=== PATIENT | male | born 1975 | race Caucasian/White ===

== ENCOUNTER 2017-04-16 19:36 | Emergency (ER) | payer MEDICARE, MEDICAID ==
[~2017-04-16 19:36] MED LIST: DEPA500T3 PO; DIVA250ER PO; REME30TA PO; RISP2TAB37 PO; TRAM50TA PO
[2017-04-16 19:38] VITALS: BP 169/76; PULSE 88; RESP 16; TEMP 98.5; O2SAT 99
[2017-04-16] MEDS ORDERED: CIPROFLOXACIN 400 MG PREMIX 200 ML IV ONE (20:00)
[2017-04-16] MEDS ORDERED: metroNIDAZOLE 500 MG INJ 100 ML IV ONE (20:00)
[2017-04-16] MEDS ORDERED: ONDANSETRON HCL 4 MG/2 ML VIAL IV ONE (20:00)
[2017-04-16] MEDS ORDERED: KETOROLAC TROMETHAMINE 30 MG/ML (IVP) VIAL IV PUSH ONE (20:00)
[2017-04-16] MEDS ORDERED: SODIUM CHLOR 0.9% 1000 ML INJ 1,000 ML IV ONE (20:00)
[2017-04-16 20:05] VITALS: RESP 16; O2SAT 99
--- NOTE | 2017-04-16 20:05 | PD ---
HPI Chief Complaint: GI Complaint Time Seen by Provider: 19:45 Travel History International Travel<30 days: No Contact w/Intl Traveler<30days: No Traveled to known affect area: No History of Present Illness HPI The patient is a 41 year old male who presents to the [facility] emergency department with a history of abdominal pain that he reports began 1-2 hours prior to arrival. The patient reports that the pain is in the left lower quadrant of the abdomen and is stabbing in character. He reports that the pain comes and goes. He reports that the pain was associated with nausea and vomiting 2, diarrhea 1. The patient reports that the pain is similar to his prior episodes of diverticulitis. He has had many episodes of diverticulitis in the past. The patient was last treated for diverticulitis approximately 4 weeks ago. He completed the antibiotic 3 weeks ago. He is in the process of being monitored by a local general surgeon, Dr. Chavarria. He has not had any surgery regarding this. He denies having any fevers. He denies having any dysuria, urinary frequency, or urinary urgency. On review of systems otherwise , the patient denies any recent cough, congestion, neck pain, chest pain, shortness of breath, or neurologic symptoms. L PFSH Past Medical History Narrative Medical The patient's past medical history is significant for diverticulitis, history of chronic renal insufficiency recently placed on valsartan can for treatment. The patient has a history of bipolar disorder, obesity. Asthma: No Blood Disorders: No Bipolar Disorder: Yes Anxiety: Yes Depression: No Heart Rhythm Problems: No Cancer: No Cardiovascular Problems: No High Cholesterol: No Chemotherapy: No Chest Pain: No Congestive Heart Failure: No COPD: No Diabetes: No Diminished Hearing: No Diverticulitis: Yes Endocrine: No Genitourinary: Yes Immune Disorder: No Musculoskeletal: No Neurologic: No Psychiatric: Yes (MANIC BIPOLAR) Reproductive: No Respiratory: No Immunizations Current: No Radiation Therapy: No Renal Failure: Yes (KIDNEY DYSFUNCTION) Sleep Apnea: No Thyroid Disease: No Tetanus Vaccination: Unknown Influenza Vaccination: No Past Surgical History Narrative Surgical The patient's past surgical history is reportedly none. Oral Surgery: Yes (ALL TEETH REMOVED) Other Surgery: No Social History Alcohol Use: No Tobacco Use: No (he quit 2 months ago) Substance Use: No Allergies-Medications (Allergen,Severity, Reaction): Coded Allergies: Morphine (Verified Allergy, Intermediate, Rash, 04/16/17) Reported Meds & Prescriptions Reported Meds & Active Scripts Active Remeron (Mirtazapine) 30 Mg Tab 30 Mg PO HS Depakote ER (Divalproex Sodium) 500 Mg Casey 500 Mg PO 2 AT HS Depakote ER (Divalproex Sodium) 250 Mg Casey 250 Mg PO HS Depakote ER 500 mg (Divalproex Sodium) 500 Mg Tab 1,000 Mg PO 2 TABS AT HS Risperdal (Risperidone) 2 Mg Tab 2 Mg PO BID Reported Tramadol (Tramadol HCl) 50 Mg Tab 50 Mg PO Q6H PRN Review of Systems Except as stated in HPI: all other systems reviewed are Neg General / Constitutional: No: Fever Eyes: No: Visual changes HENT: No: Headaches Cardiovascular: No: Chest Pain or Discomfort Respiratory: No: Shortness of Breath Gastrointestinal: Positive: Nausea, Vomiting, Diarrhea, Abdominal Pain, Hematochezia, Changes in Bowel Habits, No: Hematemesis, Constipation, Indigestion, Loss of Appetite Genitourinary: No: Dysuria Musculoskeletal: No: Pain Skin: No Rash Neurologic: No: Weakness, Focal Abnormalities, Change in Mentation, Slurred Speech, Sensory Disturbance Psychiatric: No: Depression Endocrine: No: Polydipsia Hematologic/Lymphatic: No: Easy Bruising Physical Exam Narrative General: The patient is a well-developed well-nourished male in no acute distress. Head and Neck exam: Head is normocephalic atraumatic. Eyes: EOMI, pupils are equal round and reactive to light. Nose: Midline septum with pink mucous membranes Mouth: Dentition unremarkable. Moist mucus membranes. Posterior oropharynx is not erythematous. No tonsillar hypertrophy. Uvula midline. Airway patent. Neck: No palpable lymphadenopathy. No nuchal rigidity. No thyromegaly. Cardiovascular: Regular rate and rhythm without murmurs, gallops, or rubs. No pulse deficit to the extremities. Lungs: Clear to auscultation bilaterally. No wheezes, rhonchi, or rales. Abdomen: Soft, with reported mild discomfort on deep palpation of the left lower quadrant of the abdomen, no other tenderness on palpation of the other quadrants of the abdomen. The patient has abdominal distention related to central obesity. No guarding, rebound, or rigidity. Negative [place] sign. No tenderness on palpation of McBurney's point. Normal bowel sounds are audible. Extremities: No clubbing or cyanosis. The patient has trace pedal edema bilateral lower extremities. 2+ pulses in all 4 extremities. No calf tenderness on palpation. Back: No spinous process tenderness to palpation. The patient reports having some left-sided CVA tenderness on palpation. Neurologic Exam: Grossly nonfocal. Skin Exam: No rash noted. Intact skin that is warm and dry. Data Data Last Documented VS Vital Signs Date Time Temp Pulse Resp B/P Pulse Ox O2 Delivery O2 Flow Rate FiO2 04/16/17 20:05 16 99 Room Air 04/16/17 19:38 98.5 88 169/76 Orders Complete Blood Count With Diff (04/16/17 19:55) Comprehensive Metabolic Panel (04/16/17 19:55) C-Reactive Protein (Crp) (04/16/17 19:55) Lipase (04/16/17 19:55) Urinalysis - C+S If Indicated (04/16/17 19:55) Iv Access Insert/Monitor (04/16/17 19:55) Ecg Monitoring (04/16/17 19:55) Oximetry (04/16/17 19:55) Sodium Chlor 0.9% 1000 Ml Inj (Ns 1000 M (04/16/17 20:00) Ondansetron Inj (Zofran Inj) (04/16/17 20:00) Ketorolac Inj (Toradol Inj) (04/16/17 20:00) Metronidazole 500 Mg Inj (Flagyl 500 Mg (04/16/17 20:00) Ciprofloxacin 400 Mg Premix (Cipro 400 M (04/16/17 20:00) Electrocardiogram (04/16/17 19:58) Hydromorphone Pf Inj (Dilaudid Pf Inj) (04/16/17 21:15) Labs Laboratory Tests Test 04/16/17 20:20 White Blood Count 8.1 TH/MM3 Red Blood Count 2.86 MIL/MM3 Hemoglobin 9.6 GM/DL Hematocrit 27.7 % Mean Corpuscular Volume 96.8 FL Mean Corpuscular Hemoglobin 33.7 PG Mean Corpuscular Hemoglobin 34.8 % Concent Red Cell Distribution Width 14.1 % Platelet Count 164 TH/MM3 Mean Platelet Volume 8.5 FL Neutrophils (%) (Auto) 60.7 % Lymphocytes (%) (Auto) 28.9 % Monocytes (%) (Auto) 9.0 % Eosinophils (%) (Auto) 1.0 % Basophils (%) (Auto) 0.4 % Neutrophils # (Auto) 4.9 TH/MM3 Lymphocytes # (Auto) 2.4 TH/MM3 Monocytes # (Auto) 0.7 TH/MM3 Eosinophils # (Auto) 0.1 TH/MM3 Basophils # (Auto) 0.0 TH/MM3 CBC Comment DIFF FINAL Differential Comment Sodium Level 140 MEQ/L Potassium Level 4.1 MEQ/L Chloride Level 109 MEQ/L Carbon Dioxide Level 21.8 MEQ/L Anion Gap 9 MEQ/L Blood Urea Nitrogen 33 MG/DL Creatinine 2.19 MG/DL Estimat Glomerular Filtration 33 ML/MIN Rate Random Glucose 130 MG/DL Calcium Level 8.8 MG/DL Total Bilirubin 0.3 MG/DL Aspartate Amino Transf 14 U/L (AST/SGOT) Alanine Aminotransferase 24 U/L (ALT/SGPT) Alkaline Phosphatase 78 U/L C-Reactive Protein 1.70 MG/DL Total Protein 7.2 GM/DL Albumin 3.5 GM/DL Lipase 182 U/L MDM Medical Decision Making Medical Screen Exam Complete: Yes Emergency Medical Condition: Yes Differential Diagnosis Diverticulitis, versus pyelonephritis, versus constipation Narrative Course During the course of the patients emergency department visit, the patients history, examination, and differential diagnosis were reviewed with the patient. The patient had IV access obtained and blood work sent for analysis. The patient was placed on a teletypesetter monitor with oximetry and blood pressure monitoring. The patient is accompanied to this emergency department visit by his mother. She reports that he recently underwent CT at [facility]. She reports that he's had multiple CTs of the abdomen and pelvis, and she is concerned about further radiation exposure. As the patient's examination is benign, no evidence of an acute abdomen noted on examination at this time, we will attempt to defer further imaging as the patient's symptoms are highly suspicious for diverticulitis given his history. The patient had an EKG done on arrival. The patient's EKG shows a sinus rhythm, heart rate of 86, no acute ST segment changes are noted, QRS duration is 92 ms, QTC 400 ms. The patient was initially provided normal saline 1 L IV fluid bolus, Zofran 4 mg IV, ciprofloxacin 400 mg IV, Flagyl 500 mg IV, Toradol 15 mg IV. The patient continued to have discomfort and was given hydromorphone 0.5 mg IV 1. The patients laboratory studies were reviewed and remarkable for a white count of 8.1, hemoglobin 9.6 which compared to previously is improved compared to 8.4 in May 2016, platelets 164, monocytes 9, CMP is remarkable for a chloride of 109, BUN is 33, creatinine 2.19 which appears to be at the patient's baseline compared to previously, glucose 130, AST 14, C-reactive protein 1.70, lipase is 182. The patient's record from [facility] reveals that his last CAT scan was done on March 22, 2017 and revealed mild acute diverticulitis involving the sigmoid colon and hepatic steatosis. As the patient's white count at this time is not elevated, and the patient's examination is consistent with recurrence of diverticulitis, I do not see the need for the patient to have repeat imaging at this time. The patient has no signs of an acute abdomen. The patient will be discharged home with antibiotic and pain medication. As the patient's creatinine clearance was calculated to be borderline for administration of the full dose of Cipro, the patient was instead given ciprofloxacin 250 mg by mouth every 12 hours for 10 days. The patient is resting comfortably and feels better, is alert and in no distress. The patients results and examination findings were discussed with the patient. The repeat examination is unremarkable and benign. The history, exam, diagnostic testing, and current condition do not suggest any significant pathology to warrant further testing, continued ED treatment, admission, or surgical evaluation at this point. The vital signs have been stable. The patient does not have uncontrollable pain, intractable vomiting, or other significant symptoms. The patient's condition is stable and appropriate for discharge. The patient will pursue further outpatient evaluation with a primary care physician or other designated or consulting physician as indicated in the discharge instructions. The patient expressed understanding and was agreeable with this plan. Diagnosis Primary Impression: Abdominal pain Qualified Code: R10.32 - Left lower quadrant pain Additional Impression: Acute diverticulitis Referrals: Stepan Florez MD Primary Care Physician Patient Instructions: Diverticulitis (ED), Diverticulitis Diet (ED), General Instructions Med/Other Pt SpecificInfo: Prescription(s) given Scripts Hydrocodone-Acetaminophen (Lortab)7.5-325 Mg Tab1 Tab PO Q6H PRN (PAIN) #10 TAB Ref 0 Prov:Arianna Rabago MD 04/16/17 Metronidazole (Flagyl)500 Mg [id number] Mg PO TID 10 Days Ref 0 Prov:Arianna Rabago MD 04/16/17 Ciprofloxacin (Cipro)250 Mg [id number] Mg PO BID 10 Days Ref 0 Prov:Arianna Rabago MD 04/16/17 Disposition: 01 DISCHARGE HOME Condition: Stable Arianna Rabago MD April 16, 2017 20:05
[2017-04-16 20:49] LABS: AUTOMATED NEUTROPHIL # 4.9 TH/MM3 (1.8-7.7); BASOPHIL % 0.4 % (0.0-2.0); EOSINOPHIL # 0.1 TH/MM3 (0-0.4); HEMATOCRIT 27.7 % (39.0-51.0); HEMO FLAGS DIFF FINAL; LYMPH % 28.9 % (9.0-44.0); LYMPHOCYTE # 2.4 TH/MM3 (1.0-4.8); MEAN CELL VOLUME 96.8 FL (80.0-100.0); MEAN CORPUSCULAR HEMOGLOBIN 33.7 PG (27.0-34.0); MEAN CORPUSCULAR HGB CONC 34.8 % (32.0-36.0); NEUT % 60.7 % (16.0-70.0); PLATELET COUNT 164 TH/MM3 (150-450); RED BLOOD COUNT 2.86 MIL/MM3 (4.50-5.90); RED CELL DISTRIBUTION WIDTH 14.1 % (11.6-17.2); WHITE BLOOD COUNT 8.1 TH/MM3 (4.0-11.0)
[2017-04-16] MEDS ORDERED: HYDROmorphone HCL PF 1 MG/ML VIAL IV PUSH ONE (21:15)
[2017-04-16 21:26] LABS: ANION GAP 9 MEQ/L (5-15); AST (GOT) 14 U/L (15-37); BICARBONATE 21.8 MEQ/L (21.0-32.0); BLOOD UREA NITROGEN 33 MG/DL (7-18); CHLORIDE 109 MEQ/L (98-107); GLOMERULAR FILTRATION RATE 33 ML/MIN (>89); POTASSIUM 4.1 MEQ/L (3.5-5.1); SODIUM (NA) 140 MEQ/L (136-145)
[2017-04-16 21:30] LABS: ALKALINE PHOSPHATASE 78 U/L (45-117); ALT (GPT) 24 U/L (12-78); TOTAL BILIRUBIN ADULT 0.3 MG/DL (0.2-1.0)
[2017-04-16] MEDS ORDERED: HYDR-3534 PO (21:46)
[2017-04-16] MEDS ORDERED: METR-1 PO (21:46)
[2017-04-16] MEDS ORDERED: CIPR250T52 PO (21:46)
[2017-04-16 21:50] LABS: BLOOD, URINE NEG (NEG); GLUCOSE,URINE NEG (NEG); KETONE, URINE NEG (NEG); NITRITE,URINE NEG (NEG); SQUAMOUS EPITHELIAL CELL URINE <1 /hpf (0-5); URINE COLOR LIGHT-YELLOW (YELLW/STRAW)
[2017-04-16 21:53] LABS: COMMENT (UR) CULT NOT INDICATED; CULTURE IF INDICATED CULT NOT INDICATED
--- NOTE | 2017-04-17 19:38 | EKG ---
Date Performed: 04/16/2017 Time Performed: 20:21:48 PTAGE: 41 years EKG: Sinus rhythm WITH FIRST DEGREE AV BLOCK LOW QRS VOLTAGE IN PRECORDIAL LEADS ABNORMAL ECG PREVIOUS TRACING : 07/30/2013 22.14 Compared to prior tracing no significant change DOCTOR: Su Martinez Interpretating Date/Time 04/17/2017 19:37:53
== END 2017-04-16 22:30 | disposition home or self-care (01) ==
LOC: NEPE 19:36
DX: K57.92 Diverticulitis of intestine, part unspecified, without perforation or abscess without bleeding (principal); R94.31 Abnormal electrocardiogram [ECG] [EKG]; F31.9 Bipolar disorder, unspecified; N18.9 Chronic kidney disease, unspecified; Z87.891 Personal history of nicotine dependence
CPT/HCPCS: 80053; 81001; 83690; 85025; 86140; 93005; 96365; 96367; 96375; 99284; J0744; J1170; J1885; J2405; J7030

== ENCOUNTER 2017-05-08 21:16 | Emergency (ER) | payer MEDICAID, MEDICARE ==
[~2017-05-08 21:16] MED LIST changes: +CIPR250T52 PO; +HYDR-3534 PO; +METR-1 PO
[2017-05-08 21:18] VITALS: BP 145/93; PULSE 88; RESP 22; TEMP 97.4; O2SAT 98
[2017-05-08] MEDS ORDERED: SODIUM CHLOR 0.9% 1000 ML INJ 1,000 ML IV SCH (22:18)
[2017-05-08] MEDS ORDERED: ONDANSETRON HCL 4 MG/2 ML VIAL IVP ONE (22:30)
[2017-05-08] MEDS ORDERED: SODIUM CHLORIDE 0.9% FLUSH 10 ML FLUSH IV FLUSH PRN (22:30)
[2017-05-08] MEDS ORDERED: HYDROmorphone HCL PF 1 MG/ML VIAL IVS ONE (22:30)
--- NOTE | 2017-05-08 22:31 | PD ---
HPI Chief Complaint: Abdominal Pain Time Seen by Provider: 22:17 Travel History International Travel<30 days: No Contact w/Intl Traveler<30days: No Traveled to known affect area: No History of Present Illness HPI LOWER ABD PAIN 2HRS AGO, WAS SEEN MID MARCH FOR DIVERTIC AND TREATED WITH PO ABX AT THAT TIME, PER PT COMPLETED PFSH Past Medical History Asthma: No Blood Disorders: No Bipolar Disorder: Yes Anxiety: Yes Depression: No Heart Rhythm Problems: No Cancer: No Cardiovascular Problems: No High Cholesterol: No Chemotherapy: No Chest Pain: No Congestive Heart Failure: No COPD: No Diabetes: No Diminished Hearing: No Diverticulitis: Yes Endocrine: No Genitourinary: Yes Immune Disorder: No Musculoskeletal: No Neurologic: No Psychiatric: Yes (MANIC BIPOLAR) Reproductive: No Respiratory: No Immunizations Current: No Radiation Therapy: No Renal Failure: Yes (KIDNEY DYSFUNCTION) Sleep Apnea: No Thyroid Disease: No Past Surgical History Oral Surgery: Yes (ALL TEETH REMOVED) Other Surgery: No Social History Alcohol Use: No Tobacco Use: No (he quit 2 months ago) Substance Use: No Allergies-Medications (Allergen,Severity, Reaction): Coded Allergies: Percocet (Verified Allergy, Severe, Headache, 05/08/17) Morphine (Verified Allergy, Intermediate, Rash, 05/08/17) Reported Meds & Prescriptions Reported Meds & Active Scripts Active Lortab (Hydrocodone-Acetaminophen) 7.5-325 Mg Tab 1 Tab PO Q6H PRN Flagyl (Metronidazole) 500 Mg Tab 500 Mg PO TID 10 Days Cipro (Ciprofloxacin HCl) 250 Mg Tab 250 Mg PO BID 10 Days Risperdal (Risperidone) 2 Mg Tab 2 Mg PO BID Remeron (Mirtazapine) 30 Mg Tab 30 Mg PO HS Depakote ER (Divalproex Sodium) 500 Mg Casey 500 Mg PO 2 AT HS Depakote ER (Divalproex Sodium) 250 Mg Casey 250 Mg PO HS Depakote ER 500 mg (Divalproex Sodium) 500 Mg Tab 1,000 Mg PO 2 TABS AT HS Reported Tramadol (Tramadol HCl) 50 Mg Tab 50 Mg PO Q6H PRN Review of Systems Except as stated in HPI: all other systems reviewed are Neg Gastrointestinal: Positive: Abdominal Pain Physical Exam Narrative GENERAL: SKIN: Warm and dry. HEAD: Atraumatic. Normocephalic. EYES: Pupils equal and round. No scleral icterus. No injection or drainage. ENT: No nasal bleeding or discharge. Mucous membranes pink and moist. NECK: Trachea midline. No JVD. CARDIOVASCULAR: Regular rate and rhythm. RESPIRATORY: No accessory muscle use. Clear to auscultation. Breath sounds equal bilaterally. GASTROINTESTINAL: OBESE, Abdomen soft, MILD SUPRAPUBIC tenderNESS, nondistended. Hepatic and splenic margins not palpable. MUSCULOSKELETAL: Extremities without clubbing, cyanosis, or edema. No obvious deformities. NEUROLOGICAL: Awake and alert. No obvious cranial nerve deficits. Motor grossly within normal limits. Five out of 5 muscle strength in the arms and legs. Normal speech. PSYCHIATRIC: Appropriate mood and affect; insight and judgment normal. Data Data Last Documented VS Vital Signs Date Time Temp Pulse Resp B/P Pulse Ox O2 Delivery O2 Flow Rate FiO2 05/08/17 21:18 97.4 88 22 145/93 98 Room Air Orders Complete Blood Count With Diff (05/08/17 22:18) Comprehensive Metabolic Panel (05/08/17 22:18) Lipase (05/08/17 22:18) Prothrombin Time / Inr (Pt) (05/08/17 22:18) Act Partial Throm Time (Ptt) (05/08/17 22:18) Urinalysis - C+S If Indicated (05/08/17 22:18) Ct Abd/Pel W/O Iv Contrast (05/08/17 22:18) Iv Access Insert/Monitor (05/08/17 22:18) Ecg Monitoring (05/08/17 22:18) Oximetry (05/08/17 22:18) NPO (05/08/17 22:18) Ondansetron Inj (Zofran Inj) (05/08/17 22:30) Sodium Chlor 0.9% 1000 Ml Inj (Ns 1000 M (05/08/17 22:18) Sodium Chloride 0.9% Flush (Ns Flush) (05/08/17 22:30) Electrocardiogram (05/08/17 22:18) Hydromorphone Pf Inj (Dilaudid Pf Inj) (05/08/17 22:30) Labs Laboratory Tests Test 05/08/17 05/08/17 22:30 22:37 White Blood Count 9.4 TH/MM3 Red Blood Count 2.89 MIL/MM3 Hemoglobin 9.7 GM/DL Hematocrit 28.5 % Mean Corpuscular Volume 98.5 FL Mean Corpuscular Hemoglobin 33.5 PG Mean Corpuscular Hemoglobin 34.0 % Concent Red Cell Distribution Width 14.3 % Platelet Count 194 TH/MM3 Mean Platelet Volume 8.1 FL Neutrophils (%) (Auto) 61.5 % Lymphocytes (%) (Auto) 28.1 % Monocytes (%) (Auto) 9.3 % Eosinophils (%) (Auto) 0.9 % Basophils (%) (Auto) 0.2 % Neutrophils # (Auto) 5.8 TH/MM3 Lymphocytes # (Auto) 2.6 TH/MM3 Monocytes # (Auto) 0.9 TH/MM3 Eosinophils # (Auto) 0.1 TH/MM3 Basophils # (Auto) 0.0 TH/MM3 CBC Comment DIFF FINAL Differential Comment Prothrombin Time 11.0 SEC Prothromb Time International 1.0 RATIO Ratio Activated Partial 26.0 SEC Thromboplast Time Sodium Level 144 MEQ/L Potassium Level 4.4 MEQ/L Chloride Level 114 MEQ/L Carbon Dioxide Level 20.2 MEQ/L Anion Gap 10 MEQ/L Blood Urea Nitrogen 39 MG/DL Creatinine 2.14 MG/DL Estimat Glomerular Filtration 34 ML/MIN Rate Random Glucose 128 MG/DL Calcium Level 9.1 MG/DL Total Bilirubin 0.2 MG/DL Aspartate Amino Transf 11 U/L (AST/SGOT) Alanine Aminotransferase 21 U/L (ALT/SGPT) Alkaline Phosphatase 84 U/L Total Protein 7.6 GM/DL Albumin 3.6 GM/DL Lipase 206 U/L Urine Color LIGHT-YELLOW Urine Turbidity CLEAR Urine pH 5.5 Urine Specific [place] 1.006 Urine Protein NEG mg/dL Urine Glucose (UA) NEG mg/dL Urine Ketones NEG mg/dL Urine Occult Blood NEG Urine Nitrite NEG Urine Bilirubin NEG Urine Urobilinogen LESS THAN 2.0 MG/DL Urine Leukocyte Esterase NEG Urine WBC LESS THAN 1 /hpf Urine Squamous Epithelial <1 /hpf Cells Urine Bacteria RARE /hpf Urine Mucus FEW /lpf Microscopic Urinalysis Comment CULT NOT INDICATED MDM Medical Decision Making Medical Screen Exam Complete: Yes Emergency Medical Condition: Yes Medical Record Reviewed: Yes Interpretation(s) NSR, 87, STAN, NO STEMI PATTERN NOTED Differential Diagnosis DIVERTIC, R/O ABSCESS/PERFORATION Narrative Course PATIENT SEEN VSS, NO EVIDENCE OF SURGICAL ABDOMEN WILL OBTAIN LABS AND CT TO R/ O FOR ANY COMPLICATIONS OF DIVERTICULITIS. Diagnosis Primary Impression: RESOLVING DIVERTICULITIS Patient Instructions: Diverticulitis (ED), Diverticulitis Diet (ED), General Instructions Med/Other Pt SpecificInfo: Prescription(s) given Scripts Hydrocodone-Acetaminophen (Lortab)10-325 Mg Tab1 Tab PO Q6H PRN (PAIN) #14 TAB Ref 0 Prov:Adam Rowe MD 05/08/17 Metronidazole (Flagyl)500 Mg [id number] Mg PO TID #21 TAB Ref 0 Prov:Adam Rowe MD 05/08/17 Ciprofloxacin (Cipro)500 Mg [id number] Mg PO BID #14 TAB Ref 0 Prov:Adam Rowe MD 05/08/17 Disposition: 01 DISCHARGE HOME Condition: Stable Adam Rowe MD May 08, 2017 22:31
[2017-05-08 22:50] LABS: AUTOMATED NEUTROPHIL # 5.8 TH/MM3 (1.8-7.7); BASOPHIL % 0.2 % (0.0-2.0); EOSINOPHIL # 0.1 TH/MM3 (0-0.4); EOSINOPHIL % 0.9 % (0.0-4.0); HEMATOCRIT 28.5 % (39.0-51.0); HEMO FLAGS DIFF FINAL; LYMPH % 28.1 % (9.0-44.0); LYMPHOCYTE # 2.6 TH/MM3 (1.0-4.8); MEAN CELL VOLUME 98.5 FL (80.0-100.0); MEAN CORPUSCULAR HEMOGLOBIN 33.5 PG (27.0-34.0); MONO % 9.3 % (0.0-8.0); NEUT % 61.5 % (16.0-70.0); PLATELET COUNT 194 TH/MM3 (150-450); RED BLOOD COUNT 2.89 MIL/MM3 (4.50-5.90); RED CELL DISTRIBUTION WIDTH 14.3 % (11.6-17.2); WHITE BLOOD COUNT 9.4 TH/MM3 (4.0-11.0)
[2017-05-08 22:55] LABS: BACTERIA, URINE RARE /hpf; BLOOD, URINE NEG (NEG); COMMENT (UR) CULT NOT INDICATED; CULTURE IF INDICATED CULT NOT INDICATED; GLUCOSE,URINE NEG (NEG); KETONE, URINE NEG (NEG); MUCUS URINE FEW /lpf (OCC); NITRITE,URINE NEG (NEG); PH, URINE 5.5 (5.0-8.5); SQUAMOUS EPITHELIAL CELL URINE <1 /hpf (0-5); URINE COLOR LIGHT-YELLOW (YELLW/STRAW)
[2017-05-08 23:21] LABS: ALT (GPT) 21 U/L (12-78); ANION GAP 10 MEQ/L (5-15); AST (GOT) 11 U/L (15-37); BICARBONATE 20.2 MEQ/L (21.0-32.0); BLOOD UREA NITROGEN 39 MG/DL (7-18); CHLORIDE 114 MEQ/L (98-107); GLOMERULAR FILTRATION RATE 34 ML/MIN (>89); POTASSIUM 4.4 MEQ/L (3.5-5.1); SODIUM (NA) 144 MEQ/L (136-145)
[2017-05-08 23:24] LABS: ALKALINE PHOSPHATASE 84 U/L (45-117); TOTAL BILIRUBIN ADULT 0.2 MG/DL (0.2-1.0)
--- NOTE | 2017-05-08 23:44 | RADRPT ---
EXAM DATE/TIME: 05/08/2017 23:17 [place] COMPARISON: CT ABDOMEN & PELVIS W/O CONTRAST, June 13, 2016, 6:48. INDICATIONS : Abdomen pain with vomiting. ORAL CONTRAST: No oral contrast ingested. RADIATION DOSE: 38.78 CTDIvol (mGy) MEDICAL HISTORY : Diverticulitis. Renal insufficiency, chronic. SURGICAL HISTORY : None. ENCOUNTER: Initial ACUITY: 1 day PAIN SCALE: 8/10 LOCATION: Bilateral abdomen TECHNIQUE: Volumetric scanning of the abdomen and pelvis was performed. Using automated exposure control and ad justment of the mA and/or kV according to patient size, radiation dose was kept as low as reasonably achievable to obtain optimal diagnostic quality images. FINDINGS: CT Abdomen: The spleen is enlarged measuring 17.1 cm in AP diameter and 14.6 cm in craniocaudal dimen [place] without focal lesions for technique. There is a tiny 1.6 cm low attenuating lesion in the right hepatic lobe anteriorly probably a cyst and not changed. The pancreas, kidneys, adrenals are unremar kable. There is no evidence for any appreciable pathological adenopathy, free fluid, or bowel obstruc tion. CT pelvis: There is no evidence for mass, abscess formation, or any significant adenopathy within the pelvis. Extensive colonic diverticulosis is present and there is a significant diverticulitis of sig moid colon has basically resolved with minimal haziness surrounding the sigmoid colon at this site mi nimal inflammatory change and possible minimal case of acute diverticulitis. CONCLUSION: Significant improvement in acute diverticulitis since the prior examination with mini mal haziness surrounding the sigmoid colon and very mild case of acute diverticulitis could be presen t although findings could be due to sequelae of previous diverticulitis. Mickie Bernard MD on May 08, 2017 at 23:36 Board Certified Radiologist. This report was verified electronically.
[2017-05-08] MEDS ORDERED: METR-1 PO (23:49)
[2017-05-08] MEDS ORDERED: CIPR-9 PO (23:49)
[2017-05-08] MEDS ORDERED: HYDR-3535 PO (23:49)
[2017-05-09] MEDS ORDERED: HYDROmorphone HCL PF 1 MG/ML VIAL IV PUSH ONE
--- NOTE | 2017-05-09 15:25 | EKG ---
Date Performed: 05/08/2017 Time Performed: 22:30:04 PTAGE: 41 years EKG: Sinus rhythm WITH FIRST DEGREE AV BLOCK LOW QRS VOLTAGE IN PRECORDIAL LEADS ABNORMAL ECG Compared to prior tracin g no significant change PREVIOUS TRACING : 04/16/2017 20.21 DOCTOR: Nicholas Valle Interpretating Date/Time 05/09/2017 15:24:10
== END 2017-05-09 00:37 | disposition home or self-care (01) ==
LOC: NEPD 21:16
DX: K57.92 Diverticulitis of intestine, part unspecified, without perforation or abscess without bleeding (principal); F31.9 Bipolar disorder, unspecified; R94.31 Abnormal electrocardiogram [ECG] [EKG]
CPT/HCPCS: 74176; 80053; 81001; 83690; 85025; 85610; 85730; 93005; 96361; 96374; 96375; 99285; J1170; J2405; J7030

== ENCOUNTER 2017-05-12 16:33 | Emergency (ER) | payer MEDICARE ==
[~2017-05-12] VITALS: Ht 177.8 cm; Wt 168.0 kg
[~2017-05-12 16:33] MED LIST changes: +CIPR-9 PO; +HYDR-3535 PO
[2017-05-12 16:34] VITALS: BP 136/88; PULSE 114; RESP 24; TEMP 98.4; O2SAT 98
--- NOTE | 2017-05-12 16:42 | PD ---
Physical Exam Date Seen by Provider: May 12, 2017 Time Seen by Provider: 16:38 Data Data Last Documented VS Vital Signs Date Time Temp Pulse Resp B/P Pulse Ox O2 Delivery O2 Flow Rate FiO2 05/12/17 16:34 98.4 114 24 136/88 98 Room Air MDM Supervised Visit with DIANNA: No Narrative Course 41 YO M with complaint of 9/10 abdominal pain. States here for diverticulitis. + N/D. Endorses compliance with Cipro and Flagyl. Last dose Lortab ~230 today. Vitals reviewed. Seen in triage, awaiting bed placement. Elizabeth May May 12, 2017 16:42
[2017-05-12] MEDS ORDERED: REME30TA PO (17:38)
[2017-05-12] MEDS ORDERED: SODIUM CHLOR 0.9% 1000 ML INJ 1,000 ML IV SCH (17:46)
--- NOTE | 2017-05-12 17:50 | PD ---
HPI Chief Complaint: Abdominal Pain Time Seen by Provider: 17:34 Travel History International Travel<30 days: No Contact w/Intl Traveler<30days: No Traveled to known affect area: No History of Present Illness HPI Is a 41-year-old male who presents emergency department for a second evaluation of abdominal pain this week. Patient states that 4 days ago he had onset of left lower quadrant abdominal pain and presented to this emergency department diagnosed with mild diverticulitis. He was discharged home his been taking hydrocodone at home states she is in extreme pain. He states his been followed by Dr. Garcia wants him to lose weight prior to a partial colectomy. He states the only venous changes of his pain is gotten worse and is had some mild diarrhea which is nonbloody. No chest pain or shortness of breath mild nausea without vomiting no fevers. He has not yet followed up with his physician since his current flare. PFSH Past Medical History Asthma: No Blood Disorders: No Bipolar Disorder: Yes Anxiety: Yes Depression: No Heart Rhythm Problems: No Cancer: No Cardiovascular Problems: No High Cholesterol: No Chemotherapy: No Chest Pain: No Congestive Heart Failure: No COPD: No Diabetes: No Diminished Hearing: No Diverticulitis: Yes Endocrine: No Gastrointestinal Disorders: No Genitourinary: Yes Hypertension: No Immune Disorder: No Implanted Vascular Access Dvce: No Musculoskeletal: No Neurologic: No Psychiatric: Yes (MANIC BIPOLAR) Reproductive: No Respiratory: No Immunizations Current: No Radiation Therapy: No Renal Failure: Yes ("KIDNEY DYSFUNCTION" PER MOTHER) Sleep Apnea: No Thyroid Disease: No Past Surgical History Oral Surgery: Yes (ALL TEETH REMOVED) Other Surgery: Yes Social History Alcohol Use: No Tobacco Use: No (PT STATES HE RECENTLY QUIT) Substance Use: No Allergies-Medications (Allergen,Severity, Reaction): Coded Allergies: Percocet (Verified Allergy, Severe, Headache, 05/12/17) Morphine (Verified Allergy, Intermediate, Rash, 05/12/17) Reported Meds & Prescriptions Reported Meds & Active Scripts Active Phenergan (Promethazine HCl) 25 Mg Tablet 25 Mg PO Q6H PRN Bentyl (Dicyclomine HCl) 10 Mg Cap 10 Mg PO TID PRN Lortab (Hydrocodone-Acetaminophen) 10-325 Mg Tab 1 Tab PO Q6H PRN Cipro (Ciprofloxacin HCl) 500 Mg Tab 500 Mg PO BID Flagyl (Metronidazole) 500 Mg Tab 500 Mg PO TID 10 Days Cipro (Ciprofloxacin HCl) 250 Mg Tab 250 Mg PO BID 10 Days Risperdal (Risperidone) 2 Mg Tab 2 Mg PO BID Depakote ER (Divalproex Sodium) 500 Mg Casey 500 Mg PO 2 AT HS Reported Remeron (Mirtazapine) 30 Mg Tab 30 Mg PO HS Review of Systems Except as stated in HPI: all other systems reviewed are Neg Physical Exam Narrative GENERAL: Well developed well-nourished, morbidly obese in no apparent distress SKIN: Focused skin assessment warm/dry. HEAD: Atraumatic. Normocephalic. EYES: Pupils equal and round. No scleral icterus. No injection or drainage. ENT: No nasal bleeding or discharge. Mucous membranes pink and moist. NECK: Trachea midline. No JVD. CARDIOVASCULAR: Regular rate and rhythm. No murmur appreciated. RESPIRATORY: No accessory muscle use. Clear to auscultation. Breath sounds equal bilaterally. GASTROINTESTINAL: Abdomen soft, minimally tender in the left lower quadrant without any rebound or percussive pain., nondistended. Hepatic and splenic margins not palpable. MUSCULOSKELETAL: No obvious deformities. No clubbing. No cyanosis. No edema. NEUROLOGICAL: Awake and alert. No obvious cranial nerve deficits. Motor grossly within normal limits. Normal speech. PSYCHIATRIC: Appropriate mood and affect; insight and judgment normal. Data Data Last Documented VS Vital Signs Date Time Temp Pulse Resp B/P Pulse Ox O2 Delivery O2 Flow Rate FiO2 05/12/17 20:18 98 20 123/55 95 05/12/17 19:14 Room Air 05/12/17 18:20 2 05/12/17 16:34 98.4 Orders Complete Blood Count With Diff (05/12/17 17:46) Comprehensive Metabolic Panel (05/12/17 17:46) Lactic Acid (05/12/17 17:46) Urinalysis - C+S If Indicated (05/12/17 17:46) Iv Access Insert/Monitor (05/12/17 17:46) Ecg Monitoring (05/12/17 17:46) Oximetry (05/12/17 17:46) Ondansetron Inj (Zofran Inj) (05/12/17 18:00) Sodium Chlor 0.9% 1000 Ml Inj (Ns 1000 M (05/12/17 17:46) Sodium Chloride 0.9% Flush (Ns Flush) (05/12/17 18:00) Hydromorphone Pf Inj (Dilaudid Pf Inj) (05/12/17 18:00) Hydromorphone Pf Inj (Dilaudid Pf Inj) (05/12/17 19:30) Labs Laboratory Tests Test 05/12/17 05/12/17 18:00 18:34 White Blood Count 7.8 TH/MM3 Red Blood Count 2.90 MIL/MM3 Hemoglobin 9.6 GM/DL Hematocrit 28.9 % Mean Corpuscular Volume 99.6 FL Mean Corpuscular Hemoglobin 33.2 PG Mean Corpuscular Hemoglobin 33.4 % Concent Red Cell Distribution Width 14.8 % Platelet Count 159 TH/MM3 Mean Platelet Volume 8.5 FL Neutrophils (%) (Auto) 72.3 % Lymphocytes (%) (Auto) 15.0 % Monocytes (%) (Auto) 12.2 % Eosinophils (%) (Auto) 0.4 % Basophils (%) (Auto) 0.1 % Neutrophils # (Auto) 5.7 TH/MM3 Lymphocytes # (Auto) 1.2 TH/MM3 Monocytes # (Auto) 1.0 TH/MM3 Eosinophils # (Auto) 0.0 TH/MM3 Basophils # (Auto) 0.0 TH/MM3 CBC Comment DIFF FINAL Differential Comment Sodium Level 139 MEQ/L Potassium Level 4.5 MEQ/L Chloride Level 111 MEQ/L Carbon Dioxide Level 15.1 MEQ/L Anion Gap 13 MEQ/L Blood Urea Nitrogen 32 MG/DL Creatinine 2.59 MG/DL Estimat Glomerular Filtration 28 ML/MIN Rate Random Glucose 130 MG/DL Lactic Acid Level 1.4 mmol/L Calcium Level 9.6 MG/DL Total Bilirubin 0.2 MG/DL Aspartate Amino Transf 17 U/L (AST/SGOT) Alanine Aminotransferase 21 U/L (ALT/SGPT) Alkaline Phosphatase 67 U/L Total Protein 7.4 GM/DL Albumin 3.3 GM/DL Urine Color YELLOW Urine Turbidity CLEAR Urine pH 5.0 Urine Specific [place] 1.007 Urine Protein NEG mg/dL Urine Glucose (UA) NEG mg/dL Urine Ketones NEG mg/dL Urine Occult Blood NEG Urine Nitrite NEG Urine Bilirubin NEG Urine Urobilinogen LESS THAN 2.0 MG/DL Urine Leukocyte Esterase NEG Urine RBC 1 /hpf Urine WBC 1 /hpf Urine Squamous Epithelial <1 /hpf Cells Urine Amorphous Sediment RARE Urine Mucus FEW /lpf Microscopic Urinalysis Comment CULT NOT INDICATED MDM Medical Decision Making Medical Screen Exam Complete: Yes Emergency Medical Condition: Yes Medical Record Reviewed: Yes Differential Diagnosis Diverticulitis, diverticular abscess seems unlikely, her diverticulitis seems unlikely. Narrative Course Patient is a 41-year-old male with a history of recurrent diverticulitis and taken Cipro and Flagyl and hydrocodone for his flare of diverticulitis since the . On the he was here and had a CAT scan with mild diverticulitis and no complications. His abdomen is benign today. We'll check basic labs and reassess. Patient's labs show chronic kidney disease unchanged from previous, white blood cell count normal, lactic acid normal. Coupled with his benign abdominal exam I think repeat CAT scan is not indicated as the risks of radiation exposure, wave the pretest probability. Patient was given a dose of Dilaudid and while he is resting comfortably and appears in no apparent distress states his pains still excruciating. I recommended that he be admitted to the hospital but he thought with an additional dose of pain medicine he will go home. Was given an additional dose of Dilaudid. On my reassess he is sleeping soundly, there is no indication for further workup at this time. The patient is stable for discharge and recommended he follow up with his primary care physician and surgeon by phone in the morning. Discussed return to ED criteria and symptomatic management home, at this time I' m disinclined to prescribe additional narcotics as patient has had multiple scripts for hydrocodone in the past couple of months from multiple ERs in the area. He thinks that if his pain is not that he should be admitted to the hospital and the patient understands this as I explained to him and wishes to go home Diagnosis Primary Impression: Acute diverticulitis Additional Instructions: Follow-up with your regular physician by phone tomorrow. If he start running fevers return to the emergency department. Med/Other Pt SpecificInfo: Prescription(s) given Scripts Promethazine (Phenergan)25 Mg [id number] Mg PO Q6H PRN (NAUSEA OR VOMITING) #20 TAB Ref 0 Prov:Neri Collins MD 05/12/17 Dicyclomine (Bentyl)10 Mg Cap10 Mg PO TID PRN (ABDOMINAL CRAMPING) #20 CAP Ref 0 Prov:Neri Collins MD 05/12/17 Disposition: 01 DISCHARGE HOME Condition: Stable Neri Collins MD May 12, 2017 17:50
[2017-05-12] MEDS ORDERED: SODIUM CHLORIDE 0.9% FLUSH 10 ML FLUSH IV FLUSH PRN (18:00)
[2017-05-12] MEDS ORDERED: ONDANSETRON HCL 4 MG/2 ML VIAL IVP ONE (18:00)
[2017-05-12] MEDS ORDERED: HYDROmorphone HCL PF 1 MG/ML VIAL IVS ONE (18:00)
[2017-05-12 18:20] VITALS: O2SAT 97
[2017-05-12 18:42] VITALS: BP 126/68; PULSE 98; RESP 18; O2SAT 97
[2017-05-12 18:48] LABS: AUTOMATED NEUTROPHIL # 5.7 TH/MM3 (1.8-7.7); BASOPHIL % 0.1 % (0.0-2.0); EOSINOPHIL % 0.4 % (0.0-4.0); HEMATOCRIT 28.9 % (39.0-51.0); HEMO FLAGS DIFF FINAL; LYMPHOCYTE # 1.2 TH/MM3 (1.0-4.8); MEAN CELL VOLUME 99.6 FL (80.0-100.0); MEAN CORPUSCULAR HEMOGLOBIN 33.2 PG (27.0-34.0); MEAN CORPUSCULAR HGB CONC 33.4 % (32.0-36.0); MONO % 12.2 % (0.0-8.0); NEUT % 72.3 % (16.0-70.0); PLATELET COUNT 159 TH/MM3 (150-450); RED CELL DISTRIBUTION WIDTH 14.8 % (11.6-17.2); WHITE BLOOD COUNT 7.8 TH/MM3 (4.0-11.0)
[2017-05-12 18:52] LABS: BLOOD, URINE NEG (NEG); COMMENT (UR) CULT NOT INDICATED; CULTURE IF INDICATED CULT NOT INDICATED; GLUCOSE,URINE NEG (NEG); KETONE, URINE NEG (NEG); MUCUS URINE FEW /lpf (OCC); NITRITE,URINE NEG (NEG); SQUAMOUS EPITHELIAL CELL URINE <1 /hpf (0-5); URINE COLOR YELLOW (YELLW/STRAW)
[2017-05-12 19:04] LABS: ALT (GPT) 21 U/L (12-78)
[2017-05-12 19:07] LABS: ALKALINE PHOSPHATASE 67 U/L (45-117); ANION GAP 13 MEQ/L (5-15); AST (GOT) 17 U/L (15-37); BICARBONATE 15.1 MEQ/L (21.0-32.0); BLOOD UREA NITROGEN 32 MG/DL (7-18); CHLORIDE 111 MEQ/L (98-107); GLOMERULAR FILTRATION RATE 28 ML/MIN (>89); POTASSIUM 4.5 MEQ/L (3.5-5.1); SODIUM (NA) 139 MEQ/L (136-145); TOTAL BILIRUBIN ADULT 0.2 MG/DL (0.2-1.0)
[2017-05-12 19:14] VITALS: BP 127/66; PULSE 99; RESP 19; O2SAT 96
[2017-05-12] MEDS ORDERED: HYDROmorphone HCL PF 1 MG/ML VIAL IV PUSH ONE (19:30)
[2017-05-12] MEDS ORDERED: PROM25TA10 PO (19:45)
[2017-05-12] MEDS ORDERED: DICY10 PO (19:45)
[2017-05-12 20:18] VITALS: BP 123/55
== END 2017-05-12 20:20 | disposition home or self-care (01) ==
LOC: NEPD 16:33
DX: K57.92 Diverticulitis of intestine, part unspecified, without perforation or abscess without bleeding (principal); F31.9 Bipolar disorder, unspecified; F41.9 Anxiety disorder, unspecified; Z79.899 Other long term (current) drug therapy
CPT/HCPCS: 80053; 81001; 83605; 85025; 96361; 96374; 96375; 96376; 99284; J1170; J2405; J7030

== ENCOUNTER 2017-06-15 12:07 | Emergency (ER) | payer MEDICARE ==
[~2017-06-15] VITALS: Ht 177.8 cm; Wt 165.0 kg
[~2017-06-15 12:07] MED LIST changes: +DICY10 PO; -DIVA250ER PO; -HYDR-3534 PO; +PROM25TA10 PO; -TRAM50TA PO
[2017-06-15 12:09] VITALS: BP 118/81; PULSE 104; RESP 20; TEMP 98.3; O2SAT 98
[2017-06-15] MEDS ORDERED: SODIUM CHLOR 0.9% 1000 ML INJ 1,000 ML IV SCH (12:31)
--- NOTE | 2017-06-15 12:39 | PD ---
HPI Chief Complaint: Abdominal Pain Time Seen by Provider: 12:26 Travel History International Travel<30 days: No Contact w/Intl Traveler<30days: No Traveled to known affect area: No History of Present Illness HPI 41-year-old male complains of low abdominal pain and rectal pain. Patient has history of recurrent diverticulitis. Patient has been seen by personal physician and Gen. surgery Dr. Florez for diverticulitis. Patient starting sharp stabbing pain localized to lower abdomen with radiation to the back since last night. Patient states that he has nausea but no vomiting or diarrhea. Patient also has history hemorrhoid that started having pain recently also. Patient denies any blood or mucus in the stool. Patient denies any fever chills. On a scale of 1-10 the pain is a 10. PFSH Past Medical History Asthma: No Blood Disorders: No Bipolar Disorder: Yes Anxiety: Yes Depression: No Heart Rhythm Problems: No Cancer: No Cardiovascular Problems: No High Cholesterol: No Chemotherapy: No Chest Pain: No Congestive Heart Failure: No COPD: No Diabetes: No Diminished Hearing: No Diverticulitis: Yes Endocrine: No Gastrointestinal Disorders: No Genitourinary: Yes Hypertension: No Immune Disorder: No Implanted Vascular Access Dvce: No Musculoskeletal: No Neurologic: No Psychiatric: Yes (MANIC BIPOLAR) Reproductive: No Respiratory: No Immunizations Current: No Radiation Therapy: No Renal Failure: Yes ("KIDNEY DYSFUNCTION" PER MOTHER) Sleep Apnea: No Thyroid Disease: No Past Surgical History Oral Surgery: Yes (ALL TEETH REMOVED) Other Surgery: Yes Social History Alcohol Use: No Tobacco Use: No (PT STATES HE RECENTLY QUIT) Substance Use: No Allergies-Medications (Allergen,Severity, Reaction): Coded Allergies: Percocet (Verified Allergy, Severe, Headache, 06/15/17) Morphine (Verified Allergy, Intermediate, Rash, 06/15/17) Reported Meds & Prescriptions Reported Meds & Active Scripts Active Phenergan (Promethazine HCl) 25 Mg Tablet 25 Mg PO Q6H PRN Bentyl (Dicyclomine HCl) 10 Mg Cap 10 Mg PO TID PRN Lortab (Hydrocodone-Acetaminophen) 10-325 Mg Tab 1 Tab PO Q6H PRN Cipro (Ciprofloxacin HCl) 500 Mg Tab 500 Mg PO BID Flagyl (Metronidazole) 500 Mg Tab 500 Mg PO TID 10 Days Cipro (Ciprofloxacin HCl) 250 Mg Tab 250 Mg PO BID 10 Days Risperdal (Risperidone) 2 Mg Tab 2 Mg PO BID Depakote ER (Divalproex Sodium) 500 Mg Casey 500 Mg PO 2 AT HS Reported Remeron (Mirtazapine) 30 Mg Tab 30 Mg PO HS Review of Systems General / Constitutional: No: Fever Eyes: No: Visual changes HENT: No: Headaches Cardiovascular: No: Chest Pain or Discomfort Respiratory: No: Shortness of Breath Gastrointestinal: Positive: Nausea, Abdominal Pain Genitourinary: No: Dysuria Musculoskeletal: No: Pain Skin: No Rash Neurologic: No: Weakness Psychiatric: No: Depression Endocrine: No: Polydipsia Hematologic/Lymphatic: No: Easy Bruising Physical Exam Narrative GENERAL: Well-nourished, well-developed patient. SKIN: Focused skin assessment warm/dry. HEAD: Normocephalic. EYES: No scleral icterus. No injection or drainage. NECK: Supple, trachea midline. No JVD or lymphadenopathy. CARDIOVASCULAR: Regular rate and rhythm without murmurs, gallops, or rubs. RESPIRATORY: Breath sounds equal bilaterally. No accessory muscle use. GASTROINTESTINAL: Abdomen soft, nondistended. Patient has moderate tenderness on palpation lower abdomen and left lower quadrant of the abdomen. No rebound tenderness. No mass. MUSCULOSKELETAL: No cyanosis, or edema. BACK: Nontender without obvious deformity. No CVA tenderness. Neurologic exam normal. Data Data Last Documented VS Vital Signs Date Time Temp Pulse Resp B/P Pulse Ox O2 Delivery O2 Flow Rate FiO2 06/15/17 12:09 98.3 104 20 118/81 98 Orders Complete Blood Count With Diff (06/15/17 12:31) Comprehensive Metabolic Panel (06/15/17 12:31) Lipase (06/15/17 12:31) Prothrombin Time / Inr (Pt) (06/15/17 12:31) Act Partial Throm Time (Ptt) (06/15/17 12:31) Urinalysis - C+S If Indicated (06/15/17 12:31) Iv Access Insert/Monitor (06/15/17 12:31) Ecg Monitoring (06/15/17 12:31) Oximetry (06/15/17 12:31) Morphine Inj (Morphine Inj) (06/15/17 12:45) Ondansetron Inj (Zofran Inj) (06/15/17 12:45) Pantoprazole Inj (Protonix Inj) (06/15/17 12:45) Sodium Chlor 0.9% 1000 Ml Inj (Ns 1000 M (06/15/17 12:31) Hydromorphone Pf Inj (Dilaudid Pf Inj) (06/15/17 13:15) Ct Abd/Pel W/O Iv Contrast (06/15/17 12:31) Hydromorphone Pf Inj (Dilaudid Pf Inj) (06/15/17 14:45) Levofloxacin (Levaquin) (06/15/17 15:00) Labs Laboratory Tests Test 06/15/17 06/15/17 12:45 13:20 White Blood Count 11.2 TH/MM3 Red Blood Count 2.98 MIL/MM3 Hemoglobin 10.2 GM/DL Hematocrit 29.3 % Mean Corpuscular Volume 98.5 FL Mean Corpuscular Hemoglobin 34.4 PG Mean Corpuscular Hemoglobin 34.9 % Concent Red Cell Distribution Width 14.6 % Platelet Count 185 TH/MM3 Mean Platelet Volume 8.0 FL Neutrophils (%) (Auto) 70.1 % Lymphocytes (%) (Auto) 19.1 % Monocytes (%) (Auto) 9.6 % Eosinophils (%) (Auto) 1.0 % Basophils (%) (Auto) 0.2 % Neutrophils # (Auto) 7.9 TH/MM3 Lymphocytes # (Auto) 2.1 TH/MM3 Monocytes # (Auto) 1.1 TH/MM3 Eosinophils # (Auto) 0.1 TH/MM3 Basophils # (Auto) 0.0 TH/MM3 CBC Comment DIFF FINAL Differential Comment Prothrombin Time 11.3 SEC Prothromb Time International 1.0 RATIO Ratio Activated Partial 26.6 SEC Thromboplast Time Sodium Level 142 MEQ/L Potassium Level 4.2 MEQ/L Chloride Level 114 MEQ/L Carbon Dioxide Level 18.0 MEQ/L Anion Gap 10 MEQ/L Blood Urea Nitrogen 39 MG/DL Creatinine 1.98 MG/DL Estimat Glomerular Filtration 38 ML/MIN Rate Random Glucose 96 MG/DL Calcium Level 10.0 MG/DL Total Bilirubin 0.3 MG/DL Aspartate Amino Transf 6 U/L (AST/SGOT) Alanine Aminotransferase 19 U/L (ALT/SGPT) Alkaline Phosphatase 83 U/L Total Protein 7.6 GM/DL Albumin 3.5 GM/DL Lipase 214 U/L Urine Color LIGHT-YELLOW Urine Turbidity CLEAR Urine pH 5.5 Urine Specific [place] 1.011 Urine Protein NEG mg/dL Urine Glucose (UA) NEG mg/dL Urine Ketones NEG mg/dL Urine Occult Blood NEG Urine Nitrite NEG Urine Bilirubin NEG Urine Urobilinogen LESS THAN 2.0 MG/DL Urine Leukocyte Esterase NEG Urine RBC 1 /hpf Urine WBC 3 /hpf Urine Squamous Epithelial 1 /hpf Cells Urine Bacteria RARE /hpf Microscopic Urinalysis Comment CULT NOT INDICATED MDM Medical Decision Making Medical Screen Exam Complete: Yes Emergency Medical Condition: Yes Interpretation(s) Last Impressions Abdomen/Pelvis CT 06/15/17 1231 Signed Impressions: Service Date/Time: Saturday, June 15, 2017 14:01 - CONCLUSION: 1. Mild acute diverticulitis. 2. Mild left lung base atelectasis and/or infiltrate is seen. 3. There is a small subcentimeter spontaneously nodule coming off the right lower pole kidney may be a complicated cyst, however not present previously. We consider further characterization with nonemergent abdominal MRI with and without contrast. Mickie Bernard MD 1444 PM. CBC W is 11.2. Hemoglobin 10.2 hematocrit 29.3. 70 neutrophil. Bicarbonate 18. BUN 39. Creatinine 1.98. UA is negative. Differential Diagnosis Differential diagnosis including diverticulitis, UTI, pyelonephritis, nephrolithiasis. Narrative Course 41-year-old male with low abdominal pain. History of recurrent diverticulitis. Normal saline solution 1 25 cc an hour. Dilaudid 1 mg IV. Repeated Dilaudid 1 mg IV.. Zofran 4 mg IV. Protonix 40 mg IV. Levaquin 750 mg by mouth given. Diagnosis Primary Impression: Acute diverticulitis Patient Instructions: General Instructions Additional Instructions: Take medications as directed. Follow-up with GI, personal physician and surgeon. Return if worse. Med/Other Pt SpecificInfo: Prescription(s) given Scripts Metronidazole (Flagyl)500 Mg [id number] Mg PO TID #30 TAB Ref 0 Prov:Bennett Pacheco MD 06/15/17 Ciprofloxacin (Cipro)500 Mg [id number] Mg PO BID #20 TAB Ref 0 Prov:Bennett Pacheco MD 06/15/17 Hydrocodone-Acetaminophen ([place])5-325 mg Tab1 Tab PO Q6H PRN (PAIN) #20 TAB Prov:Bennett Pacheco MD 06/15/17 Disposition: 01 DISCHARGE HOME Condition: Stable Bennett Pacheco MD Jun 15, 2017 12:39
[2017-06-15] MEDS ORDERED: PANTOPRAZOLE SODIUM 40 MG VIAL IVP ONE (12:45)
[2017-06-15] MEDS ORDERED: ONDANSETRON HCL 4 MG/2 ML VIAL IVP ONE (12:45)
[2017-06-15] MEDS ORDERED: MORPHINE SULFATE 4 MG/ML INJ IV PUSH ONE (12:45)
[2017-06-15 13:00] LABS: AUTOMATED NEUTROPHIL # 7.9 TH/MM3 (1.8-7.7); BASOPHIL % 0.2 % (0.0-2.0); EOSINOPHIL # 0.1 TH/MM3 (0-0.4); HEMATOCRIT 29.3 % (39.0-51.0); HEMO FLAGS DIFF FINAL; LYMPH % 19.1 % (9.0-44.0); LYMPHOCYTE # 2.1 TH/MM3 (1.0-4.8); MEAN CELL VOLUME 98.5 FL (80.0-100.0); MEAN CORPUSCULAR HEMOGLOBIN 34.4 PG (27.0-34.0); MEAN CORPUSCULAR HGB CONC 34.9 % (32.0-36.0); MONO % 9.6 % (0.0-8.0); NEUT % 70.1 % (16.0-70.0); PLATELET COUNT 185 TH/MM3 (150-450); RED BLOOD COUNT 2.98 MIL/MM3 (4.50-5.90); RED CELL DISTRIBUTION WIDTH 14.6 % (11.6-17.2); WHITE BLOOD COUNT 11.2 TH/MM3 (4.0-11.0)
[2017-06-15 13:13] LABS: APTT (PATIENT) 26.6 SEC (24.3-30.1); PROTHROMBIN TIME - PATIENT 11.3 SEC (9.8-11.6)
[2017-06-15] MEDS ORDERED: HYDROmorphone HCL PF 1 MG/ML VIAL IV PUSH ONE ×2 (13:15→14:45)
[2017-06-15 13:24] LABS: ANION GAP 10 MEQ/L (5-15); AST (GOT) 6 U/L (15-37); BLOOD UREA NITROGEN 39 MG/DL (7-18); CHLORIDE 114 MEQ/L (98-107); GLOMERULAR FILTRATION RATE 38 ML/MIN (>89); POTASSIUM 4.2 MEQ/L (3.5-5.1); SODIUM (NA) 142 MEQ/L (136-145)
[2017-06-15 13:28] LABS: ALKALINE PHOSPHATASE 83 U/L (45-117); ALT (GPT) 19 U/L (12-78); TOTAL BILIRUBIN ADULT 0.3 MG/DL (0.2-1.0)
[2017-06-15 13:35] LABS: BACTERIA, URINE RARE /hpf; BLOOD, URINE NEG (NEG); GLUCOSE,URINE NEG (NEG); KETONE, URINE NEG (NEG); NITRITE,URINE NEG (NEG); PH, URINE 5.5 (5.0-8.5); SQUAMOUS EPITHELIAL CELL URINE 1 /hpf (0-5); URINE COLOR LIGHT-YELLOW (YELLW/STRAW)
[2017-06-15 13:44] LABS: COMMENT (UR) CULT NOT INDICATED; CULTURE IF INDICATED CULT NOT INDICATED
--- NOTE | 2017-06-15 14:25 | RADRPT ---
EXAM DATE/TIME: 06/15/2017 14:01 [facility] COMPARISON: CT ABDOMEN & PELVIS W/O CONTRAST, June 13, 2016, 6:48. CT ABDOMEN & PELVIS W/O CONTRAST, July, 0:48. INDICATIONS : Abdomen pain. ORAL CONTRAST: No oral contrast ingested. RADIATION DOSE: 35.07 CTDIvol (mGy) MEDICAL HISTORY : Diverticulitis. Renal failure. SURGICAL HISTORY : None. ENCOUNTER: Initial ACUITY: 1 day PAIN SCALE: 5/10 LOCATION: abdomen. TECHNIQUE: Volumetric scanning of the abdomen and pelvis was performed. Using automated exposure control and ad justment of the mA and/or kV according to patient size, radiation dose was kept as low as reasonably achievable to obtain optimal diagnostic quality images. DICOM format image data is available electro nically for review and comparison. FINDINGS: CT Abdomen: The spleen, left kidney adrenals are unremarkable. There is no evidence for any apprecia ble pathological adenopathy, free fluid, or bowel obstruction. Chronic calcifications are present wit hin the pancreas. Mild left lung base atelectasis and/or infiltrate is seen. Subcentimeter cyst is pr esent in the liver anteriorly not changed. There is an approximate 8 mm spontaneously dense nodule co jonny off the right lower pole kidney not present on the older exams could still be a complicated cyst , however it is indeterminate. CT pelvis: There is no evidence for mass, abscess formation, or any significant adenopathy within the pelvis. There are numerous diverticuli with one area of mild acute diverticulitis involving the sigm oid colon without abscess or perforation.. CONCLUSION: 1. Mild acute diverticulitis. 2. Mild left lung base atelectasis and/or infiltrate is seen. 3. There is a small subcentimeter spontaneously nodule coming off the right lower pole kidney may be a complicated cyst, however not present previously. We consider further characterization with nonemer [facility] abdominal MRI with and without contrast. Mickie Bernard MD on June 15, 2017 at 14:18 Board Certified Radiologist. This report was verified electronically.
[2017-06-15 15:00] VITALS: BP 144/78; PULSE 88; RESP 18; O2SAT 99
[2017-06-15] MEDS ORDERED: LEVOFLOXACIN 750 MG TAB PO ONE (15:00)
[2017-06-15] MEDS ORDERED: CIPR-9 PO (15:04)
[2017-06-15] MEDS ORDERED: METR-1 PO (15:04)
[2017-06-15] MEDS ORDERED: NORC5TAB PO (15:04)
== END 2017-06-15 15:42 | disposition home or self-care (01) ==
LOC: NEPE 12:07
DX: K57.92 Diverticulitis of intestine, part unspecified, without perforation or abscess without bleeding (principal)
CPT/HCPCS: 74176; 80053; 81001; 83690; 85025; 85610; 85730; 96374; 96375; 96376; 99285; C9113; J1170; J2405; J7030

== ENCOUNTER 2017-06-22 22:37 | Emergency (ER) | payer MEDICARE ==
[~2017-06-22] VITALS: Ht 177.8 cm; Wt 167.0 kg
[~2017-06-22 22:37] MED LIST changes: +NORC5TAB PO
[2017-06-22 22:38] VITALS: BP 141/67; PULSE 109; RESP 18; TEMP 97.9; O2SAT 98
[2017-06-22] MEDS ORDERED: VALS1TAB63 PO (22:59)
[2017-06-22] MEDS ORDERED: LIPI10TA PO (23:00)
--- NOTE | 2017-06-22 23:11 | PD ---
HPI Chief Complaint: Abdominal Pain Time Seen by Provider: 23:08 Travel History International Travel<30 days: No Contact w/Intl Traveler<30days: No Traveled to known affect area: No History of Present Illness HPI 41-year-old male with history of diverticulitis, seen last week for diverticulitis, presents to the ER today because he states that the pain is not getting better and he is still having a 7-8 out of 10 right lower quadrant abdominal pain with nausea and he has been having fevers especially in the evenings. He denies any vomiting, diarrhea, or any other symptoms. He does not know any exacerbating or alleviating factors. Modifying Factors: None Associated Signs & Symptoms: Right lower quadrant abdominal pain, fevers Risk Factors: Recent diverticulitis PFSH Past Medical History Asthma: No Blood Disorders: No Bipolar Disorder: Yes Anxiety: Yes Depression: No Heart Rhythm Problems: No Cancer: No Cardiovascular Problems: No High Cholesterol: Yes Chemotherapy: No Chest Pain: No Congestive Heart Failure: No COPD: No Diabetes: No Diminished Hearing: No Diverticulitis: Yes Endocrine: No Gastrointestinal Disorders: No Genitourinary: Yes Hypertension: Yes Immune Disorder: No Implanted Vascular Access Dvce: No Musculoskeletal: No Neurologic: No Psychiatric: Yes (MANIC BIPOLAR) Reproductive: No Respiratory: No Immunizations Current: No Radiation Therapy: No Renal Failure: Yes ("KIDNEY DYSFUNCTION" PER MOTHER) Sleep Apnea: No Thyroid Disease: No Tetanus Vaccination: < 5 Years Influenza Vaccination: Yes Past Surgical History Oral Surgery: Yes (ALL TEETH REMOVED) Other Surgery: Yes Social History Alcohol Use: No Tobacco Use: No (PT STATES HE RECENTLY QUIT) Substance Use: No Allergies-Medications (Allergen,Severity, Reaction): Coded Allergies: Percocet (Verified Allergy, Severe, Headache, 06/15/17) Morphine (Verified Allergy, Intermediate, Rash, 06/15/17) Reported Meds & Prescriptions Reported Meds & Active Scripts Active Phenergan (Promethazine HCl) 25 Mg Tablet 25 Mg PO Q6H PRN Bentyl (Dicyclomine HCl) 10 Mg Cap 10 Mg PO TID PRN Lortab (Hydrocodone-Acetaminophen) 10-325 Mg Tab 1 Tab PO Q6H PRN Cipro (Ciprofloxacin HCl) 500 Mg Tab 500 Mg PO BID Flagyl (Metronidazole) 500 Mg Tab 500 Mg PO TID 10 Days Risperdal (Risperidone) 2 Mg Tab 2 Mg PO BID Depakote ER (Divalproex Sodium) 500 Mg Casey 500 Mg PO 2 AT HS Reported Lipitor (Atorvastatin Calcium) 10 Mg Tab 10 Mg PO HS Valsartan 40 Mg Tab 20 Mg PO BID Remeron (Mirtazapine) 30 Mg Tab 30 Mg PO HS Review of Systems Except as stated in HPI: all other systems reviewed are Neg Physical Exam Narrative GENERAL: Well-developed middle age male patient currently in mild distress. Awake and oriented 3. SKIN: Focused skin assessment warm/dry. HEAD: Atraumatic. Normocephalic. EYES: Pupils equal and round. No scleral icterus. No injection or drainage. ENT: No nasal bleeding or discharge. Mucous membranes pink and moist. NECK: Trachea midline. No JVD. CARDIOVASCULAR: Regular rate and rhythm. No murmur appreciated. RESPIRATORY: No accessory muscle use. Clear to auscultation. Breath sounds equal bilaterally. GASTROINTESTINAL: Abdomen soft, obese, right lower quadrant tenderness without guarding or rebound, nondistended. Hepatic and splenic margins not palpable. MUSCULOSKELETAL: No obvious deformities. No clubbing. No cyanosis. No edema. NEUROLOGICAL: Awake and alert. No obvious cranial nerve deficits. Motor grossly within normal limits. Normal speech. PSYCHIATRIC: Appropriate mood and affect; insight and judgment normal. Data Data Last Documented VS Vital Signs Date Time Temp Pulse Resp B/P Pulse Ox O2 Delivery O2 Flow Rate FiO2 06/22/17 23:24 99 20 138/75 98 Room Air 06/22/17 22:38 97.9 Orders Complete Blood Count With Diff (06/22/17 23:03) Comprehensive Metabolic Panel (06/22/17 23:03) Lipase (06/22/17 23:03) Urinalysis - C+S If Indicated (06/22/17 23:03) Iv Access Insert/Monitor (06/22/17 23:03) Ecg Monitoring (06/22/17 23:03) Oximetry (06/22/17 23:03) Sodium Chloride 0.9% Flush (Ns Flush) (06/22/17 23:15) Hydromorphone Pf Inj (Dilaudid Pf Inj) (06/22/17 23:15) Sodium Chlor 0.9% 1000 Ml Inj (Ns 1000 M (06/22/17 23:15) Ondansetron Inj (Zofran Inj) (06/22/17 23:15) Ct Abd/Pel W/O Iv Contrast (06/22/17 23:03) Hydromorphone Pf Inj (Dilaudid Pf Inj) (06/23/17 00:45) Labs Laboratory Tests Test 06/22/17 23:20 White Blood Count 7.1 TH/MM3 Red Blood Count 2.83 MIL/MM3 Hemoglobin 9.6 GM/DL Hematocrit 28.1 % Mean Corpuscular Volume 99.4 FL Mean Corpuscular Hemoglobin 33.8 PG Mean Corpuscular Hemoglobin 34.0 % Concent Red Cell Distribution Width 14.4 % Platelet Count 196 TH/MM3 Mean Platelet Volume 7.6 FL Neutrophils (%) (Auto) 61.7 % Lymphocytes (%) (Auto) 25.5 % Monocytes (%) (Auto) 11.7 % Eosinophils (%) (Auto) 0.8 % Basophils (%) (Auto) 0.3 % Neutrophils # (Auto) 4.4 TH/MM3 Lymphocytes # (Auto) 1.8 TH/MM3 Monocytes # (Auto) 0.8 TH/MM3 Eosinophils # (Auto) 0.1 TH/MM3 Basophils # (Auto) 0.0 TH/MM3 CBC Comment DIFF FINAL Differential Comment Urine Color LIGHT-YELLOW Urine Turbidity CLEAR Urine pH 5.0 Urine Specific [place] 1.006 Urine Protein NEG mg/dL Urine Glucose (UA) NEG mg/dL Urine Ketones NEG mg/dL Urine Occult Blood NEG Urine Nitrite NEG Urine Bilirubin NEG Urine Urobilinogen LESS THAN 2.0 MG/DL Urine Leukocyte Esterase TRACE Urine RBC LESS THAN 1 /hpf Urine WBC LESS THAN 1 /hpf Urine Squamous Epithelial <1 /hpf Cells Urine Mucus FEW /lpf Microscopic Urinalysis Comment CULT NOT INDICATED Sodium Level 143 MEQ/L Potassium Level 4.3 MEQ/L Chloride Level 113 MEQ/L Carbon Dioxide Level 20.3 MEQ/L Anion Gap 10 MEQ/L Blood Urea Nitrogen 45 MG/DL Creatinine 2.94 MG/DL Estimat Glomerular Filtration 24 ML/MIN Rate Random Glucose 110 MG/DL Calcium Level 9.6 MG/DL Total Bilirubin 0.2 MG/DL Aspartate Amino Transf 16 U/L (AST/SGOT) Alanine Aminotransferase 22 U/L (ALT/SGPT) Alkaline Phosphatase 72 U/L Total Protein 7.6 GM/DL Albumin 3.2 GM/DL Lipase 130 U/L MDM Medical Decision Making Medical Screen Exam Complete: Yes Emergency Medical Condition: Yes Medical Record Reviewed: Yes Interpretation(s) Laboratory Tests Test 06/22/17 23:20 Red Blood Count 2.83 MIL/MM3 (4.50-5.90) Hemoglobin 9.6 GM/DL (13.0-17.0) Hematocrit 28.1 % (39.0-51.0) Monocytes (%) (Auto) 11.7 % (0.0-8.0) Urine Leukocyte Esterase TRACE (NEG) Urine Mucus FEW /lpf (OCC) Chloride Level 113 MEQ/L (98-107) Carbon Dioxide Level 20.3 MEQ/L (21.0-32.0) Blood Urea Nitrogen 45 MG/DL (7-18) Creatinine 2.94 MG/DL (0.60-1.30) Estimat Glomerular Filtration 24 ML/MIN (>89) Rate Random Glucose 110 MG/DL (74-106) Albumin 3.2 GM/DL (3.4-5.0) Differential Diagnosis Right lower quadrant abdominal pains, feversworsening diverticulitis versus appendicitis versus other acute intra-abdominal processes versus dehydration versus metabolic issues Narrative Course CAT scan shows continuing diverticulitis without signs of diverticular abscess or other acute processes. Vital signs are stable in the ER and lab work did not show significant signs of sepsis. At this point, my plan would be to release the patient with follow-up to primary care physician and GI. Return for any worsening in symptoms as needed. The plan has been discussed with the patient and he states understanding. Diagnosis Primary Impression: Diverticulitis Disposition: 01 DISCHARGE HOME Condition: Stable Ghassan Ramsey MD Jun 22, 2017 23:11
[2017-06-22] MEDS ORDERED: HYDROmorphone HCL PF 1 MG/ML VIAL IV PUSH ONE (23:15)
[2017-06-22] MEDS ORDERED: SODIUM CHLOR 0.9% 1000 ML INJ 1,000 ML IV ONE (23:15)
[2017-06-22] MEDS ORDERED: SODIUM CHLORIDE 0.9% FLUSH 10 ML FLUSH IV FLUSH PRN (23:15)
[2017-06-22] MEDS ORDERED: ONDANSETRON HCL 4 MG/2 ML VIAL IV PUSH ONE (23:15)
[2017-06-22 23:24] VITALS: BP 138/75; PULSE 99; RESP 20; O2SAT 98
[2017-06-22 23:33] LABS: AUTOMATED NEUTROPHIL # 4.4 TH/MM3 (1.8-7.7); BASOPHIL % 0.3 % (0.0-2.0); EOSINOPHIL # 0.1 TH/MM3 (0-0.4); EOSINOPHIL % 0.8 % (0.0-4.0); HEMATOCRIT 28.1 % (39.0-51.0); HEMO FLAGS DIFF FINAL; LYMPH % 25.5 % (9.0-44.0); LYMPHOCYTE # 1.8 TH/MM3 (1.0-4.8); MEAN CELL VOLUME 99.4 FL (80.0-100.0); MEAN CORPUSCULAR HEMOGLOBIN 33.8 PG (27.0-34.0); MONO % 11.7 % (0.0-8.0); NEUT % 61.7 % (16.0-70.0); PLATELET COUNT 196 TH/MM3 (150-450); RED BLOOD COUNT 2.83 MIL/MM3 (4.50-5.90); RED CELL DISTRIBUTION WIDTH 14.4 % (11.6-17.2); WHITE BLOOD COUNT 7.1 TH/MM3 (4.0-11.0)
[2017-06-22 23:48] LABS: BLOOD, URINE NEG (NEG); COMMENT (UR) CULT NOT INDICATED; CULTURE IF INDICATED CULT NOT INDICATED; GLUCOSE,URINE NEG (NEG); KETONE, URINE NEG (NEG); MUCUS URINE FEW /lpf (OCC); NITRITE,URINE NEG (NEG); SQUAMOUS EPITHELIAL CELL URINE <1 /hpf (0-5); URINE COLOR LIGHT-YELLOW (YELLW/STRAW)
[2017-06-22 23:51] LABS: ALT (GPT) 22 U/L (12-78); ANION GAP 10 MEQ/L (5-15); AST (GOT) 16 U/L (15-37); BICARBONATE 20.3 MEQ/L (21.0-32.0); BLOOD UREA NITROGEN 45 MG/DL (7-18); CHLORIDE 113 MEQ/L (98-107); GLOMERULAR FILTRATION RATE 24 ML/MIN (>89); POTASSIUM 4.3 MEQ/L (3.5-5.1); SODIUM (NA) 143 MEQ/L (136-145)
[2017-06-22 23:53] LABS: ALKALINE PHOSPHATASE 72 U/L (45-117); TOTAL BILIRUBIN ADULT 0.2 MG/DL (0.2-1.0)
--- NOTE | 2017-06-23 00:42 | RADRPT ---
EXAM DATE/TIME: 06/23/2017 00:15 [facility] COMPARISON: CT ABDOMEN & PELVIS W/O CONTRAST, June 15, 2017, 14:01. INDICATIONS : Diffuse abdominal pain with fever. ORAL CONTRAST: No oral contrast ingested. RADIATION DOSE: 31.73 CTDIvol (mGy) ; Patient body habitus MEDICAL HISTORY : Hypertension. Diverticulitis. SURGICAL HISTORY : None. ENCOUNTER: Initial ACUITY: 1 day PAIN SCALE: 10/10 LOCATION: Bilateral abdomen TECHNIQUE: Volumetric scanning of the abdomen and pelvis was performed. Using automated exposure control and ad justment of the mA and/or kV according to patient size, radiation dose was kept as low as reasonably achievable to obtain optimal diagnostic quality images. DICOM format image data is available electro nically for review and comparison. FINDINGS: LOWER LUNGS: The visualized lower lungs are clear. LIVER: Homogeneous density without lesion. There is no dilation of the biliary tree. No calcified gallston es. SPLEEN: Normal size without lesion. PANCREAS: Within normal limits. KIDNEYS: Normal in size and shape. There is no mass, stone, or hydronephrosis. ADRENAL GLANDS: Within normal limits. VASCULAR: There is no aortic aneurysm. BOWEL/MESENTERY: There is some indurated fat around the sigmoid colon could be related to diverticulitis. No abscess o r free fluid is identified. The appendix is normal. ABDOMINAL WALL: Within normal limits. RETROPERITONEUM: There is no lymphadenopathy. BLADDER: No wall thickening or mass. REPRODUCTIVE: Within normal limits. INGUINAL: There is no lymphadenopathy or hernia. MUSCULOSKELETAL: Within normal limits for patient age. CONCLUSION: There is some indurated fat around the sigmoid colon could be related to diverticulitis. No abscess o r free fluid is identified. The appendix is normal Wilton James MD on June 23, 2017 at 0:36 Board Certified Radiologist. This report was verified electronically.
[2017-06-23] MEDS ORDERED: HYDROmorphone HCL PF 1 MG/ML VIAL IV PUSH ONE (00:45)
== END 2017-06-23 01:18 | disposition home or self-care (01) ==
LOC: NEPE 22:37
DX: K57.92 Diverticulitis of intestine, part unspecified, without perforation or abscess without bleeding (principal); F31.9 Bipolar disorder, unspecified; E78.00 Pure hypercholesterolemia, unspecified; I10 Essential (primary) hypertension; Z88.5 Allergy status to narcotic agent; Z79.899 Other long term (current) drug therapy
CPT/HCPCS: 74176; 80053; 81001; 83690; 85025; 96361; 96374; 96375; 96376; 99285; J1170; J2405; J7030

== ENCOUNTER 2017-07-06 18:00 | Inpatient (IN) | payer MEDICARE ==
[~2017-07-06] VITALS: Ht 177.8 cm; Wt 168.9 kg
[~2017-07-06 18:00] MED LIST changes: -CIPR250T52 PO; +LIPI10TA PO; -NORC5TAB PO; +VALS1TAB63 PO
[2017-07-06 18:02] VITALS: BP 136/84; PULSE 98; RESP 24; TEMP 97.5; O2SAT 97
[2017-07-06] MEDS ORDERED: SODIUM CHLORIDE 0.9% FLUSH 10 ML FLUSH IV FLUSH PRN (18:45)
[2017-07-06 18:52] VITALS: O2SAT 99
[2017-07-06] MEDS ORDERED: HYDROmorphone HCL PF 1 MG/ML VIAL IV PUSH ONE ×2 (19:00→21:45)
[2017-07-06] MEDS ORDERED: metroNIDAZOLE 500 MG INJ 100 ML IV ONE (19:00)
[2017-07-06] MEDS ORDERED: ONDANSETRON HCL 4 MG/2 ML VIAL IV PUSH ONE (19:00)
[2017-07-06] MEDS ORDERED: SODIUM CHLOR 0.9% 1000 ML INJ 1,000 ML IV SCH (19:00)
--- NOTE | 2017-07-06 19:01 | PD ---
HPI Chief Complaint: Abdominal Pain Time Seen by Provider: 18:36 Travel History International Travel<30 days: No Contact w/Intl Traveler<30days: No Traveled to known affect area: No History of Present Illness HPI 41-year-old male complains of left low quadrant abdominal pain. Patient states that the pain started today. Patient was treated recently for diverticulitis. Patient was seen in emergency room June 15 and June 22. Patient was given prescription for Cipro and Flagyl and Lortab. CT scan of the abdomen pelvis done in June 15 show acute diverticulitis. Repeat the CT scan of the abdomen and pelvis on June 22 shows improvement of the diverticulitis. Patient states that the abdominal pain never resolved completely. Patient states the pain is worse is afternoon. Patient denies any fever chills. Patient states the pain is sharp pain localized to left lower quadrant of the abdomen. Patient denies any pain radiation. On a scale of 1-10 the pain is a 7. Patient denies any dysuria or frequency. PFSH Past Medical History Asthma: No Blood Disorders: No Bipolar Disorder: Yes Anxiety: Yes Depression: No Heart Rhythm Problems: No Cancer: No Cardiovascular Problems: Yes (HTN, HYPERCHOLESTEROLEMIA) High Cholesterol: Yes Chemotherapy: No Chest Pain: No Congestive Heart Failure: No COPD: No Diabetes: No Diminished Hearing: No Diverticulitis: Yes Endocrine: No Gastrointestinal Disorders: No Genitourinary: Yes Hypertension: Yes Immune Disorder: No Implanted Vascular Access Dvce: No Musculoskeletal: No Neurologic: No Psychiatric: Yes (MANIC BIPOLAR) Reproductive: No Respiratory: No Immunizations Current: No Radiation Therapy: No Renal Failure: Yes ("KIDNEY DYSFUNCTION") Sleep Apnea: No Thyroid Disease: No Past Surgical History Oral Surgery: Yes (ALL TEETH REMOVED) Other Surgery: Yes Social History Alcohol Use: No Tobacco Use: No (quit) Substance Use: No Allergies-Medications (Allergen,Severity, Reaction): Coded Allergies: Percocet (Verified Allergy, Severe, Headache, 07/06/17) Morphine (Verified Allergy, Intermediate, Rash, 07/06/17) Reported Meds & Prescriptions Reported Meds & Active Scripts Active Lortab (Hydrocodone-Acetaminophen) 10-325 Mg Tab 1 Tab PO Q6H PRN Risperdal (Risperidone) 2 Mg Tab 2 Mg PO BID Depakote ER (Divalproex Sodium) 500 Mg Casey 500 Mg PO 2 AT HS Reported Lipitor (Atorvastatin Calcium) 10 Mg Tab 10 Mg PO HS Valsartan 40 Mg Tab 20 Mg PO BID Remeron (Mirtazapine) 30 Mg Tab 30 Mg PO HS Review of Systems General / Constitutional: No: Fever Eyes: No: Visual changes HENT: No: Headaches Cardiovascular: No: Chest Pain or Discomfort Respiratory: No: Shortness of Breath Gastrointestinal: Positive: Abdominal Pain Genitourinary: No: Dysuria Musculoskeletal: No: Pain Skin: No Rash Neurologic: No: Weakness Psychiatric: No: Depression Endocrine: No: Polydipsia Hematologic/Lymphatic: No: Easy Bruising Physical Exam Narrative GENERAL: Well-nourished, well-developed patient. SKIN: Focused skin assessment warm/dry. HEAD: Normocephalic. EYES: No scleral icterus. No injection or drainage. NECK: Supple, trachea midline. No JVD or lymphadenopathy. CARDIOVASCULAR: Regular rate and rhythm without murmurs, gallops, or rubs. RESPIRATORY: Breath sounds equal bilaterally. No accessory muscle use. GASTROINTESTINAL: Abdomen soft, nondistended. Patient has moderate tenderness on palpation left lower quadrant in the abdomen. No rebound tenderness. No mass. MUSCULOSKELETAL: No cyanosis, or edema. BACK: Nontender without obvious deformity. No CVA tenderness. Data Data Last Documented VS Vital Signs Date Time Temp Pulse Resp B/P Pulse Ox O2 Delivery O2 Flow Rate FiO2 07/06/17 18:52 99 Room Air 07/06/17 18:26 18 07/06/17 18:02 97.5 98 Orders Complete Blood Count With Diff (07/06/17 18:45) Comprehensive Metabolic Panel (07/06/17 18:45) Lipase (07/06/17 18:45) Prothrombin Time / Inr (Pt) (07/06/17 18:45) Act Partial Throm Time (Ptt) (07/06/17 18:45) Urinalysis - C+S If Indicated (07/06/17 18:45) Iv Access Insert/Monitor (07/06/17 18:45) Ecg Monitoring (07/06/17 18:45) Oximetry (07/06/17 18:45) Sodium Chloride 0.9% Flush (Ns Flush) (07/06/17 18:45) Metronidazole 500 Mg Inj (Flagyl 500 Mg (07/06/17 19:00) Sodium Chlor 0.9% 1000 Ml Inj (Ns 1000 M (07/06/17 19:00) Hydromorphone Pf Inj (Dilaudid Pf Inj) (07/06/17 19:00) Ondansetron Inj (Zofran Inj) (07/06/17 19:00) Ct Abd/Pel W/O Iv Contrast (07/06/17 20:06) Piperacil-Tazo 2.25 Gm Premix (Zosyn 2.2 (07/06/17 21:45) Hydromorphone Pf Inj (Dilaudid Pf Inj) (07/06/17 21:45) Labs Laboratory Tests Test 07/06/17 07/06/17 18:50 20:40 White Blood Count 9.6 TH/MM3 Red Blood Count 2.87 MIL/MM3 Hemoglobin 9.8 GM/DL Hematocrit 28.8 % Mean Corpuscular Volume 100.3 FL Mean Corpuscular Hemoglobin 34.1 PG Mean Corpuscular Hemoglobin 34.0 % Concent Red Cell Distribution Width 14.9 % Platelet Count 193 TH/MM3 Mean Platelet Volume 8.3 FL Neutrophils (%) (Auto) 69.4 % Lymphocytes (%) (Auto) 20.5 % Monocytes (%) (Auto) 8.0 % Eosinophils (%) (Auto) 1.8 % Basophils (%) (Auto) 0.3 % Neutrophils # (Auto) 6.7 TH/MM3 Lymphocytes # (Auto) 2.0 TH/MM3 Monocytes # (Auto) 0.8 TH/MM3 Eosinophils # (Auto) 0.2 TH/MM3 Basophils # (Auto) 0.0 TH/MM3 CBC Comment DIFF FINAL Differential Comment Prothrombin Time 11.4 SEC Prothromb Time International 1.0 RATIO Ratio Activated Partial 25.6 SEC Thromboplast Time Sodium Level 142 MEQ/L Potassium Level 4.1 MEQ/L Chloride Level 111 MEQ/L Carbon Dioxide Level 21.4 MEQ/L Anion Gap 10 MEQ/L Blood Urea Nitrogen 39 MG/DL Creatinine 2.39 MG/DL Estimat Glomerular Filtration 30 ML/MIN Rate Random Glucose 125 MG/DL Calcium Level 8.8 MG/DL Total Bilirubin 0.4 MG/DL Aspartate Amino Transf 8 U/L (AST/SGOT) Alanine Aminotransferase 17 U/L (ALT/SGPT) Alkaline Phosphatase 77 U/L Total Protein 7.3 GM/DL Albumin 3.3 GM/DL Lipase 229 U/L Urine Color LIGHT-YELLOW Urine Turbidity CLEAR Urine pH 5.0 Urine Specific [place] 1.009 Urine Protein NEG mg/dL Urine Glucose (UA) NEG mg/dL Urine Ketones NEG mg/dL Urine Occult Blood NEG Urine Nitrite NEG Urine Bilirubin NEG Urine Urobilinogen LESS THAN 2.0 MG/DL Urine Leukocyte Esterase NEG Urine RBC LESS THAN 1 /hpf Urine WBC 1 /hpf Urine Squamous Epithelial <1 /hpf Cells Urine Bacteria RARE /hpf Microscopic Urinalysis Comment CULT NOT INDICATED MDM Medical Decision Making Medical Screen Exam Complete: Yes Emergency Medical Condition: Yes Medical Record Reviewed: Yes Interpretation(s) 1 PM. CBC WBC 9.6. Hemoglobin 9.8 hematocrit 20.8. MCV 100.3. Normal differential. BUN 39. Creatinine 2.39. GFR 30. Differential Diagnosis Differential diagnosis including diverticulitis, UTI, pyelonephritis, nephrolithiasis, musculoskeletal. Narrative Course 41-year-old male with left lower quadrant abdominal pain. History of diverticulitis. Patient was treated recently for diverticulitis. Normal saline solution 1 25 cc an hour. Dilaudid 1 mg IV. Zofran 4 mg IV. Flagyl 500 mg IV. Zosyn 2.25 g IV given. Diagnosis Primary Impression: Diverticulitis Qualified Code: K57.32 - Diverticulitis of large intestine without perforation or abscess without bleeding Admitting Information Admitting Physician Requests: Admit Bennett Pacheco MD Jul 06, 2017 19:01
[2017-07-06 19:45] LABS: AUTOMATED NEUTROPHIL # 6.7 TH/MM3 (1.8-7.7); BASOPHIL % 0.3 % (0.0-2.0); EOSINOPHIL # 0.2 TH/MM3 (0-0.4); EOSINOPHIL % 1.8 % (0.0-4.0); HEMATOCRIT 28.8 % (39.0-51.0); HEMO FLAGS DIFF FINAL; LYMPH % 20.5 % (9.0-44.0); MEAN CELL VOLUME 100.3 FL (80.0-100.0); MEAN CORPUSCULAR HEMOGLOBIN 34.1 PG (27.0-34.0); NEUT % 69.4 % (16.0-70.0); PLATELET COUNT 193 TH/MM3 (150-450); RED BLOOD COUNT 2.87 MIL/MM3 (4.50-5.90); RED CELL DISTRIBUTION WIDTH 14.9 % (11.6-17.2); WHITE BLOOD COUNT 9.6 TH/MM3 (4.0-11.0)
[2017-07-06 19:52] LABS: APTT (PATIENT) 25.6 SEC (24.3-30.1); PROTHROMBIN TIME - PATIENT 11.4 SEC (9.8-11.6)
[2017-07-06 20:03] LABS: ANION GAP 10 MEQ/L (5-15); AST (GOT) 8 U/L (15-37); BICARBONATE 21.4 MEQ/L (21.0-32.0); BLOOD UREA NITROGEN 39 MG/DL (7-18); CHLORIDE 111 MEQ/L (98-107); GLOMERULAR FILTRATION RATE 30 ML/MIN (>89); POTASSIUM 4.1 MEQ/L (3.5-5.1); SODIUM (NA) 142 MEQ/L (136-145)
[2017-07-06 20:04] LABS: ALT (GPT) 17 U/L (12-78)
[2017-07-06 20:06] LABS: ALKALINE PHOSPHATASE 77 U/L (45-117); TOTAL BILIRUBIN ADULT 0.4 MG/DL (0.2-1.0)
--- NOTE | 2017-07-06 21:08 | RADRPT ---
EXAM DATE/TIME: 07/06/2017 20:48 [facility] COMPARISON: CT ABDOMEN & PELVIS W/O CONTRAST, June 23, 2017, 0:15. INDICATIONS : Left lower side abdominal pain. ORAL CONTRAST: No oral contrast ingested. RADIATION DOSE: 23.82 CTDIvol (mGy) ; Patient body habitus MEDICAL HISTORY : Hypertension. Diverticulitis. Renal failure. SURGICAL HISTORY : None. ENCOUNTER: Initial ACUITY: 1 day PAIN SCALE: 7/10 LOCATION: Left lower quadrant TECHNIQUE: Volumetric scanning of the abdomen and pelvis was performed. Using automated exposure control and ad justment of the mA and/or kV according to patient size, radiation dose was kept as low as reasonably achievable to obtain optimal diagnostic quality images. DICOM format image data is available electro nically for review and comparison. FINDINGS: LOWER LUNGS: The visualized lower lungs are clear. LIVER: Homogeneous density without lesion. There is no dilation of the biliary tree. No calcified gallston es. SPLEEN: Moderately enlarged measuring 15.6 cm in craniocaudal dimension. PANCREAS: Pancreatic calcifications indicating chronic pancreatitis. No acute inflammatory changes. KIDNEYS: Normal in size and shape. There is no mass, stone, or hydronephrosis. ADRENAL GLANDS: Within normal limits. VASCULAR: There is no aortic aneurysm. BOWEL/MESENTERY: Multiple colonic diverticula. Hazy/stranding opacity adjacent to the mid sigmoid colon indicating acu te diverticulitis. No evidence of abscess or free air. ABDOMINAL WALL: Within normal limits. RETROPERITONEUM: There is no lymphadenopathy. BLADDER: No wall thickening or mass. REPRODUCTIVE: Within normal limits. INGUINAL: There is no lymphadenopathy or hernia. MUSCULOSKELETAL: Prominent facet arthrosis of the lower lumbar spine. CONCLUSION: Acute diverticulitis. Inflammatory findings are similar to the comparison study of 06/23/2017. No absc ess or free air identified. Parveen Mg MD on July 06, 2017 at 21:00 Board Certified Radiologist. This report was verified electronically.
[2017-07-06 21:09] LABS: BACTERIA, URINE RARE /hpf; BLOOD, URINE NEG (NEG); COMMENT (UR) CULT NOT INDICATED; CULTURE IF INDICATED CULT NOT INDICATED; GLUCOSE,URINE NEG (NEG); KETONE, URINE NEG (NEG); NITRITE,URINE NEG (NEG); SQUAMOUS EPITHELIAL CELL URINE <1 /hpf (0-5); URINE COLOR LIGHT-YELLOW (YELLW/STRAW)
[2017-07-06] MEDS ORDERED: PIPERACIL-TAZO 2.25 GM PREMIX 50 ML IV ONE (21:45)
--- NOTE | 2017-07-06 21:54 | HHI.HP ---
HPI Service [facility] Primary Care Physician Unknown Admission Diagnosis persistent diverticulitis Diagnoses: (1) Diverticulitis Diagnosis: Principal (2) CKD (chronic kidney disease) stage 3, GFR 30-59 ml/min Diagnosis: Principal (3) Bipolar disorder Diagnosis: Principal Travel History International Travel<30 Days: No Contact w/Intl Traveler <30 Da: No Traveled to Known Affected Are: No History of Present Illness This is a 41-year-old male with a PMH of HTN, Bipolar Disorder and Diverticulitis who presented to the ER with complaints of severe abdominal pain. States symptoms have been ongoing for several months w/ multiple presentations to the ER for same complaints, diagnosed w/ Diverticulitis and referred to Dr. Florez w/ Gen Sx, however unable to get appt until the . Seen in ER most recently on 06/15/17 and 06/22/17 for similar complaints, CT Abd /Pelvis 06/15/17 with mild acute diverticulitis and mild left lung base atelectasis or infiltrate. DC'd from ER with prescriptions for Cipro/Flagyl. CT Abd/Pelvis w/ some indurated fat around sigmoid colon related to diverticulitis, was d/c'd home and instructed to continue w/ antibiotics and outpatient follow up w/ GI/Gen Sx. Returns now w/ no improvement in LLL pain, + nausea/vomiting. On arrival, BP 136/84, HR 98, O2 sat 97% on RA, Afebrile. CBC at baseline. Creatinine 2.39, previously 2.94 on 06/22/17. INR 1.0. UA negative. CT Abd/Pelvis w/ acute diverticulitis, inflammatory findings similar to study from 06/23/19. S/p Zosyn/Flagyl in ER. Review of Systems Except as stated in HPI: all other systems reviewed are Neg ROS: 14 point review of systems otherwise negative. Past Family Social History Past Medical History PMH: HTN, Bipolar Disorder and Diverticulitis Past Surgical History PAST SURGICAL HISTORY: Dental Extraction Allergies: Coded Allergies: Percocet (Verified Allergy, Severe, Headache, 07/06/17) Morphine (Verified Allergy, Intermediate, Rash, 07/06/17) Family History PAST FAMILY HISTORY: Reviewed. No h/o DM or CAD Social History PAST SOCIAL HISTORY: Negative for alcohol, tobacco or drugs. Physical Exam Vital Signs Vital Signs Date Time Temp Pulse Resp B/P Pulse Ox O2 Delivery O2 Flow Rate FiO2 07/06/17 18:52 99 Room Air 07/06/17 18:26 18 07/06/17 18:02 97.5 98 24 136/84 97 Room Air Physical Exam PE: GENERAL: Middle-aged male in no acute distress. HEENT: PERRLA, EOMI. No scleral icterus or conjunctival pallor. No lid lag or facial droop. CARDIOVASCULAR: Regular rate and rhythm. No obvious murmurs to auscultation. No chest tenderness to palpation. RESPIRATORY: No obvious rhonchi or wheezing. Clear to auscultation. Breath sounds equal bilaterally. GASTROINTESTINAL: Abdomen soft, LLQ tenderness to palpation, nondistended. BS normal. MUSCULOSKELETAL: Extremities without clubbing, cyanosis, or edema. No obvious deformities. NEUROLOGICAL: Awake, alert and oriented x4. No focal neurologic deficits. Moving both upper and lower extremities spontaneously. Laboratory Laboratory Tests Test 07/06/17 07/06/17 18:50 20:40 White Blood Count 9.6 Red Blood Count 2.87 Hemoglobin 9.8 Hematocrit 28.8 Mean Corpuscular Volume 100.3 Mean Corpuscular Hemoglobin 34.1 Mean Corpuscular Hemoglobin 34.0 Concent Red Cell Distribution Width 14.9 Platelet Count 193 Mean Platelet Volume 8.3 Neutrophils (%) (Auto) 69.4 Lymphocytes (%) (Auto) 20.5 Monocytes (%) (Auto) 8.0 Eosinophils (%) (Auto) 1.8 Basophils (%) (Auto) 0.3 Neutrophils # (Auto) 6.7 Lymphocytes # (Auto) 2.0 Monocytes # (Auto) 0.8 Eosinophils # (Auto) 0.2 Basophils # (Auto) 0.0 CBC Comment DIFF FINAL Differential Comment Prothrombin Time 11.4 Prothromb Time International 1.0 Ratio Activated Partial 25.6 Thromboplast Time Sodium Level 142 Potassium Level 4.1 Chloride Level 111 Carbon Dioxide Level 21.4 Anion Gap 10 Blood Urea Nitrogen 39 Creatinine 2.39 Estimat Glomerular Filtration 30 Rate Random Glucose 125 Calcium Level 8.8 Total Bilirubin 0.4 Aspartate Amino Transf 8 (AST/SGOT) Alanine Aminotransferase 17 (ALT/SGPT) Alkaline Phosphatase 77 Total Protein 7.3 Albumin 3.3 Lipase 229 Urine Color LIGHT-YELLOW Urine Turbidity CLEAR Urine pH 5.0 Urine Specific [place] 1.009 Urine Protein NEG Urine Glucose (UA) NEG Urine Ketones NEG Urine Occult Blood NEG Urine Nitrite NEG Urine Bilirubin NEG Urine Urobilinogen LESS THAN 2.0 Urine Leukocyte Esterase NEG Urine RBC LESS THAN 1 Urine WBC 1 Urine Squamous Epithelial <1 Cells Urine Bacteria RARE Microscopic Urinalysis Comment CULT NOT INDICATED Result Diagram: 07/06/17184907/06/171849 Assessment and Plan Problem List: (1) Diverticulitis ICD Code: K57.92 Status: Acute (2) CKD (chronic kidney disease) stage 3, GFR 30-59 ml/min ICD Code: N18.3 Status: Acute (3) Bipolar disorder ICD Code: F31.9 Status: Acute Assessment and Plan A/P: 1. Diverticulitis: Recurrent. Multiple ER presentations and previous admissions for same, s/p eval by GI/Gen Sx w/ referral to Dr. Florez for colonic resection, has upcoming appt. CT Abd/Pelvis w/ acute diverticulitis, findings similar to previous CT, images reviewed by me. S/p Zosyn/Flagyl in ER , will continue w/ IV Abx. Consult GI/Gen Sx for further evaluation. Analgesics/antiemetics as needed. 2. CKD: Stage III. Stable. Creatinine 2.39, previously 2.94 on 06/22/17. U/ a negative, IVF, repeat labs in am. 3. Bipolar Disorder: Resume home medications. 4. DVT Prophylaxis: SCD/TEds. 5. Social work for d/c planning as needed. 6. Case discussed w/ ER physician at length. Physician Certification 2 Midnight Certification Type: Admission for Inpatient Services Order for Inpatient Services The services are ordered in accordance with Medicare regulations or non- Medicare payer requirements, as applicable. In the case of services not specified as inpatient-only, they are appropriately provided as inpatient services in accordance with the 2-midnight benchmark. Estimated LOS (days): 2 days is the estimated time the patient will need to remain in the hospital, assuming treatment plan goals are met and no additional complications. Post-Hospital Plan: Not yet determined Problem Qualifiers (1) Diverticulitis: Qualified Code: K57.32 - Diverticulitis of large intestine without perforation or abscess without bleeding Aimee Edgar MD Jul 06, 2017 21:54
[2017-07-06] MEDS ORDERED: LACTULOSE SYRUP 20 GM/30 ML CUP PO PRN (22:00)
[2017-07-06] MEDS ORDERED: SENNOSIDES 8.6 MG TAB PO PRN (22:00)
[2017-07-06] MEDS: SODIUM CHLOR 0.9% 1000 ML INJ 1,000 ML IV SCH (22:00)
[2017-07-06] MEDS ORDERED: MAGNESIUM HYDROXIDE SUSP 30 ML CUP PO PRN (22:00)
[2017-07-06] MEDS ORDERED: DIVALPROEX SODIUM E.R. 500 MG TAB PO SCH ×2 (22:00→22:24)
[2017-07-06] MEDS ORDERED: BISACODYL 10 MG SUPP RECTAL PRN (22:00)
[2017-07-06] MEDS ORDERED: DIVALPROEX SODIUM E.R. 500 MG TAB PO ONE (22:15)
[2017-07-06] MEDS: MIRTAZAPINE ODT 30 MG TAB PO SCH (22:15)
[2017-07-06 22:56] VITALS: BP 131/79; PULSE 78; RESP 19; TEMP 97.7; O2SAT 96
[2017-07-06] MEDS: risperiDONE 1 MG TAB PO SCH (23:49)
[2017-07-07] MEDS: HYDROmorphone HCL PF 1 MG/ML VIAL IV PRN ×3 (00:52→08:07)
[2017-07-07] MEDS: PIPERACIL-TAZO 2.25 GM PREMIX 50 ML IV SCH ×4 (03:51→21:55)
[2017-07-07] MEDS: ONDANSETRON HCL 4 MG/2 ML VIAL IVP PRN ×2 (03:54→12:18)
[2017-07-07 04:35] VITALS: BP 145/75; PULSE 88; RESP 18; TEMP 97.9; O2SAT 97
[2017-07-07 07:57] VITALS: BP 137/72; PULSE 85; RESP 18; TEMP 97.5; O2SAT 95
[2017-07-07] MEDS: SODIUM CHLORIDE 0.9% FLUSH 10 ML FLUSH IV FLUSH SCH ×2 (08:05→21:45)
[2017-07-07] MEDS ORDERED: DIVALPROEX SODIUM E.R. 500 MG TAB PO SCH (09:00)
[2017-07-07] MEDS ORDERED: RISPERIDONE 2 MG PO SCH (09:00)
[2017-07-07] MEDS ORDERED: risperiDONE 1 MG TAB PO SCH (09:00)
[2017-07-07] MEDS: SODIUM CHLOR 0.9% 1000 ML INJ 1,000 ML IV SCH ×2 (09:11→21:56)
[2017-07-07] MEDS: DOCUSATE SODIUM 50 MG/SENNA 8.6 MG TAB PO SCH ×2 (09:11→21:44)
[2017-07-07] MEDS: ACETAMINOPHEN 325 MG TAB PO PRN ×2 (09:12→20:08)
[2017-07-07] MEDS: risperiDONE 1 MG TAB PO SCH ×2 (09:12→21:44)
--- NOTE | 2017-07-07 09:30 | PD.CONS ---
HPI History of Present Illness This is a 41 year old male who presented to the ER with c/o "severe" abdominal pain. Patient states symptoms having been present for at least 3 months and has had multiple presentations to the ER for similar symptoms. Patient most recently seen in ER on 06/15/17 and 06/22/17 and diagnosed with diverticulitis. Was given Cipro/Flagyl and pain medication at discharge with outpatient followup with Dr. Florez (General Surgery), has appointment on 07/16/17. Patient states current symptoms started yesterday at 5pm. Reports worsening LLQ abdominal pain, associated with nausea and vomiting (x 2 episodes of digested food). Denies hematemesis. Denies diarrhea or constipation. Denies melena or hematochezia. PMH is significant for hypertension, bipolar disorder, and diverticulitis. (Mica Cunningham) PFSH Past Medical History Hypertension Bipolar Disorder Diverticulitis Past Surgical History Dental Extraction (Mica Cunningham) Coded Allergies: Percocet (Verified Allergy, Severe, Headache, 07/06/17) Morphine (Verified Allergy, Intermediate, Rash, 07/06/17) Medications Current Medications Medications (Trade) Dose Ordered Sig/Delvis Route PRN Reason Start Time Stop Time Status Last Admin Dose Admin Piperacillin Sod/ Tazobactam Sod 50 ml @ 100 mls/hr Q6H IV 07/07/17 04:00 07/07/17 03:51 Sodium Chloride (NS 1000 ml Inj) 1,000 ml @ 100 mls/hr Q10H IV 07/06/17 22:00 07/06/17 22:00 Sodium Chloride (NS Flush) 2 ml UNSCH PRN IV FLUSH FLUSH AFTER USING IV ACCESS 07/06/17 22:00 Sodium Chloride (NS Flush) 2 ml BID IV FLUSH 07/07/17 09:00 07/07/17 08:05 Ondansetron HCl (Zofran Inj) 4 mg Q6H PRN IVP NAUSEA OR VOMITING 07/06/17 22:00 07/07/17 03:54 Acetaminophen (Tylenol) 650 mg Q6H PRN PO FEVER/PAIN SCALE 1 TO 2 07/06/17 22:00 Hydromorphone HCl (Dilaudid Pf Inj) 1 mg Q3H PRN IV Pain 6-10 07/06/17 22:00 07/07/17 08:07 Senna/Docusate Sodium (Destinee-Colace) 1 tab BID PO 07/07/17 09:00 Magnesium Hydroxide (Milk Of Magnesia Liq) 30 ml Q12H PRN PO MILD - MODERATE CONSTIPATION 07/06/17 22:00 Sennosides (Senokot) 17.2 mg Q12H PRN PO MODERATE - SEVERE CONSTIPATION 07/06/17 22:00 Bisacodyl (Dulcolax Supp) 10 mg DAILY PRN RECTAL SEVERE CONSITIPATION 07/06/17 22:00 Lactulose (Lactulose Liq) 30 ml DAILY PRN PO SEVERE CONSITIPATION 07/06/17 22:00 Mirtazapine (Remeron Soltab Odt) 30 mg HS PO 07/06/17 22:15 07/06/17 22:15 Risperidone (risperDAL) 2 mg BID PO 07/06/17 22:15 07/06/17 23:49 Divalproex Sodium (Depakote Er) 1,000 mg BID PO 07/07/17 09:00 Family History Noncontributory Social History ETOH, denies Tobacco, denies Illicit Drugs, denies (Mica Cunningham) Review of Systems Constitutional: DENIES: Diaphoretic episodes, Fatigue, Fever, Weight gain, Weight loss, Chills, Dizziness, Change in appetite, Night Sweats Endocrine: DENIES: Polydipsia, Polyuria Eyes: DENIES: Blurred vision, Photosensitivity, Double Vision Ears, nose, mouth, throat: DENIES: Hearing loss, Vertigo, Oral lesions, Throat pain, Hoarseness Respiratory: DENIES: Cough, Wheezing, Hemoptysis, Sputum production, Shortness of breath Cardiovascular: DENIES: Chest pain, Palpitations, Syncope, Lower Extremity Edema, Orthopnea, Claudication Gastrointestinal: COMPLAINS OF: Abdominal pain, Nausea, Vomiting, DENIES: Black stools, Bloody stools, Constipation, Diarrhea, Difficulty Swallowing, Anorexia, Odynophagia, Swelling of Abdomen, Heartburn, Hematemesis Genitourinary: DENIES: Urinary frequency, Urinary incontinence, Urgency, Hematuria, Dysuria, Nocturia Musculoskeletal: DENIES: Joint pain, Muscle aches, Stiffness, Joint Swelling, Back pain, Neck pain Integumentary: DENIES: Abnormal pigmentation, Nail changes, Pruritus, Rash, Jaundice Hematologic/lymphatic: DENIES: Bruising, Lymphadenopathy Immunologic/allergic: DENIES: Eczema, Urticaria Neurologic: DENIES: Abnormal gait, Headache, Localized weakness, Paresthesias Psychiatric: DENIES: Anxiety, Confusion, Mood changes, Depression, Agitation, Suicidal Ideation (Mica Cunningham) GI Exam Vitals I&O Vital Signs Date Time Temp Pulse Resp B/P Pulse Ox O2 Delivery O2 Flow Rate FiO2 07/07/17 07:57 97.5 85 18 137/72 95 07/07/17 04:35 97.9 88 18 145/75 97 07/06/17 22:56 97.7 78 19 131/79 96 07/06/17 18:52 99 Room Air 07/06/17 18:26 18 07/06/17 18:02 97.5 98 24 136/84 97 Room Air Imaging Last Impressions Abdomen/Pelvis CT 07/06/172005 Signed Impressions: Service Date/Time: Saturday, July 06, 2017 20:48 - CONCLUSION: Acute diverticulitis. Inflammatory findings are similar to the comparison study of 06/23/2017. No abscess or free air identified. Parveen Mg MD Laboratory Test 07/06/17 07/06/17 18:50 20:40 White Blood Count 9.6 TH/MM3 Red Blood Count 2.87 MIL/MM3 Hemoglobin 9.8 GM/DL Hematocrit 28.8 % Mean Corpuscular Volume 100.3 FL Mean Corpuscular Hemoglobin 34.1 PG Mean Corpuscular Hemoglobin 34.0 % Concent Red Cell Distribution Width 14.9 % Platelet Count 193 TH/MM3 Mean Platelet Volume 8.3 FL Neutrophils (%) (Auto) 69.4 % Lymphocytes (%) (Auto) 20.5 % Monocytes (%) (Auto) 8.0 % Eosinophils (%) (Auto) 1.8 % Basophils (%) (Auto) 0.3 % Neutrophils # (Auto) 6.7 TH/MM3 Lymphocytes # (Auto) 2.0 TH/MM3 Monocytes # (Auto) 0.8 TH/MM3 Eosinophils # (Auto) 0.2 TH/MM3 Basophils # (Auto) 0.0 TH/MM3 CBC Comment DIFF FINAL Differential Comment Prothrombin Time 11.4 SEC Prothromb Time International 1.0 RATIO Ratio Activated Partial 25.6 SEC Thromboplast Time Sodium Level 142 MEQ/L Potassium Level 4.1 MEQ/L Chloride Level 111 MEQ/L Carbon Dioxide Level 21.4 MEQ/L Anion Gap 10 MEQ/L Blood Urea Nitrogen 39 MG/DL Creatinine 2.39 MG/DL Estimat Glomerular Filtration 30 ML/MIN Rate Random Glucose 125 MG/DL Calcium Level 8.8 MG/DL Total Bilirubin 0.4 MG/DL Aspartate Amino Transf 8 U/L (AST/SGOT) Alanine Aminotransferase 17 U/L (ALT/SGPT) Alkaline Phosphatase 77 U/L Total Protein 7.3 GM/DL Albumin 3.3 GM/DL Lipase 229 U/L Urine Color LIGHT-YELLOW Urine Turbidity CLEAR Urine pH 5.0 Urine Specific [place] 1.009 Urine Protein NEG mg/dL Urine Glucose (UA) NEG mg/dL Urine Ketones NEG mg/dL Urine Occult Blood NEG Urine Nitrite NEG Urine Bilirubin NEG Urine Urobilinogen LESS THAN 2.0 MG/DL Urine Leukocyte Esterase NEG Urine RBC LESS THAN 1 /hpf Urine WBC 1 /hpf Urine Squamous Epithelial <1 /hpf Cells Urine Bacteria RARE /hpf Microscopic Urinalysis Comment CULT NOT INDICATED Physical Examination HEENT: PERRLA; normocephalic; atraumatic; no jaundice. NECK: Neck is supple, no JVD, no lymphadenopathy. CHEST: CTA CARDIAC: RRR with no murmur gallop or rubs. ABDOMEN: Soft, obese, nondistended, LLQ TTP; no hepatosplenomegaly; bowel sounds are present x 4 quadrants EXTREMITIES: No clubbing, cyanosis, or edema. SKIN: Normal; no rash; no jaundice. 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 Patient has appointment on 07/16/[address] Florez for colonic resection. Abdomen/Pelvis CT 07/06/17--Acute diverticulitis. Inflammatory findings are similar to the comparison study of 06/23/2017. No abscess or free air identified. Zosyn. Flagyl. CKD, stage III, per attending. Bipolar Disorder, per attending. PLAN - Followup with Dr. Florez as outpatient - Continue Zosyn, Flagyl - Monitor labs - Antiemetics - Supportive care - Further recommendations to follow based on results of above. Patient seen and examined by Dr. Rosas and myself and this note is written on his behalf. (Mica Cunningham) Physician Comments Patient seen and examined Agree with above Continue with current supportive care Monitor labs Not much to add from a GI standpoint Patient apparently has had a colonoscopy in the recent past Further plans as per the Gen. surgical service We will sign off (Scar Rosas MD) Mica Cunningham Jul 07, 2017 09:30 Scar Rosas MD Jul 07, 2017 15:54
[2017-07-07 10:25] LABS: BASOPHIL % 0.2 % (0.0-2.0); EOSINOPHIL # 0.1 TH/MM3 (0-0.4); EOSINOPHIL % 1.5 % (0.0-4.0); HEMATOCRIT 27.2 % (39.0-51.0); HEMO FLAGS DIFF FINAL; LYMPH % 15.3 % (9.0-44.0); LYMPHOCYTE # 1.2 TH/MM3 (1.0-4.8); MEAN CELL VOLUME 100.1 FL (80.0-100.0); MEAN CORPUSCULAR HEMOGLOBIN 34.5 PG (27.0-34.0); MEAN CORPUSCULAR HGB CONC 34.4 % (32.0-36.0); MONO % 8.6 % (0.0-8.0); NEUT % 74.4 % (16.0-70.0); PLATELET COUNT 149 TH/MM3 (150-450); RED BLOOD COUNT 2.71 MIL/MM3 (4.50-5.90); RED CELL DISTRIBUTION WIDTH 14.8 % (11.6-17.2); WHITE BLOOD COUNT 8.1 TH/MM3 (4.0-11.0)
--- NOTE | 2017-07-07 10:40 | HHI.PR ---
Subjective Remarks Follow-up for diverticulitis. The patient is feeling improved overnight. Abdominal pain is mild. He had been having some soft stools lately, no diarrhea , no bowel movement since admission. He states he felt nauseated this morning, but no vomiting, and was able to tolerate his breakfast. He denies any fevers or chills. He states that he's been having multiple episodes of diverticulitis recently. He states the pain usually improves after getting antibiotics. He states she's been on multiple courses of Cipro and Flagyl. He states that after he finished the antibiotics he usually gets a few days of her leave before the pain recurs. Objective Vitals Vital Signs Date Time Temp Pulse Resp B/P Pulse Ox O2 Delivery O2 Flow Rate FiO2 07/07/17 07:57 97.5 85 18 137/72 95 07/07/17 04:35 97.9 88 18 145/75 97 07/06/17 22:56 97.7 78 19 131/79 96 07/06/17 18:52 99 Room Air 07/06/17 18:26 18 07/06/17 18:02 97.5 98 24 136/84 97 Room Air Result Diagram: 07/07/17 0943 07/06/17 1850 Imaging Last Impressions Abdomen/Pelvis CT 07/06/172005 Signed Impressions: Service Date/Time: Thursday, July 06, 2017 20:48 - CONCLUSION: Acute diverticulitis. Inflammatory findings are similar to the comparison study of 06/23/2017. No abscess or free air identified. Parveen Mg MD Objective Remarks GENERAL: Well-developed well-nourished morbidly obese. In no acute distress. SKIN: Warm and dry. No lesions noted. HEENT: Normocephalic. Pupils equal and round. Mucous membranes pink and moist. CARDIOVASCULAR: Regular rate and rhythm. No murmur appreciated. RESPIRATORY: No accessory muscle use. Clear to auscultation. Breath sounds equal bilaterally. GASTROINTESTINAL: Abdomen soft, very mild LLQ TTP, nondistended. Bowel sounds x4. MUSCULOSKELETAL: No obvious deformities. No clubbing or cyanosis. No edema. NEUROLOGICAL: Awake and alert. No focal neurological deficits. Moves upper and lower extremities spontaneously. Normal speech. PSYCHIATRIC: Appropriate mood and affect; insight and judgment normal. A/P Problem List: (1) Diverticulitis ICD Code: K57.92 Status: Acute (2) CKD (chronic kidney disease) stage 3, GFR 30-59 ml/min ICD Code: N18.3 Status: Acute (3) Bipolar disorder ICD Code: F31.9 Status: Acute Assessment and Plan 41-year-old male with a PMH of HTN, Bipolar Disorder and Diverticulitis who presented with complaints of severe abdominal pain and admitted with recurrent diverticulitis Diverticulitis: Recurrent; multiple ED visits with diverticulitis and multiple courses of Cipro/Flagy. Currently has upcoming appointment with Dr. Florez. CT Abd/Pelvis w/ acute diverticulitis, no abscess or free air, findings similar to previous CT last month. Continue on IV Zosyn. GI/Gen Sx consulted. Discussed with general surgery, continue IV antibiotics as inpatient. Analgesics/antiemetics as needed. Symptoms improving. CKD: Stage III/IV. Stable. Creatinine 2.39, previously 2.94 on 06/22/17. Repeat labs pending. IVF. Bipolar Disorder: Chronic, stable. Continue home medications. Headache: Takes Excedrin at home for migraines. Discussed with pharmacy, the only acetaminophen and caffeine-containing medication on formulary is Fioricet, will start. DVT Prophylaxis: SCD/TEDs. Discharge Planning Follow-up specialists recommendations. Problem Qualifiers (1) Diverticulitis: Qualified Code: K57.32 - Diverticulitis of large intestine without perforation or abscess without bleeding Fawad López Jul 07, 2017 10:40
[2017-07-07 10:45] LABS: ANION GAP 10 MEQ/L (5-15); AST (GOT) 11 U/L (15-37); BLOOD UREA NITROGEN 33 MG/DL (7-18); CHLORIDE 111 MEQ/L (98-107); GLOMERULAR FILTRATION RATE 33 ML/MIN (>89); POTASSIUM 4.4 MEQ/L (3.5-5.1); SODIUM (NA) 141 MEQ/L (136-145)
[2017-07-07 10:46] LABS: ALT (GPT) 15 U/L (12-78)
[2017-07-07 10:48] LABS: ALKALINE PHOSPHATASE 71 U/L (45-117); TOTAL BILIRUBIN ADULT 0.4 MG/DL (0.2-1.0)
[2017-07-07 11:32] VITALS: BP_SYST 127; BP_SYST 163; BP_DIAS 66; BP_DIAS 74; PULSE 79; RESP 16; TEMP 97.4; O2SAT 95
--- NOTE | 2017-07-07 11:34 | PD.CAR.PN ---
CVT Progress Note Subjective/Hospital Course: Patient with recurrent attacks of acute diverticulitis which and never treated completely and before patient can be scheduled for surgery comes back with her next attack. Full consult is dictated He is established patient of Dr. Augustine Would recommend at least one week of intravenous antibiotics in the hospital and then strict regiment of antibiotics and low residue diet at home Patient should have sigmoid and descending colon resection however this should be done when bowel has recovered the not in acute rony. Refer to full consult for details Thanks J Objective: Vital Signs Date Time Temp Pulse Resp B/P Pulse Ox O2 Delivery O2 Flow Rate FiO2 07/07/17 07:57 97.5 85 18 137/72 95 07/07/17 04:35 97.9 88 18 145/75 97 07/06/17 22:56 97.7 78 19 131/79 96 07/06/17 18:52 99 Room Air 07/06/17 18:26 18 07/06/17 18:02 97.5 98 24 136/84 97 Room Air Labs: Laboratory Tests Test 07/07/17 09:43 White Blood Count 8.1 TH/MM3 (4.0-11.0) Red Blood Count 2.71 MIL/MM3 (4.50-5.90) Hemoglobin 9.4 GM/DL (13.0-17.0) Hematocrit 27.2 % (39.0-51.0) Mean Corpuscular Volume 100.1 FL (80.0-100.0) Mean Corpuscular Hemoglobin 34.5 PG (27.0-34.0) Mean Corpuscular Hemoglobin 34.4 % Concent (32.0-36.0) Red Cell Distribution Width 14.8 % (11.6-17.2) Platelet Count 149 TH/MM3 (150-450) Mean Platelet Volume 8.3 FL (7.0-11.0) Neutrophils (%) (Auto) 74.4 % (16.0-70.0) Lymphocytes (%) (Auto) 15.3 % (9.0-44.0) Monocytes (%) (Auto) 8.6 % (0.0-8.0) Eosinophils (%) (Auto) 1.5 % (0.0-4.0) Basophils (%) (Auto) 0.2 % (0.0-2.0) Neutrophils # (Auto) 6.0 TH/MM3 (1.8-7.7) Lymphocytes # (Auto) 1.2 TH/MM3 (1.0-4.8) Monocytes # (Auto) 0.7 TH/MM3 (0-0.9) Eosinophils # (Auto) 0.1 TH/MM3 (0-0.4) Basophils # (Auto) 0.0 TH/MM3 (0-0.2) CBC Comment DIFF FINAL Differential Comment Sodium Level 141 MEQ/L (136-145) Potassium Level 4.4 MEQ/L (3.5-5.1) Chloride Level 111 MEQ/L (98-107) Carbon Dioxide Level 20.0 MEQ/L (21.0-32.0) Anion Gap 10 MEQ/L (5-15) Blood Urea Nitrogen 33 MG/DL (7-18) Creatinine 2.21 MG/DL (0.60-1.30) Estimat Glomerular Filtration 33 ML/MIN (>89) Rate Random Glucose 111 MG/DL (74-106) Calcium Level 8.7 MG/DL (8.5-10.1) Total Bilirubin 0.4 MG/DL (0.2-1.0) Aspartate Amino Transf 11 U/L (15-37) (AST/SGOT) Alanine Aminotransferase 15 U/L (12-78) (ALT/SGPT) Alkaline Phosphatase 71 U/L (45-117) Total Protein 7.3 GM/DL (6.4-8.2) Albumin 3.4 GM/DL (3.4-5.0) Result Diagram: 07/07/17 0943 07/07/17 0943 Agnieszka Campbell MD Jul 07, 2017 11:34
[2017-07-07] MEDS: SODIUM CHLORIDE 0.9% FLUSH 10 ML FLUSH IV FLUSH PRN (12:18)
[2017-07-07] MEDS ORDERED: cloNIDine HCL 0.1 MG TAB PO PRN (12:45)
--- NOTE | 2017-07-07 13:32 | MB ---
cc: MD MARSHA,[facility] DATE OF CONSULTATION: 07/07/2017. REASON FOR CONSULTATION: Acute diverticulitis, diverticulosis, abdominal pain, bipolar disorder, and morbid obesity. HISTORY OF PRESENT ILLNESS: This 41-year-old male presents now for the seventh or eighth time through the emergency room for a left lower quadrant pain. The patient has been seen numerous times here including by Dr. Florez last month for acute recurrent diverticulitis based on chronic diverticulosis. The patient has been on antibiotics including Cipro and Flagyl. In the past, he has been on Levaquin. He now comes back with the same symptoms. PAST MEDICAL HISTORY: 1. Bipolar disorder. 2. Recurrent left diverticulitis. 3. Morbid obesity. PAST SURGICAL HISTORY: 1. Dental extractions. MEDICATIONS: Medications can be found on the record. ALLERGIES: 1. MORPHINE. PHYSICAL EXAMINATION: GENERAL: The physical examination reveals a morbidly obese 41-year-old male in no acute distress. HEAD, EYES, EARS, NOSE, THROAT: Normocephalic. No trauma to the head. Pupils equal and reactive. Extraocular muscles intact. NECK: The neck is supple. Bilateral carotid pulses. No bruits. CHEST: Clear. Bilateral breath sounds. HEART: Regular rhythm. ABDOMEN: Obese, soft, hypoactive bowel sounds. On palpation, tender in the left lower quadrant but no rebound or guarding. No masses noted. EXTREMITIES: Obese but within normal limits. 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 He has palpable proximal and distal pulses. No vascular deficit. BACK: The back is normal. NEUROLOGIC: The patient is intact. IMPRESSION: This gentleman is a morbidly obese male who presents with recurrent attacks of acute upon chronic subacute diverticulitis. He has been placed on p.o. antibiotics and discharged. Each time the patient comes back with incomplete therapy. The gentleman will need sigmoid and descending colon resection with primary anastomosis; however, it would be very unwise to do this at this time because the patient will end up with a colostomy. The surgery has to be performed between the attacks when everything is dormant and the bowel has recovered. It seems that the patient never gets there. It gets partially treated every time. At this point, I recommend the patient stay in the hospital for at least a week on intravenous antibiotics and then be discharged home for at least a month on p.o. antibiotics. He also should be on a low-residue diet at this point, and by that time, he should have recovered sufficiently to have surgery. He is an established patient of Dr. Florez, and I will let him know that the patient is here. Thank you very much for the referral. Agnieszka TEAGUE/KRANTHI /11:28 AM /1:22 PM
[2017-07-07] MEDS: ACETAMIN 325 MG/BUTALBITAL 50 MG/CAFFEINE 40 MG TAB PO PRN (15:59)
[2017-07-07 16:15] VITALS: BP_SYST 138; BP_SYST 169; BP_DIAS 66; BP_DIAS 68; BP_DIAS 78; PULSE 90; RESP 18; TEMP 98.6; O2SAT 96
[2017-07-07 19:42] VITALS: BP 137/64; PULSE 90; RESP 20; TEMP 98.9; O2SAT 96
[2017-07-07] MEDS ORDERED: MIRTAZAPINE ODT 30 MG TAB PO SCH (21:00)
[2017-07-07] MEDS: MIRTAZAPINE ODT 30 MG TAB PO SCH (21:44)
[2017-07-07] MEDS: DIVALPROEX SODIUM E.R. 500 MG TAB PO SCH (21:45)
[2017-07-08] MEDS: PIPERACIL-TAZO 2.25 GM PREMIX 50 ML IV SCH ×4 (04:39→21:39)
[2017-07-08] MEDS: SODIUM CHLOR 0.9% 1000 ML INJ 1,000 ML IV SCH ×3 (04:39→21:40)
[2017-07-08 04:40] VITALS: BP 133/80; PULSE 91; RESP 18; TEMP 98; O2SAT 96
[2017-07-08 08:43] VITALS: BP 130/67; PULSE 90; RESP 20; TEMP 97.7; O2SAT 97
[2017-07-08] MEDS: SODIUM CHLORIDE 0.9% FLUSH 10 ML FLUSH IV FLUSH SCH ×2 (09:00→21:40)
--- NOTE | 2017-07-08 09:15 | HHI.PR ---
Subjective Remarks Follow up for diverticulitis. The patient reports feeling better again today. Still with some abdominal pain at the LLQ. He reports his nausea has improved, and he was able to tolerate dinner last night. His bowel movements have been normal, formed, nonbloody. He had some chills last night, but no documented fevers. He denies any other medical complaints including no chest pain or shortness of breath. Objective Vitals Vital Signs Date Time Temp Pulse Resp B/P Pulse Ox O2 Delivery O2 Flow Rate FiO2 07/08/17 08:43 97.7 90 20 130/67 97 07/08/17 04:40 98.0 91 18 133/80 96 07/07/17 21:46 12 07/07/17 19:42 98.9 90 20 137/64 96 07/07/17 16:15 98.6 90 18 138/66 96 07/07/17 11:32 97.4 79 16 127/66 95 I/O 07/07/17 07/07/17 07/07/17 07/08/17 07/08/17 07/08/17 06:59 14:59 22:59 06:59 14:59 22:59 Intake Total 16 ml 2088 ml 2172 ml Output Total 325 ml 500 ml 750 ml Balance -309 ml 1588 ml 1422 ml Intake Oral 16 ml 888 ml 422 ml IV Total 1200 ml 1750 ml Output Urine Total 325 ml 500 ml 750 ml Result Diagram: 07/07/17 0943 07/07/17 0943 Imaging Last Impressions Abdomen/Pelvis CT 07/06/172005 Signed Impressions: Service Date/Time: Thursday, July 06, 2017 20:48 - CONCLUSION: Acute diverticulitis. Inflammatory findings are similar to the comparison study of 06/23/2017. No abscess or free air identified. Parveen Mg MD Objective Remarks GENERAL: Well-nourished, well-developed pleasant morbidly obese middle aged male patient in [facility]. SKIN: Warm and dry. No rash. HEENT: Normocephalic. Atraumatic.Pupils equal and round. Mucous membranes pink and moist. CARDIOVASCULAR: Regular rate and rhythm. S1, S2 noted. No murmur appreciated. RESPIRATORY: No accessory muscle use. Clear to auscultation. Breath sounds equal bilaterally. GASTROINTESTINAL: Abdomen soft, nondistended, LLQ TTP. Normoactive bowel sounds x4. MUSCULOSKELETAL: No obvious deformities. Extremities without clubbing, cyanosis , or edema. NEUROLOGICAL: Awake and alert. No obvious cranial nerve deficits. Motor grossly within normal limits. Normal speech. PSYCHIATRIC: Appropriate mood and affect; insight and judgment normal. Medications and IVs Current Medications Medications (Trade) Dose Ordered Sig/Delvis Route Start Time Stop Time Status Last Admin Piperacillin Sod/ Tazobactam Sod 50 ml @ 100 mls/hr Q6H IV 07/07/17 04:00 07/08/17 04:39 (NS 1000 ml Inj) 1,000 ml @ 100 mls/hr Q10H IV 07/06/17 22:00 07/08/17 04:39 (NS Flush) 2 ml UNSCH PRN IV FLUSH 07/06/17 22:00 07/07/17 12:18 (NS Flush) 2 ml BID IV FLUSH 07/07/17 09:00 07/07/17 21:45 (Zofran Inj) 4 mg Q6H PRN IVP 07/06/17 22:00 07/07/17 12:18 (Tylenol) 650 mg Q6H PRN PO 07/06/17 22:00 07/07/17 20:08 (Dilaudid Pf Inj) 1 mg Q3H PRN IV 07/06/17 22:00 07/07/17 08:07 (Destinee-Colace) 1 tab BID PO 07/07/17 09:00 07/07/17 21:44 (Milk Of Magnesia Liq) 30 ml Q12H PRN PO 07/06/17 22:00 (Senokot) 17.2 mg Q12H PRN PO 07/06/17 22:00 (Dulcolax Supp) 10 mg DAILY PRN RECTAL 07/06/17 22:00 (Lactulose Liq) 30 ml DAILY PRN PO 07/06/17 22:00 (Remeron Soltab Odt) 30 mg HS PO 07/06/17 22:15 07/07/17 21:44 (risperDAL) 2 mg BID PO 07/06/17 22:15 07/07/17 21:44 (Depakote Er) 1,000 mg HS PO 07/07/17 21:00 07/07/17 21:45 (Catapres) 0.1 mg Q6H PRN PO 07/07/17 12:45 (Fioricet 325-50-40) 1 tab Q8H PRN PO 07/07/17 14:30 07/07/17 15:59 A/P Problem List: (1) Diverticulitis ICD Code: K57.92 Status: Acute (2) CKD (chronic kidney disease) stage 3, GFR 30-59 ml/min ICD Code: N18.3 Status: Acute (3) Bipolar disorder ICD Code: F31.9 Status: Acute Assessment and Plan 41-year-old male with a PMH of HTN, Bipolar Disorder and Diverticulitis who presented with complaints of severe abdominal pain and admitted with recurrent diverticulitis Acute Recurrent Diverticulitis, Failed Outpatient: multiple ED visits with diverticulitis, s/p multiple courses of Cipro/Flagyl. CT Abd/Pelvis w/ acute diverticulitis, no abscess or free air, findings similar to previous CT last month. Continue on IV Zosyn. GI/Gen Sx consulted. Follows with Dr. Florez as outpatient. Per Dr. Lawson, continue IV antibiotics as inpatient x1week, then plan to discharge on 1month of po abx. Analgesics/antiemetics as needed. Symptoms improving. CKD: Stage III. Stable. Creatinine 2.39, previously 2.94 on 06/22/17. Repeat labs with mild improvement, Cr 2.21. On IVF. Monitor. Avoid nephrotoxins. Bipolar Disorder: Chronic, stable. Continue home medications. Headache: Takes Excedrin at home for migraines. Discussed with pharmacy, the only acetaminophen and caffeine-containing medication on formulary is Fioricet, will continue. DVT Prophylaxis: SCD/TEDs. Discharge Planning Possible discharge in 3-5days when cleared by general surgery. Problem Qualifiers (1) Diverticulitis: Qualified Code: K57.32 - Diverticulitis of large intestine without perforation or abscess without bleeding Danielle Rey PA-C Jul 08, 2017 09:15
[2017-07-08] MEDS: DOCUSATE SODIUM 50 MG/SENNA 8.6 MG TAB PO SCH ×2 (10:13→21:00)
[2017-07-08] MEDS: risperiDONE 1 MG TAB PO SCH ×2 (10:14→21:37)
[2017-07-08] MEDS: ACETAMIN 325 MG/BUTALBITAL 50 MG/CAFFEINE 40 MG TAB PO PRN (10:21)
[2017-07-08] MEDS ORDERED: ACETAMINOPHEN/HYDROcodone 325 MG/5 MG TAB PO PRN (10:45)
[2017-07-08 11:29] VITALS: BP 131/60; PULSE 100; RESP 19; TEMP 97.7; O2SAT 96
[2017-07-08] MEDS: ACETAMINOPHEN/HYDROcodone 325 MG/7.5 MG TAB PO PRN ×3 (12:55→21:47)
[2017-07-08] MEDS ORDERED: HYDROmorphone HCL PF 1 MG/ML VIAL IV PUSH PRN (13:15)
--- NOTE | 2017-07-08 15:07 | PD.CAR.PN ---
CVT Progress Note Subjective/Hospital Course: Patient with recurrent attacks of acute diverticulitis which and never treated completely and before patient can be scheduled for surgery comes back with her next attack. Full consult is dictated He is established patient of Dr. Augustine Would recommend at least one week of intravenous antibiotics in the hospital and then strict regiment of antibiotics and low residue diet at home Patient should have sigmoid and descending colon resection however this should be done when bowel has recovered the not in acute rony. Refer to full consult for details Thanks Renny 07/08/17 Patient improved Abdomen soft White count normalized and left shift resolved I discussed the case with Dr. Augustine who is seen the patient in the past for the same problem Again, it seems to be very hard to catch the patient between the attacks of diverticulitis in go ahead with sigmoid and descending colon resection. Unquestionably this will be difficult operation and probably fraught with complications. Patient will have 100% risk of morbidity either in the form off atelectasis and pneumonia, or in the form of deep venous thrombosis or some other complication. Morbid obesity and diabetes obviously is a major factor in postoperative care and complication rate. Because of all of the valve reasons where both considering very carefully when how to subject this patient to surgery in the most safe and the prudent way. For the time being patient should remain on antibiotics till diverticulitis resolves and will go from there. Objective: Vital Signs Date Time Temp Pulse Resp B/P Pulse Ox O2 Delivery O2 Flow Rate FiO2 07/08/17 11:29 97.7 100 19 131/60 96 07/08/17 08:43 97.7 90 20 130/67 97 07/08/17 04:40 98.0 91 18 133/80 96 07/07/17 21:46 12 07/07/17 19:42 98.9 90 20 137/64 96 07/07/17 16:15 98.6 90 18 138/66 96 Result Diagram: 07/07/17 0943 07/07/17 0943 Agnieszka Campbell MD Jul 08, 2017 15:07
[2017-07-08] MEDS: ONDANSETRON HCL 4 MG/2 ML VIAL IVP PRN (15:44)
[2017-07-08] MEDS: SODIUM CHLORIDE 0.9% FLUSH 10 ML FLUSH IV FLUSH PRN (15:44)
[2017-07-08 16:01] VITALS: BP 121/61; PULSE 91; RESP 16; TEMP 97.6; O2SAT 96
[2017-07-08 19:52] VITALS: BP 122/56; PULSE 83; RESP 18; TEMP 98.7; O2SAT 97
[2017-07-08 20:15] VITALS: BP 136/60; PULSE 87; RESP 19; TEMP 97.5; O2SAT 96
[2017-07-08] MEDS: MIRTAZAPINE ODT 30 MG TAB PO SCH (21:38)
[2017-07-08] MEDS: DIVALPROEX SODIUM E.R. 500 MG TAB PO SCH (21:38)
[2017-07-09] VITALS: BP 149/66; PULSE 87; RESP 16; TEMP 97.4; O2SAT 98
[2017-07-09 04:00] VITALS: BP 125/60; PULSE 83; RESP 18; TEMP 97.7; O2SAT 98
[2017-07-09] MEDS: PIPERACIL-TAZO 2.25 GM PREMIX 50 ML IV SCH ×4 (04:56→22:33)
[2017-07-09] MEDS: ACETAMINOPHEN/HYDROcodone 325 MG/7.5 MG TAB PO PRN ×4 (05:50→18:50)
[2017-07-09] MEDS: SODIUM CHLORIDE 0.9% FLUSH 10 ML FLUSH IV FLUSH SCH ×2 (07:40→20:33)
[2017-07-09 08:00] VITALS: BP 126/62; PULSE 86; RESP 20; TEMP 97.8; O2SAT 97
[2017-07-09 08:21] LABS: AUTOMATED NEUTROPHIL # 4.8 TH/MM3 (1.8-7.7); BASOPHIL % 0.3 % (0.0-2.0); EOSINOPHIL # 0.2 TH/MM3 (0-0.4); EOSINOPHIL % 2.2 % (0.0-4.0); HEMATOCRIT 25.9 % (39.0-51.0); HEMO FLAGS DIFF FINAL; LYMPH % 23.6 % (9.0-44.0); LYMPHOCYTE # 1.8 TH/MM3 (1.0-4.8); MEAN CELL VOLUME 100.8 FL (80.0-100.0); MEAN CORPUSCULAR HEMOGLOBIN 33.8 PG (27.0-34.0); MEAN CORPUSCULAR HGB CONC 33.5 % (32.0-36.0); MONO % 9.8 % (0.0-8.0); NEUT % 64.1 % (16.0-70.0); PLATELET COUNT 146 TH/MM3 (150-450); RED BLOOD COUNT 2.57 MIL/MM3 (4.50-5.90); RED CELL DISTRIBUTION WIDTH 14.8 % (11.6-17.2); WHITE BLOOD COUNT 7.5 TH/MM3 (4.0-11.0)
[2017-07-09] MEDS: DOCUSATE SODIUM 50 MG/SENNA 8.6 MG TAB PO SCH ×2 (08:29→20:32)
[2017-07-09] MEDS: risperiDONE 1 MG TAB PO SCH ×2 (08:29→20:32)
[2017-07-09] MEDS: SODIUM CHLOR 0.9% 1000 ML INJ 1,000 ML IV SCH ×2 (08:29→20:33)
[2017-07-09 08:43] LABS: BICARBONATE 24.2 MEQ/L (21.0-32.0); POTASSIUM 4.6 MEQ/L (3.5-5.1)
[2017-07-09 12:00] VITALS: BP 128/67; PULSE 96; RESP 20; TEMP 98; O2SAT 94
--- NOTE | 2017-07-09 13:18 | HHI.PR ---
Subjective Remarks Follow up for recurrent diverticulitis. Patient reports no fever, chills. However, he complains of back pain, especially below his right scapula. Sitting in his chair. Mother at bedside. Objective Vitals Vital Signs Date Time Temp Pulse Resp B/P Pulse Ox O2 Delivery O2 Flow Rate FiO2 07/09/17 12:00 98.0 96 20 128/67 94 07/09/17 08:00 97.8 86 20 126/62 97 07/09/17 07:41 Room Air 07/09/17 04:00 97.7 83 18 125/60 98 07/09/17 00:00 97.4 87 16 149/66 98 07/08/17 21:00 Room Air 07/08/17 20:15 97.5 87 19 136/60 96 07/08/17 19:52 98.7 83 18 122/56 97 07/08/17 16:01 97.6 91 16 121/61 96 I/O 07/08/17 07/08/17 07/08/17 07/09/17 07/09/17 07/09/17 06:59 14:59 22:59 06:59 14:59 22:59 Intake Total 2172 ml 3352 ml 1696 ml 1404 ml Output Total 750 ml 900 ml 1100 ml 1250 ml Balance 1422 ml 2452 ml 596 ml 154 ml Intake Oral 422 ml 2902 ml 1646 ml 580 ml IV Total 1750 ml 450 ml 50 ml 824 ml Output Urine Total 750 ml 900 ml 1100 ml 1250 ml # Voids 2 2 # Bowel Movements 0 0 Result Diagram: 07/09/17 0646 07/09/17 0646 Imaging Last Impressions Abdomen/Pelvis CT 07/06/172005 Signed Impressions: Service Date/Time: Thursday, July 06, 2017 20:48 - CONCLUSION: Acute diverticulitis. Inflammatory findings are similar to the comparison study of 06/23/2017. No abscess or free air identified. Parveen Mg MD Objective Remarks GENERAL: Alert, NAD. Morbid obesity. SKIN: Warm and dry. HEAD: Normocephalic. EYES: No scleral icterus. No injection or drainage. NECK: Supple, trachea midline. No JVD or lymphadenopathy. CARDIOVASCULAR: Regular rate and rhythm without murmurs, gallops, or rubs. RESPIRATORY: Breath sounds equal bilaterally. No accessory muscle use. GASTROINTESTINAL: Abdomen soft, non-tender except some tenderness over lower abd , nondistended. MUSCULOSKELETAL: No cyanosis, or edema. BACK: Nontender without obvious deformity. No CVA tenderness. Procedures None. A/P Problem List: (1) Diverticulitis ICD Code: K57.92 Status: Acute (2) CKD (chronic kidney disease) stage 3, GFR 30-59 ml/min ICD Code: N18.3 Status: Acute (3) Bipolar disorder ICD Code: F31.9 Status: Acute Assessment and Plan 41-year-old male with a PMH of HTN, Bipolar Disorder and Diverticulitis who presented with complaints of severe abdominal pain and admitted with recurrent diverticulitis Acute Recurrent Diverticulitis, Failed Outpatient: multiple ED visits with diverticulitis, s/p multiple courses of Cipro/Flagyl. CT Abd/Pelvis w/ acute diverticulitis, no abscess or free air, findings similar to previous CT last month. Continue on IV Zosyn. GI/Gen Sx consulted. Follows with Dr. Florez as outpatient. - Will continue IV Zosyn. If there is clinical improvements, no fever for 24- 48 hours, it would be reasonable to switch to PO Augmentin for 2-3 weeks. - Will wait for Dr. Augustine's input. - Upper right back pain - Probably referred pain. Will try Baclofen 10mg Q8hrs. Continue [place] and IV Dilaudid PRN. CKD: Stage III. Stable. Creatinine 2.39 --> 2.16. Bipolar Disorder: Chronic, stable. Continue home medications, Depakote, Risperidone. Headache - Continue Fioricet PRN. DVT Prophylaxis: SCD/TEDs. Problem Qualifiers (1) Diverticulitis: Qualified Code: K57.32 - Diverticulitis of large intestine without perforation or abscess without bleeding Heriberto Sagastume DO Jul 09, 2017 13:18
[2017-07-09] MEDS: BACLOFEN 10 MG TAB PO SCH ×2 (14:11→20:32)
[2017-07-09] MEDS: HYDROmorphone HCL PF 1 MG/ML VIAL IV PUSH PRN ×2 (14:24→21:08)
[2017-07-09 16:00] VITALS: BP 124/64; PULSE 97; RESP 20; TEMP 98.3; O2SAT 96
[2017-07-09 20:00] VITALS: BP 142/73; PULSE 94; RESP 20; TEMP 98.5; O2SAT 96
[2017-07-09] MEDS: DIVALPROEX SODIUM E.R. 500 MG TAB PO SCH (20:32)
[2017-07-09] MEDS: MIRTAZAPINE ODT 30 MG TAB PO SCH (20:32)
[2017-07-10] VITALS: BP 128/63; PULSE 114; RESP 20; TEMP 97.9; O2SAT 95
[2017-07-10] MEDS: ACETAMINOPHEN/HYDROcodone 325 MG/7.5 MG TAB PO PRN ×4 (01:37→17:45)
[2017-07-10 04:00] VITALS: BP 133/66; PULSE 110; RESP 18; TEMP 98.3; O2SAT 93
[2017-07-10] MEDS: PIPERACIL-TAZO 2.25 GM PREMIX 50 ML IV SCH ×2 (04:20→09:40)
[2017-07-10] MEDS: HYDROmorphone HCL PF 1 MG/ML VIAL IV PUSH PRN ×4 (04:22→21:31)
[2017-07-10] MEDS: SODIUM CHLOR 0.9% 1000 ML INJ 1,000 ML IV SCH ×2 (06:06→12:14)
[2017-07-10] MEDS: BACLOFEN 10 MG TAB PO SCH ×3 (06:06→21:29)
[2017-07-10] MEDS: SODIUM CHLORIDE 0.9% FLUSH 10 ML FLUSH IV FLUSH SCH ×2 (07:41→21:29)
[2017-07-10] MEDS: DOCUSATE SODIUM 50 MG/SENNA 8.6 MG TAB PO SCH ×2 (07:55→21:00)
[2017-07-10] MEDS: risperiDONE 1 MG TAB PO SCH ×2 (07:56→21:28)
[2017-07-10 08:00] VITALS: BP 151/90; PULSE 110; RESP 20; TEMP 98.3; O2SAT 98
[2017-07-10 12:00] VITALS: BP 149/65; PULSE 110; RESP 18; TEMP 99; O2SAT 93
--- NOTE | 2017-07-10 14:36 | HHI.PR ---
Subjective Remarks Follow up for recurrent diverticulitis. No fever, chills. Sitting in the chair. Mother at bedside, reports right knee pain, swelling. Patient apparently tried to get up and could not ambulate much due to pain. Objective Vitals Vital Signs Date Time Temp Pulse Resp B/P Pulse Ox O2 Delivery O2 Flow Rate FiO2 07/10/17 12:00 99.0 110 18 149/65 93 07/10/17 09:11 Room Air 07/10/17 08:00 98.3 110 20 151/90 98 07/10/17 04:00 98.3 110 18 133/66 93 07/10/17 00:00 97.9 114 20 128/63 95 07/09/17 20:00 98.5 94 20 142/73 96 07/09/17 20:00 Room Air 07/09/17 16:00 98.3 97 20 124/64 96 I/O 07/09/17 07/09/17 07/09/17 07/10/17 07/10/17 07/10/17 07:00 15:00 23:00 07:00 15:00 23:00 Intake Total 1404 ml 960 ml 1250 ml Output Total 1250 ml 2025 ml 800 ml Balance 154 ml -1065 ml 1250 ml -800 ml Intake Oral 580 ml 960 ml IV Total 824 ml 1250 ml Output Urine Total 1250 ml 2025 ml 800 ml # Bowel Movements 0 0 Result Diagram: 07/09/17 0646 07/09/17 0646 Imaging Last Impressions Abdomen/Pelvis CT 07/06/172005 Signed Impressions: Service Date/Time: Thursday, July 06, 2017 20:48 - CONCLUSION: Acute diverticulitis. Inflammatory findings are similar to the comparison study of 06/23/2017. No abscess or free air identified. Parveen Mg MD Objective Remarks GENERAL: Alert, NAD. Morbid obesity. SKIN: Warm and dry. HEAD: Normocephalic. EYES: No scleral icterus. No injection or drainage. NECK: Supple, trachea midline. No JVD or lymphadenopathy. CARDIOVASCULAR: Regular rate and rhythm without murmurs, gallops, or rubs. RESPIRATORY: Breath sounds equal bilaterally. No accessory muscle use. GASTROINTESTINAL: Abdomen soft, non-tender except some tenderness over lower abd , nondistended. MUSCULOSKELETAL: No cyanosis, or edema. BACK: Nontender without obvious deformity. No CVA tenderness. Procedures None. A/P Problem List: (1) Diverticulitis ICD Code: K57.92 Status: Acute (2) CKD (chronic kidney disease) stage 3, GFR 30-59 ml/min ICD Code: N18.3 Status: Acute (3) Bipolar disorder ICD Code: F31.9 Status: Acute Assessment and Plan 41-year-old male with a PMH of HTN, Bipolar Disorder and Diverticulitis who presented with complaints of severe abdominal pain and admitted with recurrent diverticulitis Acute Recurrent Diverticulitis, Failed Outpatient: multiple ED visits with diverticulitis, s/p multiple courses of Cipro/Flagyl. CT Abd/Pelvis w/ acute diverticulitis, no abscess or free air, findings similar to previous CT last month. Continue on IV Zosyn. GI/Gen Sx consulted. Follows with Dr. Florez as outpatient. - Will switch Zosyn to Augmentin PO. If patient does well on Augmentin, we anticipate discharge on PO Augmentin. - Upper right back pain - Probably referred pain. ContinueBaclofen 10mg Q8hrs. Continue [place] and IV Dilaudid PRN. - Right knee pain - Patient's mother reports some swelling as well. There is no erythema. - Will get PT eval and also an X-ray of the right knee. CKD: Stage III. Stable. Creatinine 2.39 --> 2.16. Bipolar Disorder: Chronic, stable. Continue home medications, Depakote, Risperidone. Headache - Continue Fioricet PRN. DVT Prophylaxis: SCD/TEDs. Problem Qualifiers (1) Diverticulitis: Qualified Code: K57.32 - Diverticulitis of large intestine without perforation or abscess without bleeding Heriberto Sagastume DO Jul 10, 2017 14:36
[2017-07-10 16:00] VITALS: BP 135/86; PULSE 110; RESP 20; TEMP 98; O2SAT 97
[2017-07-10 20:00] VITALS: BP 161/78; PULSE 112; RESP 18; TEMP 99.1; O2SAT 96
[2017-07-10] MEDS: AMOXICILLIN/CLAVULANATE K 875 MG TAB PO SCH (21:28)
[2017-07-10] MEDS: MIRTAZAPINE ODT 30 MG TAB PO SCH (21:28)
[2017-07-10] MEDS: DIVALPROEX SODIUM E.R. 500 MG TAB PO SCH (21:29)
[2017-07-11] VITALS: BP 144/72; PULSE 121; RESP 20; TEMP 98.4; O2SAT 95
[2017-07-11] MEDS: ACETAMINOPHEN/HYDROcodone 325 MG/7.5 MG TAB PO PRN ×3 (03:27→13:46)
[2017-07-11] MEDS: SODIUM CHLOR 0.9% 1000 ML INJ 1,000 ML IV SCH ×2 (03:30→12:00)
[2017-07-11 04:00] VITALS: BP 145/75; PULSE 116; RESP 18; TEMP 99.2; O2SAT 95
[2017-07-11] MEDS: HYDROmorphone HCL PF 1 MG/ML VIAL IV PUSH PRN (05:36)
[2017-07-11] MEDS: BACLOFEN 10 MG TAB PO SCH ×2 (05:36→13:46)
[2017-07-11 08:01] VITALS: BP 132/79; PULSE 109; RESP 20; TEMP 97.9; O2SAT 95
[2017-07-11] MEDS: SODIUM CHLORIDE 0.9% FLUSH 10 ML FLUSH IV FLUSH SCH (08:48)
[2017-07-11] MEDS: AMOXICILLIN/CLAVULANATE K 875 MG TAB PO SCH (08:49)
[2017-07-11] MEDS: risperiDONE 1 MG TAB PO SCH (08:49)
[2017-07-11] MEDS: DOCUSATE SODIUM 50 MG/SENNA 8.6 MG TAB PO SCH (08:49)
[2017-07-11 09:28] LABS: BASOPHIL % 0.2 % (0.0-2.0); EOSINOPHIL % 0.3 % (0.0-4.0); HEMATOCRIT 24.8 % (39.0-51.0); HEMO FLAGS DIFF FINAL; LYMPH % 14.2 % (9.0-44.0); LYMPHOCYTE # 1.5 TH/MM3 (1.0-4.8); MEAN CELL VOLUME 100.9 FL (80.0-100.0); MEAN CORPUSCULAR HGB CONC 34.6 % (32.0-36.0); MONO % 11.8 % (0.0-8.0); NEUT % 73.5 % (16.0-70.0); PLATELET COUNT 147 TH/MM3 (150-450); RED BLOOD COUNT 2.46 MIL/MM3 (4.50-5.90); RED CELL DISTRIBUTION WIDTH 15.1 % (11.6-17.2); WHITE BLOOD COUNT 10.9 TH/MM3 (4.0-11.0)
[2017-07-11 09:55] LABS: BICARBONATE 22.5 MEQ/L (21.0-32.0); POTASSIUM 3.9 MEQ/L (3.5-5.1)
--- NOTE | 2017-07-11 09:55 | RADRPT ---
EXAM DATE/TIME: 07/11/2017 09:36 [place] COMPARISON: No previous studies available for comparison. INDICATIONS : Right knee pain. MEDICAL HISTORY : Diverticulitis. Chronic renal insufficiency. Bipolar. Obesity. Anemia. SURGICAL HISTORY : None. ENCOUNTER: Initial ACUITY: 1 day PAIN SCORE: 8/10 LOCATION: Right knee. FINDINGS: A standard 4 examination of the right knee was obtained and demonstrates mild 3 compartment osteoarth ritic change with sclerosis and mild spurring. There is fullness in the suprapatellar bursa region co nsistent with a joint effusion. The patella is intact. There is diffuse soft tissue prominence. There is normal mineralization and alignment. CONCLUSION: 1. Mild 3 compartment osteoarthritic change. 2. Evidence of joint effusion. 3. Diffuse soft tissue prominence. Benjamin Lindsey MD on July 11, 2017 at 9:52 Board Certified Radiologist. This report was verified electronically.
--- NOTE | 2017-07-11 11:09 | HHI.PR ---
Subjective Remarks Follow up for recurrent diverticulitis, knee pain. Patient complains of left knee pain. No fever, chills. However, Tmax was 99.2F. He has difficulty sleeping in bed due to his body habitus and requests a more comfortable bed. Objective Vitals Vital Signs Date Time Temp Pulse Resp B/P Pulse Ox O2 Delivery O2 Flow Rate FiO2 07/11/17 08:01 97.9 109 20 132/79 95 07/11/17 04:00 99.2 116 18 145/75 95 07/11/17 00:00 98.4 121 20 144/72 95 07/10/17 20:00 99.1 112 18 161/78 96 07/10/17 20:00 Room Air 07/10/17 16:00 98.0 110 20 135/86 97 07/10/17 12:00 99.0 110 18 149/65 93 I/O 07/10/17 07/10/17 07/10/17 07/11/17 07/11/17 07/11/17 06:59 14:59 22:59 06:59 14:59 22:59 Intake Total 960 ml 240 ml 2288 ml Output Total 800 ml 1600 ml 800 ml 1000 ml Balance -800 ml -640 ml -560 ml 1288 ml Intake Oral 960 ml 240 ml 480 ml IV Total 1808 ml Output Urine Total 800 ml 1600 ml 800 ml 1000 ml # Bowel Movements 0 0 0 Result Diagram: 07/11/17 0704 07/11/17 07 Objective Remarks GENERAL: Alert, NAD. Morbid obesity. SKIN: Warm and dry. HEAD: Normocephalic. EYES: No scleral icterus. No injection or drainage. NECK: Supple, trachea midline. No JVD or lymphadenopathy. CARDIOVASCULAR: Regular rate and rhythm without murmurs, gallops, or rubs. RESPIRATORY: Breath sounds equal bilaterally. No accessory muscle use. GASTROINTESTINAL: Abdomen soft, non-tender except some tenderness over lower abd , nondistended. MUSCULOSKELETAL: No cyanosis, or edema. BACK: Nontender without obvious deformity. No CVA tenderness. Procedures None. A/P Problem List: (1) Diverticulitis ICD Code: K57.92 Status: Acute (2) CKD (chronic kidney disease) stage 3, GFR 30-59 ml/min ICD Code: N18.3 Status: Acute (3) Bipolar disorder ICD Code: F31.9 Status: Acute Assessment and Plan 41-year-old male with a PMH of HTN, Bipolar Disorder and Diverticulitis who presented with complaints of severe abdominal pain and admitted with recurrent diverticulitis Acute Recurrent Diverticulitis, Failed Outpatient: multiple ED visits with diverticulitis, s/p multiple courses of Cipro/Flagyl. CT Abd/Pelvis w/ acute diverticulitis, no abscess or free air, findings similar to previous CT last month. Continue on IV Zosyn. GI/Gen Sx consulted. Follows with Dr. Florez as outpatient. - Continue Augmentin PO. He had a temp of 99.2F. Will continue to watch. - Upper right back pain - Probably referred pain. Continue Baclofen 10mg Q8hrs. Continue [place] and IV Dilaudid PRN. - Right knee pain - Probable right knee bursitis. - Patient's mother reports some swelling as well. There is no erythema. - PT eval pending. X-ray shows osteoarthritic change, some suprapatellar effusion. - Using NSAIDs may not be a good idea given patient's ongoing diverticulitis. - Intra-articular steroid may be an option. CKD: Stage III. Stable. Creatinine 2.39 --> 2.16. Bipolar Disorder: Chronic, stable. Continue home medications, Depakote, Risperidone. Headache - Continue Fioricet PRN. DVT Prophylaxis: SCD/TEDs. Problem Qualifiers (1) Diverticulitis: Qualified Code: K57.32 - Diverticulitis of large intestine without perforation or abscess without bleeding Heriberto Sagastume DO Jul 11, 2017 11:09
[2017-07-11 12:01] VITALS: BP 149/69; PULSE 107; RESP 20; TEMP 97.8; O2SAT 94
[2017-07-11] MEDS ORDERED: AMOX875T2 PO (14:37)
[2017-07-11] MEDS ORDERED: BACL10TA PO (14:37)
[2017-07-11] MEDS ORDERED: HYDR-3535 PO (14:37)
[2017-07-11] MEDS ORDERED: AMLO5TAB2 PO (14:38)
[2017-07-11] MEDS ORDERED: WALKER WHEELS/F1 MIS (14:39)
--- NOTE | 2017-07-11 16:08 | PD.CAR.PN ---
CVT Progress Note Subjective/Hospital Course: Patient with recurrent attacks of acute diverticulitis which and never treated completely and before patient can be scheduled for surgery comes back with her next attack. Full consult is dictated He is established patient of Dr. Augustine Would recommend at least one week of intravenous antibiotics in the hospital and then strict regiment of antibiotics and low residue diet at home Patient should have sigmoid and descending colon resection however this should be done when bowel has recovered the not in acute rony. Refer to full consult for details Thanks Renny 07/08/17 Patient improved Abdomen soft White count normalized and left shift resolved I discussed the case with Dr. Augustine who is seen the patient in the past for the same problem Again, it seems to be very hard to catch the patient between the attacks of diverticulitis in go ahead with sigmoid and descending colon resection. Unquestionably this will be difficult operation and probably fraught with complications. Patient will have 100% risk of morbidity either in the form off atelectasis and pneumonia, or in the form of deep venous thrombosis or some other complication. Morbid obesity and diabetes obviously is a major factor in postoperative care and complication rate. Because of all of the valve reasons where both considering very carefully when how to subject this patient to surgery in the most safe and the prudent way. For the time being patient should remain on antibiotics till diverticulitis resolves and will go from there. 07/11/17 Patient remains on antibiotics for diverticulitis As discussed yesterday with the medical attending patient should remain probably on Augmentin for another 2 weeks or so for total of 3 weeks of therapy Patient can be discharged from my point and continue on by mouth antibiotics the therapy should be definitely completed Patient can follow-up either with me or Dr. Augustine schedule final surgery but either way this will be a complex case and fraught with complications in face of patient's body habitus and other problems. Colon resection will either result in pneumonia deep venous thrombosis or some other morbidity, but I don't think we have to many ways around it that this time Objective: Vital Signs Date Time Temp Pulse Resp B/P Pulse Ox O2 Delivery O2 Flow Rate FiO2 07/11/17 15:18 Room Air 07/11/17 12:01 97.8 107 20 149/69 94 07/11/17 12:00 Room Air 07/11/17 08:01 97.9 109 20 132/79 95 07/11/17 08:00 Room Air 07/11/17 04:00 99.2 116 18 145/75 95 07/11/17 00:00 98.4 121 20 144/72 95 07/10/17 20:00 99.1 112 18 161/78 96 07/10/17 20:00 Room Air Labs: Laboratory Tests Test 07/11/17 07:04 White Blood Count 10.9 TH/MM3 (4.0-11.0) Red Blood Count 2.46 MIL/MM3 (4.50-5.90) Hemoglobin 8.6 GM/DL (13.0-17.0) Hematocrit 24.8 % (39.0-51.0) Mean Corpuscular Volume 100.9 FL (80.0-100.0) Mean Corpuscular Hemoglobin 35.0 PG (27.0-34.0) Mean Corpuscular Hemoglobin 34.6 % Concent (32.0-36.0) Red Cell Distribution Width 15.1 % (11.6-17.2) Platelet Count 147 TH/MM3 (150-450) Mean Platelet Volume 8.5 FL (7.0-11.0) Neutrophils (%) (Auto) 73.5 % (16.0-70.0) Lymphocytes (%) (Auto) 14.2 % (9.0-44.0) Monocytes (%) (Auto) 11.8 % (0.0-8.0) Eosinophils (%) (Auto) 0.3 % (0.0-4.0) Basophils (%) (Auto) 0.2 % (0.0-2.0) Neutrophils # (Auto) 8.0 TH/MM3 (1.8-7.7) Lymphocytes # (Auto) 1.5 TH/MM3 (1.0-4.8) Monocytes # (Auto) 1.3 TH/MM3 (0-0.9) Eosinophils # (Auto) 0.0 TH/MM3 (0-0.4) Basophils # (Auto) 0.0 TH/MM3 (0-0.2) CBC Comment DIFF FINAL Differential Comment Sodium Level 144 MEQ/L (136-145) Potassium Level 3.9 MEQ/L (3.5-5.1) Chloride Level 114 MEQ/L (98-107) Carbon Dioxide Level 22.5 MEQ/L (21.0-32.0) Anion Gap 8 MEQ/L (5-15) Blood Urea Nitrogen 22 MG/DL (7-18) Creatinine 2.20 MG/DL (0.60-1.30) Estimat Glomerular Filtration 33 ML/MIN (>89) Rate Random Glucose 96 MG/DL (74-106) Calcium Level 9.3 MG/DL (8.5-10.1) Result Diagram: 07/11/17 0704 07/11/17 0704 Agnieszka Campbell MD Jul 11, 2017 16:08
[2017-07-12] MEDS ORDERED: VALS1TAB63 PO (11:42)
[2017-07-12] MEDS ORDERED: AMOX875T2 PO (12:31)
[2017-07-12] MEDS ORDERED: AMLO5TAB2 PO (12:31)
[2017-07-12] MEDS ORDERED: ATOR20TA15 PO (12:31)
[2017-07-12] MEDS ORDERED: BACL10TA PO (12:31)
[2017-07-12] MEDS ORDERED: WALKER WHEELS/F1 MIS (16:50)
--- NOTE | 2017-08-14 07:57 | HHI.DS ---
Discharge Summary Admission Date Jul 06, 2017 at 21:50 Discharge Date: Aug 14, 2017 Admitting Diagnosis persistent diverticulitis (1) Diverticulitis ICD Code: K57.92 - Diverticulitis of intestine, part unspecified, without perforation or abscess without bleeding Status: Acute (2) CKD (chronic kidney disease) stage 3, GFR 30-59 ml/min ICD Code: N18.3 - Chronic kidney disease, stage 3 (moderate) Status: Acute (3) Bipolar disorder ICD Code: F31.9 - Bipolar disorder, unspecified Status: Acute Procedures None. Brief History - From Admission This is a 41-year-old male with a PMH of HTN, Bipolar Disorder and Diverticulitis who presented to the ER with complaints of severe abdominal pain. States symptoms have been ongoing for several months w/ multiple presentations to the ER for same complaints, diagnosed w/ Diverticulitis and referred to Dr. Florez w/ Gen Sx, however unable to get appt until the . Seen in ER most recently on 06/15/17 and 06/22/17 for similar complaints, CT Abd /Pelvis 06/15/17 with mild acute diverticulitis and mild left lung base atelectasis or infiltrate. DC'd from ER with prescriptions for Cipro/Flagyl. CT Abd/Pelvis w/ some indurated fat around sigmoid colon related to diverticulitis, was d/c'd home and instructed to continue w/ antibiotics and outpatient follow up w/ GI/Gen Sx. Returns now w/ no improvement in LLL pain, + nausea/vomiting. On arrival, BP 136/84, HR 98, O2 sat 97% on RA, Afebrile. CBC at baseline. Creatinine 2.39, previously 2.94 on 06/22/17. INR 1.0. UA negative. CT Abd/Pelvis w/ acute diverticulitis, inflammatory findings similar to study from 06/23/19. S/p Zosyn/Flagyl in ER. Imaging Last Impressions Knee X-Ray 07/11/17 0800 Signed Impressions: Service Date/Time: , July 11, 2017 09:36 - CONCLUSION: 1. Mild 3 compartment osteoarthritic change. 2. Evidence of joint effusion. 3. Diffuse soft tissue prominence. Benjamin Lindsey MD Abdomen/Pelvis CT 07/06/172005 Signed Impressions: Service Date/Time: Saturday, July 06, 2017 20:48 - CONCLUSION: Acute diverticulitis. Inflammatory findings are similar to the comparison study of 06/23/2017. No abscess or free air identified. Parveen Mg MD PE at Discharge GENERAL: Alert, NAD. Morbid obesity. SKIN: Warm and dry. HEAD: Normocephalic. EYES: No scleral icterus. No injection or drainage. NECK: Supple, trachea midline. No JVD or lymphadenopathy. CARDIOVASCULAR: Regular rate and rhythm without murmurs, gallops, or rubs. RESPIRATORY: Breath sounds equal bilaterally. No accessory muscle use. GASTROINTESTINAL: Abdomen soft, non-tender except some tenderness over lower abd , nondistended. MUSCULOSKELETAL: No cyanosis, or edema. BACK: Nontender without obvious deformity. No CVA tenderness. Hospital Course 41-year-old male with a PMH of HTN, Bipolar Disorder and Diverticulitis who presented with complaints of severe abdominal pain and admitted with recurrent diverticulitis Acute Recurrent Diverticulitis, Failed Outpatient: multiple ED visits with diverticulitis, s/p multiple courses of Cipro/Flagyl. CT Abd/Pelvis w/ acute diverticulitis, no abscess or free air, findings similar to previous CT last month. Continued on IV Zosyn. GI/Gen Sx consulted. Follows with Dr. Florez as outpatient. - Continue Augmentin PO upon discharge. Augmentin Rx was given separately. - Upper right back pain - Probably referred pain. Continue Baclofen 10mg Q8hrs. Continue Rex and IV Dilaudid PRN while in the hospital. - Right knee pain - Probable right knee bursitis. - Patient's mother reports some swelling as well. There is no erythema. - PT eval pending. X-ray shows osteoarthritic change, some suprapatellar effusion. - Using NSAIDs may not be a good idea given patient's ongoing diverticulitis. - Intra-articular steroid may be an option. CKD: Stage III. Stable. Creatinine 2.39 --> 2.16. Bipolar Disorder: Chronic, stable. Continue home medications, Depakote, Risperidone. Headache - Continue Fioricet PRN. DVT Prophylaxis: SCD/TEDs. Pt Condition on Discharge: Good Discharge Disposition: Discharge Home Discharge Time: > 30 minutes Discharge Instructions DIET: Follow Instructions for: Heart Healthy Diet Activities you can perform: Regular-No Restrictions Follow up Referrals: PCP Follow-up - 1 Week Surgical - 2 Weeks with Stepan Florez MD Continued Medications: Divalproex ER (Depakote ER) 500 Mg Casey 500 MG PO 2 at hs for mental health, #60 TAB 2 Refills Hydrocodone-Acetaminophen (Lortab) 10-325 Mg Tab 1 TAB PO Q6H PRN for PAIN, #20 TAB 0 Refills (This prescription has been renewed ) Mirtazapine (Remeron) 30 Mg Tab 30 MG PO HS for Depression Control, #30 TAB 0 Refills Risperidone (Risperdal) 2 Mg Tab 2 MG PO BID for mental health, #60 TAB 2 Refills Discontinued Medications: Valsartan (Valsartan) 40 Mg Tab 20 MG PO BID, #30 TAB 0 Refills Heriberto Sagastume DO Aug 14, 2017 07:57
== END 2017-07-11 15:27 | disposition home or self-care (01) | DRG 392 ==
LOC: NEPD 18:00 → NEDA 21:50 → NEPFCDU 22:35 → N04B 07-08 20:11
PROVIDERS: ADMIT Hospitalist; ATTEND Hospitalist
DX: K57.32 Diverticulitis of large intestine without perforation or abscess without bleeding (principal); N18.3 Chronic kidney disease, stage 3 (moderate); Z68.43 Body mass index [BMI] 50.0-59.9, adult; E66.01 Morbid (severe) obesity due to excess calories; I12.9 Hypertensive chronic kidney disease with stage 1 through stage 4 chronic kidney disease, or unspecified chronic kidney disease; F31.9 Bipolar disorder, unspecified; E78.00 Pure hypercholesterolemia, unspecified; G43.909 Migraine, unspecified, not intractable, without status migrainosus; M25.561 Pain in right knee; M54.6 Pain in thoracic spine
CPT/HCPCS: 73564; 74176; 76937; 80048; 80053; 81001; 83690; 85025; 85610; 85730; 96374; 96375; 96376; J1170; J2405; J2543; J7030

== ENCOUNTER 2017-07-12 11:09 | Emergency (ER) | payer MEDICARE ==
[~2017-07-12] VITALS: Ht 177.8 cm; Wt 167.0 kg
[~2017-07-12 11:09] MED LIST changes: +AMLO5TAB2 PO; +AMOX875T2 PO; +BACL10TA PO; -CIPR-9 PO; -DICY10 PO; -METR-1 PO; -PROM25TA10 PO; -VALS1TAB63 PO; +WALKER WHEELS/F1 MIS
[2017-07-12 11:15] VITALS: BP 143/87; PULSE 106; RESP 18; TEMP 98; O2SAT 96
--- NOTE | 2017-07-12 11:27 | PD ---
HPI Chief Complaint: General Weakness Time Seen by Provider: 11:27 Travel History International Travel<30 days: No Contact w/Intl Traveler<30days: No Traveled to known affect area: No History of Present Illness HPI 41-year-old male with history of CKD III, obesity, chronic diverticulitis recently hospitalized and discharged yesterday to follow-up outpatient with Dr. Augustine after 2 weeks of antibiotics, presents today to the emergency department for evaluation. Mother states that patient is not as alert as he typically is. She noticed this 3 days ago while he was the hospital and does not feel it was adequately evaluated, despite being told it was possibly due to dilaudid provided for pain control. Mother reports that the patient would not get out of bed last night and voided over himself and the bed. Patient reports bilateral knee pain and back spasms and states it hurt to get up, so he didn't. Had x-ray imaging of the right knee completed during his hospital stay which showed a small joint effusion and osteoarthritis. Patient has had no new injury. He was evaluated by PT yesterday and able to ambulate at that time. Patient has been taking Lortab every 6 hours for pain. He also takes Depakote for bipolar disorder. Mother states she contacted his therapist today who felt he should come to the emergency department for further evaluation of his current symptoms. PFSH Past Medical History Asthma: No Blood Disorders: No Bipolar Disorder: Yes Anxiety: Yes Depression: No Heart Rhythm Problems: No Cancer: No Cardiovascular Problems: Yes High Cholesterol: Yes Chemotherapy: No Chest Pain: No Congestive Heart Failure: No COPD: No Diabetes: No Diminished Hearing: No Diverticulitis: Yes Endocrine: No Gastrointestinal Disorders: No Genitourinary: Yes Hypertension: Yes Immune Disorder: No Implanted Vascular Access Dvce: No Musculoskeletal: No Neurologic: Yes Psychiatric: Yes (bipolar) Reproductive: No Respiratory: No Immunizations Current: No Migraines: Yes (not too often now) Radiation Therapy: No Renal Failure: Yes ("KIDNEY DYSFUNCTION") Sleep Apnea: No Thyroid Disease: No Past Surgical History Oral Surgery: Yes (teeth removed (upper)) Other Surgery: Yes Social History Alcohol Use: No Tobacco Use: No (quit) Substance Use: No Allergies-Medications (Allergen,Severity, Reaction): Coded Allergies: acetaminophen (Unverified Allergy, Severe, Headache, 07/09/17) oxycodone (Unverified Allergy, Severe, Headache, 07/09/17) morphine (Unverified Allergy, Intermediate, Rash, 07/09/17) Reported Meds & Prescriptions Reported Meds & Active Scripts Active Walker with Front Wheels (Device) 1 Mis Mis 1 Ea .ROUTE DIRECTED Lortab (Hydrocodone-Acetaminophen) 10-325 Mg Tab 1 Tab PO Q6H PRN Risperdal (Risperidone) 2 Mg Tab 2 Mg PO BID Depakote ER (Divalproex Sodium) 500 Mg Casey 500 Mg PO 2 AT HS Reported Baclofen 10 Mg Tab 10 Mg PO Q8HR PRN Amoxicillin-Clavulanate 875-125 mg Tab 875 Mg PO BID not for use in CrCl <30 mL/minute Amlodipine (Amlodipine Besylate) 5 Mg Tab 5 Mg PO DAILY Atorvastatin (Atorvastatin Calcium) 20 Mg Tab 20 Mg PO HS Remeron (Mirtazapine) 30 Mg Tab 30 Mg PO HS Review of Systems ROS Limitations: Poor Historian Except as stated in HPI: all other systems reviewed are Neg Physical Exam Exam Limitations: Poor Historian Narrative GENERAL: Obese male patient, lying in bed, in no acute distress.Flat affect. SKIN: Focused skin assessment warm/dry. HEAD: Atraumatic. Normocephalic. EYES: Pupils equal and round. No scleral icterus. No injection or drainage. ENT: No nasal bleeding or discharge. Mucous membranes pink and moist. NECK: Trachea midline. No JVD. CARDIOVASCULAR: Elevated rate and rhythm. No murmur appreciated. RESPIRATORY: No accessory muscle use. Diminished, likely due to girth. Breath sounds equal bilaterally. GASTROINTESTINAL: Abdomen soft, non-tender, nondistended. Hepatic and splenic margins not palpable. MUSCULOSKELETAL: No obvious deformities. No clubbing. No cyanosis. Pt can position himself to sitting position on the side of bed and was able to stand on his own. NEUROLOGICAL: Awake.No obvious cranial nerve deficits. Moves all extremities; however ROM is limited due to pt's habitus Normal speech. Data Data Last Documented VS Vital Signs Date Time Temp Pulse Resp B/P Pulse Ox O2 Delivery O2 Flow Rate FiO2 07/12/17 11:19 106 18 96 Room Air 07/12/17 11:15 98.0 143/87 Orders Iv Access Insert/Monitor (07/12/17 11:26) Complete Blood Count With Diff (07/12/17 11:26) Basic Metabolic Panel (Bmp) (07/12/17 11:26) Urinalysis - C+S If Indicated (07/12/17 11:26) Sodium Chlor 0.9% 1000 Ml Inj (Ns 1000 M (07/12/17 11:30) Valproic Acid (Depakene) (07/12/17 12:43) Ammonia (07/12/17 12:43) Psych Screen (07/12/17 13:39) Diet Regular Basic (07/12/17 Dinner) Labs Laboratory Tests Test 07/12/17 07/12/17 07/12/17 11:42 12:21 12:56 White Blood Count 9.9 TH/MM3 Red Blood Count 2.40 MIL/MM3 Hemoglobin 8.4 GM/DL Hematocrit 24.2 % Mean Corpuscular Volume 100.8 FL Mean Corpuscular Hemoglobin 35.0 PG Mean Corpuscular Hemoglobin 34.7 % Concent Red Cell Distribution Width 15.5 % Platelet Count 145 TH/MM3 Mean Platelet Volume 8.5 FL Neutrophils (%) (Auto) 80.2 % Lymphocytes (%) (Auto) 9.3 % Monocytes (%) (Auto) 9.8 % Eosinophils (%) (Auto) 0.5 % Basophils (%) (Auto) 0.2 % Neutrophils # (Auto) 7.9 TH/MM3 Lymphocytes # (Auto) 0.9 TH/MM3 Monocytes # (Auto) 1.0 TH/MM3 Eosinophils # (Auto) 0.1 TH/MM3 Basophils # (Auto) 0.0 TH/MM3 CBC Comment DIFF FINAL Differential Comment Sodium Level 147 MEQ/L Potassium Level 3.6 MEQ/L Chloride Level 116 MEQ/L Carbon Dioxide Level 24.0 MEQ/L Anion Gap 7 MEQ/L Blood Urea Nitrogen 21 MG/DL Creatinine 2.09 MG/DL Estimat Glomerular Filtration 35 ML/MIN Rate Random Glucose 114 MG/DL Calcium Level 9.2 MG/DL Urine Color LIGHT-YELLOW Urine Turbidity CLEAR Urine pH 6.0 Urine Specific [place] 1.005 Urine Protein 30 mg/dL Urine Glucose (UA) NEG mg/dL Urine Ketones NEG mg/dL Urine Occult Blood NEG Urine Nitrite NEG Urine Bilirubin NEG Urine Urobilinogen LESS THAN 2.0 MG/DL Urine Leukocyte Esterase NEG Urine RBC LESS THAN 1 /hpf Microscopic Urinalysis Comment CULT NOT INDICATED Ammonia 21 MCMOL/L Valproic Acid (Depakene) Level 51 MCG/ML MDM Medical Decision Making Medical Screen Exam Complete: Yes Emergency Medical Condition: Yes Medical Record Reviewed: Yes Differential Diagnosis Electrolyte abnormality versus medication side effect versus interaction versus mood disorder versus Manipulative behavior Narrative Course 41 year old male presents to the ED for evaluation. Pt presents without distress. He does have a flat affect and mom states he is typically "sharp" but noticed a change 3 days ago. Pt has been taking lortab Q6 hours since discharge. This is a concern for cause of the patient's increased fatigue. CBC and BMP are unchanged when compared to prior. Ammonia is 21. Depakote level is 51. Urinalysis is a 30 proteinuria. Patient was able to stand and void on his own at the site of the bed. He moves all extremities. Pt's behavior seems to be manipulating and his fatigue likely compounded by medication interaction. I have discussed with the mom not giving him Lortab every 6 hours and to extend up the doses and to attempt to find a different method of pain control. She verbalizes understanding. She would like psychiatric screener to see him to see if this is more psychiatric. An order has been placed for this. She is also concerned about how she can care for him at home. I made very clear to her that he is able to stand up and care for himself and he has been evaluated by physical therapy multiple times here in the hospital since he stayed. She says she understands this but he won't. I have discussed with case management possibility for home health evaluation. Diagnosis Primary Impression: Fatigue Qualified Code: R53.83 - Fatigue, unspecified type Additional Impressions: Medication side effect Qualified Code: T88.7XXA - Adverse effect of drug, initial encounter CKD (chronic kidney disease) stage 3, GFR 30-59 ml/min Obesity Qualified Code: E66.9 - Class 3 obesity with body mass index (BMI) of 50.0 to 59.9 in adult, unspecified obesity type, unspecified whether serious comorbidity present Manipulative behavior Referrals: Primary Care Physician Patient Instructions: Fatigue (ED), General Instructions, Narcotic Abuse (ED) Additional Instructions: Avoid narcotic use as this is possibly interacting with your other medications; increasing your fatigue It is important that you continue physical therapy as discussed on previous visit. Utilize your walker to help get around if you're unable to ambulate alone Keep all follow-up appointments as already scheduled on previous hospital admission.. Return immediately with any acute worsening of symptoms Med/Other Pt SpecificInfo: No Change to Meds Scripts Walker with Front Wheels 1 Mis Mis #1 EA .ROUTE DIRECTED Ref 0 Prov:Lu Prince 07/12/17 Disposition: 01 DISCHARGE HOME Condition: Stable Lu Prince Jul 12, 2017 11:27
[2017-07-12] MEDS ORDERED: SODIUM CHLOR 0.9% 1000 ML INJ 1,000 ML IV ONE (11:30)
[2017-07-12] MEDS ORDERED: VALS1TAB63 PO (11:42)
[2017-07-12 12:06] LABS: AUTOMATED NEUTROPHIL # 7.9 TH/MM3 (1.8-7.7); BASOPHIL % 0.2 % (0.0-2.0); EOSINOPHIL # 0.1 TH/MM3 (0-0.4); EOSINOPHIL % 0.5 % (0.0-4.0); HEMATOCRIT 24.2 % (39.0-51.0); HEMO FLAGS DIFF FINAL; LYMPH % 9.3 % (9.0-44.0); LYMPHOCYTE # 0.9 TH/MM3 (1.0-4.8); MEAN CELL VOLUME 100.8 FL (80.0-100.0); MEAN CORPUSCULAR HGB CONC 34.7 % (32.0-36.0); MONO % 9.8 % (0.0-8.0); NEUT % 80.2 % (16.0-70.0); PLATELET COUNT 145 TH/MM3 (150-450); RED CELL DISTRIBUTION WIDTH 15.5 % (11.6-17.2); WHITE BLOOD COUNT 9.9 TH/MM3 (4.0-11.0)
[2017-07-12 12:13] LABS: POTASSIUM 3.6 MEQ/L (3.5-5.1)
[2017-07-12] MEDS ORDERED: BACL10TA PO (12:31)
[2017-07-12] MEDS ORDERED: ATOR20TA15 PO (12:31)
[2017-07-12] MEDS ORDERED: AMOX875T2 PO (12:31)
[2017-07-12] MEDS ORDERED: AMLO5TAB2 PO (12:31)
[2017-07-12 12:46] LABS: BLOOD, URINE NEG (NEG); GLUCOSE,URINE NEG (NEG); KETONE, URINE NEG (NEG); NITRITE,URINE NEG (NEG); URINE COLOR LIGHT-YELLOW (YELLW/STRAW)
[2017-07-12 12:56] LABS: COMMENT (UR) CULT NOT INDICATED; CULTURE IF INDICATED CULT NOT INDICATED
[2017-07-12] MEDS ORDERED: WALKER WHEELS/F1 MIS (16:50)
--- NOTE | 2017-07-12 16:51 | HHI.FF ---
Face to Face Verification Diagnosis: (1) Manipulative behavior (2) Bipolar 1 disorder (3) Obesity Physical Therapy Order: Evaluate and Treat, Improve ambulation, Strength and gait training Home Health Nursing Order: Nursing assessment with vital signs Vac[employer] Order: To Evaluate: Support services I have seen patient Sadiq Louise on 07/12/17. My clinical findings support the need for the requested home health care services because: Deconditioned w/ increased weakness I certify that my clinical findings support that this patient is homebound because: Need for psychosocial assistance Don Victoria MD Jul 12, 2017 16:51
--- NOTE | 2017-07-12 16:54 | PD ---
History of Present Illness Chief Complaint: General Weakness Time Seen by Provider: 16:45 Travel History International Travel<30 Days: No Contact w/Intl Traveler<30days: No Known affected area: No Legal Status Legal Status: Voluntary History of Present Illness: Patient and his mother were interviewed at bedside. He is stable from a psychiatric standpoint and his Depakote level is in the low of normal range. This physician spoke to the patient and his mother about trying to wean him off the narcotics and get him to move around more frequently at home. Use Tylenol for pain if possible. Try to stay away from nonsteroidal anti-inflammatory medicines. No suicidal or homicidal ideation. No significant objective clinical symptoms of depression. PFSH Past Medical History Asthma: No Blood Disorders: No Bipolar Disorder: Yes Anxiety: Yes Depression: Yes Heart Rhythm Problems: No Cancer: No Cardiovascular Problems: Yes High Cholesterol: Yes Chemotherapy: No Chest Pain: No Congestive Heart Failure: No COPD: No Diabetes: No Diminished Hearing: No Diverticulitis: Yes Endocrine: No Gastrointestinal Disorders: Yes (diverticulitis) Genitourinary: Yes Hypertension: Yes Immune Disorder: No Implanted Vascular Access Dvce: No Musculoskeletal: No Neurologic: Yes Psychiatric: Yes (bipolar) Reproductive: No Respiratory: No Immunizations Current: No Migraines: Yes (not too often now) Radiation Therapy: No Renal Failure: Yes ("KIDNEY DYSFUNCTION") Sleep Apnea: No Thyroid Disease: No Past Surgical History Oral Surgery: Yes (teeth removed (upper)) Other Surgery: Yes Psychiatric History Psychiatric History Hx Psychiatric Treatment: STATES HX OF MAJOR DEPESSION AND BIPOLAR History of Inpatient Treatment: Yes Guns or firearms in home: No Social History Hx Alcohol Use: No Hx Tobacco Use: No (quit) Hx Substance Use: No Substance Use Type: Marijuana, Nicotine/Cigarettes Other Substances Used: 1 PPD Hx of Substance Use Treatment: No Allergies-Medications (Allergen,Severity, Reaction): Coded Allergies: acetaminophen (Unverified Allergy, Severe, Headache, 07/09/17) oxycodone (Unverified Allergy, Severe, Headache, 07/09/17) morphine (Unverified Allergy, Intermediate, Rash, 07/09/17) Reported Meds & Prescriptions Reported Meds & Active Scripts Active Walker with Front Wheels (Device) 1 Mis Mis 1 Ea .ROUTE DIRECTED Walker with Front Wheels (Device) 1 Mis Mis 1 Ea .ROUTE DIRECTED Lortab (Hydrocodone-Acetaminophen) 10-325 Mg Tab 1 Tab PO Q6H PRN Risperdal (Risperidone) 2 Mg Tab 2 Mg PO BID Depakote ER (Divalproex Sodium) 500 Mg Casey 500 Mg PO 2 AT HS Reported Baclofen 10 Mg Tab 10 Mg PO Q8HR PRN Amoxicillin-Clavulanate 875-125 mg Tab 875 Mg PO BID not for use in CrCl <30 mL/minute Amlodipine (Amlodipine Besylate) 5 Mg Tab 5 Mg PO DAILY Atorvastatin (Atorvastatin Calcium) 20 Mg Tab 20 Mg PO HS Remeron (Mirtazapine) 30 Mg Tab 30 Mg PO HS Review of Systems Except as stated in HPI: all other systems reviewed are Neg Exam Alert: Yes [place]: Person, Place, Date, Situation Mood: Calm Affect: Appropriate Speech: Logical, Slurred Eye Contact: Normal Memory Intact: Immediate, Recent, Remote Insight/Judgement Adequate MDM Medical Decision Making Medical Record Reviewed: Yes Assessment/Plan Patient's problems appear to be more psychological than psychiatric. Patient appears to have an enmeshed relationship with his mother. Narcotics should be kept to a minimum. Patient should be encouraged to walk and take fluids and a use a stool softener. This physician has nothing else to offer at this time. Case discussed with nurse and records reviewed. Orders Iv Access Insert/Monitor (07/12/17 11:26) Complete Blood Count With Diff (07/12/17 11:26) Basic Metabolic Panel (Bmp) (07/12/17 11:26) Urinalysis - C+S If Indicated (07/12/17 11:26) Sodium Chlor 0.9% 1000 Ml Inj (Ns 1000 M (07/12/17 11:30) Valproic Acid (Depakene) (07/12/17 12:43) Ammonia (07/12/17 12:43) Psych Screen (07/12/17 13:39) Diet Regular Basic (07/12/17 Dinner) Results Vital Signs Date Time Temp Pulse Resp B/P Pulse Ox O2 Delivery O2 Flow Rate FiO2 07/12/17 11:19 106 18 96 Room Air 07/12/17 11:15 98.0 106 18 143/87 96 Laboratory Tests Test 07/12/17 07/12/17 07/12/17 11:42 12:21 12:56 White Blood Count 9.9 Red Blood Count 2.40 Hemoglobin 8.4 Hematocrit 24.2 Mean Corpuscular Volume 100.8 Mean Corpuscular Hemoglobin 35.0 Mean Corpuscular Hemoglobin 34.7 Concent Red Cell Distribution Width 15.5 Platelet Count 145 Mean Platelet Volume 8.5 Neutrophils (%) (Auto) 80.2 Lymphocytes (%) (Auto) 9.3 Monocytes (%) (Auto) 9.8 Eosinophils (%) (Auto) 0.5 Basophils (%) (Auto) 0.2 Neutrophils # (Auto) 7.9 Lymphocytes # (Auto) 0.9 Monocytes # (Auto) 1.0 Eosinophils # (Auto) 0.1 Basophils # (Auto) 0.0 CBC Comment DIFF FINAL Differential Comment Sodium Level 147 Potassium Level 3.6 Chloride Level 116 Carbon Dioxide Level 24.0 Anion Gap 7 Blood Urea Nitrogen 21 Creatinine 2.09 Estimat Glomerular Filtration 35 Rate Random Glucose 114 Calcium Level 9.2 Urine Color LIGHT-YELLOW Urine Turbidity CLEAR Urine pH 6.0 Urine Specific [place] 1.005 Urine Protein 30 Urine Glucose (UA) NEG Urine Ketones NEG Urine Occult Blood NEG Urine Nitrite NEG Urine Bilirubin NEG Urine Urobilinogen LESS THAN 2.0 Urine Leukocyte Esterase NEG Urine RBC LESS THAN 1 Microscopic Urinalysis Comment CULT NOT INDICATED Ammonia 21 Valproic Acid (Depakene) Level 51 Diagnosis Primary Impression: Adjustment disorder with mixed disturbance of emotions and conduct Referrals: Primary Care Physician Patient Instructions: General Instructions, Narcotic Abuse (ED), Fatigue (ED) Additional Instructions: Avoid narcotic use as this is possibly interacting with your other medications; increasing your fatigue It is important that you continue physical therapy as discussed on previous visit. Utilize your walker to help get around if you're unable to ambulate alone Keep all follow-up appointments as already scheduled on previous hospital admission.. Return immediately with any acute worsening of symptoms Prescriptions Walker with Front Wheels 1 Mis Mis #1 EA .ROUTE DIRECTED Ref 0 Prov:Lu Prince RICK 07/12/17 Disposition: 01 DISCHARGE HOME Condition: Stable Luiz Go MD Jul 12, 2017 16:54
== END 2017-07-12 17:18 | disposition home or self-care (01) ==
LOC: NEPE 11:09
DX: R53.1 Weakness (principal); I12.9 Hypertensive chronic kidney disease with stage 1 through stage 4 chronic kidney disease, or unspecified chronic kidney disease; N18.3 Chronic kidney disease, stage 3 (moderate); E78.00 Pure hypercholesterolemia, unspecified; F31.9 Bipolar disorder, unspecified; E66.01 Morbid (severe) obesity due to excess calories; Z68.43 Body mass index [BMI] 50.0-59.9, adult
CPT/HCPCS: 80048; 80164; 81001; 82140; 85025; 99283; J7030

== ENCOUNTER 2017-07-24 12:49 | Inpatient (IN) | payer MEDICARE ==
[~2017-07-24] VITALS: Ht 177.8 cm; Wt 168.3 kg
[~2017-07-24 12:49] MED LIST changes: +ATOR20TA15 PO; -LIPI10TA PO
[2017-07-24 12:52] VITALS: BP 131/95; PULSE 125; RESP 28; TEMP 100.3; O2SAT 95
--- NOTE | 2017-07-24 13:08 | PD ---
Physical Exam Date Seen by Provider: Jul 24, 2017 Time Seen by Provider: 13:07 Narrative 41 yo male here for possible diverticulitis. History of this with admission a week ago. Not better. per patient he feels worst. Left leg weakness as well. Taking meds with no relief. Vitals are stable in triage. Awaiting bed placement. Data Data Last Documented VS Vital Signs Date Time Temp Pulse Resp B/P (MAP) Pulse Ox O2 Delivery O2 Flow Rate FiO2 07/24/17 12:52 100.3 125 28 131/95 (107) 95 Orders Orders Complete Blood Count With Diff (07/24/17 13:04) Comprehensive Metabolic Panel (07/24/17 13:04) Lipase (07/24/17 13:04) Prothrombin Time / Inr (Pt) (07/24/17 13:04) Act Partial Throm Time (Ptt) (07/24/17 13:04) Urinalysis - C+S If Indicated (07/24/17 13:04) [facility] Medical Record Reviewed: Yes Supervised Visit with DIANNA: Lev Murray Jul 24, 2017 13:08
[2017-07-24 14:07] LABS: BLOOD, URINE NEG (NEG); GLUCOSE,URINE NEG (NEG); KETONE, URINE NEG (NEG); MUCUS URINE FEW /lpf (OCC); NITRITE,URINE NEG (NEG); PH, URINE 5.5 (5.0-8.5); SQUAMOUS EPITHELIAL CELL URINE 1 /hpf (0-5); TRANSITIONAL EPI CELLS, URINE <1 /hpf; URINE COLOR YELLOW (YELLW/STRAW)
[2017-07-24 14:10] LABS: COMMENT (UR) CULT NOT INDICATED; CULTURE IF INDICATED CULT NOT INDICATED
--- NOTE | 2017-07-24 14:14 | PD ---
HPI Chief Complaint: GI Complaint Time Seen by Provider: 14:09 Travel History International Travel<30 days: No Contact w/Intl Traveler<30days: No Traveled to known affect area: No History of Present Illness HPI 41-year-old male with history of recent admission for diverticulitis, presents to the ER today for worsening and left lower quadrant pain and stabbing pains running on his left leg. He has been having nausea, vomiting, and low-grade fevers. His pain is currently a 7 out of 10. Modifying Factors: None Associated Signs & Symptoms: Left lower quadrant abdominal pain, left leg pains , nausea, vomiting, fevers Risk Factors: Recent diverticulitis PFSH Past Medical History Asthma: No Blood Disorders: No Bipolar Disorder: Yes Anxiety: Yes Depression: Yes Heart Rhythm Problems: No Cancer: No Cardiovascular Problems: Yes High Cholesterol: Yes Chemotherapy: No Chest Pain: No Congestive Heart Failure: No COPD: No Diabetes: No Diminished Hearing: No Diverticulitis: Yes Endocrine: No Gastrointestinal Disorders: Yes (diverticulitis) Genitourinary: Yes Hypertension: Yes Immune Disorder: No Implanted Vascular Access Dvce: No Musculoskeletal: No Neurologic: Yes Psychiatric: Yes (bipolar) Reproductive: No Respiratory: No Immunizations Current: No Migraines: Yes (not too often now) Radiation Therapy: No Renal Failure: Yes ("KIDNEY DYSFUNCTION") Sleep Apnea: No Thyroid Disease: No Past Surgical History Oral Surgery: Yes (teeth removed (upper)) Other Surgery: Yes Social History Alcohol Use: No Tobacco Use: No (quit) Substance Use: No Allergies-Medications (Allergen,Severity, Reaction): Coded Allergies: acetaminophen (Unverified Allergy, Severe, Headache, 07/24/17) hydromorphone (Verified Allergy, Severe, Anemia, 07/24/17) oxycodone (Unverified Allergy, Severe, Headache, 07/24/17) morphine (Unverified Allergy, Intermediate, Rash, 07/24/17) Reported Meds & Prescriptions Reported Meds & Active Scripts Active Walker with Front Wheels (Device) 1 Mis Mis 1 Ea .ROUTE DIRECTED Walker with Front Wheels (Device) 1 Mis Mis 1 Ea .ROUTE DIRECTED Lortab (Hydrocodone-Acetaminophen) 10-325 Mg Tab 1 Tab PO Q6H PRN Risperdal (Risperidone) 2 Mg Tab 2 Mg PO BID Depakote ER (Divalproex Sodium) 500 Mg Casey 500 Mg PO 2 AT HS Reported Baclofen 10 Mg Tab 10 Mg PO Q8HR PRN Amoxicillin-Clavulanate 875-125 mg Tab 875 Mg PO BID not for use in CrCl <30 mL/minute Amlodipine (Amlodipine Besylate) 5 Mg Tab 5 Mg PO DAILY Atorvastatin (Atorvastatin Calcium) 20 Mg Tab 20 Mg PO HS Remeron (Mirtazapine) 30 Mg Tab 30 Mg PO HS Review of Systems Except as stated in HPI: all other systems reviewed are Neg Physical Exam Narrative GENERAL: Well-developed obese middle age white male patient currently in mild distress. Awake and oriented 3. SKIN: Focused skin assessment warm/dry. HEAD: Atraumatic. Normocephalic. EYES: Pupils equal and round. No scleral icterus. No injection or drainage. ENT: No nasal bleeding or discharge. Mucous membranes pink and moist. NECK: Trachea midline. No JVD. CARDIOVASCULAR: Regular rate and rhythm. No murmur appreciated. RESPIRATORY: No accessory muscle use. Clear to auscultation. Breath sounds equal bilaterally. GASTROINTESTINAL: Abdomen soft, obese, left lower quadrant tenderness without guarding or rebound, nondistended. Hepatic and splenic margins not palpable. MUSCULOSKELETAL: No obvious deformities. No clubbing. No cyanosis. No edema. NEUROLOGICAL: Awake and alert. No obvious cranial nerve deficits. Motor grossly within normal limits. Normal speech. PSYCHIATRIC: Appropriate mood and affect; insight and judgment normal. Data Data Last Documented VS Vital Signs Date Time Temp Pulse Resp B/P (MAP) Pulse Ox O2 Delivery O2 Flow Rate FiO2 07/24/17 14:59 99.7 110 18 148/73 (98) 94 Room Air Orders Orders Complete Blood Count With Diff (07/24/17 13:04) Comprehensive Metabolic Panel (07/24/17 13:04) Lipase (07/24/17 13:04) Prothrombin Time / Inr (Pt) (07/24/17 13:04) Act Partial Throm Time (Ptt) (07/24/17 13:04) Urinalysis - C+S If Indicated (07/24/17 13:04) Ct Lumb Spine W/O Contrast (07/24/17 14:10) Ketorolac Inj (Toradol Inj) (07/24/17 14:15) Ct Abd/Pel W/O Iv Contrast (07/24/17 16:14) Admit Order (Ed Use Only) (07/24/17 17:13) Labs Laboratory Tests Test 07/24/17 13:45 07/24/17 15:00 07/24/17 15:15 Urine Color YELLOW Urine Turbidity HAZY Urine pH 5.5 Urine Specific Grant 1.017 Urine Protein 30 mg/dL Urine Glucose (UA) NEG mg/dL Urine Ketones NEG mg/dL Urine Occult Blood NEG Urine Nitrite NEG Urine Bilirubin NEG Urine Urobilinogen LESS THAN 2.0 MG/DL Urine Leukocyte Esterase NEG Urine RBC 1 /hpf Urine WBC 3 /hpf Urine Squamous Epithelial Cells 1 /hpf Urine Transitional Epithelial Cells <1 /hpf Urine Mucus FEW /lpf Microscopic Urinalysis Comment CULT NOT INDICATED White Blood Count 16.9 TH/MM3 Red Blood Count 2.89 MIL/MM3 Hemoglobin 9.4 GM/DL Hematocrit 28.7 % Mean Corpuscular Volume 99.5 FL Mean Corpuscular Hemoglobin 32.6 PG Mean Corpuscular Hemoglobin Concent 32.7 % Red Cell Distribution Width 15.0 % Platelet Count 356 TH/MM3 Mean Platelet Volume 7.7 FL Neutrophils (%) (Auto) 91.4 % Lymphocytes (%) (Auto) 3.6 % Monocytes (%) (Auto) 4.7 % Eosinophils (%) (Auto) 0.2 % Basophils (%) (Auto) 0.1 % Neutrophils # (Auto) 15.5 TH/MM3 Lymphocytes # (Auto) 0.6 TH/MM3 Monocytes # (Auto) 0.8 TH/MM3 Eosinophils # (Auto) 0.0 TH/MM3 Basophils # (Auto) 0.0 TH/MM3 CBC Comment DIFF FINAL Differential Comment Blood Urea Nitrogen 31 MG/DL Creatinine 2.39 MG/DL Random Glucose 115 MG/DL Total Protein 8.4 GM/DL Albumin 2.9 GM/DL Calcium Level 9.7 MG/DL Alkaline Phosphatase 70 U/L Aspartate Amino Transf (AST/SGOT) 17 U/L Alanine Aminotransferase (ALT/SGPT) 45 U/L Total Bilirubin 0.3 MG/DL Sodium Level 138 MEQ/L Potassium Level 3.8 MEQ/L Chloride Level 105 MEQ/L Carbon Dioxide Level 21.5 MEQ/L Anion Gap 12 MEQ/L Estimat Glomerular Filtration Rate 30 ML/MIN Lipase 81 U/L Prothrombin Time 12.2 SEC Prothromb Time International Ratio 1.1 RATIO Activated Partial Thromboplast Time 31.0 SEC MDM Medical Decision Making Medical Screen Exam Complete: Yes Emergency Medical Condition: Yes Medical Record Reviewed: Yes Interpretation(s) Laboratory Tests Test 07/24/17 13:45 07/24/17 15:00 07/24/17 15:15 Urine Turbidity HAZY (CLEAR) Urine Protein 30 mg/dL (NEG-TRACE) Urine Mucus FEW /lpf (OCC) White Blood Count 16.9 TH/MM3 (4.0-11.0) Red Blood Count 2.89 MIL/MM3 (4.50-5.90) Hemoglobin 9.4 GM/DL (13.0-17.0) Hematocrit 28.7 % (39.0-51.0) Neutrophils (%) (Auto) 91.4 % (16.0-70.0) Lymphocytes (%) (Auto) 3.6 % (9.0-44.0) Neutrophils # (Auto) 15.5 TH/MM3 (1.8-7.7) Lymphocytes # (Auto) 0.6 TH/MM3 (1.0-4.8) Blood Urea Nitrogen 31 MG/DL (7-18) Creatinine 2.39 MG/DL (0.60-1.30) Random Glucose 115 MG/DL (74-106) Total Protein 8.4 GM/DL (6.4-8.2) Albumin 2.9 GM/DL (3.4-5.0) Estimat Glomerular Filtration Rate 30 ML/MIN (>89) Prothrombin Time 12.2 SEC (9.8-11.6) Activated Partial Thromboplast Time 31.0 SEC (24.3-30.1) Last 24 hours Impressions Abdomen/Pelvis CT 07/24/17 1614 Signed Impressions: Service Date/Time: Monday, July 24, 2017 16:24 - CONCLUSION: Perforated sigmoid diverticulitis. Sadiq De Luna MD Differential Diagnosis Increase left lower quadrant abdominal pain, fevers, nausea and vomiting: Worsening diverticulitis versus diverticular abscess versus lumbar radiculopathy versus sciatica versus musculoskeletal Narrative Course CAT scan shows a ruptured diverticulitis. Case was discussed with Dr. Alfonso who plans to see the patient for further treatment. Diagnosis Primary Impression: Acute diverticulitis Admitting Information Admitting Physician Requests: Admit Ghassan Ramsey MD Jul 24, 2017 14:14
[2017-07-24] MEDS ORDERED: KETOROLAC TROMETHAMINE 30 MG/ML (IVP) VIAL IV PUSH ONE (14:15)
[2017-07-24 14:59] VITALS: BP 148/73; PULSE 110; RESP 18; TEMP 99.7; O2SAT 94
[2017-07-24 15:13] LABS: AUTOMATED NEUTROPHIL # 15.5 TH/MM3 (1.8-7.7); BASOPHIL % 0.1 % (0.0-2.0); EOSINOPHIL % 0.2 % (0.0-4.0); HEMATOCRIT 28.7 % (39.0-51.0); HEMO FLAGS DIFF FINAL; LYMPH % 3.6 % (9.0-44.0); LYMPHOCYTE # 0.6 TH/MM3 (1.0-4.8); MEAN CELL VOLUME 99.5 FL (80.0-100.0); MEAN CORPUSCULAR HEMOGLOBIN 32.6 PG (27.0-34.0); MEAN CORPUSCULAR HGB CONC 32.7 % (32.0-36.0); MONO % 4.7 % (0.0-8.0); NEUT % 91.4 % (16.0-70.0); PLATELET COUNT 356 TH/MM3 (150-450); RED BLOOD COUNT 2.89 MIL/MM3 (4.50-5.90); WHITE BLOOD COUNT 16.9 TH/MM3 (4.0-11.0)
[2017-07-24 15:42] LABS: ALT (GPT) 45 U/L (12-78); ANION GAP 12 MEQ/L (5-15); AST (GOT) 17 U/L (15-37); BICARBONATE 21.5 MEQ/L (21.0-32.0); BLOOD UREA NITROGEN 31 MG/DL (7-18); CHLORIDE 105 MEQ/L (98-107); GLOMERULAR FILTRATION RATE 30 ML/MIN (>89); POTASSIUM 3.8 MEQ/L (3.5-5.1); SODIUM (NA) 138 MEQ/L (136-145)
[2017-07-24 15:45] LABS: ALKALINE PHOSPHATASE 70 U/L (45-117); TOTAL BILIRUBIN ADULT 0.3 MG/DL (0.2-1.0)
[2017-07-24 15:57] LABS: INTERNATIONAL NORMALIZED RATIO 1.1 RATIO; PROTHROMBIN TIME - PATIENT 12.2 SEC (9.8-11.6)
--- NOTE | 2017-07-24 16:51 | RADRPT ---
EXAM DATE/TIME: 07/24/2017 16:24 [facility] COMPARISON: No previous studies available for comparison. INDICATIONS : Patient complains of abdominal pain. ORAL CONTRAST: No oral contrast ingested. RADIATION DOSE: 24.30 CTDIvol (mGy) MEDICAL HISTORY : Cardiovascular disease. Hypertension. Diverticulitis. SURGICAL HISTORY : None. ENCOUNTER: Initial ACUITY: 1 day PAIN SCALE: 5/10 LOCATION: abdomen TECH NOTE: large body habitus TECHNIQUE: Volumetric scanning of the abdomen and pelvis was performed. Using automated exposure control and ad justment of the mA and/or kV according to patient size, radiation dose was kept as low as reasonably achievable to obtain optimal diagnostic quality images. DICOM format image data is available electro nically for review and comparison. FINDINGS: Pneumoperitoneum associated with perforated diverticulitis LOWER LUNGS: Mild atelectasis in the posterior lung bases. LIVER: Homogeneous density without lesion. There is no dilation of the biliary tree. No calcified gallston es. SPLEEN: Moderately enlarged without focal mass. PANCREAS: Occasional benign appearing calcifications. No mass or collection. KIDNEYS: Normal in size and shape. There is no mass, stone, or hydronephrosis. ADRENAL GLANDS: Within normal limits. VASCULAR: There is no aortic aneurysm. BOWEL/MESENTERY: Diverticular involvement of the distal colon. Moderate concentric wall thickening and pericolic infla mmation associated with the mid sigmoid. Small focal extraluminal gas collection in the central pelvi s in addition to scattered small collections of free pneumoperitoneum in the upper abdomen. No draina ble fluid collection at present. ABDOMINAL WALL: Within normal limits. RETROPERITONEUM: There is no lymphadenopathy. BLADDER: No wall thickening or mass. REPRODUCTIVE: Within normal limits. INGUINAL: There is no lymphadenopathy or hernia. MUSCULOSKELETAL: Within normal limits for patient age. CONCLUSION: Perforated sigmoid diverticulitis. Sadiq De Luna MD on July 24, 2017 at 16:44 Board Certified Radiologist. This report was verified electronically.
[2017-07-24 17:30] VITALS: TEMP 98.9
--- NOTE | 2017-07-24 17:44 | RADRPT ---
EXAM DATE/TIME: 07/24/2017 16:24 [facility] COMPARISON: No previous studies available for comparison. INDICATIONS : Patient complains of right lower extremity pain. RADIATION DOSE: CTDIvol (mGy) ; Reconstructed from previous dataset, no dose MEDICAL HISTORY : Cardiovascular disease. Hypertension. Diverticulitis. SURGICAL HISTORY : None. ENCOUNTER: Initial ACUITY: 1 day PAIN SCALE: 5/10 LOCATION: Right lower extremity TECHNIQUE: Volumetric scanning of the lumbar spine was performed. Multiplanar reconstructions in the sagittal, coronal and oblique axial planes were performed. Using automated exposure control and adjustment of the mA and/or kV according to patient size, radiation dose was kept as low as reasonably achievable t o obtain optimal diagnostic quality images. DICOM format image data is available electronically for review and comparison. FINDINGS: VERTEBRAE: Exam is limited by the patient's large body habitus. ALIGNMENT: No evidence of subluxation. T12-L1: The thecal sac has a normal diameter. No evidence of disc bulge or protrusion. The neural foramina are patent bilaterally. Moderate degenerative changes are seen anteriorly at T11-T12 and T12-L1. L1-L2: The thecal sac has a normal diameter. No evidence of disc bulge or protrusion. The neural foramina are patent bilaterally. L2-L3: The thecal sac has a normal diameter. No evidence of disc bulge or protrusion. The neural foramina are patent bilaterally. L3-L4: Mild disc bulge is present with mild to moderate spinal stenosis. Moderate degenerative changes are present in the facets. L4-L5: Disc bulge is evident with moderate right-sided neural foramina encroachment. Minor degenerative eduar nges are present facets. L5-S1: Mild facet disease is present central to left-sided disc bulging causing flattening of the anterior t hecal space and moderate encroachment on left L5 and the left S1 roots. CONCLUSION: Limited exam by patient's body habitus. Mild to moderate degenerative changes increasing as one move s down the spine without acute fracture. Vince Valentine MD FACR on July 24, 2017 at 17:40 Board Certified Radiologist. This report was verified electronically.
[2017-07-24] MEDS ORDERED: SODIUM CHLOR 0.9% 1000 ML INJ 1,000 ML IV ONE (18:00)
[2017-07-24] MEDS ORDERED: BACLOFEN 10 MG TAB PO PRN (18:15)
[2017-07-24] MEDS ORDERED: SODIUM CHLOR 0.9% 1000 ML INJ 1,000 ML IV SCH (18:17)
--- NOTE | 2017-07-24 18:28 | HHI.HP ---
[facility] Michelle Joseph MD Admission Diagnosis ruptured diverticulitis Diagnoses: (1) Smoking addiction Diagnosis: Secondary (2) Obesity (3) Bipolar 1 disorder Diagnosis: Secondary (4) Acute diverticulitis Diagnosis: Principal (5) Manipulative behavior Diagnosis: Secondary (6) Adjustment disorder with mixed disturbance of emotions and conduct Diagnosis: Secondary (7) Abdominal pain Diagnosis: Principal (8) Diverticulitis Diagnosis: Principal (9) Bipolar disorder Diagnosis: Secondary (10) CKD (chronic kidney disease), stage III Diagnosis: Secondary (11) Nausea & vomiting Diagnosis: Principal Chief Complaint: Abdominal pain Travel History International Travel<30 Days: No Contact w/Intl Traveler <30 Da: No Traveled to Known Affected Are: No Sepsis Criteria SIRS Criteria (2 or more): Heart rate over 90, WBC > 09239, < 4000 or > 10% bands Sepsis Criteria (SIRS+source): Infect source susp/known Criteria Outcome: Meets sepsis criteria History of Present Illness 41-year-old male with past history of HTN, HLD, CKD, bipolar disorder and recurrent diverticulitis who presented with abdominal pain. The patient recently HAD AN admission for IV antibiotics and diverticulitis. His symptoms improved and he was discharged 07/11 with plans to follow-up with general surgery as outpatient for definitive surgical treatment. The patient states that the abdominal pain began to recur about 5 days ago and the pain got severe again about 2 days ago. He's been having subjective chills and his temperature was 100.4 at home. Last 2 days she's been having episodes of vomiting with bile. He has been having much stool output, denies any GI bleeding. He isn't having pain that is generalized over his entire abdomen that is radiating to his left flank and back. He was found to have ruptured diverticulitis on imaging and has already been evaluated by general surgery. IV Toradol in the ED helped the pain. Pain is been managed with hydrocodone in the past. Review of Systems Constitutional: COMPLAINS OF: Fever, Chills, Change in appetite Endocrine: DENIES: Heat/cold intolerance, Polydipsia, Polyuria, Polyphagia Eyes: DENIES: Blurred vision, Diplopia, Eye inflammation, Eye pain, Vision loss Ears, nose, mouth, throat: DENIES: Tinnitus, Hearing loss, Vertigo, Nasal discharge Respiratory: DENIES: Apneas, Cough, Snoring, Wheezing, Hemoptysis Cardiovascular: DENIES: Chest pain, Palpitations, Syncope, Dyspnea on Exertion Gastrointestinal: COMPLAINS OF: Abdominal pain, Diarrhea, Nausea, Vomiting, Anorexia, DENIES: Black stools, Bloody stools, Constipation Genitourinary: DENIES: Sexual dysfunction, Urinary frequency Musculoskeletal: DENIES: Joint pain, Muscle aches Integumentary: DENIES: Abnormal pigmentation, Nail changes Hematologic/lymphatic: DENIES: Bruising, Lymphadenopathy Immunologic/allergic: DENIES: Eczema, Urticaria Neurologic: DENIES: Abnormal gait, Headache, Localized weakness, Paresthesias, Seizures Psychiatric: COMPLAINS OF: Anxiety, Mood changes, Depression, Agitation, DENIES : Confusion, Hallucinations, Suicidal Ideation, Homicidal Ideation Except as stated in HPI: all other systems reviewed are Neg Past Family Social History Past Medical History Hypertension Hyperlipidemia Chronic kidney disease Bipolar disorder Recurrent diverticulitis Past Surgical History Dental surgery Reported Medications Reported Meds & Active Scripts Active Walker with Front Wheels (Device) 1 Mis Mis 1 Ea .ROUTE DIRECTED Walker with Front Wheels (Device) 1 Mis Mis 1 Ea .ROUTE DIRECTED Lortab (Hydrocodone-Acetaminophen) 10-325 Mg Tab 1 Tab PO Q6H PRN Risperdal (Risperidone) 2 Mg Tab 2 Mg PO BID Depakote ER (Divalproex Sodium) 500 Mg Casey 500 Mg PO 2 AT HS Reported Baclofen 10 Mg Tab 10 Mg PO Q8HR PRN Amoxicillin-Clavulanate 875-125 mg Tab 875 Mg PO BID not for use in CrCl <30 mL/minute Amlodipine (Amlodipine Besylate) 5 Mg Tab 5 Mg PO DAILY Atorvastatin (Atorvastatin Calcium) 20 Mg Tab 20 Mg PO HS Remeron (Mirtazapine) 30 Mg Tab 30 Mg PO HS Allergies: Coded Allergies: acetaminophen (Unverified Allergy, Severe, Headache, 07/24/17) hydromorphone (Verified Allergy, Severe, Anemia, 07/24/17) oxycodone (Unverified Allergy, Severe, Headache, 07/24/17) morphine (Unverified Allergy, Intermediate, Rash, 07/24/17) Active Ordered Medications Current Medications Medications (Trade) Dose Ordered Sig/Delvis Route Start Time Stop Time Status Last Admin Sodium Chloride 1,000 ml @ 999 mls/hr BOLUS ONCE IV 07/24/17 18:00 07/24/17 19:00 (Norvasc) 5 mg DAILY PO 07/25/17 09:00 UNV (Lipitor) 20 mg HS PO 07/24/17 21:00 UNV (Lioresal) 10 mg Q8HR PRN PO 07/24/17 18:15 UNV (Depakote Er) 1,000 mg HS PO 07/24/17 21:00 UNV (Remeron Soltab Odt) 30 mg HS PO 07/24/17 21:00 UNV Non-Formulary Medication 2 mg BID PO 07/24/17 21:00 UNV Sodium Chloride 1,000 ml @ 100 mls/hr Q10H IV 07/24/17 18:17 UNV (NS Flush) 2 ml UNSCH PRN IV FLUSH 07/24/17 18:30 UNV (NS Flush) 2 ml BID IV FLUSH 07/24/17 21:00 UNV (Zofran Inj) 4 mg Q6H PRN IVP 07/24/17 18:30 UNV (Marquette 10-325 Mg) 1 tab Q4H PRN PO 07/24/17 18:30 UNV (Dilaudid Pf Inj) 0.2 mg Q3H PRN IV 07/24/17 18:30 UNV (Narcan Inj) 0.4 mg UNSCH PRN IV 07/24/17 18:30 UNV (Milk Of Magnesia Liq) 30 ml Q12H PRN PO 07/24/17 18:30 UNV (Senokot) 17.2 mg Q12H PRN PO 07/24/17 18:30 UNV (Dulcolax Supp) 10 mg DAILY PRN RECTAL 07/24/17 18:30 UNV (Lactulose Liq) 30 ml DAILY PRN PO 07/24/17 18:30 UNV Family History Reviewed, no family history pertinent to current chief complaint Social History Denies any alcohol, tobacco, or drug use Physical Exam Vital Signs Vital Signs Date Time Temp Pulse Resp B/P (MAP) Pulse Ox O2 Delivery O2 Flow Rate FiO2 07/24/17 17:30 98.9 07/24/17 14:59 99.7 110 18 148/73 (98) 94 Room Air 07/24/17 12:52 100.3 125 28 131/95 (107) 95 Physical Exam GENERAL: Well-developed well-nourished morbidly obese. In no acute distress. SKIN: Warm and dry. No lesions noted. Neck is supple there is no JVD or thyromegaly HEENT: Normocephalic. Pupils equal and round. Mucous membranes pink and moist. TONGUE MIDLINE extraocular muscles grossly intact CARDIOVASCULAR: Regular rate and rhythm. No murmur appreciated. S1 and S2 no S3 or S4 no heave or thrill or rub or gallop RESPIRATORY: No accessory muscle use. Clear to auscultation. Breath sounds equal bilaterally. GASTROINTESTINAL: Abdomen soft, nondistended. Generalized TTP. Bowel sounds x4. More tender over the left lower quadrant MUSCULOSKELETAL: No obvious deformities. No clubbing or cyanosis. No edema. NEUROLOGICAL: Awake and alert. No focal neurological deficits. Moves upper and lower extremities spontaneously. Normal speech. PSYCHIATRIC: Appropriate mood and flat affect; insight and judgment normal. Laboratory Laboratory Tests Test 07/24/17 13:45 07/24/17 15:00 07/24/17 15:15 Urine Color YELLOW Urine Turbidity HAZY Urine pH 5.5 Urine Specific [place] 1.017 Urine Protein 30 Urine Glucose (UA) NEG Urine Ketones NEG Urine Occult Blood NEG Urine Nitrite NEG Urine Bilirubin NEG Urine Urobilinogen LESS THAN 2.0 Urine Leukocyte Esterase NEG Urine RBC 1 Urine WBC 3 Urine Squamous Epithelial Cells 1 Urine Transitional Epithelial Cells <1 Urine Mucus FEW Microscopic Urinalysis Comment CULT NOT INDICATED White Blood Count 16.9 Red Blood Count 2.89 Hemoglobin 9.4 Hematocrit 28.7 Mean Corpuscular Volume 99.5 Mean Corpuscular Hemoglobin 32.6 Mean Corpuscular Hemoglobin Concent 32.7 Red Cell Distribution Width 15.0 Platelet Count 356 Mean Platelet Volume 7.7 Neutrophils (%) (Auto) 91.4 Lymphocytes (%) (Auto) 3.6 Monocytes (%) (Auto) 4.7 Eosinophils (%) (Auto) 0.2 Basophils (%) (Auto) 0.1 Neutrophils # (Auto) 15.5 Lymphocytes # (Auto) 0.6 Monocytes # (Auto) 0.8 Eosinophils # (Auto) 0.0 Basophils # (Auto) 0.0 CBC Comment DIFF FINAL Differential Comment Blood Urea Nitrogen 31 Creatinine 2.39 Random Glucose 115 Total Protein 8.4 Albumin 2.9 Calcium Level 9.7 Alkaline Phosphatase 70 Aspartate Amino Transf (AST/SGOT) 17 Alanine Aminotransferase (ALT/SGPT) 45 Total Bilirubin 0.3 Sodium Level 138 Potassium Level 3.8 Chloride Level 105 Carbon Dioxide Level 21.5 Anion Gap 12 Estimat Glomerular Filtration Rate 30 Lipase 81 Prothrombin Time 12.2 Prothromb Time International Ratio 1.1 Activated Partial Thromboplast Time 31.0 Result Diagram: 07/24/17 1500 07/24/17 1500 Imaging Last Impressions Abdomen/Pelvis CT 07/24/17 1614 Signed Impressions: Service Date/Time: Monday, July 24, 2017 16:24 - CONCLUSION: Perforated sigmoid diverticulitis. Sadiq De Luna MD Lumbar Spine CT 07/24/17 1410 Signed Impressions: Service Date/Time: Monday, July 24, 2017 16:24 - CONCLUSION: Limited exam by patient's body habitus. Mild to moderate degenerative changes increasing as one moves down the spine without acute fracture. Vince Valentine MD FACR Caprini VTE Risk Assessment Caprini VTE Risk Assessment: Mod/High Risk (score >= 2) Caprini Risk Assessment Model Point Value = 1 Point Value = 2 Point Value = 3 Point Value = 5 Age 41-60 Minor surgery BMI > 25 kg/m2 Swollen legs Varicose veins or History of unexplained or recurrent spontaneous Oral contraceptives or hormone replacement Sepsis (< 1 month) Serious lung disease, including pneumonia (< 1 month) Abnormal pulmonary function Acute myocardial infarction Congestive heart failure (< 1 month) History of inflammatory bowel disease Medical patient at bed rest Age 61-74 Arthroscopic surgery Major open surgery (> 45 min) Laparoscopic surgery (> 45 min) Malignancy Confined to bed (> 72 hours) Immobilizing plaster cast Central venous access Age >= 75 History of VTE Family history of VTE Factor V Leiden Prothrombin 13219A Lupus anticoagulant Anticardiolipin antibodies Elevated serum homocysteine Heparin-induced thrombocytopenia Other congenital or acquired thrombophilia Stroke (< 1 month) Elective arthroplasty Hip, pelvis, or leg fracture Acute spinal cord injury (< 1 month) Prophylaxis Regimen Total Risk Factor Score Risk Level Prophylaxis Regimen 0-1 Low Early ambulation 2 Moderate Order ONE of the following: *Sequential Compression Device (SCD) *Heparin 5000 units SQ BID 3-4 Higher Order ONE of the following medications: *Heparin 5000 units SQ TID *Enoxaparin/Lovenox 40 mg SQ daily (WT < 150 kg, CrCl > 30 mL/min) *Enoxaparin/Lovenox 30 mg SQ daily (WT < 150 kg, CrCl > 10-29 mL/min) *Enoxaparin/Lovenox 30 mg SQ BID (WT < 150 kg, CrCl > 30 mL/min) AND/OR *Sequential Compression Device (SCD) 5 or more Highest Order ONE of the following medications: *Heparin 5000 units SQ TID (Preferred with Epidurals) *Enoxaparin/Lovenox 40 mg SQ daily (WT < 150 kg, CrCl > 30 mL/min) *Enoxaparin/Lovenox 30 mg SQ daily (WT < 150 kg, CrCl > 10-29 mL/min) *Enoxaparin/Lovenox 30 mg SQ BID (WT < 150 kg, CrCl > 30 mL/min) AND *Sequential Compression Device (SCD) Assessment and Plan Assessment and Plan 41-year-old male with past history of HTN, HLD, CKD, bipolar disorder and recurrent diverticulitis who presented with abdominal pain Ruptured diverticulitis with sepsis: Fever, tachycardia, leukocytosis. Abdominal CT reviewed and shows ruptured diverticulitis. -General surgery consulted, appreciate input -IV Zosyn -Pain control with Marquette and IV Dilaudid -IVF -Nothing by mouth Lower back and left flank pain: Suspect referred pain from peritonitis as above. Lumbar CT showed [id number] jejuno-changes with no fracture. UA clear. -Continue home baclofen and pain control as above CKD stage III: Creatinine 2.39, previously 2.02 on 07/12/17. -IVF and follow-up BMP Other chronic medical conditions include HTN, HLD, bipolar disorder: Stable at this time and will continue home medications as indicated. DVT prophylaxis: SCDs Code Status Full code Discussed Condition With Patient with family at bedside, Dr. Muhammad Attending Statement 4 days is the estimated time the patient will need to remain in the hospital, assuming treatment plan goals are met and no additional complications. The exam, history, and the medical decision-making described in the above note were completed with the assistance of the mid-level provider. I reviewed and agree with the findings presented. I attest that I had a [id number] encounter with the patient on the same day, and personally performed and documented my assessment and findings in the medical record. The services are ordered in accordance with Medicare regulations or non- Medicare payer requirements, as applicable. In the case of services not specified as inpatient-only, they are appropriately provided as inpatient services in accordance with the 2-midnight benchmark. Fawad López Jul 24, 2017 18:28 Vince Muhammad DO Jul 24, 2017 18:41
[2017-07-24] MEDS ORDERED: SODIUM CHLORIDE 0.9% FLUSH 10 ML FLUSH IV FLUSH PRN ×2 (18:30→18:45)
[2017-07-24] MEDS ORDERED: ONDANSETRON HCL 4 MG/2 ML VIAL IVP PRN (18:30)
[2017-07-24] MEDS ORDERED: NALOXONE HCL 0.4 MG/ML AMP IV PRN ×2 (18:30→18:45)
[2017-07-24] MEDS ORDERED: SENNOSIDES 8.6 MG TAB PO PRN ×2 (18:30→18:45)
[2017-07-24] MEDS ORDERED: LACTULOSE SYRUP 20 GM/30 ML CUP PO PRN ×2 (18:30→18:45)
[2017-07-24] MEDS ORDERED: BISACODYL 10 MG SUPP RECTAL PRN ×2 (18:30→18:45)
[2017-07-24] MEDS ORDERED: MAGNESIUM HYDROXIDE SUSP 30 ML CUP PO PRN ×2 (18:30→18:45)
[2017-07-24] MEDS ORDERED: HYDROmorphone HCL PF 1 MG/ML VIAL IV PRN ×4 (18:30→18:45)
[2017-07-24] MEDS ORDERED: PIPERACIL-TAZO 3.375 GM PREMIX 50 ML IV SCH (18:30)
[2017-07-24] MEDS ORDERED: PROCHLORPERAZINE 25 MG SUPP RECTAL PRN (18:45)
[2017-07-24] MEDS ORDERED: ACETAMINOPHEN 325 MG TAB PO PRN (18:45)
[2017-07-24] MEDS: SODIUM CHLOR 0.9% 1000 ML INJ 1,000 ML IV SCH (20:24)
[2017-07-24] MEDS: PIPERACIL-TAZO 2.25 GM PREMIX 50 ML IV SCH (20:33)
[2017-07-24] MEDS: risperiDONE 1 MG TAB PO SCH (20:34)
[2017-07-24] MEDS: DIVALPROEX SODIUM E.R. 500 MG TAB PO SCH (20:34)
[2017-07-24] MEDS: DOCUSATE SODIUM 50 MG/SENNA 8.6 MG TAB PO SCH (20:35)
[2017-07-24] MEDS: MIRTAZAPINE ODT 30 MG TAB PO SCH (20:35)
[2017-07-24 20:40] VITALS: BP 134/64; PULSE 116; RESP 22; TEMP 99.8
[2017-07-24] MEDS ORDERED: SODIUM CHLORIDE 0.9% FLUSH 10 ML FLUSH IV FLUSH SCH (21:00)
[2017-07-24] MEDS: SODIUM CHLORIDE 0.9% FLUSH 10 ML FLUSH IV FLUSH SCH (21:00)
[2017-07-24] MEDS: ATORVASTATIN 20 MG TAB PO SCH (21:23)
[2017-07-24 22:44] VITALS: TEMP 98.9
[2017-07-24] MEDS: KETOROLAC TROMETHAMINE 30 MG/ML (IVP) VIAL IV PUSH PRN (23:57)
[2017-07-25] VITALS (11 sets, daily range): BP systolic 129–139; BP diastolic 63–77; PULSE 87–114; RESP 16–20; TEMP 98.1–99.9; O2SAT 92–99
[2017-07-25] MEDS: PIPERACIL-TAZO 2.25 GM PREMIX 50 ML IV SCH ×4 (02:00→20:42)
[2017-07-25] MEDS: SODIUM CHLOR 0.9% 1000 ML INJ 1,000 ML IV SCH ×3 (04:47→16:00)
[2017-07-25] MEDS: KETOROLAC TROMETHAMINE 30 MG/ML (IVP) VIAL IV PUSH PRN ×2 (06:01→17:23)
[2017-07-25] MEDS: risperiDONE 1 MG TAB PO SCH ×2 (08:03→20:39)
[2017-07-25] MEDS: amLODIPine BESYLATE 5 MG TAB PO SCH (08:03)
[2017-07-25] MEDS: DOCUSATE SODIUM 50 MG/SENNA 8.6 MG TAB PO SCH ×2 (08:04→20:43)
--- NOTE | 2017-07-25 08:16 | MB ---
cc: JENNIFER SALINAS MD DATE OF CONSULTATION 07/24/2017 CHIEF COMPLAINT Abdominal pain, diverticulitis. HISTORY OF PRESENT ILLNESS The patient is 41-year-old male who presents with several medical issues including recurrent diverticulitis. The patient states he has had diverticulitis for several years and has had increasing frequencies of diverticular acute attacks. The patient with recent admission approximately two weeks ago with hospital stay of 6 days, IV antibiotics and notable for diverticulitis with acute flare-up, without evidence of perforation. He did have some improvement. However, the pain continued to get worse and the patient represented with acute onset of diverticular disease with free air and perforation. He states he noticed and heard a pop this morning and developed a severe 10/10 abdominal pain. He states the pain is diffuse, is sharp and it is better with lying still, less with movement. He came to the emergency department for further evaluation including CT scan showing free intraperitoneal air with inflamed sigmoid diverticular disease. He did have low-grade fevers at home, 100.4. PAST MEDICAL HISTORY 1. Hypertension. 2. Hyperlipidemia. 3. Chronic kidney disease. 4. Bipolar disorder. 5. Recurrent diverticulitis. PAST SURGICAL HISTORY Dental surgery. MEDICATIONS See EMR. ALLERGIES ACETAMINOPHEN. HYDROMORPHONE. MORPHINE. OXYCODONE. SOCIAL HISTORY Denies smoking, EtOH or IVDA. FAMILY HISTORY Denies hypertension or diabetes. REVIEW OF SYSTEMS GENERAL: Complains of low-grade fevers. HEENT: Denies eye pain or ear pain. LUNGS: Denies cough or wheeze. HEART: Denies palpitations or chest pain. ABDOMEN: Complained of nausea, abdominal pain. Denies vomiting. NECK: Denies swelling or pain. ENDOCRINE: Denies polyuria, polydipsia. MUSCULOSKELETAL: Denies arthralgia, myalgias. NEUROLOGIC: Bipolar. Change in sensation. PHYSICAL EXAMINATION GENERAL: In no acute distress. VITAL SIGNS: Temperature 103.1 - 100.3, pulse 110, respiration 18, blood pressure 148/73, saturation 94%. HEENT: PERRLA. Pupils equal, round and reactive. Normocephalic, atraumatic. NECK: Supple. Trachea midline. LUNGS: Bilateral expansion. Clear. HEART: S1-S2 regular rhythm. ABDOMEN: Soft, positive tenderness to palpation multiple quadrants. Mild rebound. No guarding. EXTREMITIES: Warm, well-perfused. : Within normal limits. NEUROLOGIC: Awake, alert x 3. 5/5 motor in all extremities. PSYCH: Appropriate mood and flat affect. LABORATORY AND DIAGNOSTIC DATA WBC 16.9, hemoglobin 9.4, hematocrit 28.7 and platelets 356. Sodium 138, potassium 3.8, chloride 105, BUN 31, creatinine 2.3, bilirubin 0.3, AST 17, ALT 45, alkaline phos 70, lipase 81. Coagulation studies: INR 1.1. CT scan reviewed by myself showing multiple diverticula in the sigmoid colon with inflammation and free intraperitoneal air. ASSESSMENT The patient is a 41-year-old male with morbid obesity, several medical issues, who presents with recurrent onset of diverticular disease, this time with elements of perforation. PLAN A full clinical, radiologic and laboratory workup. The patient with the above-named issues including recurrent diverticular disease. At this point the patient will be admitted to the surgical floor, kept n.p.o., IV fluids, IV antibiotics, pain control. We will plan to take the patient to the OR for diagnostic laparoscopy. Discussed with the patient in detail who states understanding. The patient's parents at the bedside also understand. MD TK Voss/TONE /11:38 PM /7:57 AM
[2017-07-25] MEDS: SODIUM CHLORIDE 0.9% FLUSH 10 ML FLUSH IV FLUSH SCH ×2 (08:22→20:43)
[2017-07-25 09:31] LABS: AUTOMATED NEUTROPHIL # 10.2 TH/MM3 (1.8-7.7); BASOPHIL % 0.1 % (0.0-2.0); EOSINOPHIL % 0.4 % (0.0-4.0); HEMATOCRIT 25.9 % (39.0-51.0); HEMO FLAGS DIFF FINAL; LYMPH % 5.1 % (9.0-44.0); LYMPHOCYTE # 0.6 TH/MM3 (1.0-4.8); MEAN CELL VOLUME 99.7 FL (80.0-100.0); MEAN CORPUSCULAR HEMOGLOBIN 32.5 PG (27.0-34.0); MEAN CORPUSCULAR HGB CONC 32.6 % (32.0-36.0); MONO % 5.4 % (0.0-8.0); PLATELET COUNT 293 TH/MM3 (150-450); RED BLOOD COUNT 2.59 MIL/MM3 (4.50-5.90); RED CELL DISTRIBUTION WIDTH 15.1 % (11.6-17.2); WHITE BLOOD COUNT 11.4 TH/MM3 (4.0-11.0)
[2017-07-25 09:56] LABS: ANION GAP 13 MEQ/L (5-15); AST (GOT) 9 U/L (15-37); BICARBONATE 20.4 MEQ/L (21.0-32.0); BLOOD UREA NITROGEN 28 MG/DL (7-18); CHLORIDE 108 MEQ/L (98-107); GLOMERULAR FILTRATION RATE 31 ML/MIN (>89); MAGNESIUM 2.2 MG/DL (1.5-2.5); SODIUM (NA) 141 MEQ/L (136-145)
[2017-07-25 10:05] LABS: ALKALINE PHOSPHATASE 63 U/L (45-117); ALT (GPT) 32 U/L (12-78); FREE T4 1.58 NG/DL (0.76-1.46); TOTAL BILIRUBIN ADULT 0.4 MG/DL (0.2-1.0)
[2017-07-25] MEDS ORDERED: SUGAMMADEX SODIUM 200 MG/2 ML VIAL IV PUSH ONE ×2 (10:58)
[2017-07-25] MEDS ORDERED: BUPIVACAINE/EPINEPHRINE 0.25% 50 ML VIAL ONE (11:01)
[2017-07-25] MEDS ORDERED: DEXAMETHASONE SOD PHOS 4 MG/ML VIAL ONE (11:23)
[2017-07-25] MEDS ORDERED: FAMOTIDINE 20 MG/2 ML VIAL ONE (11:23)
[2017-07-25] MEDS ORDERED: MIDAZOLAM HCL 2 MG/2 ML VIAL ONE (11:23)
[2017-07-25] MEDS ORDERED: NORMOSOL R INJ 2,000 ML IV ONE (12:00)
[2017-07-25] MEDS ORDERED: PROPOFOL 200 MG/20 ML AMP IV ONE (12:00)
[2017-07-25] MEDS ORDERED: ONDANSETRON HCL 4 MG/2 ML VIAL IV PUSH ONE (12:00)
[2017-07-25] MEDS ORDERED: LACTATED RINGER'S 1000 ML INJ 1,000 ML IV ONE (12:00)
--- NOTE | 2017-07-25 14:45 | OTSOAPIP ---
PATIENT OFF FLOOR FOR SURGERY. WILL REATTEMPT OCCUPATIONAL THERAPY EVALUATION TOMORROW. Therapist: Tiesha Potts, OTR/L Signature on file
[2017-07-25] MEDS ORDERED: DO NOT ADM ANY ANTICOAGULANT DRUGS PRN (15:05)
[2017-07-25] MEDS ORDERED: Custom Consult Pharmacy 1 EA OTHER SCH (15:15)
[2017-07-25] MEDS ORDERED: NS + KCL 20 MEQ INJ 1,000 ML IV SCH (15:15)
[2017-07-25] MEDS ORDERED: NS + KCL 20 MEQ INJ 1,000 ML ONE (15:18)
[2017-07-25 16:20] LABS: BLOOD GAS BASE EXCESS -6.9 mmol/L (-2-2); BLOOD GAS HCO3 18 mmol/L (22-26); BLOOD GAS METHEMOGLOBIN 0.3 % (0-2); BLOOD GAS O2 HGB SATURATION 96 % (90-100); BLOOD GAS PCO2 35 mmHg (38-42); BLOOD GAS PO2 118 mmHg (61-120); CRITICAL VALUE NO; FIO2 55 %; OXYGEN DEVICE BiPAP; TEMP CORR TO 98.6; VENT SETTINGS IPAP15/EPAP5
[2017-07-25 16:21] LABS: DRAW SITE LT RADIAL; NUMBER OF ARTERIAL PUNCTURES 2; STAT YES; ULNAR PULSE PRESENT
--- NOTE | 2017-07-25 16:22 | RADRPT ---
EXAM DATE/TIME: 07/25/2017 15:49 [place] COMPARISON: No previous studies available for comparison. INDICATIONS : Short of breath. MEDICAL HISTORY : Hypertension. Diverticulitis. SURGICAL HISTORY : None. ENCOUNTER: Initial ACUITY: 1 day PAIN SCORE: 0/10 LOCATION: Bilateral chest FINDINGS: A single view of the chest demonstrates the lungs to be symmetrically aerated without evidence of mas s, infiltrate or effusion. The cardiomediastinal contours are unremarkable. Osseous structures are intact. CONCLUSION: No acute disease. Benjamin Lindsey MD on July 25, 2017 at 16:20 Board Certified Radiologist. This report was verified electronically.
[2017-07-25] MEDS ORDERED: SODIUM BICARBONATE 8.4% INJ 50 MEQ/50 ML SYR ONE (16:29)
[2017-07-25] MEDS ORDERED: SODIUM BICARBONATE 8.4% INJ 50 MEQ/50 ML SYR IV PUSH ONE (16:30)
[2017-07-25] MEDS ORDERED: HALOPERIDOL LACTATE 5 MG/ML AMP IV PRN (16:45)
--- NOTE | 2017-07-25 16:48 | PD.CONS ---
[facility] Service Critical Care Medicine Consult Requested By Dr. Augustine Reason for Consult Perforated sigmoid diverticulitis Status post diverticular abscess drainage and diverting ileostomy Severe sepsis Acute hypoxemic respiratory failure Acute on chronic kidney disease Primary Care Physician Michelle Joseph MD History of Present Illness Patient is a 41-year-old morbidly obese male with past medical history significant for hypertension, chronic kidney disease, dyslipidemia, bipolar disorder and recurrent diverticulitis who presented with abdominal pain to the ER 07/24/17. (He was recently admitted to the hospital with acute diverticulitis and discharged on 07/11). His white count was 16.9 with 91% neutrophils. Patient was started on broad-spectrum antibiotics with Zosyn renally adjusted. A CT abdomen pelvis showed acute sigmoid diverticulitis with perforation. General surgery was consulted. Patient underwent laparoscopic drainage of abscess, and diverting ileostomy today by Dr. Augustine. In the OR patient received 2.8 L crystalloids, EBL was 100 mL, and urine output was 350 mL. Postop patient was extubated and placed on nasal cannula, but he was hypoxemic immediately and was placed on BiPAP 15/7 and 70% FiO2. Critical care medicine was consulted for postop management, severe sepsis and hypoxemic respiratory failure. I evaluated the patient in the PACU. He is on BiPAP, in moderate distress due to pain. Currently FiO2 is at 55% with oxygen saturation 96%. ABG shows, ph 7.34, PCO2 35 with PaO2 118, and BE -7. I have ordered additional 1 L fluid bolus, 1 amp of bicarbonate, will check lactic acid. Chest x-ray shows no acute infiltrate other than mild atelectasis on my review. I believe his hypoxia is secondary to residual sedation and hypoventilation/atelectasis. Currently patient is more awake, ABG pending at this time Review of Systems ROS Limitations: Clinical Condition (BiPAP limits ROS) Past Family Social History Allergies: Coded Allergies: acetaminophen (Unverified Allergy, Severe, Headache, 07/24/17) hydromorphone (Verified Allergy, Severe, Anemia, 07/24/17) oxycodone (Unverified Allergy, Severe, Headache, 07/24/17) morphine (Unverified Allergy, Intermediate, Rash, 07/24/17) Past Medical History Hypertension Hyperlipidemia Chronic kidney disease Bipolar disorder Recurrent diverticulitis Morbid obesity Past Surgical History Dental surgery in the past Reported Medications Lortab (Hydrocodone-Acetaminophen) 10-325 Mg Tab 1 Tab PO Q6H PRN Risperdal (Risperidone) 2 Mg Tab 2 Mg PO BID Depakote ER (Divalproex Sodium) 500 Mg Casey 500 Mg PO 2 AT HS Baclofen 10 Mg Tab 10 Mg PO Q8HR PRN Amoxicillin-Clavulanate 875-125 mg Tab 875 Mg PO BID Amlodipine (Amlodipine Besylate) 5 Mg Tab 5 Mg PO DAILY Atorvastatin (Atorvastatin Calcium) 20 Mg Tab 20 Mg PO HS Remeron (Mirtazapine) 30 Mg Tab 30 Mg PO HS Active Ordered Medications Reviewed Family History Unable to obtain family history as patient is on BiPAP Social History No alcohol or tobacco use Physical Exam Vital Signs Vital Signs Date Time Temp Pulse Resp B/P (MAP) Pulse Ox O2 Delivery O2 Flow Rate FiO2 07/25/17 15:05 93 70 07/25/17 08:00 99.9 114 20 139/63 (88) 95 07/25/17 04:00 98.8 113 20 139/77 (97) 92 07/25/17 00:00 99.1 106 20 129/63 (85) 92 07/24/17 22:44 98.9 07/24/17 20:40 99.8 116 22 134/64 (87) Room Air 07/24/17 17:30 98.9 Physical Exam GENERAL: Morbidly obese on BiPAP, C/o of severe post op pain SKIN: Warm and dry. Neck is supple there is no JVD or thyromegaly HEENT: Normocephalic. Pupils equal and round. BiPAP mask in place CARDIOVASCULAR: Tachycardic, normal sinus rhythm. No murmur appreciated. S1 and S2 normal RESPIRATORY: No accessory muscle use. Clear to auscultation, but diminished at the bases GASTROINTESTINAL: Abdomen soft, tenders to palpation. Trocar sites appears unremarkable. Ileostomy and GIANNA drain in place. MUSCULOSKELETAL: No obvious deformities. No clubbing or cyanosis. No edema. NEUROLOGICAL: Awake and alert. No focal neurological deficits. Moves all extremities and follows commands Laboratory Laboratory Tests Test 07/25/17 09:10 07/25/17 16:04 White Blood Count 11.4 Red Blood Count 2.59 Hemoglobin 8.4 Hematocrit 25.9 Mean Corpuscular Volume 99.7 Mean Corpuscular Hemoglobin 32.5 Mean Corpuscular Hemoglobin Concent 32.6 Red Cell Distribution Width 15.1 Platelet Count 293 Mean Platelet Volume 7.5 Neutrophils (%) (Auto) 89.0 Lymphocytes (%) (Auto) 5.1 Monocytes (%) (Auto) 5.4 Eosinophils (%) (Auto) 0.4 Basophils (%) (Auto) 0.1 Neutrophils # (Auto) 10.2 Lymphocytes # (Auto) 0.6 Monocytes # (Auto) 0.6 Eosinophils # (Auto) 0.0 Basophils # (Auto) 0.0 CBC Comment DIFF FINAL Differential Comment Blood Urea Nitrogen 28 Creatinine 2.32 Random Glucose 101 Total Protein 7.8 Albumin 2.5 Calcium Level 9.4 Phosphorus Level 2.7 Magnesium Level 2.2 Alkaline Phosphatase 63 Aspartate Amino Transf (AST/SGOT) 9 Alanine Aminotransferase (ALT/SGPT) 32 Total Bilirubin 0.4 Sodium Level 141 Potassium Level 4.0 Chloride Level 108 Carbon Dioxide Level 20.4 Anion Gap 13 Estimat Glomerular Filtration Rate 31 Free Thyroxine 1.58 Thyroid Stimulating Hormone 3rd Gen 0.660 Blood Gas Puncture Site LT RADIAL Blood Gas Patient Temperature 98.6 Blood Gas HCO3 18 Blood Gas Base Excess -6.9 Blood Gas Oxygen Saturation 96 Arterial Blood pH 7.34 Arterial Blood Partial Pressure CO2 35 Arterial Blood Partial Pressure O2 118 Arterial Blood Oxygen Content 11.0 Arterial Blood Carboxyhemoglobin 2.0 Arterial Blood Methemoglobin 0.3 Blood Gas Hemoglobin 8.0 Oxygen Delivery Device BiPAP Blood Gas Ventilator Setting IPAP15/EPAP5 Blood Gas Inspired Oxygen 55 Result Diagram: 07/25/17 0910 07/25/[address] abdomen pelvis shows acute ruptured sigmoidal colitis Septic Shock Reassessment Heart: Other (Tachycardic) Lungs: Clear, Diminished Skin: Warm Peripheral Pulses: Bounding Right Radial Bounding Left Radial Capillary Refill: >2 seconds Assessment and Plan Assessment and Plan ASSESSMENT: Perforated sigmoid diverticulitis Status post diverticular abscess drainage and diverting ileostomy Severe sepsis Acute hypoxemic respiratory failure Acute on chronic kidney disease Bipolar disorder Morbid obesity Hypertension Dyslipidemia PLAN: NEURO: - As needed Fentanyl for pain. Otherwise minimize sedation - Hold Risperdal and Depakote until he is cleared for by mouth intake. Hold Remeron - Haldol when necessary for agitation RESP: - Postop hypoxemia most likely from atelectasis - BiPAP 08/06 with FiO2 55%. Wean as tolerated - DuoNeb every 6 hours and when necessary - IS, EzPAP,Acapella as tolerated CV: - Received 2.8 L crystalloids in OR. Give additional 1 L fluid bolus - Check lactic acid trend if high - Normal saline at 125 ML per hour GI/ID: - Patient is status post laparoscopic drainage of abscess and diverticular bleeding ileostomy 07/25/[address] Augustine - Follow-up on cultures, continue broad-spectrum antibiotic with Zosyn renally dosed - Postop management per general surgery - Nothing by mouth, IV Pepcid : - Monitor renal function closely. Continue Tejada catheter. - Consult nephrology if worsening renal failure HEME: - Monitor CBC, CMP, coags ENDO: - Replace electrolytes as needed PROPH: - Bilateral lower extremity SCDs. Heparin 5000 IU q8hr from tomorrow am. IV Pepcid LINES: - Utilize peripheral IVs, central line if needed CC time 45 min Code Status Full Discussed Condition With Dipti Frank MD Jul 25, 2017 16:48
[2017-07-25 17:32] LABS: HEMOGLOBIN A1a 1.1 %; HEMOGLOBIN A1b 0.8 %; HEMOGLOBIN Ao 85.4 %; HEMOGLOBIN F 1.4 %; HEMOGLOBIN LA1C 2.1 %; HEMOGLOBIN P3 5.2 %
[2017-07-25] MEDS: HYDROmorphone HCL PF 2 MG/ML VIAL IV PUSH PRN (18:39)
[2017-07-25 18:59] LABS: AUTOMATED NEUTROPHIL # 9.9 TH/MM3 (1.8-7.7); HEMO FLAGS DIFF FINAL; LYMPH % 3.9 % (9.0-44.0); LYMPHOCYTE # 0.4 TH/MM3 (1.0-4.8); MEAN CELL VOLUME 99.7 FL (80.0-100.0); MEAN CORPUSCULAR HEMOGLOBIN 33.3 PG (27.0-34.0); MEAN CORPUSCULAR HGB CONC 33.5 % (32.0-36.0); MONO % 3.6 % (0.0-8.0); NEUT % 92.5 % (16.0-70.0); PLATELET COUNT 238 TH/MM3 (150-450); RED BLOOD COUNT 2.31 MIL/MM3 (4.50-5.90); RED CELL DISTRIBUTION WIDTH 15.3 % (11.6-17.2); WHITE BLOOD COUNT 10.7 TH/MM3 (4.0-11.0)
[2017-07-25 19:26] LABS: ALKALINE PHOSPHATASE 57 U/L (45-117); ALT (GPT) 42 U/L (12-78); ANION GAP 10 MEQ/L (5-15); AST (GOT) 28 U/L (15-37); BICARBONATE 21.7 MEQ/L (21.0-32.0); BLOOD UREA NITROGEN 29 MG/DL (7-18); CHLORIDE 111 MEQ/L (98-107); GLOMERULAR FILTRATION RATE 31 ML/MIN (>89); POTASSIUM 3.9 MEQ/L (3.5-5.1); SODIUM (NA) 143 MEQ/L (136-145); TOTAL BILIRUBIN ADULT 0.3 MG/DL (0.2-1.0)
[2017-07-25] MEDS: MIRTAZAPINE ODT 30 MG TAB PO SCH (20:39)
[2017-07-25] MEDS: DIVALPROEX SODIUM E.R. 500 MG TAB PO SCH (20:40)
[2017-07-25] MEDS: ACETAMINOPHEN/HYDROcodone 325 MG/10 MG TAB PO PRN (20:42)
[2017-07-25] MEDS: ATORVASTATIN 20 MG TAB PO SCH (20:42)
[2017-07-25] MEDS: ONDANSETRON HCL 4 MG/2 ML VIAL IVP PRN (21:30)
[2017-07-25] MEDS: FAMOTIDINE 20 MG/2 ML VIAL IV PUSH SCH (23:49)
[2017-07-26] VITALS (13 sets, daily range): BP systolic 116–162; BP diastolic 60–95; PULSE 80–110; RESP 11–22; TEMP 95.6–98; O2SAT 92–96
[2017-07-26] MEDS: HYDROmorphone HCL PF 2 MG/ML VIAL IV PUSH PRN ×3 (01:17→13:01)
[2017-07-26] MEDS: SODIUM CHLOR 0.9% 1000 ML INJ 1,000 ML IV SCH ×3 (02:00→18:36)
[2017-07-26] MEDS: PIPERACIL-TAZO 2.25 GM PREMIX 50 ML IV SCH ×4 (02:48→20:56)
[2017-07-26] MEDS: ACETAMINOPHEN/HYDROcodone 325 MG/10 MG TAB PO PRN ×4 (04:09→20:57)
[2017-07-26] MEDS: KETOROLAC TROMETHAMINE 30 MG/ML (IVP) VIAL IV PUSH PRN ×2 (04:10→12:29)
[2017-07-26] MEDS: RESP: ALBUTEROL 2.5 MG/IPRATROPIUM 0.5 MG NEB (SCH) NEB ×3 (05:20→15:53)
[2017-07-26 05:26] LABS: BASOPHIL % 0.1 % (0.0-2.0); LYMPH % 7.5 % (9.0-44.0); LYMPHOCYTE # 0.6 TH/MM3 (1.0-4.8); MEAN CELL VOLUME 101.8 FL (80.0-100.0); MEAN CORPUSCULAR HEMOGLOBIN 33.4 PG (27.0-34.0); MEAN CORPUSCULAR HGB CONC 32.8 % (32.0-36.0); MONO % 4.9 % (0.0-8.0); NEUT % 87.5 % (16.0-70.0); PLATELET COUNT 270 TH/MM3 (150-450); RED BLOOD COUNT 2.36 MIL/MM3 (4.50-5.90); RED CELL DISTRIBUTION WIDTH 15.4 % (11.6-17.2)
[2017-07-26 05:31] LABS: HEMO FLAGS AUTO DIFF
[2017-07-26 05:46] LABS: ALT (GPT) 37 U/L (12-78); ANION GAP 10 MEQ/L (5-15); AST (GOT) 17 U/L (15-37); BICARBONATE 22.7 MEQ/L (21.0-32.0); BLOOD UREA NITROGEN 30 MG/DL (7-18); CHLORIDE 113 MEQ/L (98-107); GLOMERULAR FILTRATION RATE 31 ML/MIN (>89); POTASSIUM 4.3 MEQ/L (3.5-5.1); SODIUM (NA) 146 MEQ/L (136-145)
[2017-07-26 05:48] LABS: ALKALINE PHOSPHATASE 56 U/L (45-117); TOTAL BILIRUBIN ADULT 0.2 MG/DL (0.2-1.0)
[2017-07-26 07:02] LABS: BANDS 6 % (0-6); METAMYELOCYTES 1 % (0-1); MYELOCYTES 2 % (0-0); NEUTROPHIL # MANUAL DIFF 6.8 TH/MM3 (1.8-7.7); POLYS (SEG NEUTROPHILS) 76 % (16-70); WBC DIFF SAMPLE 100
[2017-07-26 07:03] LABS: OVALOCYTES 1+ (NORMAL); PLATELET ESTIMATE SMEAR NORMAL (NORMAL); PLATELET MORPHOLOGY NORMAL (NORMAL); SCAN/DIFF FINAL DIFF MANUAL; TEARDROP RBCS 1+ (NORMAL)
--- NOTE | 2017-07-26 08:24 | HHI.CCPN ---
Subjective Remarks/Hospital Course Patient is a 41-year-old morbidly obese male with past medical history significant for hypertension, chronic kidney disease, dyslipidemia, bipolar disorder and recurrent diverticulitis who presented with abdominal pain to the ER 07/24/17. (He was recently admitted to the hospital with acute diverticulitis and discharged on 07/11). His white count was 16.9 with 91% neutrophils. Patient was started on broad-spectrum antibiotics with Zosyn renally adjusted. A CT abdomen pelvis showed acute sigmoid diverticulitis with perforation. General surgery was consulted. Patient underwent laparoscopic drainage of abscess, and diverting ileostomy today by Dr. Augustine. In the OR patient received 2.8 L crystalloids, EBL was 100 mL, and urine output was 350 mL. Postop patient was extubated and placed on nasal cannula, but he was hypoxemic immediately and was placed on BiPAP 15/7 and 70% FiO2. Critical care medicine was consulted for postop management, severe sepsis and hypoxemic respiratory failure. I evaluated the patient in the PACU. He is on BiPAP, in moderate distress due to pain. Currently FiO2 is at 55% with oxygen saturation 96%. ABG shows, ph 7.34, PCO2 35 with PaO2 118, and BE -7. I have ordered additional 1 L fluid bolus, 1 amp of bicarbonate, will check lactic acid. Chest x-ray shows no acute infiltrate other than mild atelectasis on my review. I believe his hypoxia is secondary to residual sedation and hypoventilation/atelectasis. Currently patient is more awake, ABG pending at this time 07/26: Lying in bed no acute distress. Pain better controlled with Dilaudid. Asking about by mouth liquid diet. UO 2.1L Gianna drain total 485 ml output Objective Vital Signs Date Time Temp Pulse Resp B/P (MAP) Pulse Ox O2 Delivery O2 Flow Rate FiO2 07/26/17 07:48 93 Venturi Mask 35 07/26/17 06:00 96 07/26/17 04:00 97.7 11 133/64 (87) 07/25/17 18:02 6.00 Intake and Output 07/26/17 07/26/17 07/27/17 08:00 16:00 00:00 Intake Total 2331 ml Output Total 1545 ml Balance 786 ml Result Diagram: 07/26/17 0450 07/26/17 0450 Other Results Laboratory Tests Test 07/25/17 16:04 Blood Gas Puncture Site LT RADIAL Blood Gas Patient Temperature 98.6 Blood Gas HCO3 18 mmol/L (22-26) Blood Gas Base Excess -6.9 mmol/L (-2-2) Blood Gas Oxygen Saturation 96 % (90-100) Arterial Blood pH 7.34 (7.380-7.420) Arterial Blood Partial Pressure CO2 35 mmHg (38-42) Arterial Blood Partial Pressure O2 118 mmHg (61-120) Arterial Blood Oxygen Content 11.0 Vol % (12.0-20.0) Arterial Blood Carboxyhemoglobin 2.0 % (0-4) Arterial Blood Methemoglobin 0.3 % (0-2) Blood Gas Hemoglobin 8.0 G/DL (12.0-16.0) Oxygen Delivery Device BiPAP Blood Gas Ventilator Setting IPAP15/EPAP5 Blood Gas Inspired Oxygen 55 % Imaging CT abdomen pelvis shows acute ruptured sigmoidal colitis Objective Remarks GENERAL: Morbidly obese lying in no acute distress SKIN: Warm and dry. Neck is supple there is no JVD or thyromegaly HEENT: Normocephalic. Pupils equal and round. On NC CARDIOVASCULAR: S1-S2 normal, normal sinus rhythm. No murmur appreciated. RESPIRATORY: No accessory muscle use. Clear to auscultation, but diminished at the bases GASTROINTESTINAL: Abdomen soft, tenders to palpation. Trocar sites appears unremarkable. Ileostomy and GIANNA drain in place. MUSCULOSKELETAL: No obvious deformities. No clubbing or cyanosis. No edema. NEUROLOGICAL: Awake and alert. No focal neurological deficits. Moves all extremities and follows commands A/P Assessment and Plan ASSESSMENT: Perforated sigmoid diverticulitis Status post diverticular abscess drainage and diverting ileostomy Sepsis Acute hypoxemic respiratory failure Acute on chronic kidney disease Anemia Bipolar disorder Morbid obesity Hypertension Dyslipidemia PLAN: NEURO: - As needed Dilaudid for pain. Otherwise minimize sedation - Hold Risperdal, Remeron and Depakote until he is cleared for by mouth intake. Resume when cleared for PO - Haldol when necessary for agitation RESP: - Postop hypoxemia most likely from atelectasis, now resolved - BiPAP 15/7 PRN - DuoNeb every 6 hours and when necessary - IS, EzPAP, Acapella CV: - Received 2.8 L crystalloids in OR. Give additional 1 L fluid bolus - Lactate normal - Normal saline at 125 ML per hour GI/ID: - Patient is status post laparoscopic drainage of abscess and diverticular bleeding ileostomy 07/25/[address] Augustine - Follow-up on cultures, continue broad-spectrum antibiotic with Zosyn renally dosed - Postop management per general surgery - Nothing by mouth, IV Pepcid : - Monitor renal function closely. Continue Tejada catheter. - Consult nephrology if worsening renal failure, currently stable - Baseline creat 1.6-2.3 HEME: - Monitor CBC, CMP, coags ENDO: - Replace electrolytes as needed PROPH: - Bilateral lower extremity SCDs. Heparin 5000 IU q8hr from today. IV Pepcid LINES: - Utilize peripheral IVs, central line if needed CC time 45 min PT evaluate and treat. Consult [facility] to assume care 07/27/17. transfer to Dipti Rosas MD Jul 26, 2017 08:24
[2017-07-26] MEDS: HEPARIN SODIUM - SQ 10,000 UNITS/ML VIAL SQ SCH ×2 (08:55→17:01)
[2017-07-26] MEDS: SODIUM CHLORIDE 0.9% FLUSH 10 ML FLUSH IV FLUSH SCH ×2 (08:55→21:04)
[2017-07-26] MEDS: DOCUSATE SODIUM 50 MG/SENNA 8.6 MG TAB PO SCH ×2 (08:56→20:56)
[2017-07-26] MEDS: risperiDONE 1 MG TAB PO SCH ×2 (08:56→20:56)
[2017-07-26] MEDS: amLODIPine BESYLATE 5 MG TAB PO SCH (08:56)
--- NOTE | 2017-07-26 11:49 | EKG ---
Date Performed: 07/24/2017 Time Performed: 23:05:55 PTAGE: 41 years EKG: SINUS TACHYCARDIA MINIMAL VOLTAGE CRITERIA FOR LVH, CONSIDER NORMAL VARIANT ABNORMAL RHYTHM ECG PREVIOUS TRACING : 05/08/2017 22.30 Compared to the prior tracing, the axis has shifted more to wards the left. No other major change. DOCTOR: Jl Rabago Interpretating Date/Time 07/26/2017 11:49:02
[2017-07-26] MEDS: FAMOTIDINE 20 MG/2 ML VIAL IV PUSH SCH ×2 (12:28→20:57)
--- NOTE | 2017-07-26 17:56 | HHI.PR ---
Subjective Subjective Notes Feels better; minimal pain. No other complaints. Objective Vitals/I&O Vital Signs Date Time Temp Pulse Resp B/P (MAP) Pulse Ox O2 Delivery O2 Flow Rate FiO2 07/26/17 16:35 12 07/26/17 16:00 101 07/26/17 16:00 98.0 152/75 (100) 96 07/26/17 14:00 Nasal Cannula 4.00 07/26/17 07:48 35 Labs Laboratory Tests Test 07/25/17 18:30 07/26/17 04:50 White Blood Count 10.7 8.0 Red Blood Count 2.31 2.36 Hemoglobin 7.7 7.9 Hematocrit 23.0 24.0 Mean Corpuscular Volume 99.7 101.8 Mean Corpuscular Hemoglobin 33.3 33.4 Mean Corpuscular Hemoglobin Concent 33.5 32.8 Red Cell Distribution Width 15.3 15.4 Platelet Count 238 270 Mean Platelet Volume 7.5 7.6 Neutrophils (%) (Auto) 92.5 87.5 Lymphocytes (%) (Auto) 3.9 7.5 Monocytes (%) (Auto) 3.6 4.9 Eosinophils (%) (Auto) 0.0 0.0 Basophils (%) (Auto) 0.0 0.1 Neutrophils # (Auto) 9.9 7.0 Lymphocytes # (Auto) 0.4 0.6 Monocytes # (Auto) 0.4 0.4 Eosinophils # (Auto) 0.0 0.0 Basophils # (Auto) 0.0 0.0 CBC Comment DIFF FINAL AUTO DIFF Differential Comment FINAL DIFF MANUAL Blood Urea Nitrogen 29 30 Creatinine 2.37 2.35 Random Glucose 146 121 Total Protein 6.9 7.1 Albumin 2.2 2.1 Calcium Level 8.6 8.5 Alkaline Phosphatase 57 56 Aspartate Amino Transf (AST/SGOT) 28 17 Alanine Aminotransferase (ALT/SGPT) 42 37 Total Bilirubin 0.3 0.2 Sodium Level 143 146 Potassium Level 3.9 4.3 Chloride Level 111 113 Carbon Dioxide Level 21.7 22.7 Anion Gap 10 10 Estimat Glomerular Filtration Rate 31 31 Lactic Acid Level 0.8 Differential Total Cells Counted 100 Neutrophils % (Manual) 76 Band Neutrophils % 6 Lymphocytes % 10 Monocytes % 5 Neutrophils # (Manual) 6.8 Metamyelocytes 1 Myelocytes 2 Platelet Estimate NORMAL Platelet Morphology Comment NORMAL Tear Drop Cells 1+ Ovalocytes 1+ Cardiovascular: Regular Lungs: Clear Abdomen: Post-op tenderness Extremities: No edema Narrative Exam Ileostomy pink; no output. A/P Assessment and Plan POD #1 S/P laparoscopy; ileostomy and placement of drain for perforated diverticulitis. Doing well. Transfer to floor. Tao Anton MD Jul 26, 2017 17:56
[2017-07-26] MEDS: DIVALPROEX SODIUM E.R. 500 MG TAB PO SCH (20:56)
[2017-07-26] MEDS: ATORVASTATIN 20 MG TAB PO SCH (20:56)
[2017-07-26] MEDS: MIRTAZAPINE ODT 30 MG TAB PO SCH (20:57)
[2017-07-27] VITALS (7 sets, daily range): BP systolic 128–141; BP diastolic 76–101; PULSE 96–118; RESP 17–21; TEMP 96–98.2; O2SAT 92–96
[2017-07-27] MEDS: HEPARIN SODIUM - SQ 10,000 UNITS/ML VIAL SQ SCH ×3 (00:15→17:16)
[2017-07-27] MEDS: SODIUM CHLOR 0.9% 1000 ML INJ 1,000 ML IV SCH ×2 (00:23→12:36)
[2017-07-27] MEDS: ACETAMINOPHEN/HYDROcodone 325 MG/10 MG TAB PO PRN ×5 (00:55→21:38)
[2017-07-27] MEDS: PIPERACIL-TAZO 2.25 GM PREMIX 50 ML IV SCH ×4 (05:09→21:39)
[2017-07-27] MEDS: RESP: ALBUTEROL 2.5 MG/IPRATROPIUM 0.5 MG NEB (SCH) NEB ×4 (05:27→21:05)
[2017-07-27] MEDS: amLODIPine BESYLATE 5 MG TAB PO SCH (09:00)
[2017-07-27] MEDS: DOCUSATE SODIUM 50 MG/SENNA 8.6 MG TAB PO SCH ×2 (09:00→21:38)
[2017-07-27] MEDS: SODIUM CHLORIDE 0.9% FLUSH 10 ML FLUSH IV FLUSH SCH ×2 (09:00→21:39)
[2017-07-27] MEDS: risperiDONE 1 MG TAB PO SCH ×2 (09:00→21:38)
[2017-07-27] MEDS: FAMOTIDINE 20 MG/2 ML VIAL IV PUSH SCH (09:10)
--- NOTE | 2017-07-27 09:57 | HHI.PR ---
Subjective Remarks Follow up diverticulitis, sepsis, renal failure. Patient states that he feels a little better today. Still with abdominal pain from the surgery. Pain medication is helping. No chest pain or dyspnea. Objective Vitals Vital Signs Date Time Temp Pulse Resp B/P (MAP) Pulse Ox O2 Delivery O2 Flow Rate FiO2 07/27/17 08:00 98.0 108 19 141/94 (110) 95 07/27/17 00:00 96.0 107 17 139/101 (114) 96 07/26/17 20:56 96 Nasal Cannula 4.00 Humidified 07/26/17 20:00 95.6 102 17 162/95 (117) 96 07/26/17 19:45 110 07/26/17 18:39 96.2 99 20 131/83 (99) 96 07/26/17 16:35 12 07/26/17 16:00 101 07/26/17 16:00 98.0 101 15 152/75 (100) 96 07/26/17 14:00 96 Nasal Cannula 4.00 07/26/17 14:00 95 07/26/17 13:29 14 07/26/17 12:00 97.8 93 12 116/60 (78) 95 07/26/17 12:00 93 07/26/17 12:00 93 07/26/17 10:00 100 07/26/17 10:00 100 I/O 07/26/17 07/26/17 07/26/17 07/27/17 07/27/17 07/27/17 07:00 15:00 23:00 07:00 15:00 23:00 Intake Total 2331 ml 848 ml 788 ml 222 ml Output Total 1545 ml 880 ml 470 ml 100 ml Balance 786 ml -32 ml 318 ml 122 ml Intake Oral 60 ml 720 ml 250 ml IV Total 2271 ml 128 ml 538 ml 222 ml Output Urine Total 1450 ml 800 ml 400 ml Stool Total 10 ml Drainage Total 85 ml 80 ml 70 ml 100 ml Result Diagram: 07/26/17 0450 07/26/17 0450 Imaging Last Impressions Chest X-Ray 07/25/17 0000 Signed Impressions: Service Date/Time: June 15:49 - CONCLUSION: No acute disease. Benjamin Lindsey MD Abdomen/Pelvis CT 07/24/17 1614 Signed Impressions: Service Date/Time: Monday, July 24, 2017 16:24 - CONCLUSION: Perforated sigmoid diverticulitis. Sadiq De Luna MD Lumbar Spine CT 07/24/17 1410 Signed Impressions: Service Date/Time: Monday, July 24, 2017 16:24 - CONCLUSION: Limited exam by patient's body habitus. Mild to moderate degenerative changes increasing as one moves down the spine without acute fracture. Vince Valentine MD FACR Objective Remarks General: Obese male in no acute distress. Heart: Regular rate and rhythm. No murmur. Lungs: Clear to auscultation bilaterally. No wheezes, rales, or rhonchi. Breathing is nonlabored. Abdomen: Soft, appropriately tender to palpation, nondistended. Ileostomy, GIANNA drain. Extremities: No lower extremity edema. Psych: Alert and oriented. Procedures 07/25/17 laparoscopy, ileostomy, drainage of abscess A/P Problem List: (1) Smoking addiction ICD Code: F17.200 - Nicotine dependence, unspecified, uncomplicated Status: Chronic (2) Obesity ICD Code: E66.9 - Obesity Status: Chronic (3) Bipolar 1 disorder ICD Code: F31.9 - Bipolar disorder, unspecified Status: Chronic (4) Acute diverticulitis ICD Code: K57.92 - Diverticulitis of intestine, part unspecified, without perforation or abscess without bleeding Status: Resolved (5) Manipulative behavior ICD Code: R46.89 - Other symptoms and signs involving appearance and behavior Status: Acute (6) Adjustment disorder with mixed disturbance of emotions and conduct ICD Code: F43.25 - Adjustment disorder with mixed disturbance of emotions and conduct Status: Acute (7) Abdominal pain ICD Code: R10.9 - Abdominal pain Status: Acute (8) Diverticulitis ICD Code: K57.92 - Diverticulitis of intestine, part unspecified, without perforation or abscess without bleeding Status: Acute (9) Bipolar disorder ICD Code: F31.9 - Bipolar disorder, unspecified Status: Acute (10) CKD (chronic kidney disease), stage III ICD Code: N18.3 - Chronic kidney disease, stage 3 (moderate) Status: Chronic (11) Nausea & vomiting ICD Code: R11.2 - Nausea with vomiting, unspecified Status: Resolved Assessment and Plan 1. Perforated sigmoid diverticulitis: Status post surgical repair. Management per general surgery. Continue pain control. Diverting ileostomy. 2. Sepsis: Resolved. Secondary to diverticulitis. Continue antibiotics. 3. Acute on chronic kidney disease: Monitor BUN and creatinine. Consider nephrology consult if no improvement. Labs are pending today. 4. Acute hypoxemic respiratory failure: Resolved. Continue duo nebs, incentive spirometry, EZPap, Acapella. 5. GI prophylaxis: Pepcid. 6. DVT prophylaxis: SCDs, heparin. Talha Langley MD Jul 27, 2017 09:57
[2017-07-27] MEDS: ONDANSETRON HCL 4 MG/2 ML VIAL IVP PRN (12:37)
--- NOTE | 2017-07-27 12:37 | HHI.PR ---
Subjective Subjective Notes Patient states that he has slightly more pain today than yesterday, mainly located in the lower abdomen. He's had no nausea or vomiting. Objective Vitals/I&O Vital Signs Date Time Temp Pulse Resp B/P (MAP) Pulse Ox O2 Delivery O2 Flow Rate FiO2 07/27/17 12:00 97.2 96 19 139/85 (103) 94 07/26/17 20:56 Nasal Cannula 4.00 Humidified 07/26/17 07:48 35 Labs Laboratory Tests Test 07/25/17 16:04 07/25/17 18:30 07/26/17 04:50 Blood Gas Puncture Site LT RADIAL Blood Gas Patient Temperature 98.6 Blood Gas HCO3 18 mmol/L Blood Gas Base Excess -6.9 mmol/L Blood Gas Oxygen Saturation 96 % Arterial Blood pH 7.34 Arterial Blood Partial Pressure CO2 35 mmHg Arterial Blood Partial Pressure O2 118 mmHg Arterial Blood Oxygen Content 11.0 Vol % Arterial Blood Carboxyhemoglobin 2.0 % Arterial Blood Methemoglobin 0.3 % Blood Gas Hemoglobin 8.0 G/DL Oxygen Delivery Device BiPAP Blood Gas Ventilator Setting IPAP15/EPAP5 Blood Gas Inspired Oxygen 55 % White Blood Count 10.7 TH/MM3 8.0 TH/MM3 Red Blood Count 2.31 MIL/MM3 2.36 MIL/MM3 Hemoglobin 7.7 GM/DL 7.9 GM/DL Hematocrit 23.0 % 24.0 % Mean Corpuscular Volume 99.7 FL 101.8 FL Mean Corpuscular Hemoglobin 33.3 PG 33.4 PG Mean Corpuscular Hemoglobin Concent 33.5 % 32.8 % Red Cell Distribution Width 15.3 % 15.4 % Platelet Count 238 TH/MM3 270 TH/MM3 Mean Platelet Volume 7.5 FL 7.6 FL Neutrophils (%) (Auto) 92.5 % 87.5 % Lymphocytes (%) (Auto) 3.9 % 7.5 % Monocytes (%) (Auto) 3.6 % 4.9 % Eosinophils (%) (Auto) 0.0 % 0.0 % Basophils (%) (Auto) 0.0 % 0.1 % Neutrophils # (Auto) 9.9 TH/MM3 7.0 TH/MM3 Lymphocytes # (Auto) 0.4 TH/MM3 0.6 TH/MM3 Monocytes # (Auto) 0.4 TH/MM3 0.4 TH/MM3 Eosinophils # (Auto) 0.0 TH/MM3 0.0 TH/MM3 Basophils # (Auto) 0.0 TH/MM3 0.0 TH/MM3 CBC Comment DIFF FINAL AUTO DIFF Differential Comment FINAL DIFF MANUAL Blood Urea Nitrogen 29 MG/DL 30 MG/DL Creatinine 2.37 MG/DL 2.35 MG/DL Random Glucose 146 MG/DL 121 MG/DL Total Protein 6.9 GM/DL 7.1 GM/DL Albumin 2.2 GM/DL 2.1 GM/DL Calcium Level 8.6 MG/DL 8.5 MG/DL Alkaline Phosphatase 57 U/L 56 U/L Aspartate Amino Transf (AST/SGOT) 28 U/L 17 U/L Alanine Aminotransferase (ALT/SGPT) 42 U/L 37 U/L Total Bilirubin 0.3 MG/DL 0.2 MG/DL Sodium Level 143 MEQ/L 146 MEQ/L Potassium Level 3.9 MEQ/L 4.3 MEQ/L Chloride Level 111 MEQ/L 113 MEQ/L Carbon Dioxide Level 21.7 MEQ/L 22.7 MEQ/L Anion Gap 10 MEQ/L 10 MEQ/L Estimat Glomerular Filtration Rate 31 ML/MIN 31 ML/MIN Lactic Acid Level 0.8 mmol/L Differential Total Cells Counted 100 Neutrophils % (Manual) 76 % Band Neutrophils % 6 % Lymphocytes % 10 % Monocytes % 5 % Neutrophils # (Manual) 6.8 TH/MM3 Metamyelocytes 1 % Myelocytes 2 % Platelet Estimate NORMAL Platelet Morphology Comment NORMAL Tear Drop Cells 1+ Ovalocytes 1+ Cardiovascular: Regular Lungs: Clear Abdomen: Post-op tenderness Narrative Exam Ileostomy pink; there is a small amount of output with minimal gas along with it. A/P Assessment and Plan POD # 2 S/P laparoscopy; ileostomy and placement of drain for perforated diverticulitis. Overall he is stable but will require antibiotics for 7-10 days more. He needs to be up and around walking. Tao Anton MD Jul 27, 2017 12:37
[2017-07-27] MEDS: HYDROmorphone HCL PF 2 MG/ML VIAL IV PUSH PRN (13:25)
[2017-07-27 18:37] LABS: AUTOMATED NEUTROPHIL # 7.8 TH/MM3 (1.8-7.7); BASOPHIL % 0.2 % (0.0-2.0); EOSINOPHIL % 0.3 % (0.0-4.0); HEMATOCRIT 25.7 % (39.0-51.0); LYMPH % 8.5 % (9.0-44.0); LYMPHOCYTE # 0.9 TH/MM3 (1.0-4.8); MEAN CELL VOLUME 103.5 FL (80.0-100.0); MEAN CORPUSCULAR HEMOGLOBIN 34.8 PG (27.0-34.0); MEAN CORPUSCULAR HGB CONC 33.6 % (32.0-36.0); MONO % 13.9 % (0.0-8.0); NEUT % 77.1 % (16.0-70.0); PLATELET COUNT 258 TH/MM3 (150-450); RED BLOOD COUNT 2.49 MIL/MM3 (4.50-5.90); RED CELL DISTRIBUTION WIDTH 15.5 % (11.6-17.2); WHITE BLOOD COUNT 10.1 TH/MM3 (4.0-11.0)
[2017-07-27 18:39] LABS: HEMO FLAGS AUTO DIFF
[2017-07-27] MEDS: KETOROLAC TROMETHAMINE 30 MG/ML (IVP) VIAL IV PUSH PRN (18:44)
[2017-07-27 18:58] LABS: BICARBONATE 21.7 MEQ/L (21.0-32.0)
[2017-07-27 19:15] LABS: BANDS 6 % (0-6); METAMYELOCYTES 2 % (0-1); NEUTROPHIL # MANUAL DIFF 8.5 TH/MM3 (1.8-7.7); POLYS (SEG NEUTROPHILS) 76 % (16-70); WBC DIFF SAMPLE 100
[2017-07-27 19:21] LABS: PLATELET ESTIMATE SMEAR NORMAL (NORMAL); PLATELET MORPHOLOGY NORMAL (NORMAL); SCAN/DIFF FINAL DIFF MANUAL
[2017-07-27] MEDS: ATORVASTATIN 20 MG TAB PO SCH (21:37)
[2017-07-27] MEDS: DIVALPROEX SODIUM E.R. 500 MG TAB PO SCH (21:37)
[2017-07-27] MEDS: MIRTAZAPINE ODT 30 MG TAB PO SCH (21:38)
[2017-07-28] VITALS (7 sets, daily range): BP systolic 138–189; BP diastolic 78–100; PULSE 109–136; RESP 17–21; TEMP 96.9–98.9; O2SAT 92–97
[2017-07-28] MEDS: FAMOTIDINE 20 MG/2 ML VIAL IV PUSH SCH ×3 (00:20→22:31)
[2017-07-28] MEDS: HEPARIN SODIUM - SQ 10,000 UNITS/ML VIAL SQ SCH ×3 (00:20→15:16)
[2017-07-28] MEDS: ACETAMINOPHEN/HYDROcodone 325 MG/10 MG TAB PO PRN ×2 (03:12→09:28)
[2017-07-28] MEDS: PIPERACIL-TAZO 2.25 GM PREMIX 50 ML IV SCH ×4 (03:12→19:33)
[2017-07-28] MEDS: SODIUM CHLOR 0.9% 1000 ML INJ 1,000 ML IV SCH ×2 (03:13→15:16)
[2017-07-28] MEDS: RESP: ALBUTEROL 2.5 MG/IPRATROPIUM 0.5 MG NEB (SCH) NEB ×4 (04:26→21:00)
[2017-07-28 08:17] LABS: AUTOMATED NEUTROPHIL # 6.1 TH/MM3 (1.8-7.7); BASOPHIL % 0.2 % (0.0-2.0); EOSINOPHIL # 0.1 TH/MM3 (0-0.4); EOSINOPHIL % 0.8 % (0.0-4.0); HEMATOCRIT 23.8 % (39.0-51.0); LYMPH % 10.6 % (9.0-44.0); LYMPHOCYTE # 0.9 TH/MM3 (1.0-4.8); MEAN CELL VOLUME 100.2 FL (80.0-100.0); MEAN CORPUSCULAR HEMOGLOBIN 32.4 PG (27.0-34.0); MEAN CORPUSCULAR HGB CONC 32.3 % (32.0-36.0); MONO % 14.6 % (0.0-8.0); NEUT % 73.8 % (16.0-70.0); PLATELET COUNT 263 TH/MM3 (150-450); RED BLOOD COUNT 2.38 MIL/MM3 (4.50-5.90); RED CELL DISTRIBUTION WIDTH 15.6 % (11.6-17.2); WHITE BLOOD COUNT 8.2 TH/MM3 (4.0-11.0)
[2017-07-28 08:23] LABS: HEMO FLAGS AUTO DIFF
[2017-07-28 08:37] LABS: BICARBONATE 22.9 MEQ/L (21.0-32.0); POTASSIUM 3.9 MEQ/L (3.5-5.1)
[2017-07-28] MEDS: SODIUM CHLORIDE 0.9% FLUSH 10 ML FLUSH IV FLUSH SCH ×2 (09:00→19:33)
[2017-07-28] MEDS: DOCUSATE SODIUM 50 MG/SENNA 8.6 MG TAB PO SCH ×2 (09:29→19:33)
[2017-07-28] MEDS: risperiDONE 1 MG TAB PO SCH ×2 (09:30→19:33)
[2017-07-28] MEDS: amLODIPine BESYLATE 5 MG TAB PO SCH (09:30)
[2017-07-28 09:45] LABS: BANDS 2 % (0-6); BASOPHILS 1 % (0-2); EOSINOPHILS 1 % (0-4); METAMYELOCYTES 1 % (0-1); MYELOCYTES 3 % (0-0); NEUTROPHIL # MANUAL DIFF 6.8 TH/MM3 (1.8-7.7); PLATELET ESTIMATE SMEAR NORMAL (NORMAL); PLATELET MORPHOLOGY NORMAL (NORMAL); POLYS (SEG NEUTROPHILS) 77 % (16-70); SCAN/DIFF FINAL DIFF MANUAL; WBC DIFF SAMPLE 100
[2017-07-28] MEDS: HYDROmorphone HCL PF 2 MG/ML VIAL IV PUSH PRN ×3 (10:51→21:31)
--- NOTE | 2017-07-28 14:17 | HHI.PR ---
Subjective Subjective Notes The patient feels better today. He has less pain. He has been out of bed walking much more frequently today. Objective Vitals/I&O Vital Signs Date Time Temp Pulse Resp B/P (MAP) Pulse Ox O2 Delivery O2 Flow Rate FiO2 07/28/17 12:00 96.9 111 19 164/89 (114) 93 07/28/17 09:54 Nasal Cannula 3.00 07/26/17 07:48 35 Labs Laboratory Tests Test 07/27/17 18:13 07/28/17 07:30 07/28/17 07:36 White Blood Count 10.1 8.2 Red Blood Count 2.49 2.38 Hemoglobin 8.7 7.7 Hematocrit 25.7 23.8 Mean Corpuscular Volume 103.5 100.2 Mean Corpuscular Hemoglobin 34.8 32.4 Mean Corpuscular Hemoglobin Concent 33.6 32.3 Red Cell Distribution Width 15.5 15.6 Platelet Count 258 263 Mean Platelet Volume 7.6 7.4 Neutrophils (%) (Auto) 77.1 73.8 Lymphocytes (%) (Auto) 8.5 10.6 Monocytes (%) (Auto) 13.9 14.6 Eosinophils (%) (Auto) 0.3 0.8 Basophils (%) (Auto) 0.2 0.2 Neutrophils # (Auto) 7.8 6.1 Lymphocytes # (Auto) 0.9 0.9 Monocytes # (Auto) 1.4 1.2 Eosinophils # (Auto) 0.0 0.1 Basophils # (Auto) 0.0 0.0 CBC Comment AUTO DIFF AUTO DIFF Differential Total Cells Counted 100 100 Neutrophils % (Manual) 76 77 Band Neutrophils % 6 2 Lymphocytes % 11 9 Monocytes % 5 6 Neutrophils # (Manual) 8.5 6.8 Metamyelocytes 2 1 Differential Comment FINAL DIFF MANUAL FINAL DIFF MANUAL Platelet Estimate NORMAL NORMAL Platelet Morphology Comment NORMAL NORMAL Blood Urea Nitrogen 31 30 Creatinine 2.51 2.48 Random Glucose 121 110 Calcium Level 8.7 9.0 Sodium Level 141 142 Potassium Level 4.0 3.9 Chloride Level 110 109 Carbon Dioxide Level 21.7 22.9 Anion Gap 9 10 Estimat Glomerular Filtration Rate 29 29 Eosinophils % 1 Basophils % 1 Myelocytes 3 Cardiovascular: Regular Lungs: Clear Abdomen: Non-distended, Non-tender, BS normal Extremities: No edema Narrative Exam Ileostomy pink; there is a larger liquid output with minimal gas along with it. A/P Assessment and Plan POD # 3 S/P laparoscopy; ileostomy and placement of drain for perforated diverticulitis. He continues to make an excellent recovery. I advanced his diet to a full liquid diet. Tao Anton MD Jul 28, 2017 14:17
--- NOTE | 2017-07-28 14:39 | HHI.PR ---
Subjective Remarks Follow up diverticulitis, sepsis, renal failure. The patient states that he is feeling better today. Abdominal pain is improving. Denies chest pain or dyspnea. Objective Vitals Vital Signs Date Time Temp Pulse Resp B/P (MAP) Pulse Ox O2 Delivery O2 Flow Rate FiO2 07/28/17 12:00 96.9 111 19 164/89 (114) 93 07/28/17 09:54 93 Nasal Cannula 3.00 07/28/17 08:00 97.7 109 17 148/92 (110) 95 07/28/17 00:00 96.9 113 21 138/79 (98) 97 07/27/17 20:00 98.2 118 21 128/76 (93) 95 07/27/17 16:04 Nasal Cannula 3.00 07/27/17 16:00 96.5 116 19 137/84 (101) 93 I/O 07/27/17 07/27/17 07/27/17 07/28/17 07/28/17 07/28/17 06:59 14:59 22:59 06:59 14:59 22:59 Intake Total 788 ml 222 ml 1512 ml 240 ml Output Total 470 ml 100 ml 1380 ml 850 ml 110 ml Balance 318 ml 122 ml 132 ml -610 ml -110 ml Intake Oral 250 ml 960 ml 240 ml IV Total 538 ml 222 ml 552 ml Output Urine Total 400 ml 1150 ml 700 ml Drainage Total 70 ml 100 ml 230 ml 150 ml 110 ml # Bowel Movements 0 Result Diagram: 07/28/17 0736 07/28/17 0730 Imaging Last Impressions Chest X-Ray 07/25/17 0000 Signed Impressions: Service Date/Time: June 15:49 - CONCLUSION: No acute disease. Benjamin Lindsey MD Abdomen/Pelvis CT 07/24/17 1614 Signed Impressions: Service Date/Time: Monday, July 24, 2017 16:24 - CONCLUSION: Perforated sigmoid diverticulitis. Sadiq De Luna MD Lumbar Spine CT 07/24/17 1410 Signed Impressions: Service Date/Time: Monday, July 24, 2017 16:24 - CONCLUSION: Limited exam by patient's body habitus. Mild to moderate degenerative changes increasing as one moves down the spine without acute fracture. Vince Valentine MD FACR Objective Remarks General: Obese male in no acute distress. Heart: Regular rate and rhythm. No murmur. Lungs: Clear to auscultation bilaterally. No wheezes, rales, or rhonchi. Breathing is nonlabored. Abdomen: Soft, appropriately tender to palpation, nondistended. Ileostomy, GIANNA drain. Extremities: No lower extremity edema. Psych: Alert and oriented. Procedures 07/25/17 laparoscopy, ileostomy, drainage of abscess Urinary Catheter: No Vascular Central Line Catheter: No A/P Problem List: (1) Smoking addiction ICD Code: F17.200 - Nicotine dependence, unspecified, uncomplicated Status: Chronic (2) Obesity ICD Code: E66.9 - Obesity Status: Chronic (3) Bipolar 1 disorder ICD Code: F31.9 - Bipolar disorder, unspecified Status: Chronic (4) Acute diverticulitis ICD Code: K57.92 - Diverticulitis of intestine, part unspecified, without perforation or abscess without bleeding Status: Resolved (5) Manipulative behavior ICD Code: R46.89 - Other symptoms and signs involving appearance and behavior Status: Acute (6) Adjustment disorder with mixed disturbance of emotions and conduct ICD Code: F43.25 - Adjustment disorder with mixed disturbance of emotions and conduct Status: Acute (7) Abdominal pain ICD Code: R10.9 - Abdominal pain Status: Acute (8) Diverticulitis ICD Code: K57.92 - Diverticulitis of intestine, part unspecified, without perforation or abscess without bleeding Status: Acute (9) Bipolar disorder ICD Code: F31.9 - Bipolar disorder, unspecified Status: Acute (10) CKD (chronic kidney disease), stage III ICD Code: N18.3 - Chronic kidney disease, stage 3 (moderate) Status: Chronic (11) Nausea & vomiting ICD Code: R11.2 - Nausea with vomiting, unspecified Status: Resolved Assessment and Plan 1. Perforated sigmoid diverticulitis: Status post surgical repair. Management per general surgery. Continue pain control. Diverting ileostomy. Full liquid diet. 2. Sepsis: Resolved. Secondary to diverticulitis. Continue antibiotics. 3. Acute on chronic kidney disease: Monitor BUN and creatinine. Appear to be near baseline. 4. Acute hypoxemic respiratory failure: Resolved. Continue duo nebs, incentive spirometry, EZPap, Acapella. 5. GI prophylaxis: Pepcid. 6. DVT prophylaxis: SCDs, heparin. Talha Langley MD Jul 28, 2017 14:39
[2017-07-28] MEDS: ATORVASTATIN 20 MG TAB PO SCH (19:32)
[2017-07-28] MEDS: DIVALPROEX SODIUM E.R. 500 MG TAB PO SCH (19:33)
[2017-07-28] MEDS: MIRTAZAPINE ODT 30 MG TAB PO SCH (19:33)
[2017-07-29] VITALS (9 sets, daily range): BP systolic 139–172; BP diastolic 87–94; PULSE 102–109; RESP 18–20; TEMP 96.7–98.6; O2SAT 90–99
[2017-07-29] MEDS: HEPARIN SODIUM - SQ 10,000 UNITS/ML VIAL SQ SCH ×4 (00:54→23:31)
[2017-07-29] MEDS: PIPERACIL-TAZO 2.25 GM PREMIX 50 ML IV SCH ×4 (00:54→19:50)
[2017-07-29] MEDS: RESP: ALBUTEROL 2.5 MG/IPRATROPIUM 0.5 MG NEB (SCH) NEB ×3 (03:07→17:06)
[2017-07-29] MEDS: HYDROmorphone HCL PF 2 MG/ML VIAL IV PUSH PRN (03:25)
[2017-07-29] MEDS: SODIUM CHLOR 0.9% 1000 ML INJ 1,000 ML IV SCH ×2 (04:57→19:50)
[2017-07-29] MEDS: amLODIPine BESYLATE 5 MG TAB PO SCH (08:12)
[2017-07-29] MEDS: risperiDONE 1 MG TAB PO SCH ×2 (08:12→19:50)
[2017-07-29] MEDS: SODIUM CHLORIDE 0.9% FLUSH 10 ML FLUSH IV FLUSH SCH ×2 (08:12→19:51)
[2017-07-29] MEDS: DOCUSATE SODIUM 50 MG/SENNA 8.6 MG TAB PO SCH ×2 (08:13→19:51)
[2017-07-29] MEDS: ACETAMINOPHEN/HYDROcodone 325 MG/10 MG TAB PO PRN ×3 (08:13→20:28)
[2017-07-29] MEDS: FAMOTIDINE 20 MG/2 ML VIAL IV PUSH SCH ×2 (11:55→23:32)
--- NOTE | 2017-07-29 12:19 | HHI.PR ---
Subjective Subjective Notes Patient has no complaints today. He has been out of bed walking. Objective Vitals/I&O Vital Signs Date Time Temp Pulse Resp B/P (MAP) Pulse Ox O2 Delivery O2 Flow Rate FiO2 07/29/17 10:24 96 Nasal Cannula 3.00 07/29/17 08:00 96.7 109 18 140/87 (104) 07/26/17 07:48 35 Cardiovascular: Regular Lungs: Clear Abdomen: Non-distended, Non-tender, BS normal Extremities: No edema Narrative Exam Ileostomy pink; there is a larger liquid output with minimal gas along with it. A/P Assessment and Plan POD # 4 S/P laparoscopy; ileostomy and placement of drain for perforated diverticulitis. He continues to make an excellent recovery. He will be advanced to a heart healthy diet. I have encouraged him to be out of bed walking more. I have decreased his analgesics to 1 hydrocodone 5.0/325 every 6 hours when necessary. Tao Anton MD Jul 29, 2017 12:18
--- NOTE | 2017-07-29 15:36 | HHI.PR ---
Subjective Remarks Follow up diverticulitis, renal failure. Patient reports slightly worse abdominal pain today. He is concerned that the pain medication is making him drowsy and his family at bedside states that he slurs his speech when he gets the pain meds. Objective Vitals Vital Signs Date Time Temp Pulse Resp B/P (MAP) Pulse Ox O2 Delivery O2 Flow Rate FiO2 07/29/17 12:00 97.6 105 18 172/94 (120) 93 07/29/17 10:24 96 Nasal Cannula 3.00 07/29/17 08:00 96.7 109 18 140/87 (104) 90 07/29/17 03:55 18 07/29/17 03:19 93 Nasal Cannula 3.00 07/29/17 00:00 97.3 104 20 148/89 (108) 93 07/28/17 20:00 98.9 110 18 170/96 (120) 95 07/28/17 16:29 93 Nasal Cannula 3.00 07/28/17 16:00 98.6 136 20 189/100 (129) 92 148/78 (101) I/O 07/28/17 07/28/17 07/28/17 07/29/17 07/29/17 07/29/17 07:00 15:00 23:00 07:00 15:00 23:00 Intake Total 290 ml 50 ml 1473 ml 530 ml 50 ml Output Total 850 ml 110 ml 1930 ml Balance -560 ml -60 ml 1473 ml -1400 ml 50 ml Intake Oral 240 ml 480 ml IV Total 50 ml 50 ml 1473 ml 50 ml 50 ml Output Urine Total 700 ml 1800 ml Stool Total 25 ml Drainage Total 150 ml 110 ml 105 ml Result Diagram: 07/28/17 0736 07/28/17 0730 Imaging Last Impressions Chest X-Ray 07/25/17 0000 Signed Impressions: Service Date/Time: June 15:49 - CONCLUSION: No acute disease. Benjamin Lindsey MD Abdomen/Pelvis CT 07/24/17 1614 Signed Impressions: Service Date/Time: Monday, July 24, 2017 16:24 - CONCLUSION: Perforated sigmoid diverticulitis. Sadiq De Luna MD Lumbar Spine CT 07/24/17 1410 Signed Impressions: Service Date/Time: Monday, July 24, 2017 16:24 - CONCLUSION: Limited exam by patient's body habitus. Mild to moderate degenerative changes increasing as one moves down the spine without acute fracture. Vince Valentine MD FACR Objective Remarks General: Obese male in no acute distress. Heart: Regular rate and rhythm. No murmur. Lungs: Clear to auscultation bilaterally. No wheezes, rales, or rhonchi. Breathing is nonlabored. Abdomen: Soft, appropriately tender to palpation, nondistended. Ileostomy, GIANNA drain. Extremities: No lower extremity edema. Psych: Alert and oriented. Procedures 07/25/17 laparoscopy, ileostomy, drainage of abscess A/P Problem List: (1) Smoking addiction ICD Code: F17.200 - Nicotine dependence, unspecified, uncomplicated Status: Chronic (2) Obesity ICD Code: E66.9 - Obesity Status: Chronic (3) Bipolar 1 disorder ICD Code: F31.9 - Bipolar disorder, unspecified Status: Chronic (4) Acute diverticulitis ICD Code: K57.92 - Diverticulitis of intestine, part unspecified, without perforation or abscess without bleeding Status: Resolved (5) Manipulative behavior ICD Code: R46.89 - Other symptoms and signs involving appearance and behavior Status: Acute (6) Adjustment disorder with mixed disturbance of emotions and conduct ICD Code: F43.25 - Adjustment disorder with mixed disturbance of emotions and conduct Status: Acute (7) Abdominal pain ICD Code: R10.9 - Abdominal pain Status: Acute (8) Diverticulitis ICD Code: K57.92 - Diverticulitis of intestine, part unspecified, without perforation or abscess without bleeding Status: Acute (9) Bipolar disorder ICD Code: F31.9 - Bipolar disorder, unspecified Status: Acute (10) CKD (chronic kidney disease), stage III ICD Code: N18.3 - Chronic kidney disease, stage 3 (moderate) Status: Chronic (11) Nausea & vomiting ICD Code: R11.2 - Nausea with vomiting, unspecified Status: Resolved Assessment and Plan 1. Perforated sigmoid diverticulitis: Status post surgical repair. Management per general surgery. Continue pain control. Diverting ileostomy. Heart healthy diet. 2. Sepsis: Resolved. Secondary to diverticulitis. Continue antibiotics. 3. Acute on chronic kidney disease: Monitor BUN and creatinine. Appear to be near baseline. 4. Acute hypoxemic respiratory failure: Resolved. Continue duo nebs, incentive spirometry, EZPap, Acapella. 5. GI prophylaxis: Pepcid. 6. DVT prophylaxis: SCDs, heparin. 7. Adjust pain medication due to side effects - decrease Dilaudid and change it to prn for breakthrough pain. Continue Percocet per surgery. Talha Langley MD Jul 29, 2017 15:36
[2017-07-29] MEDS: ONDANSETRON HCL 4 MG/2 ML VIAL IVP PRN (16:05)
[2017-07-29] MEDS ORDERED: HYDROmorphone HCL PF 1 MG/ML VIAL IV PUSH PRN (18:15)
[2017-07-29] MEDS: ATORVASTATIN 20 MG TAB PO SCH (19:51)
[2017-07-29] MEDS: DIVALPROEX SODIUM E.R. 500 MG TAB PO SCH (19:51)
[2017-07-29] MEDS: MIRTAZAPINE ODT 30 MG TAB PO SCH (19:51)
[2017-07-29] MEDS: RESP: ALBUTEROL 2.5 MG/IPRATROPIUM 0.5 MG NEB (PRN) NEB (21:53)
[2017-07-30] VITALS: BP 170/92; PULSE 102; RESP 20; TEMP 98.5; O2SAT 94
[2017-07-30] MEDS: PIPERACIL-TAZO 2.25 GM PREMIX 50 ML IV SCH ×4 (01:16→20:24)
[2017-07-30] MEDS: RESP: ALBUTEROL 2.5 MG/IPRATROPIUM 0.5 MG NEB (PRN) NEB (05:23)
[2017-07-30] MEDS: ACETAMINOPHEN/HYDROcodone 325 MG/10 MG TAB PO PRN ×3 (06:12→18:22)
[2017-07-30 06:40] LABS: BASOPHIL % 0.4 % (0.0-2.0); EOSINOPHIL # 0.1 TH/MM3 (0-0.4); EOSINOPHIL % 1.2 % (0.0-4.0); HEMATOCRIT 23.7 % (39.0-51.0); LYMPH % 15.1 % (9.0-44.0); LYMPHOCYTE # 1.3 TH/MM3 (1.0-4.8); MEAN CELL VOLUME 101.8 FL (80.0-100.0); MEAN CORPUSCULAR HEMOGLOBIN 33.4 PG (27.0-34.0); MEAN CORPUSCULAR HGB CONC 32.8 % (32.0-36.0); MONO % 12.7 % (0.0-8.0); NEUT % 70.6 % (16.0-70.0); PLATELET COUNT 249 TH/MM3 (150-450); RED BLOOD COUNT 2.33 MIL/MM3 (4.50-5.90); RED CELL DISTRIBUTION WIDTH 15.8 % (11.6-17.2); WHITE BLOOD COUNT 8.5 TH/MM3 (4.0-11.0)
[2017-07-30 06:48] LABS: HEMO FLAGS AUTO DIFF
[2017-07-30 07:00] LABS: BICARBONATE 23.9 MEQ/L (21.0-32.0); POTASSIUM 4.1 MEQ/L (3.5-5.1)
[2017-07-30 08:00] VITALS: BP 169/95; PULSE 95; RESP 20; TEMP 97.5; O2SAT 95
[2017-07-30] MEDS: SODIUM CHLOR 0.9% 1000 ML INJ 1,000 ML IV SCH (08:12)
[2017-07-30] MEDS: risperiDONE 1 MG TAB PO SCH ×2 (08:13→20:24)
[2017-07-30] MEDS: DOCUSATE SODIUM 50 MG/SENNA 8.6 MG TAB PO SCH ×2 (08:13→20:24)
[2017-07-30] MEDS: HEPARIN SODIUM - SQ 10,000 UNITS/ML VIAL SQ SCH ×3 (08:13→23:21)
[2017-07-30] MEDS: amLODIPine BESYLATE 5 MG TAB PO SCH (08:13)
[2017-07-30] MEDS: SODIUM CHLORIDE 0.9% FLUSH 10 ML FLUSH IV FLUSH SCH ×2 (08:15→20:25)
[2017-07-30 08:59] LABS: OVALOCYTES 1+ (NORMAL); PLATELET ESTIMATE SMEAR NORMAL (NORMAL); PLATELET MORPHOLOGY NORMAL (NORMAL); SCAN/DIFF AUTO DIFF CONFIRMED
[2017-07-30] MEDS: FAMOTIDINE 20 MG/2 ML VIAL IV PUSH SCH ×2 (11:26→23:22)
[2017-07-30 12:00] VITALS: BP 162/81; PULSE 91; RESP 18; TEMP 97.6; O2SAT 95
--- NOTE | 2017-07-30 13:49 | HHI.PR ---
Subjective Remarks Patient reports is feeling okay today. Discussed with his mother at bedside. He is eating. Pain is controlled. Objective Vitals Vital Signs Date Time Temp Pulse Resp B/P (MAP) Pulse Ox O2 Delivery O2 Flow Rate FiO2 07/30/17 08:00 97.5 95 20 169/95 (119) 95 07/30/17 00:00 98.5 102 20 170/92 (118) 94 07/29/17 21:55 91 Nasal Cannula 3.00 07/29/17 21:28 18 07/29/17 20:00 97.9 104 20 139/92 (108) 94 07/29/17 17:08 99 Nasal Cannula 3.00 07/29/17 16:00 98.6 102 18 170/93 (118) 93 I/O 07/29/17 07/29/17 07/29/17 07/30/17 07/30/17 07/30/17 06:59 14:59 22:59 06:59 14:59 22:59 Intake Total 1530 ml 100 ml 1530 ml 530 ml Output Total 1930 ml 1075 ml 2285 ml Balance -400 ml 100 ml 455 ml -1755 ml Intake Oral 480 ml 480 ml 480 ml IV Total 1050 ml 100 ml 1050 ml 50 ml Output Urine Total 1800 ml 1000 ml 1650 ml Stool Total 25 ml 500 ml Drainage Total 105 ml 75 ml 135 ml # Bowel Movements 0 Result Diagram: 07/30/17 0446 07/30/17 0446 Imaging Last Impressions Chest X-Ray 07/25/17 0000 Signed Impressions: Service Date/Time: June 15:49 - CONCLUSION: No acute disease. Benjamin Lindsey MD Abdomen/Pelvis CT 07/24/17 1614 Signed Impressions: Service Date/Time: Monday, July 24, 2017 16:24 - CONCLUSION: Perforated sigmoid diverticulitis. Sadiq De Luna MD Lumbar Spine CT 07/24/17 1410 Signed Impressions: Service Date/Time: Monday, July 24, 2017 16:24 - CONCLUSION: Limited exam by patient's body habitus. Mild to moderate degenerative changes increasing as one moves down the spine without acute fracture. Vince Valentine MD FACR Objective Remarks GENERAL: Morbidly obese male in no apparent distress. CARDIOVASCULAR: Normal rate and regular rhythm without murmurs, gallops, or rubs. RESPIRATORY: Good respiratory efforts. Breath sounds equal and clear to auscultation bilaterally. GASTROINTESTINAL: Abdomen soft, there is a drain in place. Colostomy appear intact. Normal active bowel sounds MUSCULOSKELETAL: Extremities without cyanosis, or edema. NEURO: Alert & Oriented x4 to person, place, time, situation. Moves all ext x4 PSYCH: Appropriate mood and affect. Procedures 07/25/17 laparoscopy, ileostomy, drainage of abscess A/P Problem List: (1) Smoking addiction ICD Code: F17.200 - Nicotine dependence, unspecified, uncomplicated Status: Chronic (2) Obesity ICD Code: E66.9 - Obesity Status: Chronic (3) Bipolar 1 disorder ICD Code: F31.9 - Bipolar disorder, unspecified Status: Chronic (4) Acute diverticulitis ICD Code: K57.92 - Diverticulitis of intestine, part unspecified, without perforation or abscess without bleeding Status: Resolved (5) Manipulative behavior ICD Code: R46.89 - Other symptoms and signs involving appearance and behavior Status: Acute (6) Adjustment disorder with mixed disturbance of emotions and conduct ICD Code: F43.25 - Adjustment disorder with mixed disturbance of emotions and conduct Status: Acute (7) Abdominal pain ICD Code: R10.9 - Abdominal pain Status: Acute (8) Diverticulitis ICD Code: K57.92 - Diverticulitis of intestine, part unspecified, without perforation or abscess without bleeding Status: Acute (9) Bipolar disorder ICD Code: F31.9 - Bipolar disorder, unspecified Status: Acute (10) CKD (chronic kidney disease), stage III ICD Code: N18.3 - Chronic kidney disease, stage 3 (moderate) Status: Chronic (11) Nausea & vomiting ICD Code: R11.2 - Nausea with vomiting, unspecified Status: Resolved Assessment and Plan 41-year-old male with: 1. Perforated sigmoid diverticulitis: Status post surgical repair. Management per general surgery. Continue pain control. Diverting ileostomy. Heart healthy diet. Continue Percocet per surgery. 2. Sepsis: Resolved. Secondary to diverticulitis. Continue antibiotics. 3. Acute on chronic kidney disease: Monitor BUN and creatinine. Appear to be near baseline. 4. Acute hypoxemic respiratory failure: Resolved. Continue duo nebs, incentive spirometry, EZPap, Acapella. Wean off oxygen as tolerated. 5. GI prophylaxis: Pepcid. 6. DVT prophylaxis: SCDs, heparin. Manju Multani MD Jul 30, 2017 13:49
[2017-07-30] MEDS ORDERED: cloNIDine HCL 0.1 MG TAB PO PRN (14:00)
[2017-07-30 16:00] VITALS: BP 131/85; PULSE 93; RESP 18; TEMP 98.4; O2SAT 97
[2017-07-30 17:18] VITALS: O2SAT 95
[2017-07-30 20:00] VITALS: BP 168/94; PULSE 92; RESP 18; TEMP 97.2; O2SAT 96
[2017-07-30] MEDS: DIVALPROEX SODIUM E.R. 500 MG TAB PO SCH (20:23)
[2017-07-30] MEDS: MIRTAZAPINE ODT 30 MG TAB PO SCH (20:24)
[2017-07-30] MEDS: ATORVASTATIN 20 MG TAB PO SCH (20:24)
[2017-07-31] VITALS (7 sets, daily range): BP systolic 137–145; BP diastolic 79–89; PULSE 88–96; RESP 16–19; TEMP 97–97.7; O2SAT 93–96
[2017-07-31] MEDS: ACETAMINOPHEN/HYDROcodone 325 MG/10 MG TAB PO PRN ×2 (00:17→06:53)
[2017-07-31] MEDS: PIPERACIL-TAZO 2.25 GM PREMIX 50 ML IV SCH ×4 (02:28→20:40)
[2017-07-31 07:07] LABS: HEMATOCRIT 25.3 % (39.0-51.0); MEAN CELL VOLUME 102.9 FL (80.0-100.0); MEAN CORPUSCULAR HEMOGLOBIN 32.2 PG (27.0-34.0); MEAN CORPUSCULAR HGB CONC 31.3 % (32.0-36.0); PLATELET COUNT 241 TH/MM3 (150-450); RED BLOOD COUNT 2.46 MIL/MM3 (4.50-5.90); RED CELL DISTRIBUTION WIDTH 15.9 % (11.6-17.2); REVIEW FLAG FINAL; WHITE BLOOD COUNT 9.3 TH/MM3 (4.0-11.0)
[2017-07-31 07:22] LABS: BICARBONATE 24.6 MEQ/L (21.0-32.0); POTASSIUM 4.1 MEQ/L (3.5-5.1)
[2017-07-31] MEDS: amLODIPine BESYLATE 5 MG TAB PO SCH (09:08)
[2017-07-31] MEDS: risperiDONE 1 MG TAB PO SCH ×2 (09:08→20:41)
[2017-07-31] MEDS: DOCUSATE SODIUM 50 MG/SENNA 8.6 MG TAB PO SCH ×2 (09:08→20:41)
[2017-07-31] MEDS: HEPARIN SODIUM - SQ 10,000 UNITS/ML VIAL SQ SCH ×2 (09:08→17:14)
[2017-07-31] MEDS: SODIUM CHLORIDE 0.9% FLUSH 10 ML FLUSH IV FLUSH SCH ×2 (09:09→20:40)
[2017-07-31] MEDS: FAMOTIDINE 20 MG/2 ML VIAL IV PUSH SCH ×2 (10:45→22:29)
--- NOTE | 2017-07-31 11:37 | HHI.PR ---
Subjective Remarks Patient reports he is feeling ok. Hoping to go home soon with home health care. Eating ok. No nausea or vomiting. Objective Vitals Vital Signs Date Time Temp Pulse Resp B/P (MAP) Pulse Ox O2 Delivery O2 Flow Rate FiO2 07/31/17 10:45 95 Nasal Cannula 3.00 07/31/17 08:00 97.7 93 19 144/79 (100) 96 07/31/17 00:00 97.1 96 18 141/84 (103) 93 07/30/17 20:00 97.2 92 18 168/94 (118) 96 07/30/17 17:18 95 Nasal Cannula 3.00 07/30/17 16:00 98.4 93 18 131/85 (100) 97 07/30/17 12:00 97.6 91 18 162/81 (108) 95 I/O 07/30/17 07/30/17 07/30/17 07/31/17 07/31/17 07/31/17 06:59 14:59 22:59 06:59 14:59 22:59 Intake Total 530 ml 600 ml 50 ml 530 ml Output Total 2285 ml 140 ml 60 ml 2050 ml 70 ml Balance -1755 ml 460 ml -10 ml -1520 ml -70 ml Intake Oral 480 ml 480 ml IV Total 50 ml 600 ml 50 ml 50 ml Output Urine Total 1650 ml 1100 ml Stool Total 500 ml 800 ml Drainage Total 135 ml 140 ml 60 ml 150 ml 70 ml Result Diagram: 07/31/17 0641 07/31/17 0641 Objective Remarks GENERAL: Morbidly obese male in no apparent distress. CARDIOVASCULAR: Normal rate and regular rhythm without murmurs, gallops, or rubs. RESPIRATORY: Good respiratory efforts. Breath sounds equal and clear to auscultation bilaterally. GASTROINTESTINAL: Abdomen soft. Colostomy appear intact. Normal active bowel sounds MUSCULOSKELETAL: Extremities without cyanosis, or edema. NEURO: Alert & Oriented x4 to person, place, time, situation. Moves all ext x4 PSYCH: Appropriate mood and affect. Procedures 07/25/17 laparoscopy, ileostomy, drainage of abscess A/P Problem List: (1) Smoking addiction ICD Code: F17.200 - Nicotine dependence, unspecified, uncomplicated Status: Chronic (2) Obesity ICD Code: E66.9 - Obesity Status: Chronic (3) Bipolar 1 disorder ICD Code: F31.9 - Bipolar disorder, unspecified Status: Chronic (4) Acute diverticulitis ICD Code: K57.92 - Diverticulitis of intestine, part unspecified, without perforation or abscess without bleeding Status: Resolved (5) Manipulative behavior ICD Code: R46.89 - Other symptoms and signs involving appearance and behavior Status: Acute (6) Adjustment disorder with mixed disturbance of emotions and conduct ICD Code: F43.25 - Adjustment disorder with mixed disturbance of emotions and conduct Status: Acute (7) Abdominal pain ICD Code: R10.9 - Abdominal pain Status: Acute (8) Diverticulitis ICD Code: K57.92 - Diverticulitis of intestine, part unspecified, without perforation or abscess without bleeding Status: Acute (9) Bipolar disorder ICD Code: F31.9 - Bipolar disorder, unspecified Status: Acute (10) CKD (chronic kidney disease), stage III ICD Code: N18.3 - Chronic kidney disease, stage 3 (moderate) Status: Chronic (11) Nausea & vomiting ICD Code: R11.2 - Nausea with vomiting, unspecified Status: Resolved Assessment and Plan 41-year-old male with: 1. Perforated sigmoid diverticulitis: Status post surgical repair. Management per general surgery. Continue pain control. Diverting ileostomy. Heart healthy diet. Continue Percocet PRN per surgery. 2. Sepsis: Resolved. Secondary to diverticulitis. Continue antibiotics. Plan to transition to oral tomorrow in anticipation for discharge. 3. Acute on chronic kidney disease: Monitor BUN and creatinine. Appear to be near baseline. 4. Acute hypoxemic respiratory failure: Resolved. Continue duo nebs, incentive spirometry, EZPap, Acapella. Wean off oxygen as tolerated. 5. GI prophylaxis: Pepcid. 6. DVT prophylaxis: SCDs, heparin. Manju Multani MD Jul 31, 2017 11:37
[2017-07-31] MEDS ORDERED: LIDOCAINE HCL 1% 50 ML VIAL ONE (12:00)
--- NOTE | 2017-07-31 17:14 | RADRPT ---
EXAM DATE/TIME: 07/31/2017 14:15 [place] COMPARISON: No previous studies available for comparison. INDICATIONS : Shortness of breath. MEDICAL HISTORY : Hypertension. Diverticulitis. SURGICAL HISTORY : None ENCOUNTER: Subsequent ACUITY: 1 week PAIN SCORE: 0/10 LOCATION: Bilateral chest FINDINGS: There is poor inspiratory result. The cardiac silhouette is somewhat prominent which may be related to poor inspiration. Left basilar atelectasis is likely. No focal alveolar consolidation is noted. No significant pulmonary edema is noted. CONCLUSION: 1. Poor inspiratory result with enlargement of the cardiac silhouette likely related to the poor insp iration. 2. Left basilar atelectasis. Neri More MD on July 31, 2017 at 16:27 Board Certified Radiologist. This report was verified electronically.
[2017-07-31] MEDS: ATORVASTATIN 20 MG TAB PO SCH (20:41)
[2017-07-31] MEDS: MIRTAZAPINE ODT 30 MG TAB PO SCH (20:41)
[2017-07-31] MEDS: DIVALPROEX SODIUM E.R. 500 MG TAB PO SCH (20:41)
[2017-08-01] VITALS (7 sets, daily range): BP systolic 132–153; BP diastolic 69–95; PULSE 88–98; RESP 18–19; TEMP 96.8–98.1; O2SAT 92–97
[2017-08-01] MEDS: HEPARIN SODIUM - SQ 10,000 UNITS/ML VIAL SQ SCH ×3 (01:00→17:00)
[2017-08-01] MEDS: PIPERACIL-TAZO 2.25 GM PREMIX 50 ML IV SCH ×4 (01:01→21:45)
[2017-08-01] MEDS: ACETAMINOPHEN/HYDROcodone 325 MG/10 MG TAB PO PRN ×2 (06:00→17:40)
[2017-08-01] MEDS: DOCUSATE SODIUM 50 MG/SENNA 8.6 MG TAB PO SCH ×2 (09:00→21:44)
[2017-08-01] MEDS: amLODIPine BESYLATE 5 MG TAB PO SCH (09:47)
[2017-08-01] MEDS: risperiDONE 1 MG TAB PO SCH ×2 (09:51→21:44)
[2017-08-01] MEDS: SODIUM CHLORIDE 0.9% FLUSH 10 ML FLUSH IV FLUSH SCH ×2 (09:54→21:00)
[2017-08-01] MEDS: ONDANSETRON HCL 4 MG/2 ML VIAL IVP PRN (11:01)
[2017-08-01] MEDS: FAMOTIDINE 20 MG/2 ML VIAL IV PUSH SCH ×2 (11:01→21:57)
--- NOTE | 2017-08-01 13:27 | HHI.DS ---
Discharge Summary Admission Date Jul 24, 2017 at 17:14 Discharge Date: Aug 01, 2017 Admitting Diagnosis ruptured diverticulitis CBC/BMP: 07/31/17 0641 07/31/17 0641 Significant Findings Laboratory Tests Test 07/30/17 04:46 07/31/17 06:41 Red Blood Count 2.33 MIL/MM3 (4.50-5.90) 2.46 MIL/MM3 (4.50-5.90) Hemoglobin 7.8 GM/DL (13.0-17.0) 7.9 GM/DL (13.0-17.0) Hematocrit 23.7 % (39.0-51.0) 25.3 % (39.0-51.0) Mean Corpuscular Volume 101.8 FL (80.0-100.0) 102.9 FL (80.0-100.0) Neutrophils (%) (Auto) 70.6 % (16.0-70.0) Monocytes (%) (Auto) 12.7 % (0.0-8.0) Monocytes # (Auto) 1.1 TH/MM3 (0-0.9) Ovalocytes 1+ (NORMAL) Blood Urea Nitrogen 21 MG/DL (7-18) Creatinine 2.12 MG/DL (0.60-1.30) 2.00 MG/DL (0.60-1.30) Sodium Level 147 MEQ/L (136-145) 146 MEQ/L (136-145) Chloride Level 114 MEQ/L (98-107) 115 MEQ/L (98-107) Estimat Glomerular Filtration Rate 35 ML/MIN (>89) 37 ML/MIN (>89) Mean Corpuscular Hemoglobin Concent 31.3 % (32.0-36.0) PE at Discharge Ileostomy pink; there is a larger liquid output with minimal gas along with it. Yuriy Rueda CAREER DEVELOPMENT ENGINEER Aug 01, 2017 13:27
--- NOTE | 2017-08-01 13:35 | PD.WCN.NOT ---
Wound Consult Description: Consult for NEW OSTOMY TEACHING per Dr Florez/JAVIER today @1225 on 08/01/17 Communicated with: Patient Patient mother at bedside Recommendation: Practice opening, emptying pouch of effluent, and closing pouch Read booklet provided for further teaching of ileostomy Contact insurance company to notify them of the new ostomy Additional Information: Patient seen after call via [employer] for leaking ileostomy appliance @ 1220 on 06/10 Ostomy Type: Ileostomy Surgeon: Stepan Florez MD Date of Surgery: Jul 25, 2017 Complete: Starter kit (Sent from [employer] day air), Education materials ( Ileostomy kit provided for reading materials), Rx (Left on chart ) Educated patient on: Drinking plenty of fluids with an ileostomy Emptying pouch of effluent when 1/3 -1/2 full Cleansing peristomal skin with water and allowing to dry completely before applying new barrier with or without Cavilon skin prep Small amount of bleeding ok when cleansing Assessing stoma and measuring stoma size with every appliance change Normal wear time of an ileostomy appliance is 3-5 days [facility] ileostomy kit provided for educational materials Supplies ordered from [facility] in size 2 3/4" moldable for use now and also 2 1/4" moldable to go home with for after bar removal. Yinka seals also ordered as well as stomahesive paste [facility] was contacted for starter kit to be sent to home address after obtaining verbal consent Additional information Patient seen on after being contacted by the RN for a leaking ileostomy appliance with bar. Consult placed for new ostomy teaching at this time. Appliance was removed to reveal a red, round, minimally edematous stoma with a bar sutured at proximal end. Stoma is measuring between 1 1/2" and 1 3/4" with bar intact. An appliance in the size 2 3/4" was obtained and used for appliance change. Stoma is noted on the right lower abdomen and functioning with green liquid noted coming from lumen noted at 3 o'clock. Peristomal skin was cleansed with water only and most of the stoma paste was unable to be removed and left in place. An yinka seal was obtained and used underneath bar and around the stoma. Stoma paste was then used at the proximal end of the bar for placement of the barrier on top of this and underneath the distal end of the bar. A gloved hand was then placed over the barrier to provide warmth and allow the polymers to adhere to the skin more effectively. The low pressure adaptor was applied to barrier prior to placing on patient. Pouch was then attached to the low pressure adaptor and the pouch was closed at the end. [facility] kit provided to patient mother for reading while patient was sleeping. Supplies ordered in size 2 3/4" moldable for use now and also 2 1/4" moldable to go home with for after bar removal. Yinka seals also ordered as well as stomahesive paste. [facility] was contacted for starter kit to be sent to home address after obtaining verbal consent for this. Arelis Sanon [facility] Aug 01, 2017 13:35
--- NOTE | 2017-08-01 15:09 | HHI.PR ---
Subjective Subjective Notes No GI complaints, feeling better Objective Vitals/I&O Vital Signs Date Time Temp Pulse Resp B/P (MAP) Pulse Ox O2 Delivery O2 Flow Rate FiO2 08/01/17 13:40 98.1 89 18 135/78 (97) 96 08/01/17 08:54 Nasal Cannula 3.00 Labs Laboratory Tests Test 07/24/17 13:45 07/24/17 15:00 07/24/17 15:15 07/25/17 09:10 Urine Color YELLOW Urine Turbidity HAZY Urine pH 5.5 Urine Specific [place] 1.017 Urine Protein 30 mg/dL Urine Glucose (UA) NEG mg/dL Urine Ketones NEG mg/dL Urine Occult Blood NEG Urine Nitrite NEG Urine Bilirubin NEG Urine Urobilinogen LESS THAN 2.0 MG/DL Urine Leukocyte Esterase NEG Urine RBC 1 /hpf Urine WBC 3 /hpf Urine Squamous Epithelial Cells 1 /hpf Urine Transitional Epithelial Cells <1 /hpf Urine Mucus FEW /lpf Microscopic Urinalysis Comment CULT NOT INDICATED Lipase 81 U/L Prothrombin Time 12.2 SEC Prothromb Time International Ratio 1.1 RATIO Activated Partial Thromboplast Time 31.0 SEC Hemoglobin A1c 5.1 % Blood Urea Nitrogen 28 MG/DL Creatinine 2.32 MG/DL Random Glucose 101 MG/DL Total Protein 7.8 GM/DL Albumin 2.5 GM/DL Calcium Level 9.4 MG/DL Phosphorus Level 2.7 MG/DL Magnesium Level 2.2 MG/DL Alkaline Phosphatase 63 U/L Aspartate Amino Transf (AST/SGOT) 9 U/L Alanine Aminotransferase (ALT/SGPT) 32 U/L Total Bilirubin 0.4 MG/DL Sodium Level 141 MEQ/L Potassium Level 4.0 MEQ/L Chloride Level 108 MEQ/L Carbon Dioxide Level 20.4 MEQ/L Free Thyroxine 1.58 NG/DL Thyroid Stimulating Hormone 3rd Gen 0.660 uIU/ML Test 07/25/17 16:04 07/25/17 18:30 07/26/17 04:50 07/28/17 07:36 Blood Gas Puncture Site LT RADIAL Blood Gas Patient Temperature 98.6 Blood Gas HCO3 18 mmol/L Blood Gas Base Excess -6.9 mmol/L Blood Gas Oxygen Saturation 96 % Arterial Blood pH 7.34 Arterial Blood Partial Pressure CO2 35 mmHg Arterial Blood Partial Pressure O2 118 mmHg Arterial Blood Oxygen Content 11.0 Vol % Arterial Blood Carboxyhemoglobin 2.0 % Arterial Blood Methemoglobin 0.3 % Blood Gas Hemoglobin 8.0 G/DL Oxygen Delivery Device BiPAP Blood Gas Ventilator Setting [id number]/[id number] Blood Gas Inspired Oxygen 55 % Lactic Acid Level 0.8 mmol/L Tear Drop Cells 1+ Blood Urea Nitrogen 30 MG/DL Creatinine 2.35 MG/DL Random Glucose 121 MG/DL Total Protein 7.1 GM/DL Albumin 2.1 GM/DL Calcium Level 8.5 MG/DL Alkaline Phosphatase 56 U/L Aspartate Amino Transf (AST/SGOT) 17 U/L Alanine Aminotransferase (ALT/SGPT) 37 U/L Total Bilirubin 0.2 MG/DL Sodium Level 146 MEQ/L Potassium Level 4.3 MEQ/L Chloride Level 113 MEQ/L Carbon Dioxide Level 22.7 MEQ/L Differential Total Cells Counted 100 Neutrophils % (Manual) 77 % Band Neutrophils % 2 % Lymphocytes % 9 % Monocytes % 6 % Eosinophils % 1 % Basophils % 1 % Neutrophils # (Manual) 6.8 TH/MM3 Metamyelocytes 1 % Myelocytes 3 % Test 07/30/17 04:46 07/31/17 06:41 Neutrophils (%) (Auto) 70.6 % Lymphocytes (%) (Auto) 15.1 % Monocytes (%) (Auto) 12.7 % Eosinophils (%) (Auto) 1.2 % Basophils (%) (Auto) 0.4 % Neutrophils # (Auto) 6.0 TH/MM3 Lymphocytes # (Auto) 1.3 TH/MM3 Monocytes # (Auto) 1.1 TH/MM3 Eosinophils # (Auto) 0.1 TH/MM3 Basophils # (Auto) 0.0 TH/MM3 CBC Comment AUTO DIFF Differential Comment AUTO DIFF CONFIRMED Platelet Estimate NORMAL Platelet Morphology Comment NORMAL Ovalocytes 1+ White Blood Count 9.3 TH/MM3 Red Blood Count 2.46 MIL/MM3 Hemoglobin 7.9 GM/DL Hematocrit 25.3 % Mean Corpuscular Volume 102.9 FL Mean Corpuscular Hemoglobin 32.2 PG Mean Corpuscular Hemoglobin Concent 31.3 % Red Cell Distribution Width 15.9 % Platelet Count 241 TH/MM3 Mean Platelet Volume 7.6 FL Blood Urea Nitrogen 15 MG/DL Creatinine 2.00 MG/DL Random Glucose 88 MG/DL Calcium Level 9.7 MG/DL Sodium Level 146 MEQ/L Potassium Level 4.1 MEQ/L Chloride Level 115 MEQ/L Carbon Dioxide Level 24.6 MEQ/L Anion Gap 6 MEQ/L Estimat Glomerular Filtration Rate 37 ML/MIN Radiology Last Impressions Chest X-Ray 07/31/17 0000 Signed Impressions: Service Date/Time: Monday, July 31, 2017 14:15 - CONCLUSION: 1. Poor inspiratory result with enlargement of the cardiac silhouette likely related to the poor inspiration. 2. Left basilar atelectasis. Neri More MD Abdomen/Pelvis CT 07/24/17 1614 Signed Impressions: Service Date/Time: Monday, July 24, 2017 16:24 - CONCLUSION: Perforated sigmoid diverticulitis. Sadiq De Luna MD Lumbar Spine CT 07/24/17 1410 Signed Impressions: Service Date/Time: Monday, July 24, 2017 16:24 - CONCLUSION: Limited exam by patient's body habitus. Mild to moderate degenerative changes increasing as one moves down the spine without acute fracture. Vince Valentine MD FACR Cardiovascular: Regular Lungs: Other (diminished) Abdomen: Non-tender Extremities: Perfused Narrative Exam Ileostomy pink with liquid output A/P Assessment and Plan 41yo M POD # 7 S/P laparoscopy; ileostomy and placement of drain for perforated diverticulitis. -Continue with heart healthy diet. -Continue with with frequent ambulation The exam, history, and the medical decision-making described in the above note were completed with the assistance of the mid-level provider. I reviewed and agree with the findings presented. I attest that I had a [id number] encounter with the patient on the same day, and personally performed and documented my assessment and findings in the medical record. Discharge Planning D/C home today or tomorrow to SNF depending on availability Yuriy Rueda Aug 01, 2017 15:09 Stepan Florez MD Aug 11, 2017 16:36
--- NOTE | 2017-08-01 15:38 | HHI.DS ---
Discharge Summary Admission Date Jul 24, 2017 at 17:14 Discharge Date: Aug 02, 2017 Admitting Diagnosis ruptured diverticulitis Procedures laparoscopy; ileostomy and placement of drain for perforated diverticulitis. Brief History Morbidly obese male with multiple medical co-morbidities presented with complaints of abdominal pain CBC/BMP: 07/31/17 0641 07/31/17 0641 Significant Findings Laboratory Tests Test 07/30/17 04:46 07/31/17 06:41 Red Blood Count 2.33 MIL/MM3 (4.50-5.90) 2.46 MIL/MM3 (4.50-5.90) Hemoglobin 7.8 GM/DL (13.0-17.0) 7.9 GM/DL (13.0-17.0) Hematocrit 23.7 % (39.0-51.0) 25.3 % (39.0-51.0) Mean Corpuscular Volume 101.8 FL (80.0-100.0) 102.9 FL (80.0-100.0) Neutrophils (%) (Auto) 70.6 % (16.0-70.0) Monocytes (%) (Auto) 12.7 % (0.0-8.0) Monocytes # (Auto) 1.1 TH/MM3 (0-0.9) Ovalocytes 1+ (NORMAL) Blood Urea Nitrogen 21 MG/DL (7-18) Creatinine 2.12 MG/DL (0.60-1.30) 2.00 MG/DL (0.60-1.30) Sodium Level 147 MEQ/L (136-145) 146 MEQ/L (136-145) Chloride Level 114 MEQ/L (98-107) 115 MEQ/L (98-107) Estimat Glomerular Filtration Rate 35 ML/MIN (>89) 37 ML/MIN (>89) Mean Corpuscular Hemoglobin Concent 31.3 % (32.0-36.0) Imaging Last Impressions Chest X-Ray 07/31/17 0000 Signed Impressions: Service Date/Time: Monday, July 31, 2017 14:15 - CONCLUSION: 1. Poor inspiratory result with enlargement of the cardiac silhouette likely related to the poor inspiration. 2. Left basilar atelectasis. Neri More MD Abdomen/Pelvis CT 07/24/17 1614 Signed Impressions: Service Date/Time: Monday, July 24, 2017 16:24 - CONCLUSION: Perforated sigmoid diverticulitis. Sadiq De Luna MD Lumbar Spine CT 07/24/17 1410 Signed Impressions: Service Date/Time: Monday, July 24, 2017 16:24 - CONCLUSION: Limited exam by patient's body habitus. Mild to moderate degenerative changes increasing as one moves down the spine without acute fracture. Vince Valentine MD FACR PE at Discharge Cardiac: RRR Lungs: CTA Abdomen: Soft and nontender, Ileostomy pink with liquid output Extremities: perfused Pt Condition on Discharge: Stable Discharge Disposition: Discharge to SNF Discharge Instructions DIET: Follow Instructions for: Heart Healthy Diet Activities you can perform: Regular-No Restrictions New Medications: Levofloxacin (Levaquin) 500 Mg Tablet 500 MG PO DAILY for Infection for 7 Days, #7 TAB 0 Refills Metronidazole (Flagyl) 250 Mg Tab 250 MG PO TID for Infection for 7 Days, #21 TAB 0 Refills Continued Medications: Amlodipine (Amlodipine) 5 Mg Tab 5 MG PO DAILY for Blood Pressure Management, #30 TAB 0 Refills Atorvastatin (Atorvastatin) 20 Mg Tab 20 MG PO HS for Cholesterol Management, #30 TAB 0 Refills Baclofen (Baclofen) 10 Mg Tab 10 MG PO Q8HR PRN for MUSCLE SPASM, TAB 0 Refills Divalproex ER (Depakote ER) 500 Mg Casey 500 MG PO 2 at hs for mental health, #60 TAB 2 Refills Hydrocodone-Acetaminophen (Lortab) 10-325 Mg Tab 1 TAB PO Q6H PRN for PAIN, #20 TAB 0 Refills Mirtazapine (Remeron) 30 Mg Tab 30 MG PO HS for Depression Control, #30 TAB 0 Refills Risperidone (Risperdal) 2 Mg Tab 2 MG PO BID for mental health, #60 TAB 2 Refills Discontinued Medications: Amoxicillin-Clavulanate (Amoxicillin-Clavulanate) 875-125 mg Tab 875 MG PO BID for Infection, TAB 0 Refills not for use in CrCl <30 mL/minute Yuriy Rueda Aug 01, 2017 15:38
[2017-08-01] MEDS ORDERED: METR250 PO (16:06)
[2017-08-01] MEDS ORDERED: LEVA500T20 PO (16:06)
--- NOTE | 2017-08-01 16:27 | HHI.PR ---
Subjective Remarks Patient reports is feeling okay. No nausea or vomiting. He has been up and ambulating Objective Vitals Vital Signs Date Time Temp Pulse Resp B/P (MAP) Pulse Ox O2 Delivery O2 Flow Rate FiO2 08/01/17 13:40 98.1 89 18 135/78 (97) 96 08/01/17 12:00 97.3 98 19 153/82 (105) 93 08/01/17 08:54 95 Nasal Cannula 3.00 08/01/17 08:30 97.3 88 18 132/74 (93) 97 08/01/17 08:00 98.0 91 18 134/70 (91) 95 08/01/17 00:00 97.5 96 18 132/95 (107) 97 07/31/17 20:30 93 Nasal Cannula 3.00 07/31/17 20:00 97.0 88 18 142/89 (106) 96 I/O 07/31/17 07/31/17 07/31/17 08/01/17 08/01/17 08/01/17 07:00 15:00 23:00 07:00 15:00 23:00 Intake Total 530 ml 530 ml 650 ml 1554 ml Output Total 2050 ml 70 ml 1275 ml 2550 ml 1500 ml Balance -1520 ml -70 ml -745 ml -1900 ml 54 ml Intake Oral 480 ml 480 ml 600 ml 1552 ml IV Total 50 ml 50 ml 50 ml 2 ml Output Urine Total 1100 ml 600 ml 2100 ml 850 ml Stool Total 800 ml 675 ml 450 ml 650 ml Drainage Total 150 ml 70 ml # Voids 3 Result Diagram: 07/31/17 0641 07/31/17 0641 Objective Remarks GENERAL: Morbidly obese male in no apparent distress. CARDIOVASCULAR: Normal rate and regular rhythm without murmurs, gallops, or rubs. RESPIRATORY: Good respiratory efforts. Breath sounds equal and clear to auscultation bilaterally. GASTROINTESTINAL: Abdomen soft. Colostomy appear intact. Normal active bowel sounds MUSCULOSKELETAL: Extremities without cyanosis, or edema. NEURO: Alert & Oriented x4 to person, place, time, situation. Moves all ext x4 PSYCH: Appropriate mood and affect. Procedures 07/25/17 laparoscopy, ileostomy, drainage of abscess A/P Problem List: (1) Smoking addiction ICD Code: F17.200 - Nicotine dependence, unspecified, uncomplicated Status: Chronic (2) Obesity ICD Code: E66.9 - Obesity Status: Chronic (3) Bipolar 1 disorder ICD Code: F31.9 - Bipolar disorder, unspecified Status: Chronic (4) Acute diverticulitis ICD Code: K57.92 - Diverticulitis of intestine, part unspecified, without perforation or abscess without bleeding Status: Resolved (5) Manipulative behavior ICD Code: R46.89 - Other symptoms and signs involving appearance and behavior Status: Acute (6) Adjustment disorder with mixed disturbance of emotions and conduct ICD Code: F43.25 - Adjustment disorder with mixed disturbance of emotions and conduct Status: Acute (7) Abdominal pain ICD Code: R10.9 - Abdominal pain Status: Acute (8) Diverticulitis ICD Code: K57.92 - Diverticulitis of intestine, part unspecified, without perforation or abscess without bleeding Status: Acute (9) Bipolar disorder ICD Code: F31.9 - Bipolar disorder, unspecified Status: Acute (10) CKD (chronic kidney disease), stage III ICD Code: N18.3 - Chronic kidney disease, stage 3 (moderate) Status: Chronic (11) Nausea & vomiting ICD Code: R11.2 - Nausea with vomiting, unspecified Status: Resolved Assessment and Plan 41-year-old male with: 1. Perforated sigmoid diverticulitis: Status post surgical repair. Management per general surgery. Continue pain control. Diverting ileostomy. Heart healthy diet. Continue Percocet PRN per surgery. 2. Sepsis: Resolved. Secondary to diverticulitis. Patient can be discharged on oral Levaquin and Flagyl. 3. Acute on chronic kidney disease: Monitor BUN and creatinine. Appear to be near baseline. 4. Acute hypoxemic respiratory failure: Resolved. Continue duo nebs, incentive spirometry, EZPap, Acapella. Wean off oxygen as tolerated. 5. GI prophylaxis: Pepcid. 6. DVT prophylaxis: SCDs, heparin. Discharge Planning DC SNF per primary. Manju Multani MD Aug 01, 2017 16:27
[2017-08-01] MEDS: ATORVASTATIN 20 MG TAB PO SCH (21:44)
[2017-08-01] MEDS: MIRTAZAPINE ODT 30 MG TAB PO SCH (21:44)
[2017-08-01] MEDS: DIVALPROEX SODIUM E.R. 500 MG TAB PO SCH (21:44)
[2017-08-01 22:38] LABS: BICARBONATE 25.8 MEQ/L (21.0-32.0); MAGNESIUM 1.9 MG/DL (1.5-2.5); POTASSIUM 4.3 MEQ/L (3.5-5.1)
[2017-08-02] VITALS: BP 144/77; PULSE 102; RESP 16; TEMP 97; O2SAT 92
[2017-08-02] MEDS: HEPARIN SODIUM - SQ 10,000 UNITS/ML VIAL SQ SCH ×2 (01:22→10:11)
[2017-08-02] MEDS: ACETAMINOPHEN/HYDROcodone 325 MG/10 MG TAB PO PRN (01:22)
[2017-08-02] MEDS: ONDANSETRON HCL 4 MG/2 ML VIAL IVP PRN (01:24)
[2017-08-02] MEDS: PIPERACIL-TAZO 2.25 GM PREMIX 50 ML IV SCH ×3 (02:00→13:44)
[2017-08-02 07:54] VITALS: O2SAT 94
[2017-08-02 08:00] VITALS: BP 130/77; PULSE 98; RESP 17; TEMP 96.6; O2SAT 91
[2017-08-02] MEDS: amLODIPine BESYLATE 5 MG TAB PO SCH (10:10)
[2017-08-02] MEDS: risperiDONE 1 MG TAB PO SCH (10:11)
[2017-08-02] MEDS: SODIUM CHLORIDE 0.9% FLUSH 10 ML FLUSH IV FLUSH SCH (10:12)
[2017-08-02] MEDS: DOCUSATE SODIUM 50 MG/SENNA 8.6 MG TAB PO SCH (10:12)
[2017-08-02] MEDS: FAMOTIDINE 20 MG/2 ML VIAL IV PUSH SCH (10:29)
[2017-08-02 12:00] VITALS: BP 134/76; PULSE 92; RESP 18; TEMP 97.2; O2SAT 92
[2017-08-02] MEDS ORDERED: HYDR-3288 PO (12:32)
[2017-08-02] MEDS ORDERED: ZOFR4TAB PO (12:34)
--- NOTE | 2017-08-02 13:05 | PD.WCN.NOT ---
Wound Consult Description: Consult for NEW OSTOMY TEACHING per Dr Florez/JAVIER Communicated with: Patient Patient mother at bedside Mouna Hu Recommendation: Practice opening, emptying pouch of effluent, and closing pouch Read booklet provided for further teaching of ileostomy Contact insurance company to notify them of the new ostomy Script on chart for ostomy appliances in patient size once bar is removed Change appliance every 3-5 days and PRN Cleanse peristomal skin with water only Additional Information: Patient seen on [address] [place] [address] prior to discharge Ostomy Type: Ileostomy Surgeon: Stepan Florez MD Date of Surgery: Jul 25, 2017 Complete: Starter kit (Sent from [facility] 2 day air), Education materials ( Ileostomy kit provided for reading materials), Rx (Left on chart ) Educated patient on: Practice opening, emptying pouch of effluent, and closing pouch Read booklet provided for further teaching of ileostomy Contact insurance company to notify them of the new ostomy Script on chart for ostomy appliances in patient size once bar is removed Change appliance every 3-5 days and PRN Cleanse peristomal skin with water only Additional information Patient seen on [address] [place] [address] for ileostomy and appliance assessment. Wafer and barrier were changed by narrative writer on 08/01/17 with patient mother at bedside for teaching. Today appliance is intact with no leaks noted. Stoma is functioning with effluent in pouch. Patient mother had instructions written down and verbally read them back to me for verification. Questions were answered. Patient has 4 appliances in 2 sizes to take home. Stomahesive and toño seals were also ordered and sent up for patient to go home with. Patient is being discharged today to [facility] where they will continue to assist patient with ostomy care. Arelis Sanon [facility] Aug 02, 2017 13:04
--- NOTE | 2017-08-02 15:30 | HHI.PR ---
Subjective Remarks Patient reports is doing okay. Awaiting discharge to SNF today. Objective Vitals Vital Signs Date Time Temp Pulse Resp B/P (MAP) Pulse Ox O2 Delivery O2 Flow Rate FiO2 08/02/17 12:00 97.2 92 18 134/76 (95) 92 08/02/17 08:00 96.6 98 17 130/77 (94) 91 08/02/17 07:54 94 21 08/02/17 00:00 97.0 102 16 144/77 (99) 92 08/01/17 22:50 Nasal Cannula 3.00 08/01/17 20:00 96.8 94 18 136/69 (91) 92 I/O 08/01/17 08/01/17 08/01/17 08/02/17 08/02/17 08/02/17 07:00 15:00 23:00 07:00 15:00 23:00 Intake Total 650 ml 1554 ml 110 ml 50 ml Output Total 2550 ml 1500 ml 2100 ml Balance -1900 ml 54 ml 110 ml -2050 ml Intake Oral 600 ml 1552 ml 60 ml IV Total 50 ml 2 ml 50 ml 50 ml Output Urine Total 2100 ml 850 ml 2100 ml Stool Total 450 ml 650 ml # Voids 3 Result Diagram: 07/31/17 0641 08/01/172204 Objective Remarks GENERAL: Morbidly obese male in no apparent distress. CARDIOVASCULAR: Normal rate and regular rhythm without murmurs, gallops, or rubs. RESPIRATORY: Good respiratory efforts. Breath sounds equal and clear to auscultation bilaterally. GASTROINTESTINAL: Abdomen soft. Colostomy appear intact. Normal active bowel sounds MUSCULOSKELETAL: Extremities without cyanosis, or edema. NEURO: Alert & Oriented x4 to person, place, time, situation. Moves all ext x4 PSYCH: Appropriate mood and affect. Procedures 07/25/17 laparoscopy, ileostomy, drainage of abscess A/P Problem List: (1) Smoking addiction ICD Code: F17.200 - Nicotine dependence, unspecified, uncomplicated Status: Chronic (2) Obesity ICD Code: E66.9 - Obesity Status: Chronic (3) Bipolar 1 disorder ICD Code: F31.9 - Bipolar disorder, unspecified Status: Chronic (4) Acute diverticulitis ICD Code: K57.92 - Diverticulitis of intestine, part unspecified, without perforation or abscess without bleeding Status: Resolved (5) Manipulative behavior ICD Code: R46.89 - Other symptoms and signs involving appearance and behavior Status: Acute (6) Adjustment disorder with mixed disturbance of emotions and conduct ICD Code: F43.25 - Adjustment disorder with mixed disturbance of emotions and conduct Status: Acute (7) Abdominal pain ICD Code: R10.9 - Abdominal pain Status: Acute (8) Diverticulitis ICD Code: K57.92 - Diverticulitis of intestine, part unspecified, without perforation or abscess without bleeding Status: Acute (9) Bipolar disorder ICD Code: F31.9 - Bipolar disorder, unspecified Status: Acute (10) CKD (chronic kidney disease), stage III ICD Code: N18.3 - Chronic kidney disease, stage 3 (moderate) Status: Chronic (11) Nausea & vomiting ICD Code: R11.2 - Nausea with vomiting, unspecified Status: Resolved Assessment and Plan 41-year-old male with: 1. Perforated sigmoid diverticulitis: Status post surgical repair. Management per general surgery. Continue pain control. Diverting ileostomy. Heart healthy diet. Continue Percocet PRN per surgery. 2. Sepsis: Resolved. Secondary to diverticulitis. Patient can be discharged on oral Levaquin and Flagyl. 3. Acute on chronic kidney disease: Monitor BUN and creatinine. Appear to be near baseline. 4. Acute hypoxemic respiratory failure: Resolved. Continue duo nebs, incentive spirometry, EZPap, Acapella. Wean off oxygen as tolerated. 5. GI prophylaxis: Pepcid. 6. DVT prophylaxis: SCDs, heparin. Discharge Planning DC TO SNF TODAY. Manju Multani MD Aug 02, 2017 15:30
--- NOTE | 2017-08-14 12:07 | MP ---
cc: LILIANA FLOREZ DATE OF SURGERY: 07/25/2017 DATE OF : 1975 PREOPERATIVE DIAGNOSIS Perforated diverticulitis. POSTOPERATIVE DIAGNOSIS Perforated diverticulitis. PROCEDURE Laparoscopy, washout of peritoneal cavity with diverting ileostomy. SURGEON Liliana Florez. ANESTHESIA General endotracheal. ESTIMATED BLOOD LOSS Scant. FINDINGS Dense inflammatory changes around the sigmoid colon with peritoneal contamination. SPECIMEN None. COMPLICATIONS None. OPERATION The patient was brought to the operating room and placed on the operating table in supine position. Bilateral sequential inflation devices were placed on the lower extremities. General anesthesia was instituted. A Tejada catheter was placed. Antibiotics were initiated. The abdomen was prepped and draped sterilely. A point in the left upper quadrant was anesthetized with 0.25% Marcaine with epinephrine. A skin incision was made. A 5 mm OptiView port was placed under direct vision and a pneumoperitoneum created. Under direct vision a 5 mm left lower quadrant port and a 5 mm right upper quadrant port was placed. Prior to placement of all ports the skin and peritoneum were anesthetized with 0.25% Marcaine with epinephrine. The abdominal cavity was inspected with findings as above. The abdominal cavity was irrigated with copious amounts of saline. It was decided to perform a diverting ileostomy. The ileocecal valve was identified. A point two feet proximal was identified. This area was held in place with a grasper. The CO2 was released. A skin incision was made on the abdominal cavity in the right lower quadrant and taken through the subcutaneous tissue through the abdominal wall musculature. The peritoneum was encountered. The peritoneal cavity was entered. The loop of bowel was brought up to the abdominal wall. A jb was placed through the mesentery to hold the bowel in place. CO2 was then re-insufflated into the abdominal cavity. The bowel appeared to come to the abdominal wall without twisting. The CO2 was then released. The laparoscopic ports were removed. The laparoscopic incisions were closed with 4-0 Monocryl. The ileostomy was then matured using 3-0 Vicryl. A stomal appliance was then placed. The patient was then awakened and taken to the recovery room. MD DEUCE Weaver/BARRERA /2:51 AM /11:53 AM
== END 2017-08-02 15:08 | DRG 853 ==
LOC: NEPE 12:49 → NEDA 17:14 → NEDH 21:14 → N07B 23:35 → N03B 07-25 15:38 → N07A 07-26 17:59
PROVIDERS: ADMIT Surgery; ATTEND Surgery
PROC: 5A09357 Assistance with Respiratory Ventilation, Less than 24 Consecutive Hours, Continuous Positive Airway Pressure (ICD-10-PCS; principal; 2017-07-25 11:36)
PROC: 0D1B4Z4 Bypass Ileum to Cutaneous, Percutaneous Endoscopic Approach (ICD-10-PCS; 2017-07-25 11:36)
DX: A41.9 Sepsis, unspecified organism (principal); J95.821 Acute postprocedural respiratory failure; Z68.43 Body mass index [BMI] 50.0-59.9, adult; K57.20 Diverticulitis of large intestine with perforation and abscess without bleeding; E66.01 Morbid (severe) obesity due to excess calories; J98.11 Atelectasis; N18.3 Chronic kidney disease, stage 3 (moderate); I12.9 Hypertensive chronic kidney disease with stage 1 through stage 4 chronic kidney disease, or unspecified chronic kidney disease; F41.9 Anxiety disorder, unspecified; F31.9 Bipolar disorder, unspecified; E78.5 Hyperlipidemia, unspecified; R65.20 Severe sepsis without septic shock; D64.9 Anemia, unspecified; Z87.891 Personal history of nicotine dependence
CPT/HCPCS: 36600; 71010; 71020; 72131; 74176; 80048; 80053; 81001; 82805; 83036; 83605; 83690; 83735; 84100; 84439; 84443; 85007; 85025; 85027; 85610; 85730; 93005; 94002; 94150; 94640; 94664; 94667; 94668; 96374; J1100; J1170; J1644; J1885; J2250; J2405; J2543; J3010; J3480; J7030; J7120

== ENCOUNTER 2017-08-07 15:01 | Emergency (ER) | payer MEDICARE ==
[~2017-08-07] VITALS: Ht 177.8 cm; Wt 150.0 kg
[~2017-08-07 15:01] MED LIST changes: -AMOX875T2 PO; +HYDR-3288 PO; +LEVA500T20 PO; +METR250 PO; +ZOFR4TAB PO
[2017-08-07 15:14] VITALS: BP 120/61; PULSE 114; RESP 13; TEMP 98.5; O2SAT 96
--- NOTE | 2017-08-07 15:34 | PD ---
HPI . ostomy bag malfunctioning Chief Complaint: Signal Inspector Problem Time Seen by Provider: 15:34 Travel History International Travel<30 days: No Contact w/Intl Traveler<30days: No Traveled to known affect area: No History of Present Illness HPI 41 yr old male recently released from rehab here with malfunctioning ostomy. Ostomy was placed last Saturday. Mom states she was told to change the ostomy but noticed some irritation around the stoma and can't find a bag to fit correctly. She came to the ED as she didn't know what else to do. PFSH Past Medical History Asthma: No Blood Disorders: No Bipolar Disorder: Yes Anxiety: No Depression: No Heart Rhythm Problems: No Cancer: No Cardiovascular Problems: No High Cholesterol: Yes Chemotherapy: No Chest Pain: No Congestive Heart Failure: No COPD: No Diabetes: No Diminished Hearing: No Diverticulitis: Yes Endocrine: No Gastrointestinal Disorders: Yes (DIVERTICULITIS ) Genitourinary: Yes Hypertension: Yes Immune Disorder: No Implanted Vascular Access Dvce: No Musculoskeletal: No Neurologic: Yes Psychiatric: Yes (BIPOLAR AND MANIC DEPRESSION ) Reproductive: No Respiratory: No Immunizations Current: No Migraines: Yes (OCASSIONALLY ) Radiation Therapy: No Renal Failure: Yes ("KIDNEY DYSFUNCTION") Sleep Apnea: No Thyroid Disease: No Tetanus Vaccination: Unknown Influenza Vaccination: Yes Past Surgical History Oral Surgery: Yes (teeth removed (upper)) Other Surgery: Yes Social History Alcohol Use: No Tobacco Use: No (quit) Substance Use: No Allergies-Medications (Allergen,Severity, Reaction): Coded Allergies: acetaminophen (Unverified Allergy, Severe, Headache, 08/07/17) hydromorphone (Verified Allergy, Severe, Anemia, 08/07/17) oxycodone (Unverified Allergy, Severe, Headache, 08/07/17) morphine (Unverified Allergy, Intermediate, Rash, 08/07/17) Reported Meds & Prescriptions Reported Meds & Active Scripts Active Zofran (Ondansetron HCl) 4 Mg Tab 4 Mg PO Q6HR PRN [place] (Hydrocodone-Acetaminophen) 7.5-325 mg Tab 2 Tab PO Q4H PRN Flagyl (Metronidazole) 250 Mg Tab 250 Mg PO TID 7 Days Levaquin (Levofloxacin) 500 Mg Tablet 500 Mg PO DAILY 7 Days Lortab (Hydrocodone-Acetaminophen) 10-325 Mg Tab 1 Tab PO Q6H PRN Risperdal (Risperidone) 2 Mg Tab 2 Mg PO BID Depakote ER (Divalproex Sodium) 500 Mg Casey 500 Mg PO 2 AT HS Reported Baclofen 10 Mg Tab 10 Mg PO Q8HR PRN Amlodipine (Amlodipine Besylate) 5 Mg Tab 5 Mg PO DAILY Atorvastatin (Atorvastatin Calcium) 20 Mg Tab 20 Mg PO HS Remeron (Mirtazapine) 30 Mg Tab 30 Mg PO HS Review of Systems General / Constitutional: No: Fever Eyes: No: Visual changes HENT: No: Headaches Cardiovascular: No: Chest Pain or Discomfort Respiratory: No: Shortness of Breath Gastrointestinal: Positive: Other (malfunctioning ostomy bag), No: Abdominal Pain Genitourinary: No: Dysuria Musculoskeletal: No: Pain Skin: No Rash Neurologic: No: Weakness Psychiatric: No: Depression Endocrine: No: Polydipsia Hematologic/Lymphatic: No: Easy Bruising Physical Exam Narrative GENERAL: AAOx3, NAD, obese SKIN: Warm and dry. HEAD: Atraumatic. Normocephalic. EYES: Pupils equal and round. No scleral icterus. No injection or drainage. ENT: No nasal bleeding or discharge. Mucous membranes pink and moist. NECK: Trachea midline. No JVD. CARDIOVASCULAR: Regular rate and rhythm. RESPIRATORY: No accessory muscle use. Clear to auscultation. Breath sounds equal bilaterally. GASTROINTESTINAL: right side ostomy with irritated stoma and skin breakdown/ MUSCULOSKELETAL: Extremities without clubbing, cyanosis, or edema. No obvious deformities. uses w/c for ambulation NEUROLOGICAL: Awake and alert. No obvious cranial nerve deficits. Motor grossly within normal limits. Normal speech. PSYCHIATRIC: Appropriate mood and affect; insight and judgment normal. Data Data Last Documented VS Vital Signs Date Time Temp Pulse Resp B/P (MAP) Pulse Ox O2 Delivery O2 Flow Rate FiO2 08/07/17 18:13 120/61 (80) 08/07/17 15:30 Room Air 08/07/17 15:14 98.5 114 13 96 Orders Orders Colostomy Kit 2 3/" Moldable (08/07/17 17:02) ^ Other Nursing Orders (08/07/17 17:02) MDM Medical Decision Making Medical Screen Exam Complete: Yes Emergency Medical Condition: Yes Medical Record Reviewed: Yes Differential Diagnosis malfunctioning medical art therapist, ostomy skin break down Narrative Course 41yr old male here with ostomy issues. He will need a medical bed for further workup and treatment as he requires some additional attention to this ostomy site. Patient awaiting bed placement. Condition: Stable Oralia Salmon Aug 07, 2017 15:34
--- NOTE | 2017-08-07 17:04 | PD ---
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 He is accompanied by his mother who states she has been unable to get a new one back on and feels that the one that she was given does not fit. She feels that health coming out Saturday as not soon enough. Patient denies any pain. No fever or chills. Skin is slightly irritated where colostomy adhesive has been. No other symptoms to report. PFSH Past Medical History Asthma: No Blood Disorders: No Bipolar Disorder: Yes Anxiety: No Depression: No Heart Rhythm Problems: No Cancer: No Cardiovascular Problems: No High Cholesterol: Yes Chemotherapy: No Chest Pain: No Congestive Heart Failure: No COPD: No Diabetes: No Diminished Hearing: No Diverticulitis: Yes Endocrine: No Gastrointestinal Disorders: Yes (DIVERTICULITIS ) Genitourinary: Yes Hypertension: Yes Immune Disorder: No Implanted Vascular Access Dvce: No Musculoskeletal: No Neurologic: Yes Psychiatric: Yes (BIPOLAR AND MANIC DEPRESSION ) Reproductive: No Respiratory: No Immunizations Current: No Migraines: Yes (OCASSIONALLY ) Radiation Therapy: No Renal Failure: Yes ("KIDNEY DYSFUNCTION") Sleep Apnea: No Thyroid Disease: No Tetanus Vaccination: Unknown Influenza Vaccination: Yes Past Surgical History Oral Surgery: Yes (teeth removed (upper)) Other Surgery: Yes Social History Alcohol Use: No Tobacco Use: No (quit) Substance Use: No Allergies-Medications (Allergen,Severity, Reaction): Coded Allergies: acetaminophen (Unverified Allergy, Severe, Headache, 08/07/17) hydromorphone (Verified Allergy, Severe, Anemia, 08/07/17) oxycodone (Unverified Allergy, Severe, Headache, 08/07/17) morphine (Unverified Allergy, Intermediate, Rash, 08/07/17) Reported Meds & Prescriptions Reported Meds & Active Scripts Active Zofran (Ondansetron HCl) 4 Mg Tab 4 Mg PO Q6HR PRN [place] (Hydrocodone-Acetaminophen) 7.5-325 mg Tab 2 Tab PO Q4H PRN Flagyl (Metronidazole) 250 Mg Tab 250 Mg PO TID 7 Days Levaquin (Levofloxacin) 500 Mg Tablet 500 Mg PO DAILY 7 Days Lortab (Hydrocodone-Acetaminophen) 10-325 Mg Tab 1 Tab PO Q6H PRN Risperdal (Risperidone) 2 Mg Tab 2 Mg PO BID Depakote ER (Divalproex Sodium) 500 Mg Casey 500 Mg PO 2 AT HS Reported Baclofen 10 Mg Tab 10 Mg PO Q8HR PRN Amlodipine (Amlodipine Besylate) 5 Mg Tab 5 Mg PO DAILY Atorvastatin (Atorvastatin Calcium) 20 Mg Tab 20 Mg PO HS Remeron (Mirtazapine) 30 Mg Tab 30 Mg PO HS Review of Systems Except as stated in HPI: all other systems reviewed are Neg Physical Exam Narrative GENERAL: Obese male patient, lying on the stretcher in no acute distress SKIN: Focused skin assessment warm/dry. Mild skin irritation in the shape of the square under where the colostomy adhesive has been. HEAD: Normocephalic. EYES: No scleral icterus. No injection or drainage. NECK: Supple, trachea midline. No JVD or lymphadenopathy. CARDIOVASCULAR: Regular rate and rhythm without murmurs, gallops, or rubs. RESPIRATORY: Breath sounds equal bilaterally. No accessory muscle use. GASTROINTESTINAL: Abdomen soft, non-tender, nondistended. Right lower quadrant colostomy in place. There is a T-bar also in place. Stoma protrudes and is red and beefy MUSCULOSKELETAL: No cyanosis, or edema. BACK: Nontender without obvious deformity. No CVA tenderness. Data Data Last Documented VS Vital Signs Date Time Temp Pulse Resp B/P (MAP) Pulse Ox O2 Delivery O2 Flow Rate FiO2 08/07/17 18:13 120/61 (80) 08/07/17 15:30 Room Air 08/07/17 15:14 98.5 114 13 96 Orders Orders Colostomy Kit 2 3/4" Moldable (08/07/17 17:02) ^ Other Nursing Orders (08/07/17 17:02) MDM Medical Decision Making Medical Screen Exam Complete: Yes Emergency Medical Condition: Yes Medical Record Reviewed: Yes Differential Diagnosis Colostomy malfunction versus colostomy bag replacement versus contact dermatitis Narrative Course 41-year-old male presents to the emergency department for replacement of his colostomy bag. Patient is laid up, skin adhesive is placed in colostomy bag changed. The mom and the patient were educated and watched this be done. They are encouraged to follow-up with Dr. Florez and return immediately with any acute worsening of symptoms. Diagnosis Primary Impression: Colostomy complication, unspecified Additional Impression: Skin irritation Referrals: Body Painter Primary Care Physician Patient Instructions: Colostomy Care (ED), General Instructions Additional Instructions: Continue care of the colostomy Follow-up postop instructions Return immediately with any acute worsening of symptoms Med/Other Pt SpecificInfo: No Change to Meds Disposition: 01 DISCHARGE HOME Condition: Stable SureshLu CABRERA Aug 07, 2017 17:04
[2017-08-07 18:13] VITALS: BP 120/61
== END 2017-08-07 18:14 | disposition home or self-care (01) ==
LOC: NEPD 15:01
DX: K94.00 Colostomy complication, unspecified (principal)
CPT/HCPCS: 99284

== ENCOUNTER 2017-08-18 23:14 | Emergency (ER) | payer MEDICARE, MEDICAID ==
[~2017-08-18] VITALS: Ht 177.8 cm; Wt 156.5 kg
[2017-08-18 23:14] VITALS: BP 181/81; PULSE 98; RESP 16; TEMP 98.5; O2SAT 98
[~2017-08-18 23:14] MED LIST changes: -WALKER WHEELS/F1 MIS
--- NOTE | 2017-08-19 00:24 | PD ---
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 Patient states that the stool has been leaking around the colostomy bag. Patient status post bowel resection with colostomy placement recently. Patient has appointment to follow- up with surgeon and personal physician. Patient reported no fever nausea vomiting. Patient has been to the emergency room in the past for the same problem. PFSH Past Medical History Asthma: No Blood Disorders: No Bipolar Disorder: Yes Anxiety: No Depression: No Heart Rhythm Problems: No Cancer: No Cardiovascular Problems: No High Cholesterol: Yes Chemotherapy: No Chest Pain: No Congestive Heart Failure: No COPD: No Diabetes: No Diminished Hearing: No Diverticulitis: Yes Endocrine: No Gastrointestinal Disorders: Yes (DIVERTICULITIS ) Genitourinary: Yes Hypertension: Yes Immune Disorder: No Implanted Vascular Access Dvce: No Musculoskeletal: No Neurologic: Yes Psychiatric: Yes (BIPOLAR AND MANIC DEPRESSION ) Reproductive: No Respiratory: No Immunizations Current: No Migraines: Yes (OCASSIONALLY ) Radiation Therapy: No Renal Failure: Yes ("KIDNEY DYSFUNCTION") Sleep Apnea: No Thyroid Disease: No Past Surgical History Abdominal Surgery: Yes (colostomy 07/25/17) Oral Surgery: Yes (teeth removed (upper)) Other Surgery: No Social History Alcohol Use: No Tobacco Use: No (quit) Substance Use: No Allergies-Medications (Allergen,Severity, Reaction): Coded Allergies: acetaminophen (Unverified Allergy, Severe, Headache, 08/07/17) hydromorphone (Verified Allergy, Severe, Anemia, 08/07/17) oxycodone (Unverified Allergy, Severe, Headache, 08/18/17) morphine (Unverified Allergy, Intermediate, Rash, 08/18/17) Reported Meds & Prescriptions Reported Meds & Active Scripts Active [place] (Hydrocodone-Acetaminophen) 7.5-325 mg Tab 2 Tab PO Q4H PRN Risperdal (Risperidone) 2 Mg Tab 2 Mg PO BID Depakote ER (Divalproex Sodium) 500 Mg Casey 500 Mg PO 2 AT HS Reported Baclofen 10 Mg Tab 10 Mg PO Q8HR PRN Amlodipine (Amlodipine Besylate) 5 Mg Tab 5 Mg PO DAILY Atorvastatin (Atorvastatin Calcium) 20 Mg Tab 20 Mg PO HS Remeron (Mirtazapine) 30 Mg Tab 30 Mg PO HS Review of Systems General / Constitutional: No: Fever Eyes: No: Visual changes HENT: No: Headaches Cardiovascular: No: Chest Pain or Discomfort Respiratory: No: Shortness of Breath Gastrointestinal: No: Abdominal Pain Genitourinary: No: Dysuria Musculoskeletal: No: Pain Skin: No Rash Neurologic: No: Weakness Psychiatric: No: Depression Endocrine: No: Polydipsia Hematologic/Lymphatic: No: Easy Bruising Physical Exam Narrative GENERAL: Well-nourished, well-developed patient. SKIN: Focused skin assessment warm/dry. HEAD: Normocephalic. EYES: No scleral icterus. No injection or drainage. NECK: Supple, trachea midline. No JVD or lymphadenopathy. CARDIOVASCULAR: Regular rate and rhythm without murmurs, gallops, or rubs. RESPIRATORY: Breath sounds equal bilaterally. No accessory muscle use. GASTROINTESTINAL: Abdomen soft, non-tender, nondistended. MUSCULOSKELETAL: No cyanosis, or edema. BACK: Nontender without obvious deformity. No CVA tenderness. Small area leakage around the colostomy bag. Mild skin irritation surrounding the stoma. No discharge no induration noted. Data Data Last Documented VS Vital Signs Date Time Temp Pulse Resp B/P (MAP) Pulse Ox O2 Delivery O2 Flow Rate FiO2 08/18/17 23:14 98.5 98 16 181/81 (114) 98 Room Air Orders Orders Colostomy Kit 2 3/4" Moldable (08/18/17 23:45) [facility] Medical Decision Making Medical Screen Exam Complete: Yes Emergency Medical Condition: Yes Differential Diagnosis Differential diagnosis including colostomy bag displacement. Narrative Course 41-year-old male complains of leaking around the colostomy bag. Colostomy bag was changed tonight. Diagnosis Primary Impression: Colostomy complication Patient Instructions: General Instructions Additional Instructions: Follow-up with local physician. Med/Other Pt SpecificInfo: No Change to Meds Disposition: 01 DISCHARGE HOME Condition: Stable Bennett Pacheco MD Aug 19, 2017 00:24
== END 2017-08-19 00:42 | disposition home or self-care (01) ==
LOC: NEPC 23:14
DX: K94.03 Colostomy malfunction (principal)
CPT/HCPCS: 99282

== ENCOUNTER 2017-08-20 23:06 | Emergency (ER) | payer MEDICARE, MEDICAID ==
[~2017-08-20] VITALS: Ht 177.8 cm; Wt 156.5 kg
[~2017-08-20 23:06] MED LIST changes: -HYDR-3535 PO; -LEVA500T20 PO; -METR250 PO; -ZOFR4TAB PO
[2017-08-20 23:07] VITALS: BP 125/89; PULSE 108; RESP 18; TEMP 98.4; O2SAT 97
--- NOTE | 2017-08-21 00:49 | PD ---
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 Patient has been seen several times here for this. He has home health. He lives with his mother area he has a colostomy nurse who he has seen. His mom is frustrated because it always seems in place after somebody fixes it and then it begins to leak later. Patient has no other symptoms to report. PFSH Past Medical History Asthma: No Blood Disorders: No Bipolar Disorder: Yes Anxiety: No Depression: No Heart Rhythm Problems: No Cancer: No Cardiovascular Problems: No High Cholesterol: Yes Chemotherapy: No Chest Pain: No Congestive Heart Failure: No COPD: No Diabetes: No Diminished Hearing: No Diverticulitis: Yes Endocrine: No Gastrointestinal Disorders: Yes (DIVERTICULITIS ) Genitourinary: Yes Hypertension: Yes Immune Disorder: No Implanted Vascular Access Dvce: No Musculoskeletal: No Neurologic: Yes Psychiatric: Yes (BIPOLAR AND MANIC DEPRESSION ) Reproductive: No Respiratory: No Immunizations Current: No Migraines: Yes (OCASSIONALLY ) Radiation Therapy: No Renal Failure: Yes ("KIDNEY DYSFUNCTION") Sleep Apnea: No Thyroid Disease: No Past Surgical History Abdominal Surgery: Yes (colostomy 07/25/17) Oral Surgery: Yes (teeth removed (upper)) Other Surgery: No Social History Alcohol Use: No Tobacco Use: No (quit) Substance Use: No Allergies-Medications (Allergen,Severity, Reaction): Coded Allergies: acetaminophen (Unverified Allergy, Severe, Headache, 08/07/17) hydromorphone (Verified Allergy, Severe, Anemia, 08/07/17) oxycodone (Unverified Allergy, Severe, Headache, 08/20/17) morphine (Unverified Allergy, Intermediate, Rash, 08/20/17) Reported Meds & Prescriptions Reported Meds & Active Scripts Active [place] (Hydrocodone-Acetaminophen) 7.5-325 mg Tab 2 Tab PO Q4H PRN Risperdal (Risperidone) 2 Mg Tab 2 Mg PO BID Depakote ER (Divalproex Sodium) 500 Mg Casey 500 Mg PO 2 AT HS Reported Baclofen 10 Mg Tab 10 Mg PO Q8HR PRN Amlodipine (Amlodipine Besylate) 5 Mg Tab 5 Mg PO DAILY Atorvastatin (Atorvastatin Calcium) 20 Mg Tab 20 Mg PO HS Remeron (Mirtazapine) 30 Mg Tab 30 Mg PO HS Review of Systems Except as stated in HPI: all other systems reviewed are Neg Physical Exam Narrative GENERAL: Obese male patient, in no acute distress SKIN: Focused skin assessment warm/dry. HEAD: Normocephalic. EYES: No scleral icterus. No injection or drainage. NECK: Supple, trachea midline. No JVD or lymphadenopathy. CARDIOVASCULAR: Regular rate and rhythm without murmurs, gallops, or rubs. RESPIRATORY: Breath sounds equal bilaterally. No accessory muscle use. GASTROINTESTINAL: Abdomen soft, non-tender, nondistended. Right lower quadrant colostomy in place. There is dried stool on the patient's midabdomen however the current colostomy is not leaking. Liquid green brown stool in place. Stoma is red and beefy. MUSCULOSKELETAL: No cyanosis, or edema. BACK: Nontender without obvious deformity. No CVA tenderness. Data Data Last Documented VS Vital Signs Date Time Temp Pulse Resp B/P (MAP) Pulse Ox O2 Delivery O2 Flow Rate FiO2 08/21/17 02:19 08/20/17 23:07 98.4 108 18 97 Orders Orders ^ Other Nursing Orders (08/21/17 00:45) Paste, Stomahesive 2 Oz (08/21/17 01:29) ^ Skin Protective Barrier (08/21/17 01:29) Powder, Stomahesive (08/21/17 01:29) MDM Medical Decision Making Medical Screen Exam Complete: Yes Emergency Medical Condition: Yes Medical Record Reviewed: Yes Differential Diagnosis Colostomy malfunction versus skin excoriation versus noncompliance Narrative Course 41-year-old male presents to emergency department for evaluation of a leaking colostomy bag. Patient appears without distress. On this colostomy that is currently in place I noticed there is no paste ring. Colostomy as well as colostomy supplies is ordered. A new one is placed at this time. They are counseled on care and instructed that proper follow-up on a leaking colostomy bag is not the emergency department. They verbalized understanding and agreed to call the colostomy nurse tomorrow for further education and tips on helping the colostomy to stay better in place. Diagnosis Primary Impression: Colostomy malfunction Referrals: General Surgeon Primary Care Physician Patient Instructions: Colostomy Care (ED), General Instructions Additional Instructions: Follow-up with colostomy nurse for further recommendation on how to stop your colostomy from leaking Make sure you are applying barrier, lightheaded dry completely, then paste. Allow the paced to slightly tried to become sticky prior to applying. Then apply your colostomy contraption Return immediately to the emergency department with any acute worsening of symptoms Med/Other Pt SpecificInfo: No Change to Meds Disposition: 01 DISCHARGE HOME Condition: Stable Lu Prince Aug 21, 2017 00:49
== END 2017-08-21 02:19 | disposition home or self-care (01) ==
LOC: NEPD 23:06
DX: Z43.3 Encounter for attention to colostomy (principal); Z90.49 Acquired absence of other specified parts of digestive tract; I10 Essential (primary) hypertension; E78.00 Pure hypercholesterolemia, unspecified
CPT/HCPCS: 99282

== ENCOUNTER → 2017-09-25 | Day surgery (SDC) | payer MEDICARE, OTHER ==
[~2017-09-25] MED LIST changes: +LACTATED RINGER'S 1000 ML INJ 1,000 ML ONE; +PROPOFOL 500 MG/50 ML BTL IV ONE
--- NOTE | 2017-09-25 13:24 | GIPROC ---
[facility] [address] [facility], [address] COLONOSCOPY PROCEDURE REPORT EXAM DATE: 09/25/2017 PATIENT NAME: Sadiq Louise MR #: [id number] BIRTHDATE: 1975 ENDOSCOPIST: Lam Hernandez MD ORDER #: [id number] WAREHOUSE AND RECEIVING SUPERVISOR: Manuel Fontana RN STATUS: outpatient INDICATIONS: The patient is a 42 yr old male here for a colonoscopy due to abdominal pain PROCEDURE PERFORMED: Colonoscopy, diagnostic Diagnostic colonoscopy via stoma MEDICATIONS: None and Per Anesthesia. PREP QUALITY: poor ESTIMATED BLOOD LOSS: None CONSENT: The patient understands the risks and benefits of the procedure and understands that these risks include, but are not limited to: sedation, allergic reaction, infection, perforation and/or bleeding. Alternative means of evaluation and treatment include, among others: physical exam, x-rays, and/or surgical intervention. The patient elects to proceed with this endoscopic procedure. medical equipment was checked for proper function. Hand hygiene and appropriate measures for infection prevention was taken. After the risks, benefits and alternatives of the procedure were thoroughly explained, Informed consent was verified, confirmed and timeout was successfully executed by the treatment team. A digital exam revealed external hemorrhoids The [id number] ([id number]) endoscope was introduced through the anus and advanced to the cecum, which was identified by both the appendix and ileocecal valve. The instrument was then slowly withdrawn as the colon was fully examined. COLON FINDINGS: First scope passed through the illeostomy into the illeum to about 25 cm. Normal mucosa. Then scope passed from the rectum to about 20 cm. Normal mucosa, soild stools. Retroflexed views revealed internal hemorrhoids and Retroflexed views revealed small internal hemorrhoids The scope was then completely withdrawn from the patient and the procedure terminated. ADVERSE EVENTS: There were no complications. IMPRESSIONS: 1. First scope passed through the illeostomy into the illeum to about 25 cm. Normal mucosa. Then scope passed from the rectum to about 20 cm. Normal mucosa, soild stools 2. Retroflexed views revealed internal hemorrhoids 3. Retroflexed views revealed small internal hemorrhoids 4. Revealed external hemorrhoids RECOMMENDATIONS: 1. High fiber diet 2. Cleared for illeostomy reversal. RECALL: Return 1 year Colonoscopy Lam Hernandez MD eSigned: Lam Hernandez MD 09/25/2017 1:23 PM cc: Ninoska Dooley [facility] Hospital[facility]le Sant[facility] M.D, and Stepan Florez M.D. PATIENT NAME: Sadiq Louise MR#: [id number]
== END | disposition home or self-care (01) ==
LOC: ESDC 10:22
PROVIDERS: ATTEND Internal Medicine Gastroenterology
DX: R10.9 Unspecified abdominal pain (principal); K64.4 Residual hemorrhoidal skin tags; K64.8 Other hemorrhoids
CPT/HCPCS: 00810; 45378; J7120

== ENCOUNTER 2017-12-11 13:30 | Inpatient (IN) | payer MEDICARE, MEDICAID ==
[~2017-12-11] VITALS: Ht 177.8 cm; Wt 152.4 kg
[~2017-12-11 13:30] MED LIST changes: -BACL10TA PO; -LACTATED RINGER'S 1000 ML INJ 1,000 ML ONE; -PROPOFOL 500 MG/50 ML BTL IV ONE
[2017-12-15] MEDS ORDERED: HYDR-3516 PO (04:13)
[2018-01-15] MEDS ORDERED: DICL100T3 PO (10:27)
[2018-01-15] MEDS ORDERED: CHLORHEXIDINE GLUCONATE 2 % 1 PACK (2 CLOTHS) TOPICAL PRN (10:45)
[2018-01-15] MEDS ORDERED: metroNIDAZOLE 500 MG INJ 100 ML IV SCH (10:45)
[2018-01-15] MEDS ORDERED: LACTATED RINGER'S 1000 ML IV PRN (10:45)
[2018-01-15] MEDS ORDERED: SODIUM CHLORID 0.9% 500 ML IV PRN (10:45)
[2018-01-15] MEDS ORDERED: POVIDONE IODINE 5% (ANTISEPSIS KIT) 4 APPLICATIONS EACH NARE PRN (10:45)
[2018-01-15] MEDS ORDERED: APREPITANT 40 MG CAP PO SCH (10:45)
[2018-01-15] MEDS ORDERED: METOPROLOL TARTRATE 25 MG TAB PO PRN (10:45)
[2018-01-15] MEDS ORDERED: ONDANSETRON HCL 4 MG/2 ML VIAL IV PUSH SCH (11:00)
[2018-01-15] MEDS ORDERED: ACETAMINOPHEN 1000 MG/100 ML 100 ML IV SCH (11:15)
[2018-01-15] MEDS ORDERED: CIPROFLOXACIN/DEXT 400 MG/200 ML IV SCH (11:15)
[2018-01-15] MEDS ORDERED: BUPIVACAINE/EPINEPHRINE 0.25% 50 ML VIAL ONE (11:58)
[2018-01-15] MEDS ORDERED: STERILE WATER FOR INJECTION 20 ML VIAL IV ONE (12:00)
[2018-01-15] MEDS ORDERED: LIDOCAINE HCL 1% PF 5 ML SYRINGE OTHER ONE (12:00)
[2018-01-15] MEDS ORDERED: DEXAMETHASONE SOD PHOS 4 MG/ML VIAL IV ONE (12:00)
[2018-01-15] MEDS ORDERED: ROCURONIUM INJ 50 MG/5 ML SYRINGE IV PUSH ONE (12:00)
[2018-01-15] MEDS ORDERED: ONDANSETRON HCL 4 MG/2 ML VIAL IV ONE (12:00)
[2018-01-15] MEDS ORDERED: LACTATED RINGER'S 1000 ML INJ 2,000 ML IV ONE (12:00)
[2018-01-15] MEDS ORDERED: VECURONIUM BROMIDE 20 MG VIAL IV ONE (12:00)
[2018-01-15] MEDS ORDERED: PHENYLEPH/NS 1000 MCG/10 ML SYR IV ONE (12:00)
[2018-01-15] MEDS ORDERED: PROPOFOL 200 MG/20 ML AMP IV ONE (12:00)
[2018-01-15] MEDS ORDERED: GLUCAGON 1 MG/ML VIAL ONE (12:01)
[2018-01-15] MEDS ORDERED: SUGAMMADEX SODIUM 200 MG/2 ML VIAL IV PUSH ONE (14:56)
[2018-01-15] MEDS ORDERED: MIDAZOLAM HCL 2 MG/2 ML VIAL ONE ×2 (15:33→15:34)
[2018-01-15] MEDS ORDERED: ONDANSETRON HCL 4 MG/2 ML VIAL IV PUSH PRN (18:00)
[2018-01-15] MEDS ORDERED: Post-op Orders (for Pharmacy) XX ONE ×2 (18:00)
[2018-01-15] MEDS ORDERED: KETOROLAC TROMETHAMINE 30 MG/ML (IVP) VIAL IVP PRN (18:00)
[2018-01-15] MEDS ORDERED: NALOXONE HCL 0.4 MG/ML AMP IV PUSH PRN (18:00)
[2018-01-15] MEDS ORDERED: METOCLOPRAMIDE HCL 10 MG/2 ML VIAL IVS PRN (18:00)
[2018-01-15] MEDS ORDERED: SODIUM CHLORIDE 0.9% FLUSH 10 ML FLUSH IV FLUSH PRN ×2 (18:00)
[2018-01-15] MEDS ORDERED: HYDROmorphone HCL PF 2 MG/ML VIAL ONE (18:24)
[2018-01-15] MEDS: SODIUM CHLOR 0.9% 1000 ML INJ 1,000 ML IV SCH (19:00)
[2018-01-15] MEDS ORDERED: *MEPERIDINE 25 MG INJ VIAL PERIprocedural Use ONLY ONE (19:12)
[2018-01-15] MEDS: HYDROmorphone HCL PCA 6 MG/30 ML IV SCH ×2 (19:22→22:00)
[2018-01-15 20:00] VITALS: BP 152/73; PULSE 91; RESP 18; TEMP 98.4; O2SAT 91
[2018-01-15] MEDS: SODIUM CHLORIDE 0.9% FLUSH 10 ML FLUSH IV FLUSH SCH ×2 (21:00→22:48)
[2018-01-15] MEDS ORDERED: DO NOT ADM ANY ANTICOAGULANT DRUGS PRN (21:00)
[2018-01-15] MEDS: PCA - TOTAL MG DILAUDID DELIVERED PER SHIFT SCH (22:00)
[2018-01-15 22:18] VITALS: O2SAT 96
[2018-01-15] MEDS: risperiDONE 1 MG TAB PO SCH (22:46)
[2018-01-15] MEDS: MIRTAZAPINE ODT 30 MG TAB PO SCH (22:47)
[2018-01-15] MEDS: metroNIDAZOLE 500 MG INJ 100 ML IV SCH (22:48)
[2018-01-16] VITALS (8 sets, daily range): BP systolic 88–155; BP diastolic 51–74; PULSE 91–123; RESP 18–22; TEMP 97.5–98.5; O2SAT 93–96
[2018-01-16] MEDS: SODIUM CHLOR 0.9% 1000 ML INJ 1,000 ML IV SCH ×4 (01:53→21:40)
[2018-01-16] MEDS: metroNIDAZOLE 500 MG INJ 100 ML IV SCH ×2 (05:47→12:54)
[2018-01-16] MEDS: PCA - TOTAL MG DILAUDID DELIVERED PER SHIFT SCH ×3 (05:49→22:00)
[2018-01-16] MEDS: HYDROmorphone HCL PCA 6 MG/30 ML IV SCH ×3 (06:26→22:41)
[2018-01-16 08:16] LABS: BASOPHIL % 0.1 % (0.0-2.0); EOSINOPHIL # 0.1 TH/MM3 (0-0.4); EOSINOPHIL % 0.6 % (0.0-4.0); HEMATOCRIT 28.7 % (39.0-51.0); HEMOGLOBIN 9.8 GM/DL (13.0-17.0); LYMPH % 5.9 % (9.0-44.0); LYMPHOCYTE # 0.7 TH/MM3 (1.0-4.8); MEAN CELL VOLUME 95.9 FL (80.0-100.0); MEAN CORPUSCULAR HEMOGLOBIN 32.6 PG (27.0-34.0); MEAN PLATELET VOLUME 8.4 FL (7.0-11.0); MONO % 7.4 % (0.0-8.0); MONOCYTE # 0.9 TH/MM3 (0-0.9); PLATELET COUNT 206 TH/MM3 (150-450); RED BLOOD COUNT 2.99 MIL/MM3 (4.50-5.90); RED CELL DISTRIBUTION WIDTH 15.8 % (11.6-17.2); WHITE BLOOD COUNT 11.6 TH/MM3 (4.0-11.0)
[2018-01-16] MEDS: DIVALPROEX SODIUM E.R. 500 MG TAB PO SCH (08:51)
[2018-01-16] MEDS: SODIUM CHLORIDE 0.9% FLUSH 10 ML FLUSH IV FLUSH SCH ×4 (08:51→22:09)
[2018-01-16] MEDS: risperiDONE 1 MG TAB PO SCH ×2 (08:51→22:09)
[2018-01-16] MEDS: amLODIPine BESYLATE 5 MG TAB PO SCH (08:51)
--- NOTE | 2018-01-16 11:42 | HHI.PR ---
Subjective Subjective Notes Tolerating clears No GI complaints Objective Vitals/I&O Vital Signs Date Time Temp Pulse Resp B/P (MAP) Pulse Ox O2 Delivery O2 Flow Rate FiO2 01/16/18 07:51 97.6 111 18 123/59 (80) 94 01/15/18 22:18 21 01/15/18 20:40 Nasal Cannula 2 Labs Laboratory Tests Test 01/16/18 06:52 White Blood Count 11.6 Red Blood Count 2.99 Hemoglobin 9.8 Hematocrit 28.7 Mean Corpuscular Volume 95.9 Mean Corpuscular Hemoglobin 32.6 Mean Corpuscular Hemoglobin Concent 34.0 Red Cell Distribution Width 15.8 Platelet Count 206 Mean Platelet Volume 8.4 Neutrophils (%) (Auto) 86.0 Lymphocytes (%) (Auto) 5.9 Monocytes (%) (Auto) 7.4 Eosinophils (%) (Auto) 0.6 Basophils (%) (Auto) 0.1 Neutrophils # (Auto) 10.0 Lymphocytes # (Auto) 0.7 Monocytes # (Auto) 0.9 Eosinophils # (Auto) 0.1 Basophils # (Auto) 0.0 CBC Comment DIFF FINAL Differential Comment Abdomen: Post-op tenderness Extremities: No edema Wound Wound : Wound Location: Abdomen Appearance: Clean & Dry A/P Assessment and Plan 42yo M POD#1 Robot assisted sigmoidectomy -Advance to full liquid -Ambulate halls at least QID -Restart home meds -CBC in AM The exam, history, and the medical decision-making described in the above note were completed with the assistance of the mid-level provider. I reviewed and agree with the findings presented. I attest that I had a [id number] encounter with the patient on the same day, and personally performed and documented my assessment and findings in the medical record. Yuriy Rueda Jan 16, 2018 11:42 Stepan Florez MD Jan 19, 2018 08:14
[2018-01-16] MEDS ORDERED: SODIUM CHLOR 0.9% 1000 ML INJ 1,000 ML IV ONE (12:15)
[2018-01-16 13:45] LABS: AUTOMATED NEUTROPHIL # 10.2 TH/MM3 (1.8-7.7); BASOPHIL % 0.1 % (0.0-2.0); EOSINOPHIL % 0.1 % (0.0-4.0); HEMATOCRIT 28.4 % (39.0-51.0); HEMOGLOBIN 9.6 GM/DL (13.0-17.0); LYMPH % 8.8 % (9.0-44.0); LYMPHOCYTE # 1.1 TH/MM3 (1.0-4.8); MEAN CELL VOLUME 97.7 FL (80.0-100.0); MEAN CORPUSCULAR HEMOGLOBIN 33.2 PG (27.0-34.0); MEAN PLATELET VOLUME 8.1 FL (7.0-11.0); MONO % 8.1 % (0.0-8.0); NEUT % 82.9 % (16.0-70.0); PLATELET COUNT 222 TH/MM3 (150-450); RED BLOOD COUNT 2.91 MIL/MM3 (4.50-5.90); RED CELL DISTRIBUTION WIDTH 16.3 % (11.6-17.2); WHITE BLOOD COUNT 12.3 TH/MM3 (4.0-11.0)
[2018-01-16 14:02] LABS: BICARBONATE 21.2 MEQ/L (21.0-32.0); CALCIUM 8.3 MG/DL (8.5-10.1); CREATININE 2.89 MG/DL (0.60-1.30)
[2018-01-16] MEDS: ENOXAPARIN SODIUM 40 MG/0.4 ML SYRINGE SQ SCH (17:57)
[2018-01-16] MEDS: MIRTAZAPINE ODT 30 MG TAB PO SCH (22:09)
[2018-01-17] VITALS: BP 132/75; PULSE 118; RESP 22; TEMP 98.9; O2SAT 93
[2018-01-17 04:00] VITALS: BP 139/63; PULSE 108; RESP 22; TEMP 97.9; O2SAT 93
[2018-01-17] MEDS: SODIUM CHLOR 0.9% 1000 ML INJ 1,000 ML IV SCH ×3 (04:20→18:02)
[2018-01-17 04:36] LABS: HEMATOCRIT 26.5 % (39.0-51.0); HEMOGLOBIN 9.2 GM/DL (13.0-17.0); MEAN CELL VOLUME 97.6 FL (80.0-100.0); MEAN CORPUSCULAR HEMOGLOBIN 33.8 PG (27.0-34.0); MEAN CORPUSCULAR HGB CONC 34.6 % (32.0-36.0); MEAN PLATELET VOLUME 8.6 FL (7.0-11.0); PLATELET COUNT 178 TH/MM3 (150-450); RED BLOOD COUNT 2.71 MIL/MM3 (4.50-5.90); RED CELL DISTRIBUTION WIDTH 16.5 % (11.6-17.2); WHITE BLOOD COUNT 12.3 TH/MM3 (4.0-11.0)
[2018-01-17] MEDS: PCA - TOTAL MG DILAUDID DELIVERED PER SHIFT SCH ×3 (06:00→22:00)
[2018-01-17] MEDS: HYDROmorphone HCL PCA 6 MG/30 ML IV SCH ×2 (07:47→22:39)
[2018-01-17 08:00] VITALS: BP 140/67; PULSE 109; RESP 18; TEMP 99.3; O2SAT 95
[2018-01-17] MEDS: SODIUM CHLORIDE 0.9% FLUSH 10 ML FLUSH IV FLUSH SCH ×4 (09:00→19:43)
[2018-01-17] MEDS: amLODIPine BESYLATE 5 MG TAB PO SCH (09:35)
[2018-01-17] MEDS: risperiDONE 1 MG TAB PO SCH ×2 (09:35→19:43)
[2018-01-17] MEDS: DIVALPROEX SODIUM E.R. 500 MG TAB PO SCH (09:36)
[2018-01-17 12:00] VITALS: BP 136/64; PULSE 123; RESP 18; TEMP 98.6; O2SAT 95
--- NOTE | 2018-01-17 13:15 | HHI.PR ---
Subjective Subjective Notes Tolerating full liquids Pain well controlled Adequate output from ileostomy Objective Vitals/I&O Vital Signs Date Time Temp Pulse Resp B/P (MAP) Pulse Ox O2 Delivery O2 Flow Rate FiO2 01/17/18 08:17 20 01/17/18 04:00 97.9 108 139/63 (88) 93 01/15/18 22:18 21 01/15/18 20:40 Nasal Cannula 2 Labs Laboratory Tests Test 01/17/18 04:06 White Blood Count 12.3 Red Blood Count 2.71 Hemoglobin 9.2 Hematocrit 26.5 Mean Corpuscular Volume 97.6 Mean Corpuscular Hemoglobin 33.8 Mean Corpuscular Hemoglobin Concent 34.6 Red Cell Distribution Width 16.5 Platelet Count 178 Mean Platelet Volume 8.6 Abdomen: Post-op tenderness Extremities: Perfused Wound Wound : Wound Location: Abdomen Appearance: Clean & Dry A/P Assessment and Plan 42yo M POD#2 Robot assisted sigmoidectomy -Advance to regular diet -Continue with frequent ambulation -Renal was consulted due to elevated BUN and creatinine -D/C IVF The exam, history, and the medical decision-making described in the above note were completed with the assistance of the mid-level provider. I reviewed and agree with the findings presented. I attest that I had a [id number] encounter with the patient on the same day, and personally performed and documented my assessment and findings in the medical record. Discharge Planning Possibly tomorrow Yuriy Rueda Jan 17, 2018 13:15 Stepan Florez MD Jan 19, 2018 08:14
--- NOTE | 2018-01-17 13:18 | HHI.DS ---
Discharge Summary Admission Date Jan 15, 2018 at 09:39 Discharge Date: Jan 18, 2018 Admitting Diagnosis diverticulitis CBC/BMP: 01/17/18 0406 01/16/18 1231 Significant Findings Laboratory Tests Test 01/16/18 06:52 01/16/18 12:31 01/17/18 04:06 White Blood Count 11.6 TH/MM3 (4.0-11.0) 12.3 TH/MM3 (4.0-11.0) 12.3 TH/MM3 (4.0-11.0) Red Blood Count 2.99 MIL/MM3 (4.50-5.90) 2.91 MIL/MM3 (4.50-5.90) 2.71 MIL/MM3 (4.50-5.90) Hemoglobin 9.8 GM/DL (13.0-17.0) 9.6 GM/DL (13.0-17.0) 9.2 GM/DL (13.0-17.0) Hematocrit 28.7 % (39.0-51.0) 28.4 % (39.0-51.0) 26.5 % (39.0-51.0) Neutrophils (%) (Auto) 86.0 % (16.0-70.0) 82.9 % (16.0-70.0) Lymphocytes (%) (Auto) 5.9 % (9.0-44.0) 8.8 % (9.0-44.0) Neutrophils # (Auto) 10.0 TH/MM3 (1.8-7.7) 10.2 TH/MM3 (1.8-7.7) Lymphocytes # (Auto) 0.7 TH/MM3 (1.0-4.8) Monocytes (%) (Auto) 8.1 % (0.0-8.0) Monocytes # (Auto) 1.0 TH/MM3 (0-0.9) Blood Urea Nitrogen 36 MG/DL (7-18) Creatinine 2.89 MG/DL (0.60-1.30) Random Glucose 134 MG/DL (74-106) Calcium Level 8.3 MG/DL (8.5-10.1) Chloride Level 108 MEQ/L (98-107) Estimat Glomerular Filtration Rate 24 ML/MIN (>89) PE at Discharge GENERAL: No acute distress GASTROINTESTINAL: Abdomen soft, mild post-op tenderness, nondistended. Adequate output from ileostomy MUSCULOSKELETAL: Extremities without clubbing, cyanosis, or edema. No obvious deformities. Hospital Course The procedure was performed without incident. That patient was able to recover via the normal course and was discharged home without complication Pt Condition on Discharge: Stable Discharge Disposition: Discharge Home Discharge Instructions DIET: Follow Instructions for: Heart Healthy Diet Activities you can perform: Shower Only-No Bath Activities to Avoid: Strenuous Activity Follow up Referrals: Surgical - 2 Weeks @ [facility] Surgery with Stepan Florez MD Continued Medications: Amlodipine (Amlodipine) 5 Mg Tab 5 MG PO DAILY for Blood Pressure Management, #30 TAB 0 Refills Atorvastatin (Atorvastatin) 20 Mg Tab 20 MG PO HS for Cholesterol Management, #30 TAB 0 Refills Diclofenac Sodium ER 24 HR (Diclofenac Sodium ER 24 HR) 100 Mg Casey 100 MG PO DAILY, TAB 0 Refills Divalproex ER (Depakote ER) 500 Mg Casey 500 MG PO 2 at hs for mental health, #60 TAB 2 Refills Hydrocodone-Acetaminophen (Hydrocodone-Acetaminophen) 5-325 mg Tab 1-2 TAB PO Q6H PRN for PAIN, #15 TAB 0 Refills Mirtazapine (Remeron) 30 Mg Tab 30 MG PO HS for Depression Control, #30 TAB 0 Refills Risperidone (Risperdal) 2 Mg Tab 2 MG PO BID for mental health, #60 TAB 2 Refills Additional Information This patient was examined by Dr. Florez and this note is dictated on his behalf Yuriy Rueda Jan 17, 2018 13:18
[2018-01-17 15:52] LABS: BICARBONATE 24.6 MEQ/L (21.0-32.0); CALCIUM 8.5 MG/DL (8.5-10.1); CREATININE 2.89 MG/DL (0.60-1.30)
[2018-01-17 16:00] VITALS: BP 131/60; PULSE 107; RESP 19; TEMP 97.8; O2SAT 93
[2018-01-17] MEDS: ENOXAPARIN SODIUM 40 MG/0.4 ML SYRINGE SQ SCH (18:01)
[2018-01-17] MEDS: MIRTAZAPINE ODT 30 MG TAB PO SCH (19:42)
[2018-01-17 20:00] VITALS: BP 127/61; PULSE 113; RESP 22; TEMP 98.9; O2SAT 93
--- NOTE | 2018-01-17 22:39 | PD.CONS ---
HPI Service Nephrology Consult Requested By Dr. Augustine Reason for Consult Acute and Chronic kidney disease Primary Care Physician Michelle Joseph MD History of Present Illness Patient is a 42-year-old morbidly obese male with history of bipolar disorder, hypertension, chronic kidney disease and follows with the Dr. LERMA, he has recurrent diverticulitis and has previous ileostomy. Ruptured colon, he was readmitted to do robotic-assisted sigmoidectomy, this was done and he tolerated the procedure well. His creatinine ranges 1.97-2.89, currently at 2.89. I was asked by Dr. LERMA to see the patient on his behalf. Review of Systems Gastrointestinal: COMPLAINS OF: Abdominal pain Musculoskeletal: COMPLAINS OF: Joint pain Past Family Social History Allergies: Coded Allergies: acetaminophen (Unverified Allergy, Severe, Headache, 01/15/18) MOTHER STATES PT IS NOT ALLERGIC TO ACETAMINOPHEN AND "TAKES IT FOR HEADACHES" oxycodone (Unverified Allergy, Severe, Headache, 01/15/18) morphine (Unverified Allergy, Intermediate, Rash, 01/15/18) Past Medical History Hypertension Hyperlipidemia Chronic kidney disease Bipolar disorder Recurrent diverticulitis Morbid obesity Past Surgical History Dental surgery Ileostomy Reported Medications Reported Meds & Active Scripts Active Hydrocodone-Acetaminophen 5-325 mg Tab 1-2 Tab PO Q6H PRN Risperdal (Risperidone) 2 Mg Tab 2 Mg PO BID Depakote ER (Divalproex Sodium) 500 Mg Casey 500 Mg PO 2 AT HS Reported Diclofenac Sodium ER 24 HR (Diclofenac Sodium) 100 Mg Casey 100 Mg PO DAILY Amlodipine (Amlodipine Besylate) 5 Mg Tab 5 Mg PO DAILY Atorvastatin (Atorvastatin Calcium) 20 Mg Tab 20 Mg PO HS Remeron (Mirtazapine) 30 Mg Tab 30 Mg PO HS Active Ordered Medications Current Medications Medications (Trade) Dose Ordered Sig/Delvis Route Start Time Stop Time Status Last Admin (Narcan Inj) 0.4 mg UNSCH PRN IV PUSH 01/15/18 18:00 (Dilaudid ENTERPRISE MOBILITY ARCHITECT Inj) 6 mg UNSCH IV 01/15/18 18:00 01/17/18 07:47 ENTERPRISE M[employer]ILITY ARCHITECT Dosage Infused (Pha) 1 Q8HR .XX 01/15/18 22:00 01/17/18 14:00 (NS Flush) 2 ml UNSCH PRN IV FLUSH 01/15/18 18:00 (NS Flush) 2 ml BID IV FLUSH 01/15/18 21:00 01/17/18 09:36 Sodium Chloride 1,000 ml @ 75 mls/hr [id number] IV 01/15/18 19:00 01/17/18 18:02 (NS Flush) 2 ml BID IV FLUSH 01/15/18 21:00 (Toradol Inj) 30 mg Q6H PRN IVP 01/15/18 18:00 01/20/18 17:59 01/17/18 11:14 (Zofran Inj) 4 mg Q4H PRN IV PUSH 01/15/18 18:00 01/16/18 11:12 (Reglan Inj) 10 mg Q6H PRN IVS 01/15/18 18:00 (Lovenox Inj) 40 mg Q24H SQ 01/16/18 18:00 01/17/18 18:01 (Norvasc) 5 mg DAILY PO 01/16/18 09:00 01/17/18 09:35 (Depakote Er) 500 mg DAILY PO 01/16/18 09:00 01/17/18 09:36 (Remeron Soltab Odt) 30 mg HS PO 01/15/18 21:00 01/17/18 19:42 (risperDAL) 2 mg BID PO 01/15/18 21:00 01/17/18 19:43 Family History Noncontributory Social History Denies smoking or alcohol Physical Exam Vital Signs Vital Signs Date Time Temp Pulse Resp B/P (MAP) Pulse Ox O2 Delivery O2 Flow Rate FiO2 01/17/18 20:00 98.9 113 22 127/61 (83) 93 01/17/18 16:00 97.8 107 19 131/60 (83) 93 01/17/18 14:00 18 01/17/18 12:15 18 01/17/18 12:00 98.6 123 18 136/64 (88) 95 01/17/18 08:17 20 01/17/18 08:00 99.3 109 18 140/67 (91) 95 01/17/18 07:47 20 01/17/18 06:00 20 01/17/18 04:00 97.9 108 22 139/63 (88) 93 01/17/18 00:00 98.9 118 22 132/75 (94) 93 01/16/18 22:41 20 Physical Exam GENERAL: Well-nourished, morbidly obese well-developed patient. SKIN: Warm and dry. HEAD: Normocephalic. EYES: No scleral icterus. No injection or drainage. NECK: Supple, trachea midline. No JVD or lymphadenopathy. CARDIOVASCULAR: Regular rate and rhythm without murmurs, gallops, or rubs. RESPIRATORY: Breath sounds equal bilaterally. No accessory muscle use. GASTROINTESTINAL: Abdomen soft, nondistended. Ileostomy in place EXTREMITIES: No cyanosis, or edema. NEUROLOGICAL: Awake, alert, and oriented x 3. Non-focal. Laboratory Laboratory Tests Test 01/17/18 04:06 01/17/18 14:32 White Blood Count 12.3 Red Blood Count 2.71 Hemoglobin 9.2 Hematocrit 26.5 Mean Corpuscular Volume 97.6 Mean Corpuscular Hemoglobin 33.8 Mean Corpuscular Hemoglobin Concent 34.6 Red Cell Distribution Width 16.5 Platelet Count 178 Mean Platelet Volume 8.6 Blood Urea Nitrogen 31 Creatinine 2.89 Random Glucose 142 Calcium Level 8.5 Sodium Level 142 Potassium Level 4.0 Chloride Level 111 Carbon Dioxide Level 24.6 Anion Gap 6 Estimat Glomerular Filtration Rate 24 Result Diagram: 01/17/18 0406 01/17/18 1432 Assessment and Plan Problem List: (1) VICTOR MANUEL (acute kidney injury) ICD Codes: N17.9 - Acute kidney failure, unspecified Status: Acute Plan: Likely due to ileostomy and dehydration he is getting IV fluids normal saline at 75 cc an hour Continue to hydrate and monitor. Avoid any dye studies, non-steroidal anti-inflammatory drugs. (2) CKD (chronic kidney disease), stage III ICD Codes: N18.3 - Chronic kidney disease, stage 3 (moderate) Status: Chronic Plan: Follows with Dr. LERMA he can be discharged in the morning (3) Diverticulitis ICD Codes: K57.92 - Diverticulitis of intestine, part unspecified, without perforation or abscess without bleeding Status: Acute Plan: Status post diverting ileostomy and now sigmoidectomy Chucho Sanchez MD Jan 17, 2018 22:39
[2018-01-18] VITALS: BP 135/61; PULSE 98; RESP 20; TEMP 98.1; O2SAT 99
[2018-01-18 04:00] VITALS: BP 134/58; PULSE 108; RESP 20; TEMP 97.7; O2SAT 96
[2018-01-18] MEDS: PCA - TOTAL MG DILAUDID DELIVERED PER SHIFT SCH (05:41)
[2018-01-18 08:00] VITALS: BP 122/69; PULSE 101; RESP 24; TEMP 97; O2SAT 98
[2018-01-18] MEDS: SODIUM CHLORIDE 0.9% FLUSH 10 ML FLUSH IV FLUSH SCH ×2 (09:00)
[2018-01-18] MEDS: DIVALPROEX SODIUM E.R. 500 MG TAB PO SCH (09:22)
[2018-01-18] MEDS: amLODIPine BESYLATE 5 MG TAB PO SCH (09:23)
[2018-01-18] MEDS: risperiDONE 1 MG TAB PO SCH (09:23)
[2018-01-18] MEDS ORDERED: HYDR-3580 PO (10:37)
[2018-01-18 12:00] VITALS: BP 117/58; PULSE 112; RESP 22; TEMP 98; O2SAT 95
[2018-01-18] MEDS: SODIUM CHLOR 0.9% 1000 ML INJ 1,000 ML IV SCH (12:41)
[2018-01-18 14:30] VITALS: BP 118/61; PULSE 109
[2018-01-18 16:00] VITALS: BP 131/58; PULSE 111; RESP 24; TEMP 96.6; O2SAT 96
[2018-01-18] MEDS ORDERED: ACETAMINOPHEN/HYDROcodone 325 MG/7.5 MG TAB PO PRN (16:15)
--- NOTE | 2018-01-18 17:04 | HHI.PR ---
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
--- NOTE | 2018-02-25 16:30 | MP ---
cc: Stepan Florez MD DATE OF OPERATION: 01/15/2018 PREOPERATIVE DIAGNOSIS: Sigmoid diverticulitis, recurrent. POSTOPERATIVE DIAGNOSIS: Sigmoid diverticulitis, recurrent. PROCEDURES PERFORMED: 1. Robotic-assisted laparoscopic sigmoid resection. 2. Rigid sigmoidoscopy. SURGEON: Stepan Florez MD CLIENT SERVICE ASSOCIATE: Obinna Bell MD ANESTHESIA: General endotracheal. ESTIMATED BLOOD LOSS: Scant. FINDINGS: The patient had inflammatory changes around the sigmoid colon. SPECIMENS: None. COMPLICATIONS: None. DESCRIPTION OF PROCEDURE: The patient was brought to the operating room, placed on the operating table in supine position. Bilateral sequential inflation device placed on lower extremities. General anesthesia instituted. Tejada catheter placed. Antibiotics initiated. The patient's ileostomy was isolated. The abdomen was then prepped and draped sterilely. A point in the epigastrium anesthetized with 0.25% Marcaine with epinephrine. Skin incision was made, 5 mm Optiview port placed under direct vision and pneumoperitoneum created. Under direct vision, 10 mm robotic port placed in the left lower quadrant, a 5 mm port was placed in the right lower quadrant, 8 mm robotic port placed in the left upper quadrant, 8 mm robotic port placed in the flank. The 5 mm port in the epigastrium was switched out to a 12 mm port. Prior to placement of all ports, the skin and peritoneum anesthetized with 0.25% Marcaine with epinephrine. The patient had some adhesion of the small bowel to the abdominal wall and pelvis. This was taken down sharply. 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 Once the small bowel was mobilized, it was then retracted into the patient's epigastrium, taken out of the pelvis. The patient was placed in Trendelenburg position with his left side slightly up. The laparoscopic tower was then removed from the patient at bedside. The da Wayne robot was then brought to the bedside and docked in place. Attention focused on identifying the ureter on the left. This was done in a medial to lateral manner dissecting the mesentery. Once it was identified, the sigmoidal vessels were isolated and these were divided using the EnSeal. Once this was completed, the dissection was carried into the pelvis, the mesoappendix. A clear area of rectum was identified. The peritoneum was dissected off of the rectum in this region, and the colon was then divided with robotic stapler green load. The mesentery was then dissected further. The white line of Toldt was taken down using the EnSeal and hook. Splenic flexure was mobilized. Once this was completed, area in the descending colon that appeared free from disease was identified. The mesentery was cleaned off in this region. An incision was then made in the patient's left upper quadrant. The colon was brought out in this region and then divided between a pursestring and clamps. The sigmoid was then sent off the field. The patient was given an amp of Glucagon. A sizer was used. A 26 mm EEA was then opened on the back table. The anvil was placed in the proximal bowel and secured with a pursestring suture. It was then introduced back into the abdominal cavity. Hernan wound protector was placed prior to bringing the bowel through this incision. The cap was then placed on the wound protector. I then went to the bottom and performed a rigid sigmoidoscopy identifying the rectal stump. The stapler was then brought through to the rectal stump and it was then deployed above the staple line. The anvil and the stapler were then connected and engaged. The stapler was then fired. Two donuts were identified. The bowel was then clamped by Dr. Bell. A rigid sigmoidoscopy was performed once again by me. The scope was passed through the patient's stoma. Did not appear to have any defects. It was brought back just proximal to this and air was insufflated. Saline was placed into the peritoneal cavity. There was no evidence of extravasation. At this point, the robot was then undocked. The laparoscopic tower was then brought back into place. The fascia at the 12 mm port site was approximated with 0 Vicryl using the fascial closure device as well as the fascia at the 10 mm robotic site. This was closed using 0 Vicryl using a fascial closure device. All CO2 was removed. All ports were then removed. The left upper quadrant incision was then closed in 2 layers using 2-0 Vicryl sutures. The wound was irrigated with saline. [place] were used to close the skin. The abdominal wall was then cleaned and sterile dressing placed. The patient was awakened and taken to the recovery room. MD YESSY Treadwell/EBER , 03:47 PM , 04:29 PM LAURIE
== END 2018-01-18 18:36 | disposition home or self-care (01) | DRG 330 ==
LOC: HSDI 01-15 09:39 → N07B 01-15 20:50
PROVIDERS: ADMIT Surgery; ATTEND Surgery
PROC: 8E0W4CZ Robotic Assisted Procedure of Trunk Region, Percutaneous Endoscopic Approach (ICD-10-PCS; 2018-01-15)
PROC: 0DJD8ZZ Inspection of Lower Intestinal Tract, Via Natural or Artificial Opening Endoscopic (ICD-10-PCS; 2018-01-15)
PROC: 0DBN4ZZ Excision of Sigmoid Colon, Percutaneous Endoscopic Approach (ICD-10-PCS; principal; 2018-01-15 12:29)
DX: K57.32 Diverticulitis of large intestine without perforation or abscess without bleeding (principal); N17.9 Acute kidney failure, unspecified; E66.01 Morbid (severe) obesity due to excess calories; N18.3 Chronic kidney disease, stage 3 (moderate); F31.9 Bipolar disorder, unspecified; E78.5 Hyperlipidemia, unspecified; I12.9 Hypertensive chronic kidney disease with stage 1 through stage 4 chronic kidney disease, or unspecified chronic kidney disease; Z93.2 Ileostomy status; E86.0 Dehydration
CPT/HCPCS: 80048; 85025; 85027; 88307; 94150; J0131; J0690; J0744; J1100; J1170; J1610; J1650; J1885; J2175; J2250; J2370; J2405; J3010; J7030; J7120; J8501

== ENCOUNTER 2017-12-15 03:09 | Emergency (ER) | payer MEDICAID, MEDICARE ==
[~2017-12-15] VITALS: Ht 172.7 cm; Wt 135.0 kg
[~2017-12-15 03:09] MED LIST changes: +BACL10TA PO
[2017-12-15 03:12] VITALS: BP 136/66; PULSE 98; RESP 20; TEMP 97.7; O2SAT 97
[2017-12-15] MEDS ORDERED: ACETAMINOPHEN/HYDROcodone 325 MG/5 MG TAB PO ONE (03:45)
--- NOTE | 2017-12-15 04:00 | PD ---
HPI Chief Complaint: Pain: Acute or Chronic Time Seen by Provider: 03:18 Travel History International Travel<30 days: No Contact w/Intl Traveler<30days: No Traveled to known affect area: No History of Present Illness HPI 42-year-old male presents emergency department complaining of left knee pain. It has been bothered for the past couple days. He had gout in it a couple months ago when it feels the same. States it hurts when he walks on it or bends it. He does do to have surgery for bowel resection in 2 days. History Past Medical History Narrative Medical Diverticulitis, status post rupture, with ostomy. Tetanus Vaccination: < 5 Years Influenza Vaccination: Yes Social History Alcohol Use: No Tobacco Use: No (quit) Allergies-Medications (Allergen,Severity, Reaction): Coded Allergies: acetaminophen (Unverified Allergy, Severe, Headache, 12/15/17) oxycodone (Unverified Allergy, Severe, Headache, 12/15/17) morphine (Unverified Allergy, Intermediate, Rash, 12/15/17) Reported Meds & Prescriptions Reported Meds & Active Scripts Active [place] (Hydrocodone-Acetaminophen) 7.5-325 mg Tab 2 Tab PO Q4H PRN Risperdal (Risperidone) 2 Mg Tab 2 Mg PO BID Depakote ER (Divalproex Sodium) 500 Mg Casey 500 Mg PO 2 AT HS Reported Amlodipine (Amlodipine Besylate) 5 Mg Tab 5 Mg PO DAILY Atorvastatin (Atorvastatin Calcium) 20 Mg Tab 20 Mg PO HS Remeron (Mirtazapine) 30 Mg Tab 30 Mg PO HS Review of Systems Except as stated in HPI: all other systems reviewed are Neg Physical Exam Narrative GENERAL: Well-appearing 42-year-old male, no acute distress. SKIN: Focused skin assessment warm/dry. HEAD: Atraumatic. Normocephalic. EYES: Pupils equal and round. No scleral icterus. No injection or drainage. ENT: No nasal bleeding or discharge. Mucous membranes pink and moist. NECK: Trachea midline. No JVD. CARDIOVASCULAR: Regular rate and rhythm. No murmur appreciated. RESPIRATORY: No accessory muscle use. Clear to auscultation. Breath sounds equal bilaterally. GASTROINTESTINAL: Abdomen soft, non-tender, nondistended. Hepatic and splenic margins not palpable. MUSCULOSKELETAL: No obvious deformities. Normal gross appearance of the left knee. There is no erythema or redness. There is no appreciable warmth. Patient resists range of motion some states to the pain. No other abnormality. Data Data Last Documented VS Vital Signs Date Time Temp Pulse Resp B/P (MAP) Pulse Ox O2 Delivery O2 Flow Rate FiO2 12/15/17 03:12 97.7 98 20 136/66 (89) 97 Room Air Orders Orders Acetamin-Hydrocod 325-5 Mg ([place] 5-325 (12/15/17 03:45) Knee, Complete (4vws) (12/15/17 ) [facility] Medical Decision Making Medical Screen Exam Complete: Yes Emergency Medical Condition: Yes Interpretation(s) My review of left knee x-ray: No fracture. Differential Diagnosis Knee pain, gout, arthritis, other Narrative Course Medical decision making 42-year-old man, presents with a acute left knee pain. No trauma. There is no real warmth erythema or redness. He could have some minor gout. He is very preoccupied with his pain medicine. He has multiple allergies. Will avoid NSAIDs given planned surgery. Will give Tylenol, recommend they follow up with [facility] for what safe to take with this planned surgery. Diagnosis Primary Impression: Left knee pain Additional Instructions: Use Lortab sparingly as needed for severe pain. Follow-up with Dr. Augustine on Saturday. Return to the emergency department for any new or worsening symptoms. Med/Other Pt SpecificInfo: Prescription(s) given, No Change to Meds Scripts Hydrocodone-Acetaminophen (Hydrocodone-Acetaminophen) 5-325 mg Tab 1-2 TAB PO Q6H Y for PAIN, #15 TAB 0 Refills Prov: Wilton Padilla MD 12/15/17 Disposition: 01 DISCHARGE HOME Condition: Stable Wilton Padilla MD Dec 15, 2017 04:00
[2017-12-15] MEDS ORDERED: HYDR-3516 PO (04:13)
--- NOTE | 2017-12-15 04:36 | RADRPT ---
EXAM DATE/TIME: 12/15/2017 03:38 [place] COMPARISON: No previous studies available for comparison. INDICATIONS : Pain and swelling to left knee- no known injury MEDICAL HISTORY : Hypertension. SURGICAL HISTORY : None. ENCOUNTER: Initial ACUITY: 1 day PAIN SCORE: 8/10 LOCATION: Left Knee FINDINGS: Four view examination of the left knee demonstrates no evidence of fracture or dislocation. Bony min eralization is normal. Minimal osteophyte formation in the lateral compartment. Probable small suprap atellar effusion. CONCLUSION: 1. Probable small suprapatellar joint effusion. 2. Minimal lateral compartment degenerative osteoarthritis. Bishnu Wise MD on December 15, 2017 at 4:33 Board Certified Radiologist. This report was verified electronically.
== END 2017-12-15 05:06 | disposition home or self-care (01) ==
LOC: NEPE 03:09
DX: M17.12 Unilateral primary osteoarthritis, left knee (principal); Z87.19 Personal history of other diseases of the digestive system; Z88.6 Allergy status to analgesic agent; Z88.5 Allergy status to narcotic agent; Z79.899 Other long term (current) drug therapy
CPT/HCPCS: 73564; 99283

== ENCOUNTER 2018-03-26 08:29 | Inpatient (IN) | payer MEDICARE, MEDICAID ==
[2018-03-26] MEDS ORDERED: ceFAZolin 2 GM PREMIX 50 ML IV (09:30)
[2018-03-26] MEDS ORDERED: METOPROLOL TARTRATE 25 MG TAB PO (09:30)
[2018-03-26] MEDS ORDERED: metroNIDAZOLE 500 MG INJ 100 ML IV (09:30)
[2018-03-26] MEDS: CHLORHEXIDINE GLUCONATE 2 % 1 PACK (2 CLOTHS) TOPICAL (09:40)
[2018-03-26] MEDS: ONDANSETRON HCL 4 MG/2 ML VIAL IV PUSH ×2 (09:45→21:50)
[2018-03-26] MEDS: LACTATED RINGER'S 1000 ML IV (09:45)
[2018-03-26] MEDS: SODIUM CHLORID 0.9% 500 ML IV (09:45)
[2018-03-26] MEDS: ALVIMOPAN 12 MG CAPSULE - On Call PO (09:47)
[2018-03-26] MEDS: ACETAMINOPHEN 1000 MG/100 ML 100 ML IV (09:48)
[2018-03-26] MEDS: POVIDONE IODINE 5% (ANTISEPSIS KIT) 4 APPLICATIONS EACH NARE (09:52)
[2018-03-26] MEDS: NEOSTIGMINE 5 MG/5 ML SYRINGE IV PUSH (12:00)
[2018-03-26] MEDS: GLYCOPYRROLATE 1 MG/5 ML SYRINGE IV PUSH (12:00)
[2018-03-26] MEDS: LIDOCAINE HCL 1% PF 5 ML SYRINGE OTHER (12:00)
[2018-03-26] MEDS: ROCURONIUM INJ 50 MG/5 ML SYRINGE IV PUSH (12:00)
[2018-03-26] MEDS: PHENYLEPH/NS 1000 MCG/10 ML SYR IV (12:00)
[2018-03-26] MEDS: PROPOFOL 200 MG/20 ML AMP IV (12:00)
[2018-03-26] MEDS ORDERED: BUPIVACAINE/EPINEPHRINE 0.5% PF 30 ML VIAL (13:29)
[2018-03-26] MEDS ORDERED: MAGNESIUM HYDROXIDE SUSP 30 ML CUP PO (17:15)
[2018-03-26] MEDS ORDERED: METOCLOPRAMIDE HCL 10 MG/2 ML VIAL IVS (17:15)
[2018-03-26] MEDS ORDERED: NALOXONE HCL 0.4 MG/ML AMP IV PUSH (17:15)
[2018-03-26] MEDS ORDERED: Post-op Orders (for Pharmacy) XX (17:15)
[2018-03-26] MEDS ORDERED: SODIUM CHLORIDE 0.9% FLUSH 10 ML FLUSH IV FLUSH (17:15)
[2018-03-26] MEDS ORDERED: DO NOT ADM ANY ANTICOAGULANT DRUGS (17:45)
[2018-03-26] MEDS: *HYDROmorphone PF 0.5 MG/0.5 ML PERIprocedure ONLY ×2 (17:54→18:12)
[2018-03-26] MEDS: *PROMETHAZINE 25 MG/ML VIAL PERIprocedural use ONLY (17:57)
[2018-03-26] MEDS ORDERED: MIDAZOLAM HCL 2 MG/2 ML VIAL (17:58)
[2018-03-26] MEDS: SODIUM CHLOR 0.9% 1000 ML INJ 1,000 ML IV (18:00)
[2018-03-26] MEDS: HYDROmorphone HCL PCA 6 MG/30 ML IV (18:37)
[2018-03-26] MEDS: clonazePAM 0.5 MG TAB PO (21:51)
[2018-03-26] MEDS: ATORVASTATIN 20 MG TAB PO (21:51)
[2018-03-26] MEDS: risperiDONE 1 MG TAB PO (21:51)
[2018-03-26] MEDS: MIRTAZAPINE ODT 30 MG TAB PO (21:51)
[2018-03-26] MEDS: SODIUM CHLORIDE 0.9% FLUSH 10 ML FLUSH IV FLUSH (21:57)
[2018-03-26] MEDS: metroNIDAZOLE 500 MG INJ 100 ML IV (22:41)
[2018-03-26] MEDS: PCA - TOTAL MG DILAUDID DELIVERED PER SHIFT (23:47)
[2018-03-27] MEDS: SODIUM CHLOR 0.9% 1000 ML INJ 1,000 ML IV ×3 (02:16→13:51)
[2018-03-27] MEDS: HYDROmorphone HCL PCA 6 MG/30 ML IV (03:30)
[2018-03-27] MEDS: metroNIDAZOLE 500 MG INJ 100 ML IV ×2 (06:00→13:52)
[2018-03-27] MEDS: PCA - TOTAL MG DILAUDID DELIVERED PER SHIFT ×2 (06:00→13:59)
[2018-03-27] MEDS: ALVIMOPAN 12 MG CAPSULE - Post-op dosing PO ×2 (08:36→21:41)
[2018-03-27] MEDS: DIVALPROEX SODIUM E.R. 500 MG TAB PO (08:36)
[2018-03-27] MEDS: SODIUM CHLORIDE 0.9% FLUSH 10 ML FLUSH IV FLUSH ×2 (08:36→21:43)
[2018-03-27 08:38] LABS: AUTOMATED NEUTROPHIL # 5.5 TH/MM3 (1.8-7.7); BASOPHIL % 0.2 % (0.0-2.0); EOSINOPHIL % 0.5 % (0.0-4.0); HEMATOCRIT 22.6 % (39.0-51.0); HEMO FLAGS DIFF FINAL; HEMOGLOBIN 7.6 GM/DL (13.0-17.0); LYMPH % 16.5 % (9.0-44.0); LYMPHOCYTE # 1.2 TH/MM3 (1.0-4.8); MEAN CELL VOLUME 100.5 FL (80.0-100.0); MEAN CORPUSCULAR HEMOGLOBIN 33.9 PG (27.0-34.0); MEAN CORPUSCULAR HGB CONC 33.7 % (32.0-36.0); MEAN PLATELET VOLUME 8.2 FL (7.0-11.0); MONO % 8.9 % (0.0-8.0); MONOCYTE # 0.7 TH/MM3 (0-0.9); NEUT % 73.9 % (16.0-70.0); PLATELET COUNT 166 TH/MM3 (150-450); RED BLOOD COUNT 2.25 MIL/MM3 (4.50-5.90); RED CELL DISTRIBUTION WIDTH 15.7 % (11.6-17.2); WHITE BLOOD COUNT 7.4 TH/MM3 (4.0-11.0)
[2018-03-27] MEDS: clonazePAM 0.5 MG TAB PO ×2 (08:38→21:40)
[2018-03-27] MEDS: amLODIPine BESYLATE 5 MG TAB PO (08:38)
[2018-03-27] MEDS: VALSARTAN 40 MG TAB PO (08:39)
[2018-03-27 08:59] LABS: ANION GAP 9 MEQ/L (5-15); BICARBONATE 19.5 MEQ/L (21.0-32.0); BLOOD UREA NITROGEN 64 MG/DL (7-18); CALCIUM 8.7 MG/DL (8.5-10.1); CHLORIDE 118 MEQ/L (98-107); CREATININE 4.05 MG/DL (0.60-1.30); GLOMERULAR FILTRATION RATE 16 ML/MIN (>89); GLUCOSE,RANDOM 100 MG/DL (74-106); POTASSIUM 4.9 MEQ/L (3.5-5.1); SODIUM (NA) 146 MEQ/L (136-145)
[2018-03-27] MEDS: ONDANSETRON HCL 4 MG/2 ML VIAL IV PUSH (10:16)
[2018-03-27] MEDS: HYDROmorphone HCL 2 MG TAB PO ×2 (14:45→21:40)
[2018-03-27] MEDS: ENOXAPARIN SODIUM 40 MG/0.4 ML SYRINGE SQ (16:57)
[2018-03-27] MEDS: risperiDONE 1 MG TAB PO (21:41)
[2018-03-27] MEDS: ATORVASTATIN 20 MG TAB PO (21:42)
[2018-03-27] MEDS: MIRTAZAPINE ODT 30 MG TAB PO (21:43)
[2018-03-28] MEDS: SODIUM CHLOR 0.9% 1000 ML INJ 1,000 ML IV ×4 (02:22→22:22)
[2018-03-28] MEDS: HYDROmorphone HCL 2 MG TAB PO ×3 (04:56→20:19)
[2018-03-28] MEDS: SODIUM CHLORIDE 0.9% FLUSH 10 ML FLUSH IV FLUSH ×2 (09:00→20:20)
[2018-03-28] MEDS: VALSARTAN 40 MG TAB PO (09:13)
[2018-03-28] MEDS: amLODIPine BESYLATE 5 MG TAB PO (09:14)
[2018-03-28] MEDS: DIVALPROEX SODIUM E.R. 500 MG TAB PO (09:15)
[2018-03-28] MEDS: clonazePAM 0.5 MG TAB PO ×2 (09:15→23:38)
[2018-03-28] MEDS: ALVIMOPAN 12 MG CAPSULE - Post-op dosing PO ×2 (09:15→20:20)
[2018-03-28 09:25] LABS: HEMATOCRIT 22.2 % (39.0-51.0); HEMOGLOBIN 7.6 GM/DL (13.0-17.0); MEAN CELL VOLUME 100.4 FL (80.0-100.0); MEAN CORPUSCULAR HEMOGLOBIN 34.2 PG (27.0-34.0); MEAN PLATELET VOLUME 8.2 FL (7.0-11.0); PLATELET COUNT 154 TH/MM3 (150-450); RED BLOOD COUNT 2.21 MIL/MM3 (4.50-5.90); RED CELL DISTRIBUTION WIDTH 15.8 % (11.6-17.2); REVIEW FLAG FINAL; WHITE BLOOD COUNT 6.2 TH/MM3 (4.0-11.0)
[2018-03-28] MEDS: ENOXAPARIN SODIUM 40 MG/0.4 ML SYRINGE SQ (15:06)
[2018-03-28] MEDS: MAGNESIUM HYDROXIDE SUSP 30 ML CUP PO (20:00)
[2018-03-28] MEDS: ATORVASTATIN 20 MG TAB PO (20:20)
[2018-03-28] MEDS: DOCUSATE SODIUM 100 MG CAP PO (20:20)
[2018-03-28] MEDS: risperiDONE 1 MG TAB PO (23:38)
[2018-03-28] MEDS: MIRTAZAPINE ODT 30 MG TAB PO (23:38)
[2018-03-29] MEDS: SODIUM CHLOR 0.9% 1000 ML INJ 1,000 ML IV ×3 (05:02→17:46)
[2018-03-29] MEDS: HYDROmorphone HCL 2 MG TAB PO ×2 (06:41→12:47)
[2018-03-29] MEDS: ALVIMOPAN 12 MG CAPSULE - Post-op dosing PO ×2 (09:29→20:18)
[2018-03-29] MEDS: clonazePAM 0.5 MG TAB PO ×2 (09:29→20:19)
[2018-03-29] MEDS: SODIUM CHLORIDE 0.9% FLUSH 10 ML FLUSH IV FLUSH ×2 (09:29→20:19)
[2018-03-29] MEDS: DOCUSATE SODIUM 100 MG CAP PO ×2 (09:29→20:19)
[2018-03-29] MEDS: DIVALPROEX SODIUM E.R. 500 MG TAB PO (09:29)
[2018-03-29] MEDS: amLODIPine BESYLATE 5 MG TAB PO (09:29)
[2018-03-29] MEDS: VALSARTAN 40 MG TAB PO (09:31)
[2018-03-29] MEDS ORDERED: ACETAMINOPHEN/HYDROcodone 325 MG/5 MG TAB PO (17:15)
[2018-03-29] MEDS: ENOXAPARIN SODIUM 40 MG/0.4 ML SYRINGE SQ (17:35)
[2018-03-29] MEDS: MAGNESIUM HYDROXIDE SUSP 30 ML CUP PO (20:18)
[2018-03-29] MEDS: ATORVASTATIN 20 MG TAB PO (20:18)
[2018-03-29] MEDS: risperiDONE 1 MG TAB PO (20:18)
[2018-03-29] MEDS: MIRTAZAPINE ODT 30 MG TAB PO (20:21)
[2018-03-30] MEDS: ACETAMINOPHEN/HYDROcodone 325 MG/5 MG TAB PO ×2 (00:13→08:56)
[2018-03-30] MEDS: SODIUM CHLOR 0.9% 1000 ML INJ 1,000 ML IV ×4 (01:02→19:55)
[2018-03-30] MEDS: ALVIMOPAN 12 MG CAPSULE - Post-op dosing PO ×2 (08:55→19:55)
[2018-03-30] MEDS: clonazePAM 0.5 MG TAB PO (08:55)
[2018-03-30] MEDS: VALSARTAN 40 MG TAB PO (08:55)
[2018-03-30] MEDS: DIVALPROEX SODIUM E.R. 500 MG TAB PO (08:55)
[2018-03-30] MEDS: amLODIPine BESYLATE 5 MG TAB PO (08:55)
[2018-03-30] MEDS: DOCUSATE SODIUM 100 MG CAP PO ×2 (08:55→19:54)
[2018-03-30] MEDS: SODIUM CHLORIDE 0.9% FLUSH 10 ML FLUSH IV FLUSH ×2 (08:59→19:55)
[2018-03-30] MEDS ORDERED: PILL SPLITTER OTHER (12:15)
[2018-03-30] MEDS: KETOROLAC TROMETHAMINE 10 MG TAB PO ×2 (12:37→17:05)
[2018-03-30] MEDS: ENOXAPARIN SODIUM 40 MG/0.4 ML SYRINGE SQ (17:05)
[2018-03-30] MEDS: MAGNESIUM HYDROXIDE SUSP 30 ML CUP PO (19:52)
[2018-03-30] MEDS: ATORVASTATIN 20 MG TAB PO (19:54)
[2018-03-30] MEDS: risperiDONE 1 MG TAB PO (19:54)
[2018-03-30] MEDS: MIRTAZAPINE ODT 30 MG TAB PO (19:55)
[2018-03-31] MEDS: KETOROLAC TROMETHAMINE 10 MG TAB PO ×4 (00:24→18:10)
[2018-03-31] MEDS: SODIUM CHLOR 0.9% 1000 ML INJ 1,000 ML IV ×3 (02:28→17:02)
[2018-03-31] MEDS: clonazePAM 0.5 MG TAB PO (06:00)
[2018-03-31] MEDS: ALVIMOPAN 12 MG CAPSULE - Post-op dosing PO (07:55)
[2018-03-31] MEDS: DIVALPROEX SODIUM E.R. 500 MG TAB PO (07:55)
[2018-03-31] MEDS: amLODIPine BESYLATE 5 MG TAB PO (07:55)
[2018-03-31] MEDS: VALSARTAN 40 MG TAB PO (07:55)
[2018-03-31] MEDS: DOCUSATE SODIUM 100 MG CAP PO (07:55)
[2018-03-31] MEDS: SODIUM CHLORIDE 0.9% FLUSH 10 ML FLUSH IV FLUSH (07:56)
[2018-03-31] MEDS: ENOXAPARIN SODIUM 40 MG/0.4 ML SYRINGE SQ (18:10)
== END 2018-03-31 21:24 | disposition home health service (06) | DRG 330 ==
LOC: HSDI 08:29 → N06A 19:08
PROC: 0DQB0ZZ Repair Ileum, Open Approach (ICD-10-PCS; principal; 2018-03-26 14:44)
PROC: 0WQF0ZZ Repair Abdominal Wall, Open Approach (ICD-10-PCS; 2018-03-26 14:44)
DX: Z43.2 Encounter for attention to ileostomy (principal); Z68.42 Body mass index [BMI] 45.0-49.9, adult; E66.01 Morbid (severe) obesity due to excess calories; K43.5 Parastomal hernia without obstruction or gangrene; M17.12 Unilateral primary osteoarthritis, left knee
CPT/HCPCS: 80048; 85025; 85027; 94150; 97110-GP; 97116-GP; 97163-GP